=== PATIENT | female | born 1960 | race Caucasian/White ===

== ENCOUNTER 2018-07-20 00:22 | Outpatient (CLI) | payer BC, SELFPAY ==
--- NOTE | 2018-07-20 08:17 | DI.US_ITS ---
SYMPTOMS/DIAGNOSIS: LLQ/GROIN PAIN, POSSIBLE KIDNEY STONES, ? OVARIAN CYST, R10.32 RENAL AND PELVIC ULTRASOUND: The uterus measures 5.9 cm long x 3.3 cm AP x 4.2 cm transverse. The endometrial stripe is within normal limits at .2 cm. No myometrial mass is identified. The right ovary was not visualized transabdominally or transvaginally. The left measures 1.9 x 1.2 x 1.3 cm. There is normal blood flow. No evidence of an ovarian cystic or solid mass is seen. The right kidney measures 10.4 cm. The left kidney measures 10.8 cm. No renal mass, calculus or obstruction is seen. There is normal and symmetric blood flow to the kidneys. The prevoid urinary bladder volume was 28 cc's. The patient was inadequately prepped for bladder evaluation at this time. IMPRESSION: 1. Nonvisualization of the right ovary. 2. No evidence of a pelvic mass. 3. Unremarkable renal ultrasound.
== END 2018-07-20 00:42 ==
PROVIDERS: PCP Family Medicine; Visit Provider Family Medicine
DX: R10.32 Left lower quadrant pain (principal)
CPT/HCPCS: 76770; 76830; 76856

== ENCOUNTER 2018-08-24 01:03 | Outpatient (CLI) | payer BC, SELFPAY ==
--- NOTE | 2018-08-24 09:06 | DI.RAD_ITS ---
SYMPTOM/DIAGNOSIS: LT THIGH, HIP, GROIN PAIN, ON FROLIA, M79.652 LEFT FEMUR: Four views were obtained. There are minimal degenerative changes of the hip. No other bony abnormality is seen.
== END 2018-08-24 01:23 ==
PROVIDERS: PCP Family Medicine; Visit Provider Family Medicine
DX: M79.652 Pain in left thigh (principal); M25.552 Pain in left hip; M16.12 Unilateral primary osteoarthritis, left hip
CPT/HCPCS: 73552

== ENCOUNTER 2018-09-14 16:40 | Outpatient (CLI) | payer BC, SELFPAY ==
[2018-09-14 17:00] LABS: Abs Immature Grans 0.01 k/cumm (0.0-0.09); Absolute Basophil Count 0.02 k/cumm (0.0-0.2); Absolute Eosinophil Count 0.09 k/cumm (0.0-0.7); Absolute Lymphocyte Count 2.13 k/cumm (1.2-3.4); Absolute Monocyte Count 0.69 k/cumm (0.11-0.7); Absolute Neutrophil Count 4.33 k/cumm (1.2-6.7); Basophils % 0.3; Eosinophils % 1.2; HCT 42.3 % (36.0-46.0); HGB 13.5 g/dL (12.0-15.5); Immature Grans % 0.1; Lymphocytes % 29.3; Mean Corp. HGB Concentration 31.9 g/dL (32.0-36.0); Mean Corpuscular Hemoglobin 28.6 pg (27.0-33.0); Mean Corpuscular Volume 89.6 fL (80-95); Mean Platelet Volume 11.1 fL (8.0-11.0); Monocytes % 9.5; Neutrophils % 59.6; Platelet Count 205 x1000/uL (130-400); RBC 4.72 m/cumm (4.00-5.20); White Blood Cell Count 7.27 k/cumm (4.4-10.8)
[2018-09-14 18:35] LABS: ALT 32 U/L (12-78); AST 24 U/L (15-37); Alkaline Phosphatase 104 U/L (46-116); Anion Gap 7.4 mmol/L (3-11); BUN 15 mg/dL (7-18); Bilirubin, Total 0.4 mg/dL (0.2-1.0); CO2 30.6 mmol/L (21.0-32.0); CREATININE 0.89 mg/dL (0.55-1.02); Chloride 101 mmol/L (98-107); Glucose 99 mg/dL (70-100); Potassium 4.2 mmol/L (3.5-5.1); Sodium 139 mmol/L (136-145); Total Protein 7.4 g/dL (6.4-8.2)
== END 2018-09-14 17:00 ==
PROVIDERS: Internal Medicine Hematology; PCP Family Medicine; Visit Provider Internal Medicine Medical Oncology
DX: D05.12 Intraductal carcinoma in situ of left breast (principal); C50.912 Malignant neoplasm of unspecified site of left female breast; Z17.0 Estrogen receptor positive status [ER+]; M85.80 Other specified disorders of bone density and structure, unspecified site; Z79.811 Long term (current) use of aromatase inhibitors
CPT/HCPCS: 36415; 80053; 85025

== ENCOUNTER 2018-12-03 22:17 | Emergency (ER) | payer OTHER, SELFPAY ==
[2018-12-03 22:22] VITALS: BP 139/101; PULSE 116; RESP 18; TEMP 37.2; O2SAT 96
--- NOTE | 2018-12-03 22:43 | DI.RAD_ITS ---
SYMPTOM/DIAGNOSIS: PAIN, LATERAL LOWER RIBS PA AND LATERAL CHEST: Comparison is made with 07/14/16. The heart size is normal. There is an area of consolidation seen at the right lower lobe anteriorly consistent with pneumonia. The left lung appears clear. No effusion is seen. IMPRESSION: Right lower lobe pneumonia.
--- NOTE | 2018-12-03 22:45 | W.ED.GENAD ---
Discharge Plan Disposition Patient Disposition: HOME Condition: Improving Discharge Details Chief Complaint: GenMedical Clinical Impression: Pneumonia Primary Care Provider: Kelsie Neal ED Provider: Daniel Marr Home Meds and New Rx's Prescriptions: Continued famotidine 20 MG tablet 20 mg PO BID Qty: 180 RF: 4 Prolia 60 MG/1 ML syringe 60 mg SQ [id number] RF: 0 simvastatin 20 mg tablet 20 mg PO HS Qty: 90 RF: 4 letrozole [Femara] 2.5 MG tablet 2.5 mg PO DAILY RF: 0 No Action meloxicam 15 mg tablet 15 mg PO DAILY Qty: 30 RF: 1 Discharge Instructions Instructions: Pneumonia (ED) Additional Instructions: Home to rest. Small, frequent sips of fluids to maintain hydration as we discussed. I will ask our care management team to make you a follow-up appointment in clinic for recheck. Tylenol and/or ibuprofen as needed for aches, pains, fever. Return to the emergency department for any acute concern Discharge Data Discharge Date/Time-TO BE ENTERED AT DEPARTURE: 12/04/18 01:23 Medical Decision Making <Leonel Falk MD - Last Filed: 01/01/19 21:50> 22:50 -- 58-year-old female here for the past couple days and now with right lateral lower rib pain. Saturating well no respiratory distress. Clear breath sounds bilaterally. She is tachycardic which I suspect is secondary to pain. Suspect rib contusion versus fracture. Consider pneumothorax. Plan to treat pain with Tylenol and ibuprofen. I will obtain chest x-ray. 23:25 --chest x-ray interpreted by radiology: IMPRESSION: Focal consolidation right lower lobe lung consistent with acute lobar pneumonia. Mild hazy consolidation left lower lobe lung may represent atelectasis versus early pneumonia. Consider aspiration. Atypical presentation of pneumonia. Plan to obtain lactate, cbc, blood cultures. Will give IVF bolus. <Daniel Marr MD - Last Filed: 12/04/18 01:08> Received signout from Dr. Falk. Please see his note regarding details of patient's presentation, evaluation, plan of care. Patient received a gram of ceftriaxone & approximately 1200 cc of parenteral fluid, her pulse corrected, she defervesced, and felt improved. I will prescribe her a course of outpatient oral cephalosporin. She she will follow-up with Dr. Bella in clinic this week. Return precautions discussed at the bedside prior to discharge. Lab Data Lab results reviewed: Yes I reviewed the patient's lab results. Laboratory Results - last 24 hr 12/03/18 12/03/18 12/03/18 23:06 23:35 23:35 WBC 12.30 H RBC 4.35 Hgb 12.5 Hct 38.3 MCV 88.0 MCH 28.7 MCHC 32.6 RDW 13.7 Plt Count 177 MPV 11.1 H Immature Gran % 0.2 Neutrophils % 80.7 Lymphocytes % 9.2 Monocytes % 9.5 Eosinophils % 0.3 Basophils % 0.1 Absolute Neutrophils 9.93 H Absolute Lymphocytes 1.13 L Absolute Monocytes 1.17 H Absolute Eosinophils 0.04 Absolute Basophils 0.01 Sodium Cancelled Potassium Cancelled Chloride Cancelled Carbon Dioxide Cancelled Anion Gap Cancelled BUN Cancelled Creatinine Cancelled Estimated GFR/1.73 m2 Cancelled Glucose Cancelled Lactate Calcium Cancelled Total Bilirubin Cancelled AST Cancelled ALT Cancelled Alkaline Phosphatase Cancelled Total Protein Cancelled Albumin Cancelled Urine Color Dark yellow Urine Clarity Sl cloudy Urine pH 6.5 Ur Specific [place] 1.020 Urine Protein 30 H Urine Ketones 40 H Urine Blood Trace-lysed H Urine Nitrite Negative Urine Bilirubin Small H Urine Urobilinogen >=8.0 Ur Leukocyte Esterase Trace H Urine RBC 5-10 H Urine WBC 20-50 Ur Epithelial Cells Few Urine Crystals Negative Urine Bacteria Moderate Urine Casts Negative Urine Mucus Moderate Ur Culture Indicated? Yes Urine Glucose Negative 12/04/18 12/04/18 00:10 00:10 WBC RBC Hgb Hct MCV MCH MCHC RDW Plt Count MPV Immature Gran % Neutrophils % Lymphocytes % Monocytes % Eosinophils % Basophils % Absolute Neutrophils Absolute Lymphocytes Absolute Monocytes Absolute Eosinophils Absolute Basophils Sodium 138 Potassium 3.6 Chloride 101 Carbon Dioxide 26.0 Anion Gap 11.0 BUN 13 Creatinine 0.89 Estimated GFR/1.73 m2 >= 60.00 Glucose 118 H Lactate 0.6 Calcium 8.3 L Total Bilirubin 1.2 H AST 65 H ALT 52 Alkaline Phosphatase 178 H Total Protein 7.4 Albumin 3.2 L Urine Color Urine Clarity Urine pH Ur Specific [place] Urine Protein Urine Ketones Urine Blood Urine Nitrite Urine Bilirubin Urine Urobilinogen Ur Leukocyte Esterase Urine RBC Urine WBC Ur Epithelial Cells Urine Crystals Urine Bacteria Urine Casts Urine Mucus Ur Culture Indicated? Urine Glucose HPI <Leonel Falk MD - Last Filed: 01/01/19 21:50> General Mode of arrival: ambulatory. Date/Time Provider Initiated Documentation: 12/03/18 22:29. Limitations to Documentation: no limitations. Information obtained by: patient. HPI Narrative: 58-year-old female presents with chief complaint of chest pain. Patient notes that she has had a nonproductive cough for the past couple days. She fell asleep on her couch this evening and woke up around 930 with pain in her right lateral lower ribs. Pain is severe. Pain is worse when she takes a deep breath and on palpation of her ribs. She had associated shortness of breath. No history of blood clots. She has had no recent long distance travel, no recent surgery or immobility. Related Data Home Medications Medication Instructions Recorded Confirmed letrozole [Femara] 2.5 mg PO DAILY 07/14/16 12/31/18 famotidine 20 mg PO BID #180 tab-cap 01/26/18 12/31/18 Prolia 60 mg SQ [id number] 04/19/18 12/31/18 simvastatin 20 mg tablet 20 mg PO HS #90 tab-cap 09/28/18 12/31/18 meloxicam 15 mg tablet 15 mg PO DAILY #30 tab 12/31/18 12/31/18 Previous Rx's Medication Instructions Recorded famotidine 20 mg PO BID #180 tab-cap 01/26/18 simvastatin 20 mg tablet 20 mg PO HS #90 tab-cap 09/28/18 meloxicam 15 mg tablet 15 mg PO DAILY #30 tab 12/31/18 Allergies Allergy/AdvReac Type Severity Reaction Status Date / Time Sulfa (Sulfonamide Allergy Intermediate RASH Unverified 12/31/18 08:27 Antibiotics) General Stated Complaint: GenMedical LIAT: 3 Review of Systems <Leonel Falk MD - Last Filed: 01/01/19 21:50> Review of Systems All systems reviewed & are unremarkable except as noted in HPI and below Constitutional Denies fever(s) Cardiovascular Denies dyspnea Respiratory Reports as per HPI, Reports cough and Denies dyspnea PFSH <Leonel Falk MD - Last Filed: 01/01/19 21:50> Medical History Renal stones (Chronic) Surgical History Biopsy of breast Dilation and curettage Family History Mother Essential hypertension Depression Seizure Father Heart disease Hyperlipidemia Oral cancer Alcohol abuse Sister Diabetes Essential hypertension Breast cancer Brother Alcohol abuse Essential hypertension Maternal Grandfather Lung cancer Paternal Grandfather Stomach cancer Maternal Grandmother COPD (chronic obstructive pulmonary disease) Paternal Grandmother Diabetes Essential hypertension Uterine cancer Son Heart disease Supraventricular tachycardia Son Hyperlipidemia Maternal Cousin Breast cancer Maternal Cousin Breast cancer Maternal Aunt Breast cancer Maternal Aunt Breast cancer Social History household members: spouse highest education level completed: high school graduate current occupational status: employed current occupation: [employer] pets and animals: Yes pets and animals: cat(s) what type of physical activity do you participate in: none frequency: does not exercise Smoking and Tabacco status: Never alcohol intake: current alcohol intake frequency: a few times a month substance use type: does not use diana/uatsdin: Sikh special diana needs: No Seatbelt use: always Exam <Leonel Falk MD - Last Filed: 01/01/19 21:50> Const General: cooperative, uncomfortable and no acute distress Orientation: alert and awake HENMT Head: normocephalic and atraumatic Mouth: moist mucous membranes Eyes Sclera: normal sclerae Neck Neck: trachea midline Resp Auscultation: clear to auscultation bilaterally, no rales, no rhonchi and no wheezes Cardio Jugular venous pressure: no JVD Rate: tachycardic Rhythm: regular rhythm GI Palpation: soft, not firm, no guarding, no masses, not rigid and nontender Skin General skin exam: no rashes or lesions noted Neuro General: alert, awake, oriented x3 and tone normal Extrem General: no calf tenderness bilaterally and no edema Psych Mental Status: mental status grossly normal Course <Leonel Falk MD - Last Filed: 01/01/19 21:50> Vital Signs Temperature 37.2 C 12/03/18 22:22 Pulse 116 H 12/03/18 22:22 Respiratory Rate 18 12/03/18 22:22 Blood Pressure 139/101 H 12/03/18 22:22 Pulse Oximetry 96 02/04/19 22:22 Temperature 37.2 C 12/03/18 22:22 Temperature Source Temporal Artery Scan 12/03/18 22:22 Pulse 116 H 12/03/18 22:22 Respiratory Rate 18 12/03/18 22:22 Respiratory Effort 12/03/18 22:22 Blood Pressure 139/101 H 12/03/18 22:22 Pulse Oximetry 96 12/03/18 22:22 Oxygen Delivery Method Room Air 12/03/18 22:22 Oxygen Flow Rate 0 12/03/18 22:22 Sign Out <Leonel Falk MD - Last Filed: 01/01/19 21:50> Sign Out Data: Sign Out Comment: Care signed out to Dr. Marr. Antibiotic ordered. Plan to follow-up labs, reassess patient for disposition. Last updated by Leonel Falk MD at 12/03/18 23:58
--- NOTE | 2018-12-03 22:49 | ED.GENADUL_ITS ---
Discharge Plan Disposition Patient Disposition: HOME Condition: Improving Discharge Details Chief Complaint: GenMedical Clinical Impression: Pneumonia Primary Care Provider: Kelsie Neal ED Provider: Daniel Marr Home Meds and New Rx's Prescriptions: Continued famotidine 20 MG tablet 20 mg PO BID Qty: 180 RF: 4 Prolia 60 MG/1 ML syringe 60 mg SQ [id number] RF: 0 simvastatin 20 mg tablet 20 mg PO HS Qty: 90 RF: 4 letrozole [Femara] 2.5 MG tablet 2.5 mg PO DAILY RF: 0 No Action meloxicam 15 mg tablet 15 mg PO DAILY Qty: 30 RF: 1 Discharge Instructions Instructions: Pneumonia (ED) Additional Instructions: Home to rest. Small, frequent sips of fluids to maintain hydration as we discussed. I will ask our care management team to make you a follow-up appointment in clinic for recheck. Tylenol and/or ibuprofen as needed for aches, pains, fever. Return to the emergency department for any acute concern Discharge Data Discharge Date/Time-TO BE ENTERED AT DEPARTURE: 12/04/18 01:23 Medical Decision Making <Leonel Falk MD - Last Filed: 01/01/19 21:50> 22:50 -- 58-year-old female here for the past couple days and now with right lateral lower rib pain. Saturating well no respiratory distress. Clear breath sounds bilaterally. She is tachycardic which I suspect is secondary to pain. Suspect rib contusion versus fracture. Consider pneumothorax. Plan to treat pain with Tylenol and ibuprofen. I will obtain chest x-ray. 23:25 --chest x-ray interpreted by radiology: IMPRESSION: Focal consolidation right lower lobe lung consistent with acute lobar pneumonia. Mild hazy consolidation left lower lobe lung may represent atelectasis versus early pneumonia. Consider aspiration. Atypical presentation of pneumonia. Plan to obtain lactate, cbc, blood cultures. Will give IVF bolus. <Daniel Marr MD - Last Filed: 12/04/18 01:08> Received signout from Dr. Falk. Please see his note regarding details of patient's presentation, evaluation, plan of care. Patient received a gram of ceftriaxone & approximately 1200 cc of parenteral fluid, her pulse corrected, she defervesced, and felt improved. I will prescribe her a course of outpatient oral cephalosporin. She she will follow-up with Dr. Bella in clinic this week. Return precautions discussed at the bedside prior to discharge. Lab Data Lab results reviewed: Yes I reviewed the patient's lab results. Laboratory Results - last 24 hr 12/03/18 12/03/18 12/03/18 23:06 23:35 23:35 WBC 12.30 H RBC 4.35 Hgb 12.5 Hct 38.3 MCV 88.0 MCH 28.7 MCHC 32.6 RDW 13.7 Plt Count 177 MPV 11.1 H Immature Gran % 0.2 Neutrophils % 80.7 Lymphocytes % 9.2 Monocytes % 9.5 Eosinophils % 0.3 Basophils % 0.1 Absolute Neutrophils 9.93 H Absolute Lymphocytes 1.13 L Absolute Monocytes 1.17 H Absolute Eosinophils 0.04 Absolute Basophils 0.01 Sodium Cancelled Potassium Cancelled Chloride Cancelled Carbon Dioxide Cancelled Anion Gap Cancelled BUN Cancelled Creatinine Cancelled Estimated GFR/1.73 m2 Cancelled Glucose Cancelled Lactate Calcium Cancelled Total Bilirubin Cancelled AST Cancelled ALT Cancelled Alkaline Phosphatase Cancelled Total Protein Cancelled Albumin Cancelled Urine Color Dark yellow Urine Clarity Sl cloudy Urine pH 6.5 Ur Specific [place] 1.020 Urine Protein 30 H Urine Ketones 40 H Urine Blood Trace-lysed H Urine Nitrite Negative Urine Bilirubin Small H Urine Urobilinogen >=8.0 Ur Leukocyte Esterase Trace H Urine RBC 5-10 H Urine WBC 20-50 Ur Epithelial Cells Few Urine Crystals Negative Urine Bacteria Moderate Urine Casts Negative Urine Mucus Moderate Ur Culture Indicated? Yes Urine Glucose Negative 12/04/18 12/04/18 00:10 00:10 WBC RBC Hgb Hct MCV MCH MCHC RDW Plt Count MPV Immature Gran % Neutrophils % Lymphocytes % Monocytes % Eosinophils % Basophils % Absolute Neutrophils Absolute Lymphocytes Absolute Monocytes Absolute Eosinophils Absolute Basophils Sodium 138 Potassium 3.6 Chloride 101 Carbon Dioxide 26.0 Anion Gap 11.0 BUN 13 Creatinine 0.89 Estimated GFR/1.73 m2 >= 60.00 Glucose 118 H Lactate 0.6 Calcium 8.3 L Total Bilirubin 1.2 H AST 65 H ALT 52 Alkaline Phosphatase 178 H Total Protein 7.4 Albumin 3.2 L Urine Color Urine Clarity Urine pH Ur Specific [place] Urine Protein Urine Ketones Urine Blood Urine Nitrite Urine Bilirubin Urine Urobilinogen Ur Leukocyte Esterase Urine RBC Urine WBC Ur Epithelial Cells Urine Crystals Urine Bacteria Urine Casts Urine Mucus Ur Culture Indicated? Urine Glucose HPI <Leonel Falk MD - Last Filed: 01/01/19 21:50> General Mode of arrival: ambulatory . Date/Time Provider Initiated Documentation: 12/03/18 22:29 . Limitations to Documentation: no limitations . Information obtained by: patient . HPI Narrative: 58-year-old female presents with chief complaint of chest pain. Patient notes that she has had a nonproductive cough for the past couple days. She fell asleep on her couch this evening and woke up around 930 with pain in her right lateral lower ribs. Pain is severe. Pain is worse when she takes a deep breath and on palpation of her ribs. She had associated shortness of breath. No history of blood clots. She has had no recent long distance travel, no recen t surgery or immobility. Related Data Home Medications Medication Instructions Recorded Confirmed letrozole [Femara] 2.5 mg PO DAILY 07/14/16 12/31/18 famotidine 20 mg PO BID #180 tab-cap 01/26/18 12/31/18 Prolia 60 mg SQ [id number] 04/19/18 12/31/18 simvastatin 20 mg tablet 20 mg PO HS #90 tab-cap 09/28/18 12/31/18 meloxicam 15 mg tablet 15 mg PO DAILY #30 tab 12/31/18 12/31/18 Previous Rx's Medication Instructions Recorded famotidine 20 mg PO BID #180 tab-cap 01/26/18 simvastatin 20 mg tablet 20 mg PO HS #90 tab-cap 09/28/18 meloxicam 15 mg tablet 15 mg PO DAILY #30 tab 12/31/18 Allergies Allergy/AdvReac Type Severity Reaction Status Date / Time Sulfa (Sulfonamide Allergy Intermediate RASH Unverified 12/31/18 08:27 Antibiotics) General Stated Complaint: GenMedical LIAT: 3 Review of Systems <Leonel Falk MD - Last Filed: 01/01/19 21:50> Review of Systems All systems reviewed & are unremarkable except as noted in HPI and below Constitutional Denies fever(s) Cardiovascular Denies dyspnea Respiratory Reports as per HPI, Reports cough and Denies dyspnea PFSH <Leonel Falk MD - Last Filed: 01/01/19 21:50> Medical History Renal stones (Chronic) Surgical History Biopsy of breast Dilation and curettage Family History Mother Essential hypertension Depression Seizure Father Heart disease Hyperlipidemia Oral cancer Alcohol abuse Sister Diabetes Essential hypertension Breast cancer Brother Alcohol abuse Essential hypertension Maternal Grandfather Lung cancer Paternal Grandfather Stomach cancer Maternal Grandmother COPD (chronic obstructive pulmonary disease) Paternal Grandmother Diabetes Essential hypertension Uterine cancer Son Heart disease Supraventricular tachycardia Son Hyperlipidemia Maternal Cousin Breast cancer Maternal Cousin Breast cancer Maternal Aunt Breast cancer Maternal Aunt Breast cancer Social History household members: spouse highest education level completed: high school graduate current occupational status: employed current occupation: [employer] pets and animals: Yes pets and animals: cat(s) what type of physical activity do you participate in: none frequency: does not exercise Smoking and Tabacco status: Never alcohol intake: current alcohol intake frequency: a few times a month substance use type: does not use diana/confucianism: Confucianist special diana needs: No Seatbelt use: always Exam <Leonel Falk MD - Last Filed: 01/01/19 21:50> Const General: cooperative, uncomfortable and no acute distress Orientation: alert and awake HENMT Head: normocephalic and atraumatic Mouth: moist mucous membranes Eyes Sclera: normal sclerae Neck Neck: trachea midline Resp Auscultation: clear to auscultation bilaterally, no rales, no rhonchi and no wheezes Cardio Jugular venous pressure: no JVD Rate: tachycardic Rhythm: regular rhythm GI Palpation: soft, not firm, no guarding, no masses, not rigid and nontender Skin General skin exam: no rashes or lesions noted Neuro General: alert, awake, oriented x3 and tone normal Extrem General: no calf tenderness bilaterally and no edema Psych Mental Status: mental status grossly normal Course <Leonel Falk MD - Last Filed: 01/01/19 21:50> Vital Signs Temperature 37.2 C 12/03/18 22:22 Pulse 116 H 12/03/18 22:22 Respiratory Rate 18 12/03/18 22:22 Blood Pressure 139/101 H 12/03/18 22:22 Pulse Oximetry 96 12/03/18 22:22 Temperature 37.2 C 12/03/18 22:22 Temperature Source Temporal Artery Scan 12/03/18 22:22 Pulse 116 H 12/03/18 22:22 Respiratory Rate 18 12/03/18 22:22 Respiratory Effort 12/03/18 22:22 Blood Pressure 139/101 H 12/03/18 22:22 Pulse Oximetry 96 12/03/18 22:22 Oxygen Delivery Method Room Air 12/03/18 22:22 Oxygen Flow Rate 0 12/03/18 22:22 Sign Out <Leonel Falk MD - Last Filed: 01/01/19 21:50> Sign Out Data: Sign Out Comment: Care signed out to Dr. Marr. Antibiotic ordered. Plan to follow-up labs, reassess patient for disposition. Last updated by Leonel Falk MD at 12/03/18 23:58
[2018-12-03] MEDS: Ibuprofen 600 MG TAB PO (23:00)
[2018-12-03] MEDS: Acetaminophen 325 MG TAB 650 MG PO (23:00)
--- NOTE | 2018-12-03 23:20 | DI.VRAD_ITS ---
EXAM: XR Chest, 2 Views EXAM DATE/TIME: 12/03/2018 10:44 PM CLINICAL HISTORY: 58 years old, female; Pain; Chest wall pain; Patient HX: Pain, ttp lateral lower ribs TECHNIQUE: XR of the chest, 2 views. COMPARISON: CR CHEST 2 VIEWS PA,LAT 07/14/2016 9:26 PM FINDINGS: Lungs: Focal consolidation right lower lobe lung consistent with acute lobar pneumonia. Mild hazy consolidation left lower lobe lung may represent atelectasis versus early pneumonia. Consider aspiration. The pulmonary vasculature is normal. Pleural space: There is no evidence of pneumothorax. There are no pleural effusions present. Heart/Mediastinum: The cardiac silhouette is within normal limits. The mediastinum is normal. Bones/joints: The spine, sternum, ribs, and pectoral girdles show no evidence of acute abnormality Soft tissues: There are no soft tissue masses or calcifications. IMPRESSION: Focal consolidation right lower lobe lung consistent with acute lobar pneumonia. Mild hazy consolidation left lower lobe lung may represent atelectasis versus early pneumonia. Consider aspiration. Dictated and Authenticated by: Maximo Mccauley MD. Ordering:MADISON Castaneda MD
[2018-12-03 23:27] LABS: Bilirubin Small (Negative); Blood Trace-lysed (Negative); Clarity Sl Cloudy; Glucose Negative (Negative); Ketones 40 mg/dL (Negative); Leukocyte Esterase Trace (Negative); Nitrite Negative (Negative); Urobilinogen >=8.0 EU/dL (Up TO 0.2); pH 6.5 (5-8)
[2018-12-03] MEDS: Lactated Ringers 1,000 ML 1000 ML IV (23:35)
[2018-12-03 23:42] VITALS: PULSE 103; RESP 20; TEMP 37.9; O2SAT 93
[2018-12-03 23:54] LABS: Abs Immature Grans 0.02 k/cumm (0.0-0.09); Absolute Basophil Count 0.01 k/cumm (0.0-0.2); Absolute Eosinophil Count 0.04 k/cumm (0.0-0.7); Absolute Lymphocyte Count 1.13 k/cumm (1.2-3.4); Absolute Monocyte Count 1.17 k/cumm (0.11-0.7); Absolute Neutrophil Count 9.93 k/cumm (1.2-6.7); Basophils % 0.1; Eosinophils % 0.3; HCT 38.3 % (36.0-46.0); HGB 12.5 g/dL (12.0-15.5); Immature Grans % 0.2; Lymphocytes % 9.2; Mean Corp. HGB Concentration 32.6 g/dL (32.0-36.0); Mean Corpuscular Hemoglobin 28.7 pg (27.0-33.0); Mean Platelet Volume 11.1 fL (8.0-11.0); Monocytes % 9.5; Neutrophils % 80.7; Platelet Count 177 x1000/uL (130-400); RBC 4.35 m/cumm (4.00-5.20); RBC Distribution Width 13.7 % (11.7-14.6)
[2018-12-03 23:55] LABS: Bacteria Moderate HPF (Negative); Crystals Negative HPF (Negative); Epithelial Cells Few HPF (Negative); WBC 20-50 HPF (0-5)
[2018-12-03 23:56] LABS: C & S Indicated? Yes; Casts Negative LPF (Negative); Mucus Moderate (Negative)
[2018-12-04] MEDS: Normal Saline 1,000 ML 1000 ML IV (00:14)
[2018-12-04 00:16] LABS: Lactate-non-spesis 0.6 mmol/l (0.6-1.4)
[2018-12-04 00:34] LABS: ALT 52 U/L (12-78); AST 65 U/L (15-37); Albumin 3.2 g/dL (3.4-5.0); Alkaline Phosphatase 178 U/L (46-116); BUN 13 mg/dL (7-18); Bilirubin, Total 1.2 mg/dL (0.2-1.0); CREATININE 0.89 mg/dL (0.55-1.02); Calcium 8.3 mg/dL (8.5-10.1); Chloride 101 mmol/L (98-107); Glucose 118 mg/dL (70-100); Potassium 3.6 mmol/L (3.5-5.1); Sodium 138 mmol/L (136-145); Total Protein 7.4 g/dL (6.4-8.2)
[2018-12-04 01:22] VITALS: BP 105/53; PULSE 87; RESP 18; RESP 20; TEMP 36.7; O2SAT 95
--- NOTE | 2018-12-04 09:35 | CMPROGNOTE_ITS ---
Care Management Progress Note 12/04-Dr. Marr requested assistance with a PCP (Val) f/u at the end of the week for pneumonia. Referral faxed to [facility] this .
== END 2018-12-04 01:23 | disposition home or self-care (01) ==
PROVIDERS: Student in an Organized Health Care Education/Training Program; Emergency Provider Emergency Medicine; PCP Family Medicine
DX: J18.9 Pneumonia, unspecified organism (principal)
CPT/HCPCS: 36415; 80053; 87040; 96361; 96365; 99284; 71046; 81003; 81015; 83605; 85025; 87086; J0696

== ENCOUNTER 2019-02-24 14:45 | Emergency (ER) | payer OTHER, SELFPAY ==
[2019-02-24 14:49] VITALS: BP 135/94; PULSE 87; RESP 18; TEMP 36.2; O2SAT 99
--- NOTE | 2019-02-24 15:08 | DI.RAD_ITS ---
SYMPTOMS/DIAGNOSIS: DORSAL HAND PAIN, SWELLING, ERYTHEMA, POSSIBLE CELLULITIS LEFT HAND: Three views. No priors. No bone or joint abnormality is identified. The soft tissues are unremarkable. IMPRESSION: No acute abnormality.
--- NOTE | 2019-02-24 15:20 | W.ED.GENAD ---
Discharge Plan Disposition Patient Disposition: HOME Discharge Details Chief Complaint: GenMedical Clinical Impression: Cellulitis of hand, left Primary Care Provider: Kelsie Neal ED Provider: Santos Price Home Meds and New Rx's Prescriptions: New cephalexin 500 mg capsule 500 mg PO QID 10 Days Qty: 40 RF: 0 Continued Prolia 60 MG/1 ML syringe 60 mg SQ [id number] RF: 0 simvastatin 20 mg tablet 20 mg PO HS Qty: 90 RF: 4 letrozole [Femara] 2.5 MG tablet 2.5 mg PO DAILY RF: 0 meloxicam 15 mg tablet 15 mg PO PRN PRNRF: 0 famotidine 20 MG tablet 20 mg PO DAILY RF: 0 Discharge Instructions Instructions: Cellulitis (ED) Additional Instructions: You were seen and evaluated in the emergency department today for apparent left hand cellulitis. This is an infection involving the skin. You have been given an IV dose of antibiotics here and sent home with a prescription. Please return to the emergency department tomorrow for a cellulitis recheck . Call or return sooner should you develop fever, worsening pain, worsening swelling, or significant extension of the redness. Referrals: Kelsie Neal MD [Primary Care Provider] - 1 week Discharge Data Discharge Date/Time-TO BE ENTERED AT DEPARTURE: 02/24/19 17:25 Medical Decision Making This is a nontoxic-appearing 58-year-old female presenting with apparent cellulitis involving the left dorsal hand. Symptoms have worsened over the last 30 hours. Vitals stable and is without fever here. Exam limited to pain over the area. No evidence of tenosynovitis or septic arthritis. Plain films negative for lytic bone lesions or evidence of SC air. laboratory analysis reveals a slight elevation in CRP. Normal white count. Patient given a dose of Ancef 1 g here. Discussed admission with Dr. Campos who does not feel admission is necessary at this time. He recommends a trial of p.o. antibiotics with a ED return visit and recheck tomorrow. I discussed this with the patient and she is willing to return. Return precautions discussed in detail. Plan is to send home with Keflex 500 mg every 6 hours. Lab Data Laboratory Results - last 24 hr 02/24/19 02/24/19 15:25 15:25 WBC 8.70 RBC 4.87 Hgb 13.6 Hct 42.6 MCV 87.5 MCH 27.9 MCHC 31.9 L RDW 14.5 Plt Count 240 MPV 11.0 Immature Gran % 0.2 Neutrophils % 69.2 Lymphocytes % 21.1 Monocytes % 8.9 Eosinophils % 0.5 Basophils % 0.1 Absolute Neutrophils 6.02 Absolute Lymphocytes 1.84 Absolute Monocytes 0.77 H Absolute Eosinophils 0.04 Absolute Basophils 0.01 Sodium 139 Potassium 3.8 Chloride 101 Carbon Dioxide 29.8 Anion Gap 8.2 BUN 18 Creatinine 0.98 Estimated GFR/1.73 m2 57.89 Glucose 90 Calcium 9.4 Total Bilirubin 0.8 AST 25 ALT 29 Alkaline Phosphatase 111 C-Reactive Protein 1.01 H Total Protein 8.3 H Albumin 4.2 HPI General Date/Time Provider Initiated Documentation: 02/24/19 14:47. HPI Narrative: Mrs. Harrison is a 58-year-old female with a significant past medical history of breast cancer status post left mastectomy and radiation therapy 3 years ago. She presents today with 2 days of worsening dorsal left hand pain redness and swelling. No trauma reported. She denies any fevers chills or myalgias. Pain is exacerbated with movement of the wrist and hand Related Data Home Medications Medication Instructions Recorded Confirmed letrozole [Femara] 2.5 mg PO DAILY 07/14/16 02/24/19 Prolia 60 mg SQ [id number] 04/19/18 02/24/19 simvastatin 20 mg tablet 20 mg PO HS #90 tab-cap 09/28/18 02/24/19 cephalexin 500 mg PO QID 10 Days #40 cap 02/24/19 famotidine 20 mg PO DAILY 02/24/19 02/24/19 meloxicam 15 mg PO PRN PRN 02/24/19 02/24/19 Previous Rx's Medication Instructions Recorded simvastatin 20 mg tablet 20 mg PO HS #90 tab-cap 09/28/18 cephalexin 500 mg PO QID 10 Days #40 cap 02/24/19 Allergies Allergy/AdvReac Type Severity Reaction Status Date / Time Sulfa (Sulfonamide Allergy Intermediate RASH Unverified 02/24/19 14:52 Antibiotics) General Stated Complaint: GenMedical LIAT: 3 Review of Systems Constitutional Denies body ache(s), Denies fatigue, Denies fever(s), Denies lethargy, Denies malaise and Denies night sweats Eyes Reports as per HPI ENT Denies neck pain Cardiovascular Denies chest pain, Denies pedal edema and Denies dyspnea Respiratory Denies cough and Denies dyspnea Gastrointestinal Denies nausea and Denies vomiting Genitourinary Denies dysuria and Denies flank pain Musculoskeletal Denies back pain, Denies joint swelling, Denies muscle cramps, Denies muscle weakness, Denies neck pain, Denies numbness, Denies stiffness and Denies tingling Integumentary/Breasts Reports dry skin, Denies lesions, Reports skin pain, Denies skin ulcer, Denies sores and Denies wounds Neurologic Denies focal weakness, Denies numbness and Denies tingling Endocrine Denies fatigue Hematologic/Lymphatic Denies easy bleeding, Denies easy bruising and Denies lymphadenopathy PFS Medical History Renal stones (Chronic) Surgical History Biopsy of breast Dilation and curettage Family History Mother Essential hypertension Depression Seizure Father Heart disease Hyperlipidemia Oral cancer Alcohol abuse Sister Diabetes Essential hypertension Breast cancer Brother Alcohol abuse Essential hypertension Maternal Grandfather Lung cancer Paternal Grandfather Stomach cancer Maternal Grandmother COPD (chronic obstructive pulmonary disease) Paternal Grandmother Diabetes Essential hypertension Uterine cancer Son Heart disease Supraventricular tachycardia Son Hyperlipidemia Maternal Cousin Breast cancer Maternal Cousin Breast cancer Maternal Aunt Breast cancer Maternal Aunt Breast cancer Social History Smoking/Tobacco Use Status: Never Alcohol Intake: current Alcohol Intake frequency: a few times a month Drug use: Never Substance use type: does not use Household members: spouse 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 Pets and animals: Yes Pets and animals: cat(s) What type of physical activity do you participate in: none Frequency: does not exercise Susanne/Worship: Religion Special susanne needs: No Seatbelt use: always Do you feel safe at home: Yes Do you feel safe in your relationship?: Yes Exam Const General: cooperative, healthy appearing and comfortable Nutritional Appearance: average body habitus Orientation: alert and awake HENAR Head: normal to inspection Ears: hearing grossly normal bilaterally General nose exam: external nose normal Face and sinus: normal facial exam Mouth: oral mucosae normal Eyes General: appearance normal, both eyes and all related structures Neck Neck: normal visual inspection, full ROM, no lymphadenopathy and no meningeal signs Chest Chest: normal inspection of the chest Resp Effort & Inspection: normal respiratory effort and able to speak in complete sentences Auscultation: clear to auscultation bilaterally Cardio Jugular venous pressure: no JVD Rate: regular rate and bradycardic Rhythm: regular rhythm Heart Sounds: S1 normal and S2 normal GI Inspection: normal to inspection Palpation: soft and no hepatosplenomegaly Back/Spine/Pelvis Cervical Spine: normal cervical lordosis and cervical ROM normal Skin General skin exam: elasticity normal and turgor normal Lesions: no lesions Trauma: no lacerations or abrasions Wounds: no wounds Extrem Left upper extremity: hand (Well-demarcated erythema involving the medial dorsal aspect of left hand) Details: normal capillary refill, neuromotor exam normal, neurosensory exam normal, tendon exam normal, tenderness Location: of the dorsal hand, normal ROM of fingers, warmth and swelling; no lacerations, no ecchymosis and no crepitus Course Vital Signs Temperature 36.2 C L 02/24/19 14:49 Pulse 87 02/24/19 14:49 Respiratory Rate 18 02/24/19 14:49 Blood Pressure 135/94 H 02/24/19 14:49 Pulse Oximetry 99 02/24/19 14:49 Temperature 36.2 C L 02/24/19 14:49 Temperature Source Skin 02/24/19 14:49 Pulse 87 02/24/19 14:49 Respiratory Rate 18 02/24/19 14:49 Respiratory Effort Non-Labored 02/24/19 14:59 Blood Pressure 135/94 H 02/24/19 14:49 Blood Pressure Position Sitting 02/24/19 14:49 Pulse Oximetry 99 02/24/19 14:49 Oxygen Delivery Method Room Air 02/24/19 14:49 Oxygen Flow Rate 0 02/24/19 14:49 Pain Level 5 02/24/19 14:49
--- NOTE | 2019-02-24 15:26 | ED.GENADUL_ITS ---
Discharge Plan Disposition Patient Disposition: HOME Discharge Details Chief Complaint: GenMedical Clinical Impression: Cellulitis of hand, left Primary Care Provider: Kelsie Neal ED Provider: Santos Price Home Meds and New Rx's Prescriptions: New cephalexin 500 mg capsule 500 mg PO QID 10 Days Qty: 40 RF: 0 Continued Prolia 60 MG/1 ML syringe 60 mg SQ [id number] RF: 0 simvastatin 20 mg tablet 20 mg PO HS Qty: 90 RF: 4 letrozole [Femara] 2.5 MG tablet 2.5 mg PO DAILY RF: 0 meloxicam 15 mg tablet 15 mg PO PRN PRNRF: 0 famotidine 20 MG tablet 20 mg PO DAILY RF: 0 Discharge Instructions Instructions: Cellulitis (ED) Additional Instructions: You were seen and evaluated in the emergency department today for apparent left hand cellulitis. This is an infection involving the skin. You have been given an IV dose of antibiotics here and sent home with a prescription. Please return to the emergency department tomorrow for a cellulitis recheck . Call or return sooner should you develop fever, worsening pain, worsening swelling, or significant extension of the redness. Referrals: Kelsie Neal MD [Primary Care Provider] - 1 week Discharge Data Discharge Date/Time-TO BE ENTERED AT DEPARTURE: 02/24/19 17:25 Medical Decision Making This is a nontoxic-appearing 58-year-old female presenting with apparent cellulitis involving the left dorsal hand. Symptoms have worsened over the last 30 hours. Vitals stable and is without fever here. Exam limited to pain over the area. No evidence of tenosynovitis or septic arthritis. Plain films negative for lytic bone lesions or evidence of SC air. laboratory analysis reveals a slight elevation in CRP. Normal white count. Patient given a dose of Ancef 1 g here. Discussed admission with Dr. Campos who does not feel admission is necessary at this time. He recommends a trial of p.o. antibiotics with a ED return visit and recheck tomorrow. I discussed this with the patient and she is willing to return. Return precautions discussed in detail. Plan is to send home with Keflex 500 mg every 6 hours. Lab Data Laboratory Results - last 24 hr 02/24/19 02/24/19 15:25 15:25 WBC 8.70 RBC 4.87 Hgb 13.6 Hct 42.6 MCV 87.5 MCH 27.9 MCHC 31.9 L RDW 14.5 Plt Count 240 MPV 11.0 Immature Gran % 0.2 Neutrophils % 69.2 Lymphocytes % 21.1 Monocytes % 8.9 Eosinophils % 0.5 Basophils % 0.1 Absolute Neutrophils 6.02 Absolute Lymphocytes 1.84 Absolute Monocytes 0.77 H Absolute Eosinophils 0.04 Absolute Basophils 0.01 Sodium 139 Potassium 3.8 Chloride 101 Carbon Dioxide 29.8 Anion Gap 8.2 BUN 18 Creatinine 0.98 Estimated GFR/1.73 m2 57.89 Glucose 90 Calcium 9.4 Total Bilirubin 0.8 AST 25 ALT 29 Alkaline Phosphatase 111 C-Reactive Protein 1.01 H Total Protein 8.3 H Albumin 4.2 HPI General Date/Time Provider Initiated Documentation: 02/24/19 14:47 . HPI Narrative: Mrs. Harrison is a 58-year-old female with a significant past medical history of breast cancer status post left mastectomy and radiation therapy 3 years ago. She presents today with 2 days of worsening dorsal left hand pain redness and swelling. No trauma reported. She denies any fevers chills or myalgias. Pain is exacerbated with movement of the wrist and hand Related Data Home Medications Medication Instructions Recorded Confirmed letrozole [Femara] 2.5 mg PO DAILY 07/14/16 02/24/19 Prolia 60 mg SQ [id number] 04/19/18 02/24/19 simvastatin 20 mg tablet 20 mg PO HS #90 tab-cap 09/28/18 02/24/19 cephalexin 500 mg PO QID 10 Days #40 cap 02/24/19 famotidine 20 mg PO DAILY 02/24/19 02/24/19 meloxicam 15 mg PO PRN PRN 02/24/19 02/24/19 Previous Rx's Medication Instructions Recorded simvastatin 20 mg tablet 20 mg PO HS #90 tab-cap 09/28/18 cephalexin 500 mg PO QID 10 Days #40 cap 02/24/19 Allergies Allergy/AdvReac Type Severity Reaction Status Date / Time Sulfa (Sulfonamide Allergy Intermediate RASH Unverified 02/24/19 14:52 Antibiotics) General Stated Complaint: GenMedical LIAT: 3 Review of Systems Constitutional Denies body ache(s), Denies fatigue, Denies fever(s), Denies lethargy, Denies malaise and Denies night sweats Eyes Reports as per HPI ENT Denies neck pain Cardiovascular Denies chest pain, Denies pedal edema and Denies dyspnea Respiratory Denies cough and Denies dyspnea Gastrointestinal Denies nausea and Denies vomiting Genitourinary Denies dysuria and Denies flank pain Musculoskeletal Denies back pain, Denies joint swelling, Denies muscle cramps, Denies muscle weakness, Denies neck pain, Denies numbness, Denies stiffness and Denies tingling Integumentary/Breasts Reports dry skin, Denies lesions, Reports skin pain, Denies skin ulcer, Denies sores and Denies wounds Neurologic Denies focal weakness, Denies numbness and Denies tingling Endocrine Denies fatigue Hematologic/Lymphatic Denies easy bleeding, Denies easy bruising and Denies lymphadenopathy PFS Medical History Renal stones (Chronic) Surgical History Biopsy of breast Dilation and curettage Family History Mother Essential hypertension Depression Seizure Father Heart disease Hyperlipidemia Oral cancer Alcohol abuse Sister Diabetes Essential hypertension Breast cancer Brother Alcohol abuse Essential hypertension Maternal Grandfather Lung cancer Paternal Grandfather Stomach cancer Maternal Grandmother COPD (chronic obstructive pulmonary disease) Paternal Grandmother Diabetes Essential hypertension Uterine cancer Son Heart disease Supraventricular tachycardia Son Hyperlipidemia Maternal Cousin Breast cancer Maternal Cousin Breast cancer Maternal Aunt Breast cancer Maternal Aunt Breast cancer Social History Smoking/Tobacco Use Status: Never Alcohol Intake: current Alcohol Intake frequency: a few times a month Drug use: Never Substance use type: does not use Household members: spouse 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 Pets and animals: Yes Pets and animals: cat(s) What type of physical activity do you participate in: none Frequency: does not exercise Susanne/Baptist: Moravian Special susanne needs: No Seatbelt use: always Do you feel safe at home: Yes Do you feel safe in your relationship?: Yes Exam Const General: cooperative, healthy appearing and comfortable Nutritional Appearance: average body habitus Orientation: alert and awake HENGA Head: normal to inspection Ears: hearing grossly normal bilaterally General nose exam: external nose normal Face and sinus: normal facial exam Mouth: oral mucosae normal Eyes General: appearance normal, both eyes and all related structures Neck Neck: normal visual inspection, full ROM, no lymphadenopathy and no meningeal signs Chest Chest: normal inspection of the chest Resp Effort & Inspection: normal respiratory effort and able to speak in complete sentences Auscultation: clear to auscultation bilaterally Cardio Jugular venous pressure: no JVD Rate: regular rate and bradycardic Rhythm: regular rhythm Heart Sounds: S1 normal and S2 normal GI Inspection: normal to inspection Palpation: soft and no hepatosplenomegaly Back/Spine/Pelvis Cervical Spine: normal cervical lordosis and cervical ROM normal Skin General skin exam: elasticity normal and turgor normal Lesions: no lesions Trauma: no lacerations or abrasions Wounds: no wounds Extrem Left upper extremity: hand (Well-demarcated erythema involving the medial dorsal aspect of left hand) Details: normal capillary refill, neuromotor exam normal, neurosensory exam normal, tendon exam normal, tenderness Location: of the dorsal hand, normal ROM of fingers, warmth and swelling; no lacerations, no ecchymosis and no crepitus Course Vital Signs Temperature 36.2 C L 02/24/19 14:49 Pulse 87 02/24/19 14:49 Respiratory Rate 18 02/24/19 14:49 Blood Pressure 135/94 H 02/24/19 14:49 Pulse Oximetry 99 02/24/19 14:49 Temperature 36.2 C L 02/24/19 14:49 Temperature Source Skin 02/24/19 14:49 Pulse 87 02/24/19 14:49 Respiratory Rate 18 02/24/19 14:49 Respiratory Effort Non-Labored 02/24/19 14:59 Blood Pressure 135/94 H 02/24/19 14:49 Blood Pressure Position Sitting 02/24/19 14:49 Pulse Oximetry 99 02/24/19 14:49 Oxygen Delivery Method Room Air 02/24/19 14:49 Oxygen Flow Rate 0 02/24/19 14:49 Pain Level 5 02/24/19 14:49
[2019-02-24 15:39] LABS: Abs Immature Grans 0.02 k/cumm (0.0-0.09); Absolute Basophil Count 0.01 k/cumm (0.0-0.2); Absolute Eosinophil Count 0.04 k/cumm (0.0-0.7); Absolute Lymphocyte Count 1.84 k/cumm (1.2-3.4); Absolute Monocyte Count 0.77 k/cumm (0.11-0.7); Absolute Neutrophil Count 6.02 k/cumm (1.2-6.7); Basophils % 0.1; Eosinophils % 0.5; HCT 42.6 % (36.0-46.0); HGB 13.6 g/dL (12.0-15.5); Immature Grans % 0.2; Lymphocytes % 21.1; Mean Corp. HGB Concentration 31.9 g/dL (32.0-36.0); Mean Corpuscular Hemoglobin 27.9 pg (27.0-33.0); Mean Corpuscular Volume 87.5 fL (80-95); Monocytes % 8.9; Neutrophils % 69.2; Platelet Count 240 x1000/uL (130-400); RBC 4.87 m/cumm (4.00-5.20); RBC Distribution Width 14.5 % (11.7-14.6)
[2019-02-24 15:48] LABS: ALT 29 U/L (12-78); AST 25 U/L (15-37); Albumin 4.2 g/dL (3.4-5.0); Alkaline Phosphatase 111 U/L (46-116); Anion Gap 8.2 mmol/L (3-11); BUN 18 mg/dL (7-18); Bilirubin, Total 0.8 mg/dL (0.2-1.0); C-Reactive Protein 1.01 mg/dL (0.0-0.3); CO2 29.8 mmol/L (21.0-32.0); CREATININE 0.98 mg/dL (0.55-1.02); Calcium 9.4 mg/dL (8.5-10.1); Chloride 101 mmol/L (98-107); Estimated GFR 57.89 (mL/min/1.73m2); Glucose 90 mg/dL (70-100); Potassium 3.8 mmol/L (3.5-5.1); Sodium 139 mmol/L (136-145); Total Protein 8.3 g/dL (6.4-8.2)
--- NOTE | 2019-02-24 15:51 | DI.VRAD_ITS ---
EXAM: XR Left Hand Complete, 3 or more Views EXAM DATE/TIME: 02/24/2019 3:10 PM CLINICAL HISTORY: 58 years old, female; Hand; Left; Patient HX: Non trauma, increasing pain redness and swelling since Monday TECHNIQUE: Imaging protocol: XR Left hand. Views: 3 or more views COMPARISON: No relevant prior studies available. FINDINGS: The bony structures are in anatomic alignment. No fracture is present. No radiopaque foreign body is identified. The joint spaces are well maintained. IMPRESSION: Negative exam. Dictated and Authenticated by: Unruly Arnett MD. Ordering:ANABELLA Graham MD
[2019-02-24 17:02] VITALS: BP 129/74; PULSE 84; RESP 16; TEMP 37.2; O2SAT 97
[2019-02-24] MEDS: Cephalexin 500 MG CAP 1000 MG PO (17:14)
== END 2019-02-24 17:25 | disposition home or self-care (01) ==
PROVIDERS: Emergency Provider Physician Assistant; PCP Family Medicine
DX: L03.114 Cellulitis of left upper limb (principal)
CPT/HCPCS: 80053; 96365; 99284; 73130; 85025; 86140

== ENCOUNTER 2019-02-25 09:55 | Emergency (ER) | payer OTHER, SELFPAY ==
[2019-02-25 09:59] VITALS: BP 138/74; PULSE 66; RESP 16; TEMP 36.5; O2SAT 99
--- NOTE | 2019-02-25 11:24 | W.ED.GENAD ---
Discharge Plan Disposition Patient Disposition: HOME Condition: Improving Discharge Details Chief Complaint: Recheck Clinical Impression: Cellulitis Primary Care Provider: Kelsie Neal ED Provider: Fabiano Webber Home Meds and New Rx's Prescriptions: Continued Prolia 60 MG/1 ML syringe 60 mg SQ [id number] RF: 0 simvastatin 20 mg tablet 20 mg PO HS Qty: 90 RF: 4 letrozole [Femara] 2.5 MG tablet 2.5 mg PO DAILY RF: 0 meloxicam 15 mg tablet 15 mg PO PRN PRNRF: 0 famotidine 20 MG tablet 20 mg PO DAILY RF: 0 cephalexin 500 mg capsule 500 mg PO QID 10 Days Qty: 40 RF: 0 Discharge Instructions Instructions: Cellulitis (ED) Additional Instructions: Continue to take your antibiotic as prescribed and keep your follow-up appointments as previously scheduled for tomorrow and mention to them your hand infection so they can reevaluate. Feel free to return to the emergency department for any new or worsening symptoms or further concerns. Referrals: Kelsie Neal MD [Primary Care Provider] - (As needed for reassessment) Discharge Data Discharge Date/Time-TO BE ENTERED AT DEPARTURE: 02/25/19 11:36 Medical Decision Making Patient presenting the emergency department for recheck of cellulitis. Patient states that this occurred 3 days ago and every 24 hours seem to double in size. Patient had appropriate and thorough work-up yesterday evening. Patient was given Ancef and states that she took 2 doses of Keflex before coming to the emergency department. She does state that she has noted improvement of swelling and symptoms along with being able to close hand and noticing significant decrease in pain. Physical exam shows continued erythema to the dorsal aspect of left hand that remains within the marked borders of previous cellulitis. Given that it is been less than 24 hours on antibiotics I would not expect there to be drastic improvement but given that there is no worsening symptoms, patient denies fever chills, no streaking erythema, and patient stating improvement I do not feel that anything else needs to be done at this point but for patient to continue on Keflex. Patient does state that she has follow-up appointments for other medical complaints tomorrow which I informed her she should mention to them her cellulitis for recheck purposes only but that she would not need to return to the emergency department unless worsening symptoms occurred. Return precautions were discussed. After discussion of diagnosis and plan of care patient has no further needs, questions, or concerns and states clear understanding to return to the emergency department for any worsening symptoms. HPI General Mode of arrival: ambulatory. Date/Time Provider Initiated Documentation: 02/25/19 10:03. Limitations to Documentation: no limitations. Information obtained by: patient, RN notes reviewed and old records reviewed. History of Present Illness 58 year old F presents to the emergency department with the chief complaint of Cellulitis, Quality is described as other (Denies pain), and is localized to the left and upper extremity. Patient started experiencing this day(s) (3) and it has been constant. Patient did receive the following treatments prior to arrival, other (Keflex) Related Data Home Medications Medication Instructions Recorded Confirmed letrozole [Femara] 2.5 mg PO DAILY 07/14/16 02/25/19 Prolia 60 mg SQ [id number] 04/19/18 02/24/19 simvastatin 20 mg tablet 20 mg PO HS #90 tab-cap 09/28/18 02/25/19 cephalexin 500 mg PO QID 10 Days #40 cap 02/24/19 02/25/19 famotidine 20 mg PO DAILY 02/24/19 02/25/19 meloxicam 15 mg PO PRN PRN 02/24/19 02/25/19 Previous Rx's Medication Instructions Recorded simvastatin 20 mg tablet 20 mg PO HS #90 tab-cap 09/28/18 cephalexin 500 mg PO QID 10 Days #40 cap 02/24/19 Allergies Allergy/AdvReac Type Severity Reaction Status Date / Time Sulfa (Sulfonamide Allergy Intermediate RASH Unverified 02/25/19 10:01 Antibiotics) General Stated Complaint: Recheck LIAT: 5 Review of Systems Constitutional Denies chills and Denies fever(s) Integumentary/Breasts Reports as per HPI and Reports erythema PFSH Medical History Renal stones (Chronic) Surgical History Biopsy of breast Dilation and curettage Family History Mother Essential hypertension Depression Seizure Father Heart disease Hyperlipidemia Oral cancer Alcohol abuse Sister Diabetes Essential hypertension Breast cancer Brother Alcohol abuse Essential hypertension Maternal Grandfather Lung cancer Paternal Grandfather Stomach cancer Maternal Grandmother COPD (chronic obstructive pulmonary disease) Paternal Grandmother Diabetes Essential hypertension Uterine cancer Son Heart disease Supraventricular tachycardia Son Hyperlipidemia Maternal Cousin Breast cancer Maternal Cousin Breast cancer Maternal Aunt Breast cancer Maternal Aunt Breast cancer Social History Smoking/Tobacco Use Status: Never Alcohol Intake: current Alcohol Intake frequency: a few times a month Drug use: Never Substance use type: does not use Household members: spouse 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 Pets and animals: Yes Pets and animals: cat(s) What type of physical activity do you participate in: none Frequency: does not exercise Susanne/Mormon: Confucianism Special susanne needs: No Seatbelt use: always Do you feel safe at home: Yes Do you feel safe in your relationship?: Yes Exam Const General: cooperative, no acute distress and not ill appearing Orientation: alert, awake and oriented x3 Resp Effort & Inspection: normal respiratory effort, able to speak in complete sentences and no respiratory distress Skin General skin exam: erythema (On dorsal aspect of left hand) Neuro General: alert, awake and oriented x3 Course Vital Signs Temperature 36.5 C 02/25/19 09:59 Pulse 66 02/25/19 09:59 Respiratory Rate 16 02/25/19 09:59 Blood Pressure 138/74 02/25/19 09:59 Pulse Oximetry 99 02/25/19 09:59 Temperature 36.5 C 02/25/19 09:59 Temperature Source Skin 02/25/19 09:59 Pulse 66 02/25/19 09:59 Respiratory Rate 16 02/25/19 09:59 Respiratory Effort Non-Labored 02/25/19 09:59 Blood Pressure 138/74 02/25/19 09:59 Blood Pressure Position Sitting 02/25/19 09:59 Pulse Oximetry 99 02/25/19 09:59 Oxygen Delivery Method Room Air 02/25/19 09:59 Oxygen Flow Rate 0 02/25/19 09:59 Pain Level 0 02/25/19 09:59
== END 2019-02-25 11:36 | disposition home or self-care (01) ==
PROVIDERS: Emergency Provider Nurse Practitioner Family; PCP Family Medicine
DX: L03.114 Cellulitis of left upper limb (principal)
CPT/HCPCS: 99281

== ENCOUNTER 2019-07-22 10:09 | Outpatient (CLI) | payer OTHER, SELFPAY ==
[2019-07-22 13:36] LABS: Calculated LDL 141 mg/dL; Cholesterol 238 mg/dL (50-200); HDL Cholesterol 75 mg/dL (40-60); Triglyceride 113 mg/dL (30-150)
== END 2019-07-22 10:29 ==
PROVIDERS: PCP Family Medicine; Visit Provider Family Medicine
DX: E78.5 Hyperlipidemia, unspecified (principal)
CPT/HCPCS: 36415; 80061

== ENCOUNTER 2019-07-25 10:42 | Outpatient (REF) | payer OTHER, SELFPAY ==
--- NOTE | 2019-07-25 10:30 | PAPFT_PTH ---
PATIENT: Tanika Harrison LOC: [facility] U#:[id number] AGE/SX: 59/F ROOM: RE07/25/[address]: TOSHA Gibbons : 1960 BED: DIS: 07/25/2019 SPEC #: [id number] RECD: 07/25/19 18:16 STATUS: TAMEKA REQ #: [id number] JANINE: 07/25/19 10:[address]: Meagan Marley DEPT: [facility] Cytology RECD BY: Shruthi Keating ENTERED: 07/25/19 18:16 SP TYPE: PAPFT MALICK DR: Kelsie Neal MD Tissues: 1 - CX/ENDOCX FOR PAP SMEARS Procedures: PAP THIN PREP/U[facility] Screening HPV DNA PROBE Comments: [id number]
== END 2019-07-25 11:02 ==
LOC: LBN 10:42
PROVIDERS: PCP Family Medicine; Visit Provider Nurse Practitioner Family
DX: Z12.4 Encounter for screening for malignant neoplasm of cervix (principal); Z11.51 Encounter for screening for human papillomavirus (HPV)
CPT/HCPCS: 88142; 87624

== ENCOUNTER 2020-12-07 03:22 | Outpatient (CLI) | payer OTHER, SELFPAY ==
[2020-12-07 13:19] LABS: Hemoglobin A1C 5.6 % (<5.7)
[2020-12-07 13:46] LABS: Anion Gap 9.3 mmol/L (3-11); BUN 14 mg/dL (7-18); CO2 28.7 mmol/L (21.0-32.0); CREATININE 0.8 mg/dL (0.55-1.02); Calcium 9.4 mg/dL (8.5-10.1); Calculated LDL 130 mg/dL (<100); Chloride 105 mmol/L (98-107); Cholesterol 231 mg/dL (<200); Glucose 91 mg/dL (74-106); HDL Cholesterol 84 mg/dL (40-60); Potassium 4.3 mmol/L (3.5-5.1); Sodium 143 mmol/L (136-145); Triglyceride 85 mg/dL (<150)
== END 2020-12-07 03:23 | disposition home or self-care (01) ==
LOC: LBO 03:22
PROVIDERS: PCP Family Medicine; Visit Provider Nurse Practitioner Family
DX: E78.5 Hyperlipidemia, unspecified (principal)
CPT/HCPCS: 36415; 80048; 80061; 83036

== ENCOUNTER 2021-08-19 15:23 | Emergency (ER) | payer OTHER, SELFPAY ==
[2021-08-19] VITALS (14 sets, daily range): BP systolic 103–148; BP diastolic 70–95; PULSE 74–87; RESP 18–24; TEMP 36.8; O2SAT 97–100
--- NOTE | 2021-08-19 16:04 | ED.GENADUL_ITS ---
Discharge Plan Disposition Patient Disposition: HOME Condition: Stable Discharge Details Clinical Impression: Rectal bleeding Primary Care Provider: Ben Qureshi ED Provider: Miguel Avila Home Meds and New Rx's Prescriptions: Continued simvastatin 20 mg tablet 20 mg PO HS Qty: 90 RF: 4 famotidine 20 mg tablet 20 mg PO DAILY Qty: 90 RF: 4 Discharge Instructions Additional Instructions: your blood work and cat scan did not show any concerning findings at this time, you had a normal blood cell count you had no blood on exam here I have placed a referral to see general surgery, you should be contacted with an appointment if you feel more ill, have severe abdominal pain, difficulty breathing, general fatigue, or chest pain/pressure return to the emergency department Medical Decision Making 61 yo female with hx of gerd, hld, diverticulosis of colon who has had blood bowel movements since yesterday. She denies any symptoms to suggest anemia such as dyspnea, weakness, chest pain and denies having this issue in the past. On exam she is in no distress. She has no abdominal tenderness on exam and appears well systemically. She has normal external rectal exam with nusre professor of law present and no internal palpable abnormalities and when gloved finger removed no blood or feces seen. Given her symptoms will obtain cbc, coags and cta to evaluate for obvious radiographic source for her lower gi bleed pt's labs unremarkble and cta unremarkable, remains stable without bleeding here. Discussed with her and given her reassuring workup here with no blood on exam and reassuring cbc do not feel she requires inpatient workup for this. She is comfortable with outpatient workup and will refer to general surgery mauri for evaluation for possible colonoscopy. Discussed at length with patient return precautions Differential Diagnosis Differential Diagnosis: diverticulitis, avm, tumor Imaging Data Radiologic Study: Attestation: I personally reviewed and interpreted this imaging study as follows: Imaging: CT Scan Radiologist's impression: IMPRESSION: No evidence to suggest active hemorrhage. No definite acute abnormality seen. New lines there is diverticulosis without acute diverticulitis. Moderate fecal retention pattern. No abnormal bowel distention or wall thickening. Lab Data Lab results reviewed: Yes I reviewed the patient's lab results. HPI General Mode of arrival: ambulatory . Date/Time Provider Initiated Documentation: 08/19/21 15:42 . Limitations to Documentation: no limitations . Information obtained by: patient . History of Present Illness 61 year old F presents to the emergency department with the chief complaint of bright red blood per rectum, described as moderate, Patient reports no radiation. and it has been constant. No relieving factors improve symptom(s), No exacerbating factors reported . Patient notes no other symptoms.. Patient did receive the following treatments prior to arrival, none Related Data Home Medications Medication Instructions Recorded Confirmed famotidine 20 mg tablet 20 mg PO DAILY #90 tab 10/22/20 08/19/21 simvastatin 20 mg tablet 20 mg PO HS #90 tab-cap 12/03/20 08/19/21 Previous Rx's Medication Instructions Recorded famotidine 20 mg tablet 20 mg PO DAILY #90 tab 10/22/20 simvastatin 20 mg tablet 20 mg PO HS #90 tab-cap 12/03/20 Allergies Allergy/AdvReac Type Severity Reaction Status Date / Time Sulfa (Sulfonamide Allergy Intermediate RASH Verified 08/19/21 15:44 Antibiotics) General Stated Complaint: GI Bleed LIAT: 3 Review of Systems All systems reviewed & are unremarkable except as noted in HPI and below Constitutional Constitutional: Denies chills, Denies fever(s) and Denies weakness Cardiovascular Cardiovascular: Denies chest pain and Denies dyspnea Respiratory Respiratory: Denies cough and Denies dyspnea Gastrointestinal Gastrointestinal: Denies abdominal pain, Denies nausea and Denies vomiting Musculoskeletal Musculoskeletal: Denies joint swelling Neurologic Neurologic: Denies weakness Psychiatric Psychiatric: Denies depression [facility] Medical History (Updated 08/19/21 @ 17:54 by Miguel Avila MD) Chronic cough Respiratory workup benign, inhalers did not make a difference Diverticulosis of colon Generalized anxiety disorder GERD (gastroesophageal reflux disease) Hiatal hernia Malignant neoplasm of left female breast (2014) IDC diagnosed 08/2015 s/p lumpectomy, radiation. 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 Surgical History S/P dilation and curettage Status post left breast lumpectomy Family History Mother Essential hypertension Depression Seizure Father , At 51 from [place], oral cancer Heart disease Hyperlipidemia Oral cancer Alcohol abuse Hypertension Sister Diabetes Breast cancer Depression Hypertension Brother Alcohol abuse Hypertension Maternal Grandfather , AGE 66 Lung cancer Paternal Grandfather , AGE 72 Stomach cancer Maternal Grandmother , AGE 82 COPD (chronic obstructive pulmonary disease) Hypertension Paternal Grandmother , AGE 63 Diabetes Essential hypertension Uterine cancer Ovarian cancer Son Supraventricular tachycardia Hyperlipidemia Son No problems noted. 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 Pets and animals: Yes Pets and animals: cat(s) Sexually active: Yes Do you think of yourself as: straight/heterosexual Current gender identity: female What is your relationship status?: How often do you talk on the phone with friends or family?: three or more times per week How often do you get together with friends or relatives?: once per week How often do you attend rastafarian or alevism services?: decline to answer Do you belong to any clubs or organized social groups?: yes Panel score (0-1 are the most socially isolated patients): 3 What type of physical activity do you participate in: decline to answer Duration: decline to answer Frequency: decline to answer Susanne/Pentecostal: [employer] Special susanne needs: No Seatbelt use: always Helmet use: Yes Helmet use: always Drive intox or ride w/intox shuttle driver: No Do you feel safe at home: Yes Do you feel safe in your relationship?: Yes Female Reproductive History Menstrual Menopause type: natural History History 2 Para 2 Hx # Term Pregnancies Multiple births Hx # Pregnancies Ectopic pregnancies AB induced Hx Number of Living Children AB spontaneous Exam Const General: no acute distress Orientation: alert HENMT Head: normal to inspection Ears: external ears normal General nose exam: external nose normal Mouth: moist mucous membranes Eyes General: appearance normal, both eyes and all related structures Neck Neck: normal visual inspection Resp Effort & Inspection: normal respiratory effort and able to speak in complete sentences Cardio Rate: regular rate GI Palpation: soft and nontender Skin General skin exam: no rashes or lesions noted Neuro General: patient alert and patient oriented x3 Extrem General: normal to inspection Psych Mental Status: mental status grossly normal Course Vital Signs Vital signs: Vital Signs Temperature 36.8 C 08/19/21 15:33 Pulse 80 08/19/21 15:33 Respiratory Rate 18 08/19/21 15:33 Blood Pressure 148/95 H 08/19/21 15:33 Pulse Oximetry 98 08/19/21 15:33 Temperature 36.8 C 08/19/21 15:33 Temperature Source Temporal Artery Scan 08/19/21 15:33 Pulse 80 08/19/21 15:33 Respiratory Rate 18 08/19/21 15:33 Respiratory Effort Non-Labored 08/19/21 15:37 Blood Pressure 148/95 H 08/19/21 15:33 Blood Pressure Position Sitting 08/19/21 15:33 Pulse Oximetry 98 08/19/21 15:33 Oxygen Delivery Method Room Air 08/19/21 15:33 Oxygen Flow Rate 0 08/19/21 15:33 PAWSS Have you Been Recently Intoxicated or Drunk Within the Last 30 days?: No Have you Ever Experienced Previous Episodes of Alcohol Withdrawal?: No Have you ever Experienced Withdrawal Seizures?: No Have you ever Experienced Delirium Tremens(DT)s?: No Have you ever undergone Alcohol Rehabilitation Treatment (i.e, inpt ot outpatient treatment programs)?: No Have you ever Experienced Blackouts?: No Have you ever Combined Alcohol with other Downers within the last 90 days?: No Have you ever Combined Alcohol with any other Substance of Abuse during the last 90 days?: No Positive Blood Alcohol level on Presentation? [PCS.BAL]: No Evidence of Increased Autonomic Activity (i.e. HR>120, tremor, sweating, agitation, nausea)?: No Result: 0
[2021-08-19 16:15] LABS: Source Nasal/Nares
[2021-08-19 16:16] LABS: Abs Immature Grans 0.02 10^3/uL (0.0-0.06); Absolute Basophil Count 0.03 10^3/uL (0.0-0.2); Absolute Eosinophil Count 0.11 10^3/uL (0.0-0.7); Absolute Lymphocyte Count 1.79 10^3/uL (1.2-3.4); Absolute Monocyte Count 0.75 10^3/uL (0.1-0.8); Absolute Neutrophil Count 5.19 10^3/uL (1.2-6.7); Basophils % 0.4; Eosinophils % 1.4; HCT 44.2 % (36.0-46.0); HGB 13.9 g/dL (11.2-15.7); Immature Grans % 0.3; Lymphocytes % 22.7; MCH 27.6 pg (27.0-33.0); MCHC 31.4 % (32.0-36.0); MCV 87.7 fL (80-95); Monocytes % 9.5; Neutrophils % 65.7; Nucleated RBC 0 %; Platelet Count 234 10^3/uL (130-400); RBC 5.04 10^6/uL (3.93-5.22); RDW 13.6 % (11.7-14.6); RDW-SD 43.9 fL; WBC 7.89 10^3/uL (4.4-10.8)
[2021-08-19 16:31] LABS: PTT Activated 25.4 sec (21.0-27.5); Prothrombin Time 9.9 sec (9.3-11.0)
[2021-08-19 16:33] LABS: ALT 24 U/L (14-59); AST 21 U/L (15-37); Albumin 4.2 g/dL (3.4-5.0); Alkaline Phosphatase 170 U/L (46-116); Anion Gap 7.1 mmol/L (3-11); BUN 18 mg/dL (7-18); Bilirubin, Total 0.8 mg/dL (0.2-1.0); CO2 30.9 mmol/L (21.0-32.0); CREATININE 0.9 mg/dL (0.55-1.02); Calcium 9.1 mg/dL (8.5-10.1); Chloride 103 mmol/L (98-107); Glucose 89 mg/dL (74-106); Potassium 3.8 mmol/L (3.5-5.1); Sodium 141 mmol/L (136-145); Total Protein 8.3 g/dL (6.4-8.2)
[2021-08-19 17:12] LABS: COVID-19 PCR Negative (Negative)
--- NOTE | 2021-08-19 17:15 | DI.CT_ITS ---
Exam(s) CT ABDOMEN PELVIS CTA EXAM: CT ABDOMEN PELVIS CTA CLINICAL HISTORY: lower gi bleed. TECHNIQUE: Imaging Protocol: Axial CT angiography was performed with multi-slice acquisition and m ulti-planar and/or 3D reconstructions. CONTRAST MATERIAL: Intravenous: Omnipaque 350 Contrast volume:100 mL Oral: No COMPARISON: CT ABD/PELVIS WO W CONTRAST from 01/01/2018 FINDINGS: ABDOMEN AND PELVIS: Abdomen: Celiac axis/mesenteric arteries: No evidence of occlusion or significant stenosis. Renal Arteries: No evidence of occlusion or significant stenosis. There is a single renal artery perf using each kidney. Aorta: No evidence of occlusion or significant stenosis. No aneurysm or dissection. Atherosclerosis. Pelvis: Iliac Arteries: No evidence of occlusion or significant stenosis. Common Femoral Arteries: No evidence of occlusion or significant stenosis. ABDOMEN: Lung bases: There is a large hiatal hernia. There are stable pulmonary nodules in the lower lobes. The largest is incompletely imaged in the anterior aspect of the right lower lobe measures 0.8 cm. Liver: Normal density. No measurable mass. Portal, Superior Mesenteric, and Splenic Veins: Unremarkable. Gallbladder and Biliary Tract: No radiodense calculus or dilation. Pancreas: Normal density, no abnormal calcifications or inflammatory process. Spleen: Normal. Adrenals: No masses seen. Kidneys: Normal size, contour and axis. No radiodense stones or obstructive uropathy. No masses seen. Bowel: No obstruction or bowel wall thickening. Appendix is unremarkable. There is extensive divertic ulosis throughout the colon, but no evidence of acute diverticulitis. There is a moderate amount of stool throughout the colon. Peritoneal Cavity: No ascites, collection or mesenteric inflammatory response. No free air. Lymph Nodes: Within normal limits. Bones: Unremarkable. Soft Tissues: Unremarkable. PELVIS: Bladder: Symmetric distention, no gross wall thickening. Reproductive Organs: Unremarkable as visualized. Lymph Nodes: Within normal limits. Bones: Within normal limits. IMPRESSION: 1. No evidence of occlusion or significant arterial stenosis. 2. No evidence of active bleeding. 3. Stable pulmonary nodules. 4. Moderate amount of retained stool throughout the colon. RADIATION DOSE DELIVERED: 789.53mGy.cm Total DLP DATA REPOSITORY: All CT scans at this facility are submitted to the National Radiology Data Registry (NRDR) Dose Index Registry (DIR) with the [employer] (ACR). RADIATION OPTIMIZATION: All CT scans at this facility use at least one of these dose optimization te chniques: automated exposure control; mA and/or kV adjustment per patient size (includes targeted exa ms where dose is matched to clinical indication); or iterative reconstruction.
--- NOTE | 2021-08-19 17:17 | NUR.NOTE ---
Returns from DI. Warm blanket provided. Call light in reach.Nursing Note:
[2021-08-19] MEDS: Omnipaque 350 MG/ML 100 ML BTL IJ (17:18)
[2021-08-19] MEDS: Normal Saline - Diluent 50 ML VIAL IV (17:19)
--- NOTE | 2021-08-19 17:34 | DI.VRAD_ITS ---
PROCEDURE INFORMATION: Exam: CT Angiography Abdomen and Pelvis With Contrast, GI Bleeding Exam date and time: 08/19/2021 4:14 PM Age: 61 years old Clinical indication: Patient HX: Lower gi bleed. Rectal bleeding TECHNIQUE: Imaging protocol: Computed tomographic angiography of the abdomen and pelvis with contrast. 3D rendering (Not supervised by radiologist): MIP and/or 3D reconstructed images were created by the technologist. Radiation optimization: All CT scans at this facility use at least one of these dose optimization techniques: automated exposure control; mA and/or kV adjustment per patient size (includes targeted exams where dose is matched to clinical indication); or iterative reconstruction. Contrast material: OMNI-PAQUE 350; Contrast volume: 100 ml; Contrast route: IV; COMPARISON: CT ABD/PELVIS WO W CONTRAST 01/01/2018 2:06 PM FINDINGS: Lungs: Previously seen bilateral lower lobe nodules, incompletely imaged on the right, not significantly changed allowing for slight technical differences. Mediastinal space: Moderate-sized hiatal hernia is unchanged. Aorta: No aortic aneurysm. No aortic dissection. Celiac trunk and mesenteric arteries: No occlusion or significant stenosis. Renal arteries: No occlusion or significant stenosis. Right iliac arteries: No occlusion or significant stenosis. Left iliac arteries: No occlusion or significant stenosis. Liver: No mass. Gallbladder and bile ducts: Unremarkable. No calcified stones. No ductal dilation. Pancreas: Unremarkable. No mass. No ductal dilation. Spleen: Heterogeneous splenic enhancement consistent with dynamic bolus. Adrenal glands: Normal. No mass. Kidneys and ureters: Unremarkable. No solid mass. No hydronephrosis. Stomach and bowel: Unremarkable. No active gastrointestinal bleeding. No obstruction. No mucosal thickening. Appendix: No evidence of appendicitis. Intraperitoneal space: Unremarkable. No free air. No significant fluid collection. Lymph nodes: Unremarkable. No enlarged lymph nodes. Urinary bladder: The bladder is not well distended. Reproductive: Unremarkable as visualized. Bones/joints: No acute fracture. No dislocation. Soft tissues: Unremarkable. IMPRESSION: No evidence to suggest active hemorrhage. No definite acute abnormality seen. New lines there is diverticulosis without acute diverticulitis. Moderate fecal retention pattern. No abnormal bowel distention or wall thickening. Dictated and Authenticated by: Irina Clemons MD. Ordering:JAE Rivera MD
--- NOTE | 2021-08-19 17:55 | NUR.NOTE ---
Nursing Note: [facility] lower [facility] bleed, EDILBERTO Fox
== END 2021-08-19 18:13 | disposition home or self-care (01) ==
PROVIDERS: Emergency Provider Emergency Medicine; PCP Family Medicine
DX: K62.5 Hemorrhage of anus and rectum (principal)
CPT/HCPCS: 36415; 80053; 86850; 86900; 86901; 87635; 99285; 74174; 85025; 85610; 85730; 99284; J3490

== ENCOUNTER 2021-09-29 02:17 | Outpatient (CLI) | payer OTHER, SELFPAY ==
[2021-09-29 12:19] LABS: Source Nasal/Nares
[2021-09-29 21:48] LABS: COVID-19 PCR Negative (Negative)
== END 2021-09-29 02:18 | disposition home or self-care (01) ==
LOC: LBO 02:17
PROVIDERS: PCP Family Medicine; Visit Provider Surgery
DX: Z20.822 Contact with and (suspected) exposure to COVID-19 (principal)
CPT/HCPCS: 87635

== ENCOUNTER 2021-10-01 10:08 | Day surgery (SDC) | payer OTHER, SELFPAY ==
--- NOTE | 2021-09-30 17:23 | DSE_ITS ---
Date of service: 10/01/21 DS: Diagnosis Discharge Diagnosis (1) Rectal bleeding: Status: Deleted (2) History of left breast cancer: Status: Inactive (3) GERD (gastroesophageal reflux disease): Status: Chronic (4) Hyperlipidemia: Status: Acute (5) Hiatal hernia: Status: Chronic (6) Diverticulosis of colon: Status: Chronic (7) Acute anal fissure: Status: Acute Discharge Plan Disposition Patient Disposition: HOME Condition: Good Discharge Details Reason For Visit: colon scope Attending Provider: Nahomy Morrissey Primary Care Provider: Ben Qureshi Home Meds and New Rx's Prescriptions: Continued simvastatin 20 mg tablet 20 mg PO HS Qty: 90 RF: 4 famotidine 20 mg tablet 20 mg PO DAILY Qty: 90 RF: 4 Discontinued polyethylene glycol 3350 17 gram/dose powder 238 g PO ONCE Qty: 238 RF: 0 bisacodyl [Dulcolax (bisacodyl)] 5 mg tablet,delayed release (DR/EC) 5 mg PO ONCE Qty: 4 RF: 0 Discharge Instructions Additional Instructions: DSU Colonoscopy Post- Op Instructions Instructions for Everyone who is given Anesthesia: For your safety, please do the following for the next twenty-four (24) hours: *Do Not operate a motor vehicle (car, truck, motorcycle, etc.) *Do Not drink alcoholic beverages or use any recreational drugs for the first 24 hours or while taking pain medications. The medications in your body may have a reaction that can be dangerous. *Do Not make any important decisions or sign any important papers. Findings:severe diverticular disease throughout the entire colon no polyps anal fissure Fiber daily. Make sure you are not constipated or straining to move your bowels. Follow up: repeat scope in 10 yrs time 1. No lifting over 20 pounds or strenuous activity for the first 24 hours after your procedure. After 24 hours there are no restrictions on your activity but you may feel fatigued for a few days. 2. After you arrive home you may have a light meal and return to your normal diet as you can tolerate it without feeling sick to your stomach. 3. You may have a bloated, gaseous feeling in your belly (abdomen) after a colonoscopy. Passing gas and belching will help. Walking or lying down on your left side with your knees flexed may relieve the discomfort. Call the office at [phone] (Office) or [phone] (Hospital) right away if you notice any of the following: a.Vomiting of blood or ?coffee ground stools?. b.Rectal bleeding 1Tbsp, blood clots or continuous bleeding. c.Severe belly (abdominal) pain. d.A hard distended belly (abdomen) and an inability to pass gas. 4. Please don?t expect to have a normal BM (bowel movement) for 2-3 days after your procedure. 5. If there are questions regarding the findings of your procedure, please contact your doctor 6. If you are unable to contact your doctor with a problem, contact the hospital at [phone]. 7. Continue all your regular medications unless directed otherwise. I understand the above instructions and have no questions. Signature of Patient or Adult Escort Name of Responsible Adult Escort Signature of Nurse Date/Time Activity:: see above Diet:: see above Discharge Orders Discharge Orders: Discharge Order (Routine); Ordered 09/30/21 Ordered By: Nahomy Morrissey DS: Data Vitals/I&O Vitals and I&O: Intake & Output 09/29/21 09/30/2121 23:59 11:59 23:59 Weight 83.121 kg PENDING SALE TO [facility] Active Problem List (Updated 10/01/21 @ 11:16 by Nahomy Morrissey DO) Acute anal fissure (Acute) GERD (gastroesophageal reflux disease) (Chronic) Hyperlipidemia (Acute) Generalized anxiety disorder (Acute) Hiatal hernia (Chronic) Osteopenia (Chronic) Chronic cough (Chronic) Diverticulosis of colon (Chronic) Atypical chest pain (Acute) Medical History (Updated 10/01/21 @ 11:16 by Nahomy Morrissey DO) Malignant neoplasm of left female breast (2014) IDC diagnosed 08/2015 s/p lumpectomy, radiation. [place] Femara through [facility] [place] Oncology Renal calculi Squamous cell carcinoma of skin of left upper arm Surgical History S/P dilation and curettage Status post left breast lumpectomy Family History Mother Essential hypertension Depression Seizure Father , At 51 from [place], oral cancer Heart disease Hyperlipidemia Oral cancer Alcohol abuse Hypertension Sister Diabetes Breast cancer Depression Hypertension Brother Alcohol abuse Hypertension Maternal Grandfather , AGE 66 Lung cancer Paternal Grandfather , AGE 72 Stomach cancer Maternal Grandmother , AGE 82 COPD (chronic obstructive pulmonary disease) Hypertension Paternal Grandmother , AGE 63 Diabetes Essential hypertension Uterine cancer Ovarian cancer Son Supraventricular tachycardia Hyperlipidemia Son No problems noted. 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 Pets and animals: Yes Pets and animals: cat(s) Sexually active: Yes Do you think of yourself as: straight/heterosexual Current gender identity: female What is your relationship status?: How often do you talk on the phone with friends or family?: three or more times per week How often do you get together with friends or relatives?: once per week How often do you attend religious or mormonism services?: decline to answer Do you belong to any clubs or organized social groups?: yes Panel score (0-1 are the most socially isolated patients): 3 What type of physical activity do you participate in: decline to answer Duration: decline to answer Frequency: decline to answer Susanne/Pentecostalism: Lutheran Special susanne needs: No Seatbelt use: always Helmet use: Yes Helmet use: always Drive intox or ride w/intox 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
--- NOTE | 2021-09-30 17:25 | COLE_ITS ---
Colonoscopy Report Date of procedure: 10/01/21 Pre-op diagnosis general: rectal bleeding/hx of divertic Post-op diagnosis procedure note: other (anal fissure) Surgeon: Nahomy Morrissey Anesthesia Type: General:No Airway Estimated blood loss (mL): 0 Pathology: none sent Complications: None Disposition: same day Prep: Miralax/Dulcolax Retraction Time: 8 Procedure Description: After informed consent was obtained the patient was taken to the procedure room and placed in a left decubitous position. Monitors were applied and a time out was done. The patients name, date of , procedure, allergies to medications and metal in their body was reviewed. The patient was then sedated. Once sedated and comfortable a rectal exam was done. External exam revealed a anal fissure at the 12 o'clock position. It is approximately 80% healed at this point. Internal exam revealed a normal sphincter tone and no palpable masses. The scope was then introduced and retrofelexed. grade Ix1 internal hemorrhoids were identified. The scope could not be advanced into the cecum, after multiple maneuvers and attempts. I could see into the cecum. There is no fluid in the cecum. There is no masses visualized. Given the severity of the diverticula that did extend all the way over to the right colon I did not think it was routed to try. The procedure was ended the ileocecal valve. The TI and appendiceal orifice were identified. The prep was good. The scope was then slowly retracted over 8 minutes back into the rectum. She does have severe diverticular disease that extends all the way to the ileocecal valve. There is no signs of bleeding or infection. No Polyps were identified today. The scope was removed and the patient was woken up and taken back to Same day surgery in stable condition. The patient tolerated the procedure well and there were no immediate com plications. Follow up: The patient should follow up in 10 years unless they develop changes in bowel habits or other new gastrointestinal complaints.
--- NOTE | 2021-09-30 17:26 | W.PM.HP.N ---
Date of service: 10/01/21 Assessment and Plan Assessment and plan (1) Rectal bleeding: Status: Acute (2) History of left breast cancer: Status: Inactive (3) GERD (gastroesophageal reflux disease): Status: Chronic (4) Hyperlipidemia: Status: Acute (5) Hiatal hernia: Status: Chronic (6) Osteopenia: Status: Chronic (7) Diverticulosis of colon: Status: Chronic History of Present Illness Consults Consult date: 10/01/21 Narrative: Pat is here today for her colonoscopy. She has had no further bleeding episodes since I saw her in the office or during her bowel prep. She completed the prep. The output is currently a clear yellowish color. She is currently not having any abdominal pain or nausea. She has no chest pain or shortness of breath. She has no productive cough. She has no fevers or chills. Since I saw her in the office she has had no changes in her medications or her health status. All questions are answered to her satisfaction today and she is stable for the proposed procedure Informed consent is obtained for the procedural (explained in simple layman's terms that the pt and/or family could understand) explaining risks vs benefits and alternatives to the procedure and consequences if we do not do the procedure and need/rational for the procedure. Risks include but are not limited to: bleeding, infection, perforation of esophagus, stomach, colon, small intestines, bronchus or trachea, or PTX. This would necessitate emergency surgery to repair the damage w/ possible ostomy; and other associated complications w/ the required surgery. Also complications of anesthesia including aspiration, ID/CVA/. Patient is also consented to doing a internal hemorrhoid banding if any are present on exam today. And the associated risks of this procedure. Clinic Visit 08/25: Pt had a I want to talkn episode 08/19 where she got up off the couch, coughed then went to the bathroom where she had blood all over my underwear and fresh blood coming from rectum. Pt denies pain at that time, then next morning she had blood clots mixed in with stool. Then she went to PCP who then sent her to ER then ER sent her to us. Pt denies any other episodes since that one time. Pt denies change in bowel habits or stool, or family history of colon cancer. pt didn't have any pain while this was going on. She occ had some irregularity. She does have a hx of diverticula. She denies straining or any unusual activity/trauma. She is not on blood thinners/or take asa daily. She does not take a lg amount of NSAID's. The bleeding lasted for 24hr. Was painless. It stopped spontaneously. It was bright red. She only had the one episode of bleeding. She has had no wt loss. No abdominal pain. There is no family hx of CRC. Last CE was in 2013 and did show diverticula. Review of Systems All systems reviewed & are unremarkable except as noted in HPI and below [facility] Active Problem List Rectal bleeding (Acute) GERD (gastroesophageal reflux disease) (Chronic) Hyperlipidemia (Acute) Generalized anxiety disorder (Acute) Hiatal hernia (Chronic) Osteopenia (Chronic) Chronic cough (Chronic) Diverticulosis of colon (Chronic) Atypical chest pain (Acute) Medical History Malignant neoplasm of left female breast (2014) IDC diagnosed 08/2015 s/p lumpectomy, radiation. 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 Surgical History S/P dilation and curettage Status post left breast lumpectomy Family History Mother Essential hypertension Depression Seizure Father , At 51 from ID, oral cancer Heart disease Hyperlipidemia Oral cancer Alcohol abuse Hypertension Sister Diabetes Breast cancer Depression Hypertension Brother Alcohol abuse Hypertension Maternal Grandfather , AGE 66 Lung cancer Paternal Grandfather , AGE 72 Stomach cancer Maternal Grandmother , AGE 82 COPD (chronic obstructive pulmonary disease) Hypertension Paternal Grandmother , AGE 63 Diabetes Essential hypertension Uterine cancer Ovarian cancer Son Supraventricular tachycardia Hyperlipidemia Son No problems noted. Maternal Cousin Breast cancer Maternal Cousin Breast cancer Maternal Aunt Breast cancer Maternal Aunt Breast cancer Social History Smoking/Tobacco Use Status: Never Second Hand Exposure: Yes Smoking risk assessment performed?: Yes Alcohol Intake: current Alcohol Intake frequency: a few times a week Alcohol type: wine Substance use type: does not use Caregiver/Support person: No Household members: spouse Housing: house Communication Needs: None Do you need help understanding health information?: Never current occupation: [employer] EX[employer] Pets and animals: Yes Pets and animals: cat(s) Sexually active: Yes Do you think of yourself as: straight/heterosexual Current gender identity: female What is your relationship status?: How often do you talk on the phone with friends or family?: three or more times per week How often do you get together with friends or relatives?: once per week How often do you attend alevism or mormon services?: decline to answer Do you belong to any clubs or organized social groups?: yes Panel score (0-1 are the most socially isolated patients): 3 What type of physical activity do you participate in: decline to answer Duration: decline to answer Frequency: decline to answer Susanne/Taoism: Mormon Special susanne needs: No Seatbelt use: always Helmet use: Yes Helmet use: always Drive intox or ride w/intox recycling collections driver: No Do you feel safe at home: Yes Do you feel safe in your relationship?: Yes Female Reproductive History Menstrual Menopause type: natural History History 2 Para 2 Hx # Term Pregnancies Multiple births Hx # Pregnancies Ectopic pregnancies AB induced Hx Number of Living Children AB spontaneous Meds Allergies and Home Medications Allergies Allergy/AdvReac Type Severity Reaction Status Date / Time Sulfa (Sulfonamide Allergy Intermediate RASH Verified 09/30/21 11:18 Antibiotics) Home Medications Medication Instructions Recorded Confirmed Type famotidine 20 mg tablet 20 mg PO DAILY #90 tab 10/22/20 09/30/21 Rx simvastatin 20 mg tablet 20 mg PO HS #90 tab-cap 12/03/20 09/30/21 Rx Exam Const General: cooperative, healthy appearing, comfortable, no acute distress, well developed and well groomed Nutritional Appearance: average body habitus and well nourished Orientation: alert, awake and oriented x3 HENMT Head: normal to inspection, normocephalic and atraumatic Ears: hearing grossly normal bilaterally and external ears normal General nose exam: external nose normal Face and sinus: normal facial exam and sinuses nontender Mouth: oral mucosae normal, lip normal, tongue normal and moist mucous membranes Teeth and gingiva: dentition normal Eyes General: appearance normal, both eyes and all related structures Conjunctivae: conjunctivae normal Sclera: sclerae normal Pupils: PERRL Neck Neck: normal visual inspection and full ROM Chest Chest: normal inspection of the chest Resp Effort & Inspection: normal respiratory effort, able to speak in complete sentences, no cough, no nasal flaring, not tachypneic and no use of accessory muscles Auscultation: clear to auscultation bilaterally, no rales, no rhonchi and no wheezes Cardio Jugular venous pressure: no JVD Rate: regular rate Rhythm: regular rhythm GI Inspection: normal to inspection, no edema and non-distended Palpation: soft, no masses, nontender and No ascites Auscultation: normal bowel sounds Skin General skin exam: no rashes or lesions noted Trauma: no lacerations or abrasions Neuro General: patient alert, patient oriented x3, oriented, gait normal, moves all extremities, no focal motor deficits and CN's II-XI intact bilaterally Cognition: normal cognition Speech: speech normal Gait: normal gait Motor: muscle tone normal throughout Extrem General: normal to inspection, full ROM and no clubbing, cyanosis or edema Psych Appearance: grossly normal and well kempt Mental Status: mental status grossly normal Speech and Movement: speech and movement normal Affect: normal affect
[2021-10-01 10:22] VITALS: BP 138/88; PULSE 88; RESP 16; TEMP 37; O2SAT 97
[2021-10-01 10:36] VITALS: BMI 31.8
--- NOTE | 2021-10-01 10:36 | ANES.PREOP_ITS ---
General Info Date of Service Date Performed: 10/01/21 Height: 5 ft 3 in Weight: 81.4 kg Body Mass Index (BMI): 31.8 Surgical Procedure: Operation Date: 10/01/21 10:35 Proposed Procedures Side Surgeon p Colonoscopy possible hemorrhoid banding Nahomy Morrissey, DO Meds Allergies and Home Medications Allergies Allergy/AdvReac Type Severity Reaction Status Date / Time Sulfa (Sulfonamide Allergy Intermediate RASH Verified 10/01/21 10:32 Antibiotics) Home Medication Medication Instructions Recorded famotidine 20 mg tablet 20 mg PO DAILY #90 tab 10/22/20 simvastatin 20 mg tablet 20 mg PO HS #90 tab-cap 12/03/20 Current Visit Medications: Current Medications Generic Name Dose Route Start Last Admin Trade Name Freq PRN Reason Stop Dose Admin Hyoscyamine Sulfate 0.125 mg 09/30/21 17:23 Hyoscyamine 0.125 Mg Sl/Oral/Chew SL DIRECTED PRN Ringer's Solution 1,000 mls @ 80 mls/hr 10/01/21 06:00 IV 10/30/21 23:59 [facility] IV Miscellaneous Supplies 1 each 10/01/21 06:00 Iv Access IV 10/30/21 23:59 DIRECTED JO Ondansetron HCl 4 mg 09/30/21 17:23 Ondansetron 4 Mg/2 Ml Vial IVP Q4H PRN PRN Nausea / Vomiting Sodium Chloride 0 ml 10/01/21 06:00 Normal Saline Flush 10 Ml Syr IV 10/30/21 23:59 PRN PRN Sodium Chloride 0 ml 10/01/21 06:00 Normal Saline 10 Ml Vial IJ 10/30/21 23:59 DIRECTED PRN Sterile Water 0 ml 10/01/21 06:00 Water,Injection,Sterile 10 Ml Vial IJ 10/30/21 23:59 DIRECTED PRN PFSH Active Problems Active Problems: Problem Status Onset Code Rectal bleeding K62.5 GERD (gastroesophageal reflux disease) K21.9 Hyperlipidemia E78.5 Generalized anxiety disorder F41.1 Hiatal hernia K44.9 Osteopenia M85.80 Chronic cough R05 Diverticulosis of colon K57.30 Atypical chest pain R07.89 Medical History Active Problem List Rectal bleeding (Acute) GERD (gastroesophageal reflux disease) (Chronic) Hyperlipidemia (Acute) Generalized anxiety disorder (Acute) Hiatal hernia (Chronic) Osteopenia (Chronic) Chronic cough (Chronic) Diverticulosis of colon (Chronic) Atypical chest pain (Acute) Medical History Malignant neoplasm of left female breast (2014) IDC diagnosed 08/2015 s/p lumpectomy, radiation. On Femara through [facility] [place] Oncology Renal calculi Squamous cell carcinoma of skin of left upper arm Medical History Comments:: Pt. states her mother has had delayed emergence under anesthesia Surgical History Surgical History S/P dilation and curettage Status post left breast lumpectomy Tobacco Smoking/Tobacco Use Status: Never Passive smoking exposure: Yes Second hand exposure: Yes Alcohol Alcohol Intake: current Alcohol intake frequency: a few times a week Alcohol type: wine Substance Use Substance use type: does not use Prental History History 2 Para 2 Hx # Term Pregnancies Multiple births Hx # Pregnancies Ectopic pregnancies AB induced Hx Number of Living Children AB spontaneous Vital Signs and Lab Results Vital Signs Most Recent Vital Signs in EMR: Most Recent Vital Signs Temp Pulse Resp BP Pulse Ox 37.0 C 88 16 138/88 97 10/01/21 10:22 10/01/21 10:22 10/01/21 10:22 10/01/21 10:22 10/01/21 10:22 Lab Results Blood Type / Crossmatch: No Data to Display Complete Blood Count: No Data to Display Complete Metabolic Panel: No Data to Display Liver Function Panel: No Data to Display Coagulation Panel: No Data to Display Cardiac Panel: No Data to Display Arterial Blood Gas: No Data to Display Venous Blood Gas: No Data to Display Pancreas Panel: No Data to Display Thyroid Panel: No Data to Display Infectious Disease: Coronavirus (COVID-19)(PCR) Negative (Negative) 09/29/21 08:45 09/29/21 Coronavirus 2019 Source Nasal/Nares 09/29/21 08:45 09/29/21 Blood Cultures: No Data to Display Toxicology Panel: 2 No Data to Display Anesthesia Assessment and Plan Anesthesia History Personal History: No History of Anesthesia Complications Family History: Other Exercise Tolerance Exercise Tolerance: Metabolic Equivalents>4 Pertinent Negatives Pertinent Negatives: No Major Cardiovascular Symptoms or Complaints, No Major Pulmonary Symptoms or Complaints, No History of CVA/TIA and Other Cardiac & Pulmonary Exam Cardiac Exam: Normal S1/S2 Heart Sounds Pulmonary Exam: Clear Bilateral Breath Sounds Implantable Cardiac Device Does patient have a Pacemaker or an ICD?: No Airway Exam Known Difficult Airway: No Mallampati Class: 2 Mouth Opening: Normal (> 3cm) Thyromental Distance: Greater than 3 cm Neck Range of Motion: Full ROM Neck Circumference: Normal Teeth Condition: Normal Dentition ASA Classification ASA Score: ASA 2 Emergency Case?: No NPO Status NPO Status: NPO Clears >2 hours, Solids >8 hours Anesthesia Plan Resuscitation Status: Full Code Anesthesia Technique: General Anesthesia Airway Planned: Natural Airway Monitors Used: Standard Monitors
[2021-10-01] MEDS: Lactated Ringers 1,000 ML 80 ML IV (10:42)
[2021-10-01 11:17] VITALS: BP 109/69; PULSE 77; RESP 16; TEMP 36.6; O2SAT 98
--- NOTE | 2021-10-01 11:19 | PDOC.DSDIS_ITS ---
Discharge Plan Disposition Patient Disposition: HOME Condition: Good Discharge Details Reason For Visit: colon scope Attending Provider: Nahomy Morrissey Primary Care Provider: Ben Qureshi Home Meds and New Rx's Prescriptions: Continued simvastatin 20 mg tablet 20 mg PO HS Qty: 90 RF: 4 famotidine 20 mg tablet 20 mg PO DAILY Qty: 90 RF: 4 Discontinued polyethylene glycol 3350 17 gram/dose powder 238 g PO ONCE Qty: 238 RF: 0 bisacodyl [Dulcolax (bisacodyl)] 5 mg tablet,delayed release (DR/EC) 5 mg PO ONCE Qty: 4 RF: 0 Discharge Instructions Additional Instructions: DSU Colonoscopy Post- Op Instructions Instructions for Everyone who is given Anesthesia: For your safety, please do the following for the next twenty-four (24) hours: *Do Not operate a motor vehicle (car, truck, motorcycle, etc.) *Do Not drink alcoholic beverages or use any recreational drugs for the first 24 hours or while taking pain medications. The medications in your body may have a reaction that can be dangerous. *Do Not make any important decisions or sign any important papers. Findings:severe diverticular disease throughout the entire colon no polyps anal fissure Fiber daily. Make sure you are not constipated or straining to move your bowels. Follow up: repeat scope in 10 yrs time 1. No lifting over 20 pounds or strenuous activity for the first 24 hours after your procedure. After 24 hours there are no restrictions on your activity but you may feel fatigued for a few days. 2. After you arrive home you may have a light meal and return to your normal diet as you can tolerate it without feeling sick to your stomach. 3. You may have a bloated, gaseous feeling in your belly (abdomen) after a colonoscopy. Passing gas and belching will help. Walking or lying down on your left side with your knees flexed may relieve the discomfort. Call the office at [phone] (Office) or [phone] (Hospital) right away if you notice any of the following: a.Vomiting of blood or ?coffee ground stools?. b.Rectal bleeding 1Tbsp, blood clots or continuous bleeding. c.Severe belly (abdominal) pain. d.A hard distended belly (abdomen) and an inability to pass gas. 4. Please don?t expect to have a normal BM (bowel movement) for 2-3 days after your procedure. 5. If there are questions regarding the findings of your procedure, please contact your doctor 6. If you are unable to contact your doctor with a problem, contact the hospital at [phone]. 7. Continue all your regular medications unless directed otherwise. I understand the above instructions and have no questions. Signature of Patient or Adult Escort Name of Responsible Adult Escort Signature of Nurse Date/Time Activity:: see above Diet:: see above Discharge Orders Discharge Orders: Discharge Order (Routine); Ordered 09/30/21 Ordered By: Nahomy Morrissey DS: Diagnosis Discharge Diagnosis (1) Rectal bleeding: Status: Deleted (2) History of left breast cancer: Status: Inactive (3) GERD (gastroesophageal reflux disease): Status: Chronic (4) Hyperlipidemia: Status: Acute (5) Hiatal hernia: Status: Chronic (6) Diverticulosis of colon: Status: Chronic (7) Acute anal fissure: Status: Acute
--- NOTE | 2021-10-01 11:35 | W.ANESPOSTOP ---
Postoperative Evaluation Date, Time and Location Date Performed: 10/01/21 Time Performed: 11:18 Patient Location: Day Surgery Unit Vital Signs Most Recent Imported Vital Signs: Most Recent Vital Signs Temp Pulse Resp BP Pulse Ox 36.6 C 77 16 109/69 98 10/01/21 11:17 10/01/21 11:17 10/01/21 11:17 10/01/21 11:17 10/01/21 11:17 Pain Score Most Recent Pain Score: Most Recent Pain Score Pain Level 0 10/01/21 11:17 Assessment Mental Status: Awake (Alert & Oriented to Patient Baseline) Airway and Respiratory Function: Patent airway with normal (patient baseline) respiratory exam Cardiovascular Function: Hemodynamically Stable Hydration Status: Adequately Hydrated Nausea & Vomiting: No Nausea or Vomiting Pain: Pt. Denies Any Pain Peripheral Nerve Block: Patient did not receive a nerve block
[2021-10-01 11:46] VITALS: BP 107/72; PULSE 76; RESP 14; TEMP 36.7; O2SAT 99
== END 2021-10-01 12:14 | disposition home or self-care (01) ==
LOC: SUR 10:09
PROVIDERS: PCP Family Medicine; Visit Provider Surgery
PROC: 0DJD8ZZ Inspection of Lower Intestinal Tract, Via Natural or Artificial Opening Endoscopic (ICD-10-PCS; CPT 45378; principal; 2021-10-01 10:30)
DX: K62.5 Hemorrhage of anus and rectum (principal); K60.2 Anal fissure, unspecified; K64.0 First degree hemorrhoids; K57.30 Diverticulosis of large intestine without perforation or abscess without bleeding
CPT/HCPCS: 45378; J2001

== ENCOUNTER 2021-12-13 00:25 | Outpatient (CLI) | payer BC, SELFPAY ==
--- NOTE | 2021-12-13 08:19 | DI.RAD_ITS ---
Exam(s) XR CHEST 2V PA LATERAL EXAM: XR CHEST 2V PA LATERAL CLINICAL HISTORY: recurrent left side chest pain, normal exam,r07.89. TECHNIQUE: 2D digital imaging was performed. COMPARISON: CR XR CHEST 2V PA LATERAL from 12/03/2018 FINDINGS: Heart size is normal. The mediastinum is not widened. Lungs are clear. No infiltrates nor pleural effusions. Previously present infiltrate in the right lung base seen on x-ray November 2018 has resolved. IMPRESSION: No acute pulmonary findings.The previously present infiltrate in the right lung base seen on x-ray 2018 has resolved. DATA REPOSITORY: RADIATION DOSE DELIVERED:
== END 2021-12-13 00:45 ==
LOC: DI 00:25
PROVIDERS: PCP Family Medicine; Visit Provider Family Medicine
DX: R07.89 Other chest pain (principal)
CPT/HCPCS: 71046

== ENCOUNTER 2021-12-13 01:36 | Outpatient (CLI) | payer BC, SELFPAY ==
[2021-12-13 10:47] LABS: ALT 29 U/L (14-59); Anion Gap 9.1 mmol/L (3-11); BUN 17 mg/dL (7-18); CO2 27.9 mmol/L (21.0-32.0); CREATININE 0.9 mg/dL (0.55-1.02); Calcium 8.8 mg/dL (8.5-10.1); Calculated LDL 156 mg/dL (<100); Chloride 105 mmol/L (98-107); Cholesterol 261 mg/dL (<200); Glucose 83 mg/dL (74-106); HDL Cholesterol 86 mg/dL (40-60); Potassium 4.2 mmol/L (3.5-5.1); Sodium 142 mmol/L (136-145); Triglyceride 95 mg/dL (<150)
[2021-12-14 10:58] LABS: HIV-1/2 Ag & Ab Screen Negative (Negative)
[2021-12-14 11:02] LABS: Hepatitis C Ab w Rflx HCV PCR Negative (Negative)
== END 2021-12-13 01:37 | disposition home or self-care (01) ==
LOC: LBO 01:36
PROVIDERS: PCP Family Medicine; Visit Provider Family Medicine
DX: E78.5 Hyperlipidemia, unspecified (principal); Z11.59 Encounter for screening for other viral diseases; Z11.4 Encounter for screening for human immunodeficiency virus [HIV]
CPT/HCPCS: 36415; 80048; 80061; 86803; 87389; 84460

== ENCOUNTER 2022-09-30 02:06 | Outpatient (CLI) | payer BC, SELFPAY ==
--- OUTSIDE RECORDS SUMMARY | 2022-09-30 02:07 | XMS_ITS | Clinical Summary ---
:1960 Author Organization [facility] [place] [address] Care Team Providers Name Role Phone None Primary Care Provider Unavailable Allergies Active Allergy Reactions Severity Noted Date Comments Sulfa (Sulfonamide Antibiotics) Hives Medications Medication Sig Dispensed Refills Start Date End Date Status famotidine (PEPCID) 20 Take 20 mg by 0 Active mg Tablet mouth 2 times daily. acetaminophen (TYLENOL) Take 1,000 mg by 0 Active 500 mg Tablet mouth every 6 hours as needed for Pain. Reported on 10/10/2016 calcium-vitamin D3 600 Take by mouth. 0 Active mg(1,500mg) -200 unit Tablet atorvastatin (Lipitor) Take 20 mg by 0 Active 20 mg Tablet mouth daily. Active Problems Problem Noted Date Family history of breast cancer 07/15/2021 Overview: Sister MA [facility] PGA P 2nd C alf current use of aromatase inhibitor 6 Chest pain 07/15/2016 Osteopenia 07/06/2016 Malignant neoplasm of upper-outer quadrant of left jamie ast in female, 12/02/2015 estrogen receptor positive Cancer Staging: Clinical: Unsigned Overview: Tanika had a screening mammogram on which showed a cluster of calcifications that was about 1.6 cm in diameter located at 3:00, 4 cm from her left nipple. She also had a second area of calc ifications at 12:00, 4 cm from her nippl e. Core biopsy of the lesion at 3:00, lesion one, showed high-grade DCIS, estrogen receptor negative. Core biopsy of lesion two at 12:00 showed just some benign a denosis. Subsequent MRI showed that lesi on one looked to be about 3 cm in length. It also showed that there was an 8 mm mass that was located 7 mm posterior and medial from lesion number one that was hi ghly suspicious on MRI. There were no ot her lesions seen as suspicious in the left breast on MRI. Her left axillary nodes were negative. Her right mammogram and right MRI were both negative. She underwent wide local excision, this demonstrating invasive ductal carcinoma, interestingly with associated DCIS, intermediate grade, and additional features as noted below, approximately 9 mm in siz e. She subsequently underwent lymph node dissection with 0/5 nodes being involved. She completed XRT on 02/02/2016. OncotypeD x score was 11 and started letrozole in January 2016. Solar aging of skin 07/25/2013 Encounters Date Type Specialty Care Team Description 09/13/2022 Office Visit General Surgery Priti, Encounter for follow-up surveillance of breast cancer; Lila Kan APRN Malignant neop lasm of upper-outer quadrant of left breast in female, estrogen receptor positive; Family history of breast cancer; Breast cancer s creening by mammogram 09/13/2022 Office Visit Hematology and Pamela Ariza Malignant ne oplasm of Oncology MD Delmy nipple of right breast in femal e, unspecified est rogen receptor status 09/13/2022 Hospital Encounter Radiology Priti, Maligna nt neoplasm of upper-outer quadrant of left breast in female, estrogen receptor positive; Lila Kan APRN Breast cancer screening by mammogram; Family history of breast cancer 09/13/2022 Travel 09/07/2022 Travel from Last 3 Months Immunizations Name Administration Dates Next Due Influenza PF, Split 11/03/2015 Td, adult 03/04/2004 Family History Medical History Relation Comments Breast Cancer Maternal Aunt Breast Cancer Maternal Cousin In her 40's Breast Cancer Paternal Aunt paternal great aunt (father's paternal aunt) Breast Cancer Paternal Cousin father's paternal 1s t cousin Stomach Cancer Paternal Grandfather Cancer Paternal Grandmother ? ovarian or uterin e Breast Cancer Sister Relation Status Comments Maternal Aunt Maternal Cousin Paternal Aunt Paternal Cousin Paternal Grandfather Paternal Grandmother Sister Social History Tobacco Use Types Packs/Day Years Used Date Smoking Tobacco: Never Smokeless Tobacco: Never Alcohol Use Standard Drinks/Week Comments Yes 5 (1 standard drink = 0.6 oz pure alcoho l) Sex Assigned at Date Recorded Not on file Last Filed Vital Signs Vital Sign Reading Time Taken Comments Blood Pressure 148/84 09/13/2022 9:42 AM EST Pulse 88 09/13/2022 9:42 AM EST Temperature 36.5 ??C (97.7 ??F) 09/13/2022 9:42 AM EST Respiratory Rate 20 09/13/2022 9:42 AM EST Oxygen Saturation 96% 09/13/2022 9:42 AM EST Inhaled Oxygen Concentration - - Weight 83.9 kg (184 lb 15.5 oz) 09/13/2022 9:42 AM EST Height 160.3 cm (5' 3.11) 09/13/2022 9:42 AM EST Body Mass Index 32.65 09/13/2022 9:42 AM EST Plan of Treatment Health Maintenance Due Date Last Done Comments Covid-19 Vaccine (#1) 1960 HIV screen 1976 Hepatitis C Screening 1976 Tdap adult 1977 HPV test 1988 PAP Smear 1988 Breast Cancer Share Decision 1998 Needed Colonoscopy 2003 Zoster vaccine (1 of 2) 2008 Advance Directive 2013 Tetanus vaccine 03/04/2014 03/04/2004 Diabetes Screening (HgbA1C or 03/19/2021 03/19/2018, 2016, Glucose) 03/22/2017, Additional history exists Influenza (Flu) vaccine (1 of 1 - 06/30/2022 11/03/2015 Influenza standard series) Breast Cancer screening 09/13/2024 09/13/2022, 07/15/2021, 05/27/2020, Additional history exists Procedures Procedure Name Priority Date/Time Associated Diagnosis Comme nts MAMMO SCREENING CAD Routine 09/13/2022 9:31 AM Malignant neopl asm Results for this AND ANNI BILATERAL EST of upper-outer procedu re are in quadrant of left the results breast in female, section. estrogen receptor positive Breast cancer screening by mammogram Family history of breast cancer from Last 3 Months Results Mammo Screening Cad and Anni Bilateral (09/13/2022 9:31 AM EST) Anatomical Region Laterality Modality Breast Bilateral Mammography Specimen (Source) Anatomical Location Collection Method / Collectio n Time Received Time / Laterality Volume Narrative 09/13/2022 9:41 AM EST REASON FOR EXAM: Screening. History of breast cancer. TECHNIQUE: CC and MLO views were obtaine d of the bilateral breast(s). Computer aided detection was used. 3D to mosynthesis images were obtained in addition to 2D images. Comparison:Compared with prior images. FINDINGS: Breast density:There are scattered areas of fibroglandular density There are no suspicious microcalcificati ons, masses, or areas of distortion. There are post surgical garza ges in the left breast. CONCLUSION: No mammographic evidence of malignancy. RECOMMENDATION:Routine screening. A result letter has been sent to this janel donato by [facility]. BIRADS CATEGORY 2: BENIGN FINDINGS The [place] [employer] and Th e Society of Breast Imaging recommend annual screening beginning at age 40 for the general female population. Screening should continue as long as a w madeline is in good health and is expected to live 10 more years or longer . All women should be familiar with the kn own benefits, limitations, and potential harms linked to breast cancer screening. They also should know how their breasts normally look and feel and report any breast changes to a health care provider right away. Some women, because of their family hist ory, a genetic tendency, or certain other factors, should be screene d with MRIs along with mammograms. (The number of women who fall into this category is very small.) The patient and health care provider should discuss the patient history and decide if earlier screening and breast M RI are appropriate. Lila Marcos APRN IMG MAMMO ORDERABLES from Last 3 Months Insurance Payer Benefit Plan / Subscriber ID Effective Dates Phone Addre ss Type Group [employer] [id number] 2021-Present [address] [place] [address] Advance Directives Latest Code Status on File Code Status Date Activated Date Inactivated Comments Full Code 07/15/2016 1:41 AM 07/15/2016 6:52 PM Question Answer Comments Does patient have capacity to make decision: Yes Code Status History Code Status Date Activated Date Inactivated Comments Full Code 11/03/2015 8:22 AM 11/03/2015 9:24 PM Question Answer Comments Does patient have capacity to make decision: Yes Care Teams Target Trimmer Relationship Specialty Start Date End Date None PCP - General 09/13/22 None
--- OUTSIDE RECORDS SUMMARY | 2022-09-30 02:07 | XMS_ITS | Encounter Summary ---
:1960 Author Organization [facility] Address [address] [place] [address] Care Team Providers Name Role Phone None Primary Care Provider Unavailable Encounter Details Date Type Department Care Team Description 09/13/2022 Office Visit General Surgery at [facility] for follow- up surveillance of breast cancer; [facility] Lila Kan APRN Malignant neoplasm of upper-outer quadra nt of left breast in female, estrogen receptor positive; [facility] history of breast cancer; Marsha REY Breast cancer screening by mammogram [place], [place] [facility] [address] [place] [address] [phone] Social History Tobacco Use Types Packs/Day Years Used Date Smoking Tobacco: Never Smokeless Tobacco: Never Alcohol Use Standard Drinks/Week Comments Yes 5 (1 standard drink = 0.6 oz pure alcoho l) Sex Assigned at Date Recorded Not on file documented as of this encounter Progress Notes Lila Marcos APRN - 09/13/2022 11:20 AM EST Patient ID: Taniak Harrison is a 62 y.o. female HPI: Dorene is a patient of Dr. 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 She is status post left partial mastectomy on November 03, 2015 and sentinel node excision on November 16, 2015. At today's visit, Dorene has occasional pains in the left lateral breast, but denies any new lumps or bumps in her breasts or axilla. She does not perform occasional self-breast exams. No nipple dischargeor pain in either breast. She denies any headaches or significant weight changes. No new chest pain or difficulty breathing. No new bony pain or tenderness. She denies other significant changes to her health since her last visit. Breast cancer history: Tanika had a screening mammogram on 09/16/2015 which showed a cluster of calcifications that was about 1.6 cm in diameter located at 3:00, 4 cm from her left nipple. She also had a second area of calcifications at 12:00, 4 cm from her nipple. Core biopsy of the lesion at 3:00, lesion one, showed high-grade DCIS, estrogen receptor negative. Core biopsy of lesion two at 12:00 showed just some benign adenosis. Subsequent MRI showed that lesion one looked to be about 3 cm in length. It also showed that there was an 8 mm mass that was located 7 mm posterior and medial from lesion number one that was highly suspicious on MRI. There were no other lesions seen as suspicious in the left breast on MRI. Her left axillary nodes were negative. Her right mammogram and right MRI were both negative. She underwent wide local excision, this demonstrating invasive ductal carcinoma, interestingly with associated DCIS, intermediate grade, and additional features as noted below, approximately 9 mm in size. She subsequently underwent lymph node dissection with 0/5 nodes being involved. She completed XRT on 02/02/2016. OncotypeDx score was 11 and started letrozole in January 2016 and completed 5 years. She met with Dr. Bennett in Medical Oncology earlier today. BREAST CANCER NOTES Method of Cancer Detection Screening mammogram 09/16/2015 Menopausal Status at Diagnosis Postmenopausal Date of Diagnostic Biopsy 09/28/2015 Local Surgery Left partial mastectomy Axillary Management SNE (0 [address] involved) Date of Last Surgical Procedure 11/16/2015 Histology IDC with DCIS Location Left lateral breast Size of Primary Malignancy 9 mm Grade Intermediate Margins Negative ER Positive NM Positive HER-2 Negative OncotypeDx Recurrence Score 11 Chemotherapy N/A Radiation Therapy XRT completed 02/12/2016 Adjuvant Endocrine Therapy Letrozole x 5 yrs Genetic Testing Not tested Surveillance Annual mammogram and [facility] Comprehensive Breast Program Surgery Follow Up: Range of motion of surgical arm complete Lymphedema present No Cosmesis-surgeon reported Cosmesis-patient reported Good Good Local or regional recurrence No Contralateral cancer present No Distant recurrence present No Date of last follow up 07/15/2021 Breast Cancer Risk Factors: History Age at delivery of first child 21 yo Breast fed Yes Oral contraceptive use Yes Menarche age 12 yo LMP 48 yo Hormone replacement therapy No Family history of breast cancer Multiple (see FHx below) Family history of ovarian cancer PGM (possible) Ashkenazi Amish heritage No Known genetic mutation Met w/ [facility] on 09/11/19, but testing was not done. Family History Problem (# of Occurrences) Relation (Name,Age of Onset) Cancer (1) Paternal Grandmother (63): ? ovarian or uterine Breast Cancer (5) Sister (52), Maternal Aunt (60), Maternal Cousin (48): In her 40's, Paternal Aunt(pat grt aunt, 45): paternal great aunt (father's paternal aunt), Paternal Cousin (2nd cousin, 35): father's paternal 1st cousin Stomach Cancer (1) Paternal Grandfather Social Hx: Dorene works in [employer]. She also cares for her elderly mother and her mother's 2 elderly sisters, as well as her [id number] and other family members. She has never smoked; ETOH - occasional glass of wine. Physical Exam: General appearance: Alert, well-developed, well-nourished; in no acute distress. Skin: Warm and dry. Head: Normocephalic, atraumatic. Neck: Soft and supple without masses or cervical adenopathy. Cardiovascular: Normal rate, regular rhythm and normal heart sounds. No murmur heard. Pulmonary: Effort normal and breath sounds normal. No respiratory distress, cough, or wheezing. Breasts: Exam performed in the upright and supine positions. The left breast has a well-healed axillary incision. The periareolar incision has some puckering and scar contracture The scars are soft andnontender, without mass. No venous prominence or skin thickening. The right breast has normal appearance and contour. No suspicious masses, tenderness, dimpling, erythema, or other skin changes in either breast. No nipple discharge or other nipple changes. The nipples are everted. No palpable axillarylymph nodes bilaterally. I feel no obvious discrete or dominant masses in either breast. Musculoskeletal: Arms with full ROM without any evidence of lymphedema. Fully weight-bearing. Neurological: Alert and oriented x 4. Mood is euthymic and appropriate to the situation. Results: Imaging performed (bilateral mammogram) at [facility] today shows no evidence of malignancy, BI-RADS Category 2 with scattered areas of fibroglandular breast tissue. Post treatment changes noted on the left. The results were reviewed with her at today's appointment. Assessment: Clinical breast exam without notable masses, skin changes, dimpling, or nipple discharge. Doing well without evidence of local recurrence. Stable exam. Plan: 1. Encounter for follow-up surveillance of breast cancer 2. Malignant neoplasm of upper-outer quadrant of left breast in female, estrogen receptor positive 3. Family history of breast cancer 4. Breast cancer screening by mammogram - Mammo Screening Cad and Garcia Bilateral; August 2023 I have discussed my assessment and recommendations with Pat to include occasional self-breast exams and annual mammographic screening with clinical breast exams. Based on her risk status, her next bilateral screening mammogram is due in one year, or sooner if indicated. I will plan to see her for a cli nical breast exam at that time. She will also contact me if she develops any new breast changes or concerns prior to that appointment. She agrees to this plan. Survivorship recommendations: ?? Continue annual bilateral screening mammograms until life expectancy is <10 years and you remain in good health, or as long as you would consider treatment for a breast cancer if found. ?? Continue clinical breast exams at least once yearly. ?? Continue self breast awareness. ?? For any new or worsening symptoms for which cause remains undetermined, consider breast cancer recurrence. Specifically - new or worsening skeletal pain, headache, diplopia, neurologic deficits, elevated LFTs, abdominal pain/swelling, cough, or SOB. ?? Get at least 150 minutes of cardiovascular exercise and 2 days of resistance/strength training per week. Ways to include exercise at home include yoga and bone building exercise videos online. ?? Eat a mainly plant-based Mediterranean style diet. Minimize processed foods, simple carbohydrates, sugars, and artificial sweeteners. ?? Do not smoke. ?? If consuming alcohol, limit to 1 drink or less per day. ?? Maintain or achieve a healthy weight. Normal BMI < 25 for individuals under 65 years old; 22-30 for > 65 years old. ?? Manage stress levels. ?? Be cautious about exposure risk, both what you put in and on your body (ie: artificial fragrances, artificial dyes, as well as certain ingredients in makeup, hair and body care, antiperspirant, sunscreen, insect repellant, laundry detergent, fabric softener, dryer sheets, etc.). Resources to help you make informed choices for personal care products are available at EWG (Environmental Working Group) at https://www.ewg.org and free apps for your cell phone from [employer] ([employer]) and kompany ([employer]). All questions were answered to the patient's satisfaction and they state understanding and agreementwith today's treatment plan. They are encouraged to follow up sooner if they develop any new or concerning symptoms. Lila Marcos APRN Surgical Oncology P [phone] F [phone] [facility] documented in this encounter Plan of Treatment Scheduled Orders Name Type Priority Associated Diagnoses Order S chedule Mammo Screening Cad and Imaging Routine Malignant neoplas m of Expected: 09/13/2023, Garcia Bilateral upper-outer quadrant of Ex matt: 03/13/2024 left breast in female, estrogen receptor positive Family history of breast cancer Breast cancer screening by mammogram documented as of this encounter Visit Diagnoses Diagnosis Encounter for follow-up surveillance of breast cancer Unspecified follow-up examination Malignant neoplasm of upper-outer quadra nt of left breast in female, estrogen receptor positive Family history of breast cancer Family history of malignant neoplasm of breast Breast cancer screening by mammogram documented in this encounter Care Teams Spa Receptionist Relationship Specialty Start Date End Date None PCP - General 09/13/22 None documented as of this encounter
--- OUTSIDE RECORDS SUMMARY | 2022-09-30 02:07 | XMS_ITS | Encounter Summary ---
:1960 Author Organization [place] [address] Care Team Providers Name Role Phone None Primary Care Provider Unavailable Encounter Details Date Type Department Care Team Description 09/13/2022 Hospital Encounter Mammography/DXA at [facility] alignant neoplasm of upper-outer quadrant of left breast in female, estrogen receptor positive; [facility] Lila Kan APRN Breast cancer screening by mammogram; [facility] breast cancer [facility] [address], [facility] [address] [place], [place] [phone] [facility] Social History Tobacco Use Types Packs/Day Years Used Date Smoking Tobacco: Never Smokeless Tobacco: Never Alcohol Use Standard Drinks/Week Comments Yes 5 (1 standard drink = 0.6 oz pure alcoho l) Sex Assigned at Date Recorded Not on file documented as of this encounter Medications at Time of Discharge Medication Sig Dispensed Refills Start Date End Date atorvastatin (Lipitor) 20 Take 20 mg by mouth 0 mg Tablet daily. calcium-vitamin D3 600 Take by mouth. 0 mg(1,500mg) -200 unit Tablet acetaminophen (TYLENOL) Take 1,000 mg by 0 500 mg Tablet mouth every 6 hours as needed for Pain. Reported on 10/10/2016 famotidine (PEPCID) 20 mg Take 20 mg by mouth 2 0 Tablet times daily. documented as of this encounter Plan of Treatment Not on filedocumented as of this encounter Procedures Procedure Name Priority Date/Time Associated Diagnosis Comme nts MAMMO SCREENING CAD Routine 09/13/2022 9:31 AM Malignant neopl asm Results for this AND ANNI BILATERAL EST of upper-outer procedu re are in quadrant of left the results breast in female, section. estrogen receptor positive Breast cancer screening by mammogram Family history of breast cancer documented in this encounter Results Mammo Screening Cad and Anni Bilateral [...] result letter has been sent to this pa tierosie by [facility]. BIRADS CATEGORY 2: BENIGN FINDINGS The [place] [employer] and Th e Society of Breast Imaging recommend annual screening beginning at age 40 for the general female population. Screening should continue as long as a craig correa is in good health and is expected [...] appropriate. Lila Marcos APRN IMG MAMMO ORDERABLES documented in this encounter Visit Diagnoses Diagnosis Malignant neoplasm of upper-outer quadra nt of left breast in female, estrogen receptor positive Breast cancer screening by mammogram Family history of breast cancer Family history of malignant neoplasm of breast documented in this encounter Care Teams Hand Cell Tuber Relationship Specialty Start Date End Date None PCP - General 09/13/22 None documented as of this encounter
--- OUTSIDE RECORDS SUMMARY | 2022-09-30 02:07 | XMS_ITS ---
:1960 Author Organization [facility] [place] [address] Care Team Providers Name Role Phone None Primary Care Provider Unavailable Active Problems Problem Noted Date Family history of breast cancer 07/15/2021 Overview: Sister [facility] senior living current use of aromatase inhibitor 6 Chest [...] January 2016. Solar aging of skin 07/25/2013 Current Oncology Plans No current plan information found. Other Current Plans [facility] DENOSUMAB (PROLIA) INJECTIONPlan Start Date:09/17/2018 Plan Provider:Johnnie Santos MD Linked Problems Osteopenia, unspecified location Treatment Medications No medications scheduled. Past Plans No past plan information found. Radiation Treatments No radiation treatments are documented for this patient in [facility]. Treatments may have been administered in another system. Treatment Summaries Malignant neoplasm of upper-outer quadrant of left breast in female, estrogen receptor positive Images from the original note were not included. Cancer Treatment Summary Provided by Wendi Vargas on 04/13/17 General Information Patient name Tanika Harrison (home) [phone] (work) Date of 1960 Support contact Jeremy Hunter--spouse Care Team Medical Oncologist Dr Brooks Ricardo Surgeon Dr Daniel El Radiation Oncologist Dr Mable Jacome Primary Care Physician [facility] Treatment Summary Chemotherapy and Supportive Care Treatment History Breast Cancer Notes BREAST CANCER NOTES 04/13/2017 Method of Cancer Detection abnormal mammogram of the left breast Menopausal Status at Diagnosis post-menopausal Date of Diagnostic Biopsy 09/28/2015 Local Surgery Lumpectomy done by Dr El at [facility] [place] on 11/03/2015 Axillary Management [place] nodes alone Total Number of Nodes Removed 5 Total Nodes Positive 0 Date of Last Surgical Procedure 11/16/2015 for sentinel node excision Histology 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 Tumor Staging from Staging System [id number] T1= tumor that is less than 2 cm in size N0= no involved lymph nodes M0= no distant spread Stage 1--good prognosis Size of Primary Malignancy 0.89 cm Grade Intermediate grade Margin negative ER--estrogen receptor Positive >90% RI--progesterone receptor Positive > 90% HER-2/FISH negative Oncotype Recurrence Score 11 which equals an 8% risk of distant recurrence with five years of tamoxifen alone Radiation therapy dates Treatment given from 01/05/2016 through 02/02/2016 Radiation [place] [place] Protocol Radiation Boost yes Total Dosage of Radiation 52.56 Hormone therapy Letrozole started 01/2016 DEXA 01/25/2016--FINDINGS: Lowest T-score at a diagnostic region of interest: ?? T-score: -2.2, MINDI: Femoral neck, WHO diagnosis: low bone mass or osteopenia. ??Patient has been started on Prolia for the osteoporosis Surveillance --02/03/2016- bone scan--negative for metastasis --07/06/2016- left breast mammogram--negative for malignancy --01/04/2017--bilateral mammogram--negative for malignancy Follow-up and Survivorship Care Monitor for ongoing toxicities: Surveillance: Primary Care Provider: Follow-up at least yearly for health maintenance Medical Oncology: Follow up every six months Surgeon: follow up yearly Radiation Oncology: follow- every six months year one then yearly Mammogram: yearly Breast self exam: monthly Genetic testing: family history-- sister with breast cancer at age 52, one paternal great aunt and one maternal aunt with breast cancer Possible late and shelter effects of treatment: Side effect of aromatase inhibitor drugs (AI) : You are taking letrozole which is an AI associated with hot flashes, night sweats, mood swings, vaginal dryness, arthralgias (joint pain) nausea, and loss of bone density. Bone density with Dexa scans needs to be done every two years. If your density falls below - 2.0 you were started on Prolia to manage this. AI drugs may also increase your cholesterol level by about 10% and it may increase your blood pressure. The vaginal dryness can be managed with topical nonhormonal lubricants such as Replens, Astroglide, or Hydeal-D, and the joint pain with fish oil, glucosamine, or a two week drug holiday. Skin changes at the site of radiation. Late effects include change in pigmentation, skin thickening,retraction and fibrosis (scar tissue) and formation of telangiectasias (small red lines on skin--this can occur several years after completion of treatment and is cosmetic only) Lymphedema of the breast and arm are caused by lymph node dissection and fibrosis (scars) from radiation therapy and surgery. Report any swelling to your cancer team. You may require physical therapy for manual lymphatic drainage and/or compression sleeve. It is recommended that you wear a compressionsleeve when flying long distances. Steps you can take to avoid your risk of developing lymphedema: ??? Do not apply heat to the affected area. ??? Keep your skin and nails clean to avoid infection. ??? Avoid overexertion of the affected area during the healing process; keep it rested and elevated. ??? Protect yourself from injury, especially to the limb(s) most likely to be affected. ??? Do not wear tight clothing. ??? Avoid positions, movements, or activities that may constrict your circulation (carrying heavy bags, tight jewelry). Bone Health: You are post menopausal and taking letrozole that can cause bone mass loss. It is recommended that you have a bone density exam every two years. Take calcium 1200mg a day and vitamin D3 1000 to 2,000 IU a day. Weight bearing exercise can also reduce bone mass loss. Alteration in sexual function: Cancer diagnosis and treatment can cause changes in sexual function. You are encouraged to discuss this with your cancer care team. There are no restrictions in being sexually active. Water, oil or silicone-based lubricants or vaginal moisturizers can help with vaginal dryness. Different sexual positions may be more comfortable. Topical lidocaine can be useful in the event of pain with intercourse Pain: Discuss any problems with persistent pain with your cancer team. Fatigue: Cancer related fatigue is a distressing persistent, subjective sense of physical, emotional, and/or cognitive tiredness or exhaustion related to cancer or cancer treatment that is not proportional to recent activity and interferes with usual functioning. This is a common issue for individualsundergoing cancer treatment and for cancer survivors sometimes for months and years following diagnosis and treatment. The time course of fatigue is unique to each person. In most cases mild to moderate fatigue will resolve within a year. If it persists longer than this time or if fatigue worsens discuss this issue with your cancer team for further evaluation. Anxiety depression: Survivors of cancer treatment are at high risk for anxiety and depression due tomultiple stressors, feeling vulnerable and the many challenges that you have faced and continue to face. Fear of recurrence is normal. Let your providers know if you have any of these symptoms--frequent feelings of being nervous, restless or worried or fearful, trouble sleeping, difficulty concentrating, less interest or enjoyment of usual activities, feeling sad or depressed, difficulty performing your usual activities. Cardiac Toxicities: As part of your cancer treatments you received radiation therapy to the chest you should be screened for heart disease and have an ECHO five to ten years after completion of treatment PCP follow up: Yearly exams for health maintenance and preventative care. Yearly gynecologic exams for women's health care with either radiation technician or primary care provider. LIFE STYLE: Exercise: Many studies now show that women who exercise and who do not gain weight reduce their riskof breast cancer recurrence. Engage in at least 20-30 minutes of moderate intensity activity on mostdays of the week. Include strength training exercises at least two days a week. Alcohol: Minimize alcohol intake to no more than one drink a day. Nutrition: Follow the [place] [employer] Guidelines that include the following: limit consumption of processed meat and red meat; eat at least 2.5 cups of vegetables and fruits daily; choose wholegrains instead of refined grain products. High fiber and low fat diet is advised. Smoking: smoking increases the risk of breast cancer and other cancers Sunscreen should be used prolonged sun exposure, ie longer than 15 minutes. Screening: Colonoscopy at age 50, pelvic exams, bone density when menopausal, fasting lipid profile as indicated and at the discretion of you primary care provider and all other age appropriate screenings that need to be done yearly Vaccinations: Immunization of inactivated vaccines is recommended for cancer survivors. This includes flu vaccines yearly. Pneumonia vaccine is recommended per CDC guidelines for pneumonia vaccine--primary care provider would administer this. Potential signs of recurrence: Any symptom lasting more than 2 weeks and not improving--persistent pain, cough, shortness of breath, headache. Any change in skin at treatment site from post treatment baseline or new lump or nipple discharge. Resources: Helpful websites www. cancer.gov -- National Cancer [place] www. nccn.org -- National Comprehensive Cancer Network www. canceradvocacy. org --National Coalition for Cancer Survivorship www. livestrong. org -- [employer] Survivor Care www. acscsn.org -- Cancer Survivors Network Survivorship care provider contacts MAGNETIC RESONANCE IMAGING COORDINATOR: Wendi Vargas
--- OUTSIDE RECORDS SUMMARY | 2022-09-30 02:07 | XMS_ITS | Encounter Summary ---
:1960 Author Organization [facility] [place] [address] Care Team Providers Name Role Phone Kelsie Neal MD Primary Care Provider Encounter Details Date Type Department Care Team Description 09/07/2022 Travel Social History Tobacco Use Types Packs/Day Years Used Date Smoking Tobacco: Never Smokeless Tobacco: Never Alcohol Use Standard Drinks/Week Comments Yes 5 (1 standard drink = 0.6 oz pure alcoho l) Sex Assigned at Date Recorded Not on file documented as of this encounter Plan of Treatment Not on filedocumented as of this encounter Visit Diagnoses Not on filedocumented in this encounter Care Teams Sample Grader Relationship Specialty Start Date End Date Kelsie Neal MD PCP - General Family Medicine 02/03/16 09/12/[address] [place], [place] [id number] documented as of this encounter
--- OUTSIDE RECORDS SUMMARY | 2022-09-30 02:07 | XMS_ITS | Encounter Summary ---
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 [place]AT[place] [address] Referral ID Status Reason Start Date Expiration Visits Visits Date Requested Authorized [id number] Authorized Consult, 09/13/2022 09/13/2023 1 1 Test & Treat Encounter Details Date Type Department Care Team Description 09/13/2022 Office Visit Hematology and Pamela Ariza, Malignant neoplasm of Oncology at [facility] [place] nipple of right breast [facility] in female, unspecified Drive DRIVE estrogen receptor [place], [place] HEMATOLOGY & status [id number] ONCOLOGY [phone] [place], [place] [address] Social History Tobacco Use Types Packs/Day Years Used Date Smoking Tobacco: Never Smokeless Tobacco: Never Alcohol Use Standard Drinks/Week Comments Yes 5 (1 standard drink = 0.6 oz pure alcoho l) Sex Assigned at Date Recorded Not on file documented as of this encounter Last Filed Vital Signs Vital Sign Reading [...] Mass Index 32.65 09/13/2022 9:42 AM EST documented in this encounter Progress Notes Pamela Ariza MD - 09/13/2022 10:00 AM EST Tanika Harrison is a 62 y.o. female With a stage 1 luminal breast cancer on left who is not on any further therapy after completing 5 yrs of letrozole in 202009/13/2022 This is a transfer of care. Prior records were reviewed before this appointment. Not on any therapy. Overall doing well. Some occasional twinges in left LE site. Had numbness originally and still has alittle numbness. Some neck stiffness for a while, can't fully turn head to the left. No exercise: not sure she would like to take the time. Breast Cancer History: -Diagnosed in September 2015 with left breast infiltrating ductal carcinoma. -Tumor was 9-mm cancer, intermediate grade, SBR = 6.?? Extensive associated DCIS present.?? LVI negative, 0/5 sentinel nodes, -HER2 -, FISH ratio = 1.1.?? ER/TN+++ (greater than 90%, strong). -Oncotype Dx Recurrence Score = 11. -She is S/P WLE and XRT, completed 02/12. -January 2016 Started adjuvant letrozole. -January 2021 stopped letrozole after completing 5 yr course. Health Maintenance: Breast imagin09/13/2022 Bone density: 04/2020 T-score: -2.1 Colonoscopy: 2020 Skin check: 2020 Credit Or Loans Officer: 2020. appt pending Genetics- talked About but ambivalent about it. Past Medical History: Diagnosis Date ??? Breast cancer 10/2015 ??? Hiatal hernia ??? Hypercholesteremia Patient Active Problem List Diagnosis Code ??? Solar aging of skin L57.8 ??? Malignant neoplasm of upper-outer quadrant of left breast in female, estrogen receptor positive C50.412, Z17.0 ??? Osteopenia M85.80 ??? Chest pain R07.9 ??? medical transcriber current use of aromatase inhibitor Z79.811 ??? Family history of breast cancer Z80.3 Fam Hx: No change in Fam Hx: her only sister had breast cancer as well, dx at age 53. Also one of two maternal aunts had breast ca (?age) and a paternal Great Aunt (on PGF side) with h/o breast ca. No family h/o ovarian ca.Drinks EtOH 1-2 times per week. No dedicated exercise. Gets [phone] steps per day. Family History Problem Relation Age of Onset ??? Breast Cancer Sister 52 ??? Breast Cancer Maternal Aunt 60 ??? Breast Cancer Maternal Cousin 48 In her 40's ??? Cancer Paternal Grandmother 63 ? ovarian or uterine ??? Stomach Cancer Paternal Grandfather ??? Breast Cancer Paternal Aunt 45 paternal great aunt (father's paternal aunt) ??? Breast Cancer Paternal Cousin 35 father's paternal 1st cousin She had genetic consultation with [employer] last August and never followed thru (was going to talk with relatives). Review of Systems: Constitutional: Negative. Negative for chills, fatigue and fever. HENT: Negative. Eyes: Negative. Respiratory: Negative. Negative for cough, dizziness on exertion and shortness of breath. Cardiovascular: Negative. Negative for chest pain and leg swelling. Gastrointestinal: Negative. Endocrine: Negative. Genitourinary: Negative. Musculoskeletal: Negative. Skin: Negative. Neurological: Negative. Hematological: Negative. Psychiatric/Behavioral: Negative. All other systems reviewed and are negative. Physical Exam: Patient Vitals for the past 24 hrs: Temp Pulse Resp BP SpO2 09/13/22 0942 36.5 ??C (97.7 ??F) 88 20 148/84 96 % Physical Exam: Patient Vitals for the past 24 hrs: Temp Pulse Resp BP SpO2 09/13/22 0942 36.5 ??C (97.7 ??F) 88 20 148/84 96 % Wt Readings from Last 3 Encounters: 09/13/22 83.9 kg (184 lb 15.5 oz) 07/15/21 81.2 kg (179 lb) 12/04/20 80.7 kg (178 lb) Vitals reviewed. General: A&Ox3. Well-developed and well-nourished. No acute distress. Head: Normocephalic, atraumatic. Eyes: PERRLA. EOMs intact. Conjunctiva pink. No scleral icterus. Mouth/Throat: Oropharynx is clear and moist. No ulcers or exudates. No tonsillar enlargement. Neck: Supple, nontender. No cervical or supraclavicular lymphadenopathy. No thyromegaly. Cardiovascular: Normal rate, regular rhythm. No murmurs appreciated. No peripheral edema. Pulmonary: Breathing comfortably on room air. Lungs clear to auscultation bilaterally without wheezes, rhonchi, or crackles. Breasts: s/p LLE and SLNB No masses or nipple discharge in right or left breast Abdomen: Soft, nontender, nondistended. No masses, rebound, or guarding. Musculoskeletal: No spinal or pelvic tenderness upon palpation. Neurological: Gait normal. No focal deficits noted. Skin: Warm and dry. No rash noted. Psychiatric: Mood is euthymic. Affect is normal, mood-congruent. Insight is good. Thought-content isfuture-oriented. Assessment and Plan 62 y.o. diagnosed in Sep 2015 with an invasive left breast cancer (initially bx was DCIS). Tumorwas 9mm, intermediate grade, node-negative. ER and TN were positive in the invasive component; HER2 neg. OncotypeDx assay w/ RS=11. She is s/p partial mastectomy and XRT. She took 5 years of adjuvant letrozole from January 2016 through January 2021. #History of breast cancer - Completed 5 years of letrozole therapy. - Mammo today benign, due in 1 yr- order entered - Further f/u per PCP however needs a new one. Needs exercise Metabolic bone group Not interested in genetic testing at this time. RTC 1 year. Prefers same day as surg and mammo. Will have PCP do CBE between appts. Future Appointments Date Time Provider Department Center 09/13/2022 11:20 AM Lila Marcos APRN [facility] documented in this encounter Plan of Treatment Scheduled Referrals Name Type Priority Associated Order Schedule Diagnoses Referral to Outpatient Referral Routine Malignant neoplasm Or dered: Endocrinology of nipple of right 09/13/20 22 breast in female, unspecified estrogen receptor status documented as of this encounter Visit Diagnoses Diagnosis Malignant neoplasm of nipple of right br east in female, unspecified estrogen receptor status documented in this encounter Care Teams Business Office Coordinator Relationship Specialty Start Date End Date None PCP - General 09/13/22 None documented as of this encounter
--- OUTSIDE RECORDS SUMMARY | 2022-09-30 02:08 | XMS_ITS | Encounter Summary ---
:1960 Author Organization [facility] [place] [address] Care Team Providers Name Role Phone Kelsie Neal MD Primary Care Provider Reason for Visit Reason Comments Radiation Follow-up breast cancer Encounter Details Date Type Department Care Team Description 04/13/2017 Office Visit Radiation Oncology at [place], [place] ignant neoplasm of [facility] FUNERAL PRE ARRANGEMENT SPECIALIST left female breast, [address] unspecified site of [place], [place] RADIATION ONCOL OGY breast [id number] [place], [place] [phone] (Wo rk) Social History Tobacco Use Types Packs/Day Years Used Date Smoking Tobacco: Never Alcohol Use Standard Drinks/Week Comments Yes 5 (1 standard drink = 0.6 oz pure alcoho l) Sex Assigned at Date Recorded Not on file documented as of this encounter Last Filed Vital Signs Vital Sign Reading Time Taken Comments Blood Pressure 119/62 04/13/2017 3:24 PM EDT Pulse 80 04/13/2017 3:24 PM EDT Temperature 37.1 ??C (98.8 ??F) 04/13/2017 3:24 PM EDT Respiratory Rate 18 04/13/2017 3:24 PM EDT Oxygen Saturation 99% 04/13/2017 3:24 PM EDT Inhaled Oxygen Concentration - - Weight 82.1 kg (181 lb) 04/13/2017 3:24 PM EDT Height - - Body Mass Index 31.09 03/22/2017 11:11 AM EDT documented in this encounter Progress Notes Wendi Vargas, FUNERAL PRE ARRANGEMENT SPECIALIST - 04/13/2017 3:15 PM EDT Images from the original note were not included. Patient ID: Tanika Harrison is a 57 y.o. female with breast ca, L, IDC, intermed gr, ER+OH+, [id number]-, s/p lumpectomy followed by SNB, pT1 pN0, stage I. She was treated with adjuvant radiation therapy for a total dose of 52.56 Gy which was completed on 02/02/2016. She was started on Letrozole following radiation and continues with this medication. She is in clinic for scheduled followup and to review her survivor care plan. ?? HPI 55 y/o f who presented w/L breast abnlty on screening mmgs. ?? 09/16/15 screening B mmgs: Calcs in medial central L breast & asymmetric density in superior L breast. R breast neg. ?? 09/18/15 dx'ic L mmg: Lesion #1 L breast calcs @ 3:00. Lesion #2 L breast calcs @ 12:00. ?? 09/28/15 stereotactic guided needle bxs L breast lesion #1 @ 3:00 & lesion #2 @ 12:00. ?? Path: A - L breast lesion #1: DCIS B - L breast lesion #2: Benign ?? 10/07/15 MRI B breasts: L breast lesion #1: KNOWN MALIGNANCY, 2 cm mass @ 3:00. L breast lesion #2: Bx cavity @ 12:00, represents benign adenosis. L breast lesion #3: 0.8 cm irregular mass in central breast, 0.7 cm posterior & medial to lesion #1. R breast neg. ?? 10/14/[address] El, w/exam showing no palpable breast mass/adenopathy. ?? 11/03/15 L breast lumpectomy incorporating extension that went down close to chest wall on slightly inferior medial side of center of tumor, w/removal of pec major fascia. Specimen mmg showed calcs correlating w/lesion #1. ?? Path: IDC; intermed gr; 0.89 cm; +DCIS (extensive); no ALI; RM neg; ER+OH+, [id number]-. ? 11/16/15 L axillary SNB. ?? Path: 5 lymph nodes, neg for malig. Onco Dx = 11. Radiation therapy detail ?? Her completed xrt is summarized as follows: 01/05/16 through 02/02/16, 42.56 Gy/16 fxs L breast with 6 MV Xray external beam, followed by volume reduction & 10 Gy/4 fxs to lumpectomy bed with 6 & 10 MV Xray external beam, boosting lumpectomy bed to 52.56 Gy/20 fxs. All treatment given with deep inspiration breath hold (DIBH) using 3D xrt. Breast Cancer Notes : Survivor care plan reviewed with patient 04/13/2017 and copy given to patient and sent to her PCP BREAST CANCER NOTES 04/13/2017 Method of Cancer Detection abnormal mammogram of the left breast Menopausal Status at Diagnosis post-menopausal Date of Diagnostic Biopsy 09/28/2015 Local Surgery Lumpectomy done by Dr El at [facility] on 11/03/2015 Axillary Management Lynn nodes alone Total Number of Nodes Removed [...] grade Margin negative ER--estrogen receptor Positive >90% OH--progesterone receptor Positive > 90% HER-2/FISH negative Oncotype Recurrence Score 11 which equals an 8% risk of distant recurrence with five years of tamoxifen alone Radiation therapy dates Treatment given from 01/05/2016 through 02/02/2016 Radiation [facility] [employer] Protocol Radiation Boost yes Total Dosage of Radiation 52.56 Hormone therapy Letrozole started 01/2016 DEXA 01/25/2016--FINDINGS: Lowest T-score at a diagnostic region of interest: ?? T-score: -2.2, MINDI: Femoral neck, WHO diagnosis: low bone mass or osteopenia. ??Patient has been started on Prolia for the osteoporosis Surveillance --02/03/2016- bone scan--negative for metastasis --07/06/2016- left breast mammogram--negative for malignancy --01/04/2017--bilateral mammogram--negative for malignancy Patient Active Problem List Diagnosis Code ??? Solar aging of skin L57.8 ??? Ductal carcinoma in situ (DCIS) of left breast D05.12 ??? Malignant neoplasm of left female breast C50.912 ??? Osteopenia M85.80 ??? Chest pain R07.9 ??? 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 BREAST BIOPSY Right 08/11 ??? BREAST BIOPSY Left 09/28/2015 x2 ??? BREAST LUMPECTOMY Left 11/03/2015 ??? PRO BX/REMV, LYMPH NODE, DEEP AXILL Left 11/16/2015 BIOPSY OR EXCISION OF LYMPH NODE(S), OPEN, DEEP AXILLARY NODE(S) performed by Daniel El MD at [facility] MA[facility] OR ??? PRO MASTECTOMY, PARTIAL Right 11/03/2015 MASTECTOMY PARTIAL performed by Daniel El MD at [facility] MAIN OR Allergies Allergen Reactions ??? Sulfa (Sulfonamide Antibiotics) Hives Medications 04/13/17 1545 Medication Sig Taking? letrozole (FEMARA) 2.5 mg Tablet Take 2.5 mg by mouth daily. Yes denosumab (PROLIA) 60 mg/mL Syringe Inject 60 mg subcutaneously Q6 Months. Yes multivitamin (THERAGRAN) Tablet Take 1 tablet by mouth daily. Yes calcium-vitamin D3 600 mg(1,500mg) -200 unit Tablet Take by mouth. Yes acetaminophen (TYLENOL) 500 mg Tablet Take 1,000 mg by mouth every 6 hours as needed for Pain. Reported on 10/10/2016 Yes famotidine (PEPCID) 20 mg Tablet Take 20 mg by mouth 2 times daily. Yes simvastatin (ZOCOR) 20 mg Tablet Take 20 mg by mouth nightly. Yes Review and update social history: Social Supports: Pt has been to her Jeremy of 38 years. They have 2 sons who live local. She has grandchildren. Pt reports she has a good support system of family, friends and coworkers. ?? Living Situation/Daily Activities/Transportation: Pt manages her daily chores and activities. No issues with transportation. ?? 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 Her place of employment is being flexible re her work schedule. 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 She did not indicate any concerns re her insurance or finances. ?? Advance Directives: Pt has not completed her advance directives. ?? Adjustment to Illness/Mental Health Issues: Pt indicated she is coping the best she can and feels well supported by her family and friends. ?? Interim History: ?? Time from completion of treatment 14 months Problems at primary site (breast) Mild left breast tenderness and mild chest wall tightness Metastatic symptoms: none Pain Hand stiffness and intermittent leg pain Breast tenderness mild Skin changes breast none Lymphedema none Persistent cough Patient reports her baseline cough which has been present for years and fully evaluated by pulmonology Persistent headaches none ROM restriction none Functional status Very active--no formal exercise but does outdoor work and maintains household Independent with all ADL and IADL Smoking none Hormone therapy side effects Tolerable hot flash, hand stiffness and joint pain, vaginal dryness Misc Review of Systems Constitutional: Negative for activity change, chills, fatigue and fever. Very hectic days. Does a lot of outdoor work after her day job Moderate hot flashes HENT: Negative. Respiratory: Positive for cough. Negative for chest tightness and shortness of breath. Had been seeing keno attendant in [place] --now discharged + dry cough x years Cardiovascular: Negative. Negative for chest pain and leg swelling. Gastrointestinal: Negative. Negative for abdominal distention and abdominal pain. Genitourinary: Negative for difficulty urinating. Post menopausal + vaginal dryness Musculoskeletal: Positive for arthralgias. Negative for joint swelling. Stiffness hands and occ leg pain Skin: Negative. Neurological: Negative. Negative for dizziness, weakness and headaches. Hematological: Negative. Psychiatric/Behavioral: Negative. Vitals Office Visit from 04/13/2017 in [facility] Radiation Oncology Weight - Scale 82.1 kg (181 lb) Temp 37.1 ??C (98.8 ??F) Temp Source Oral Heart Rate 80 Heart Rate Source NIBP Resp 18 BP 119/62 Patient Position Sitting SpO2 99 % KPS: 100 Objective: Physical Exam Constitutional: She is oriented to person, place, and time. She appears well- developed and well-nourished. No distress. HENT: Head: Normocephalic and atraumatic. Eyes: Conjunctivae and EOM are normal. Right eye exhibits no discharge. Left eye exhibits no discharge. No scleral icterus. Neck: Neck supple. Cardiovascular: Normal rate, regular rhythm and normal heart sounds. Exam reveals no gallop and no friction rub. No murmur heard. Pulmonary/Chest: Effort normal and breath sounds normal. No respiratory distress. She has no wheezes. She has no rales. She exhibits no tenderness. Abdominal: Soft. Bowel sounds are normal. She exhibits no distension. There is no tenderness. Musculoskeletal: Normal range of motion. She exhibits no edema, tenderness or deformity. Lymphadenopathy: Head (right side): No submental, no submandibular, no tonsillar, no preauricular, no posterior auricular and no occipital adenopathy present. Head (left side): No submental, no submandibular, no tonsillar, no preauricular, no posterior auricular and no occipital adenopathy present. She has no cervical adenopathy. She has no axillary adenopathy. Right: No supraclavicular adenopathy present. Left: No supraclavicular adenopathy present. Neurological: She is alert and oriented to person, place, and time. She exhibits normal muscle tone.Coordination normal. Skin: Skin is warm and dry. No rash noted. She is not diaphoretic. No erythema. No pallor. Psychiatric: She has a normal mood and affect. Her behavior is normal. Judgment and thought content normal. Vitals reviewed. Breast___X_ no nipple discharge, no dryness, slight erythema inferior aspect of left breast with mild chest wall tightness, sl left breast tenderness, no lymphedema of arm Treated site: ____Right or __X__Left, ___X_Breast or Chest wall Telangectasias: __X__None, ____Few; Moderate; Many and confluent Hypopigmentation: __X__None; ____Slight or localized; ____Marked or generalized Hyperpigmentation: _X___None; ____Slight or localized; ____Marked or generalized Fibrosis: __X___None; Increased density; ____Marked increased density + retraction; ____ Very marked Dry skin: _X___None; ____Asymptomatic; symptomatic; Interferes with ADL Cosmetic Result:___X___ Excellent; Good;____ Fair; ____Poor Assessment and Plan: Tanika Harrison is a 57 y.o. female with breast ca, L, IDC, intermed gr, ER+OH+, [id number]-, s/p lumpectomy followed by SNB, pT1 pN0, stage I. She was treated with adjuvant radiation therapy for a total dose of 52.56 Gy which was completed on 02/02/2016. She was started on Letrozole following radiationand continues with this medication. She is in clinic for scheduled followup and to review her survivor care plan. 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 We discussed the survivor benefitsof regular exercise and weight control. She is followed at [facility] by medical oncology and surgery and would prefer to limit appointments . We will not plan additional followup in radiation oncology. She is to call if she has any questions or concerns in the interim. Her last mammogram 01/04/2017 was negative and will be repeated in one year. Follow-up for a total of 35 minutes, with 30 minutes of that time spent discussing her current clinical condition, reviewing her Breast Cancer Survivor Care Plan which includes review of her breast cancer history, treatment history, health behaviors to promote wellness, ongoing surveillance, late effects of treatments and symptoms to report as well as planning further management. documented in this encounter Plan of Treatment Not on filedocumented as of this encounter Visit Diagnoses Diagnosis Malignant neoplasm of left female breast , unspecified site of breast documented in this encounter Care Teams Care Transport Nurse Relationship Specialty Start Date End Date Kelsie Neal MD PCP - General Family Medicine 02/03/16 09/12/[address] [place] [address] documented as of this encounter
--- OUTSIDE RECORDS SUMMARY | 2022-09-30 02:08 | XMS_ITS | Encounter Summary ---
:1960 Author Organization [facility] [place] [address] Care Team Providers Name Role Phone Kelsie Neal MD Primary Care Provider Reason for Visit [employer] Medication (Urgent) - Closed Specialty Diagnoses / Procedures Referred By Contact Refer red To Contact Hematology and Diagnoses Malignant neoplasm of unspecified site of left female breast Other specified disorders of bone density and structure, unspecified site Intraductal carcinoma in situ of left breast Brooks Ricardo MD [facility] 3k Oncology Procedures TC DENOSUMAB, 1MG, INJECTION [facility] [address] Larson HEMATOLOGY/ONCOLOGY [place], [place] DEPT. [id number] [place] [address] Referral ID Status Reason Start Date Expiration Date Visits V isits Requested Authorized [id number] Closed Evaluate and 09/26/2016 08/28/2021 6 6 Treat Encounter Details Date Type Department Care Team Description 03/22/2017 Hospital Encounter Hematology and Osteope braden, unspecified Oncology at [facility] [place] [address] Social History Tobacco Use Types Packs/Day Years Used Date Smoking Tobacco: Never Alcohol Use Standard Drinks/Week Comments Yes 5 (1 standard drink = 0.6 oz pure alcoho l) Sex Assigned at Date Recorded Not on file documented as of this encounter Medications at Time of Discharge Medication Sig Dispensed Refills Start Date End Date calcium-vitamin D3 600 Take by mouth. 0 mg(1,500mg) -200 unit Tablet acetaminophen (TYLENOL) Take 1,000 mg by 0 500 mg Tablet mouth every 6 hours as needed for Pain. Reported on 10/10/2016 famotidine (PEPCID) 20 mg Take 20 mg by mouth 0 Tablet 2 times daily. multivitamin (THERAGRAN) Take 1 tablet by 0 09/13/2022 Tablet mouth daily. EMOLLIENT BASE (CREAM Apply topically. 0 04/13/2017 BASE TOP) Reported on 10/10/2016 simvastatin (ZOCOR) 20 mg Take 20 mg by mouth 0 09/13/2022 Tablet nightly. documented as of this encounter Progress Notes Lila Thomas RN - 03/22/2017 12:02 PM EDT Patient Name: Tanika Harrison Patient Age: 56 y.o. Birthdate: 1960 Admit date: 03/22/2017 Attending Physician: Minal att. providers found Access visit. See MAR and/or flowsheet. documented in this encounter Plan of Treatment Not on filedocumented as of this encounter Visit Diagnoses Diagnosis Osteopenia, unspecified location documented in this encounter Administered Medications Inactive Administered Medications - up to 3 most recent administrations Medication Order MAR Action Action Date Dose Rate Site denosumab (PROLIA) 60 mg/mL Given 03/22/2017 11:58 AM EDT 60 mg Right Arm subcutaneous injection 60 mg 60 mg, Subcutaneous, ONCE, 1 dose, On Mon03/22/17 at 1215, Bring to room temperature 15-30 mins before administration. , Restricted to outpatient use. Requires P&T approval for inpatient use. Approval obtained: No documented in this encounter Care Teams Shrimp Cleaner Relationship Specialty Start Date End Date Kelsie Neal MD PCP - General Family Medicine 02/03/16 09/12/[address] [place] [address] documented as of this encounter
--- OUTSIDE RECORDS SUMMARY | 2022-09-30 02:08 | XMS_ITS | Encounter Summary ---
:1960 Author Organization [facility] [place] [address] Care Team Providers Name Role Phone Kelsie Neal MD Primary Care Provider Encounter Details Date Type Department Care Team Description 09/06/2019 Notes Only Hematology and Oncology at Johnnie Osborn MD [facility] Elizabeth marie HEMATOLOGY/[place] [address] [place] [address] [phone] (Wo rk) Social History Tobacco Use Types Packs/Day Years Used Date Smoking Tobacco: Never Smokeless Tobacco: Never Alcohol Use Standard Drinks/Week Comments Yes 5 (1 standard drink = 0.6 oz pure alcoho l) Sex Assigned at Date Recorded Not on file documented as of this encounter Progress Notes Johnnie Santos MD - 09/06/2019 7:37 AM EST I have reviewed the patient's record and given personal and/or family history of cancer she should be seen by genetic counselor. This is scheduled for next week. documented in this encounter Plan of Treatment Not on filedocumented as of this encounter Visit Diagnoses Not on filedocumented in this encounter Care Teams Production Posting Clerk Relationship Specialty Start Date End Date Kelsie Neal MD PCP - General Family Medicine 02/03/16 09/12/[address] [place] [address] documented as of this encounter
--- OUTSIDE RECORDS SUMMARY | 2022-09-30 02:08 | XMS_ITS | Encounter Summary ---
:1960 Author Organization [facility] [place] [address] Care Team Providers Name Role Phone Kelsie [...] situ of left breast Brooks Ricardo MD [facility] 3k Oncology Procedures TC DENOSUMAB, 1MG, INJECTION [facility] DR Larson HEMATOLOGY/ONCOLOGY [place], [place] DEPT. [id number] [place] [address] Referral ID Status Reason Start Date Expiration Date Visits V isits Requested Authorized [id number] Closed Evaluate and 09/26/2016 08/28/2021 6 6 Treat Encounter Details Date Type Department Care Team Description 09/18/2017 Hospital Encounter Hematology and Osteope braden, unspecified Oncology at [facility] [place] [address] Social History Tobacco Use Types Packs/Day [...] by mouth 0 Tablet 2 times daily. letrozole (FEMARA) 2.5 mg Take 1 tablet by 90 tablet 3 06/201707/09/2018 Tablet mouth daily. multivitamin (THERAGRAN) Take 1 tablet by 0 09/13/2022 Tablet mouth daily. simvastatin (ZOCOR) 20 mg Take 20 mg by mouth 0 09/13/2022 Tablet nightly. documented as of this encounter Progress Notes Yeimy Marie RN - 09/18/2017 9:43 AM EST Patient Name: Tanika Harrison Patient Age: 57 y.o. Birthdate: 1960 Admit date: 09/18/2017 Attending Physician: Minal att. providers found Access visit. See MAR and/or flowsheet. documented in this encounter Plan of Treatment Not on filedocumented as of this encounter Visit Diagnoses Diagnosis Osteopenia, unspecified location documented in this encounter Administered Medications Inactive Administered Medications - up to 3 most recent administrations Medication Order MAR Action Action Date Dose Rate Site denosumab (PROLIA) 60 mg/mL Given 09/18/2017 9:40 AM EST 60 mg subcutaneous injection 60 mg 60 mg, Subcutaneous, ONCE, 1 dose, On 09/18/17 at 0930, Bring to room temperature 15-30 mins before administration. , Restricted to outpatient use. Requires P&T approval for inpatient use. Approval obtained: No documented in this encounter Care Teams Bike Assembler Relationship Specialty Start Date End Date Kelsie Neal MD PCP - General Family Medicine 02/03/16 09/12/[address] [place] [address] documented as of this encounter
--- OUTSIDE RECORDS SUMMARY | 2022-09-30 02:08 | XMS_ITS | Encounter Summary ---
:1960 Author Organization [facility] [place] [address] Care Team Providers Name Role Phone Kelsie Neal MD Primary Care Provider Reason for Visit Reason Comments Follow-up Encounter Details Date Type Department Care Team Description 12/04/2020 Office Visit Hematology and Johnnie Santos, Maligna nt neoplasm of left breast in female, estrogen receptor positive, unspecified site of breast; [place] [facility] Family history of breast cancer; [facility] merly history of ovarian cancer [address] [place]ATOLOGY/[place]COLOG [id number] Y [phone] [place], [place] [address] Social History Tobacco Use Types Packs/Day Years Used Date Smoking Tobacco: Never Smokeless Tobacco: Never Alcohol Use Standard Drinks/Week Comments Yes 5 (1 standard drink = 0.6 oz pure alcoho l) Sex Assigned at Date Recorded Not on file documented as of this encounter Last Filed Vital Signs Vital Sign Reading Time Taken Comments Blood Pressure 139/85 12/04/2020 9:26 AM EST Pulse 75 12/04/2020 9:26 AM EST Temperature 36 ??C (96.8 ??F) 12/04/2020 9:26 AM EST Respiratory Rate 17 12/04/2020 9:26 AM EST Oxygen Saturation 99% 12/04/2020 9:26 AM EST Inhaled Oxygen Concentration - - Weight 80.7 kg (178 lb) 12/04/2020 9:26 AM EST Height 160.5 cm (5' 3.19) 12/04/2020 9:26 AM EST Body Mass Index 31.34 12/04/2020 9:26 AM EST documented in this encounter Progress Notes Gita Hodgson MD - 12/04/2020 9:30 AM EST Breast cancer follow-up HPI: -Diagnosed in September 2015 with left breast infiltrating ductal carcinoma, left breast. -Tumor was 9-mm cancer, intermediate grade, SBR = 6.?? Extensive associated DCIS present.?? LVI negative, 0/5 sentinel nodes, -HER2 -, FISH ratio = 1.1.?? ER/IA+++ (greater than 90%, strong). -Oncotype Dx Recurrence Score = 11. -She is S/P WLE and XRT, completed 02/12. -January 2016 Started adjuvant letrozole. Past Medical History: Diagnosis Date ??? Breast cancer 10/2015 ??? Hiatal hernia ??? Hypercholesteremia Patient Active Problem List Diagnosis Code ??? Solar aging of skin L57.8 ??? Ductal carcinoma in situ (DCIS) of left breast D05.12 ??? Malignant neoplasm of left female breast C50.912 ??? Osteopenia M85.80 ??? Chest pain R07.9 ??? 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 Also one of two maternal aunts had breast ca (?age) and a paternal Great Aunt (on PGF side) with h/o breast ca. No family h/o ovarian ca. Family History Problem Relation Age of Onset ??? Breast Cancer Sister 52 ??? Breast Cancer Maternal Aunt 60 ??? Breast Cancer Maternal Cousin 48 In her 40's ??? Ovarian Cancer Paternal Grandmother 63 ??? Stomach Cancer Paternal Grandfather ??? Breast Cancer Other 45 paternal great aunt (father's paternal aunt) ??? Uterine Cancer Other ??? Breast Cancer Other 35 father's paternal 1st cousin She had genetic consultation with [facility] last August and never followed thru (was going to talk with relatives). Interval Hx/ROS: Doing well overall. She continues to take letrozole without significant side effects. She was havingarthralgias (chronic bilateral knee and left hip pain) and took a 6 week letrozole holiday in Mayafter her last visit, without improvement in her symptoms. Resumed AI in June and has been tolerating well. Developed new onset lower back pain radiating down her right leg yesterday - electric like shooting pain, likely related to kneeling on a chair doing some work a few days ago. Evaluated by PCP who prescribed a muscle relaxant which she hasn't taken yet. Otherwise no new persistent pains. Thought she had a UTI or kidney stones due to upper back pain and urinary symptoms a few weeks ago but resolved with cranberry juice/hydration. Has some mild intermittent headaches, usually improved with tylenol. No other new/concerning symptoms. S/p surgical removal of left shoulder SCC. 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 No change in chronic cough. Denies any fevers, chills, sweats, weight loss, adenopathy, chest pain, cough, SOB, abd pain, N/V, diarrhea, constipation, hematochezia, melena, urinary changes, or any headaches, change in vision, tingling, numbness, or weakness. ROS otherwise neg. PMH/medications/family/social history reviewed without changes. Physical Exam: Patient Vitals for the past 24 hrs: Temp Pulse Resp BP SpO2 12/04/20 0926 36 ??C (96.8 ??F) 75 17 139/85 99 % Gen: WD/WN F, A&C in NAD Skin: warm and dry, no rashes HEENT: Conjunctiva clear, sclera anicteric Neck: Supple Lymph: no palpable cervical, supraclavicular, or axillary adenopathy Chest: CTA Bilat, no wheezes, rales Cardiac: RRR, nl s1 s2, no appreciable M/R/G Breast: Bilateral breast exam without palpable nodules or skin changes. No axillary adenopathy bilaterally. Abdomen: Soft, ND/NT,no appreciable HSM Extremities: WWP w/out edema Neuro: No gross deficits No new imaging or labs today. Assessment and Plan 60 y.o. diagnosed in Sep 2015 with an invasive left breast cancer (initially bx was DCIS). Tumorwas 9mm, intermediate grade, node-negative. ER and IA were positive in the invasive component; HER2 neg. OncotypeDx assay w/ RS=11. She is s/p partial mastectomy and XRT. On adjuvant letrozole since January 2016 and tolerating well. Chronic Knee/L. Hip pain likely d/t OA as did not improve with AI holiday. Reviewed recommendation to complete 5-yr course of letrozole in January 2021 and reassured her about surveillance plan thereafter. Will plain to see her back in 6mo w/ mammogram to coincide with surgical visit. Lastly, we again revisited recommendation to consider genetic testing given strong family history. Previously met with Lur[facility] Staples and she just hasn't had time. She will call [facility] when she has talked to her family and if/when she'd like to pursue testing. RTC 6 mo, mammogram ordered by Surgical team. This patient was evaluated with Dr. Santos who agrees with the plan as above. Gita Hodgson MD Hematology/Oncology Fellow Pager #[phone] 12/04/20 Attending Attestation I saw and examined the patient in clinic. My exam and review of the data are in agreement with that above by Dr. Hodgson. Concur with plan, as outlined above. 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
--- OUTSIDE RECORDS SUMMARY | 2022-09-30 02:08 | XMS_ITS | Encounter Summary ---
:1960 Author Organization [facility] Address [facility] [place] [address] Care Team Providers Name Role Phone Kelsie Neal MD Primary Care Provider Encounter Details Date Type Department Care Team Description 03/22/2017 Office Visit Hematology and Brooks Ricardo, Jeovany t neoplasm of left female breast, unspecified site of breast; [place] [facility], unspecified location; [facility] Jayden maylin carcinoma in situ (DCIS) of left breast; Drive skilled nursing current use of aromatase inhib itor [place], [place] HEMATOLOGY/ONCOLOG [address] Y DEPT. [phone] [place], [place] [address] Social History Tobacco Use Types Packs/Day Years Used Date Smoking Tobacco: Never Alcohol Use Standard Drinks/Week Comments Yes 5 (1 standard drink = 0.6 oz pure alcoho l) Sex Assigned at Date Recorded Not on file documented as of this encounter Last Filed Vital Signs Vital Sign Reading Time Taken Comments Blood Pressure 143/81 03/22/2017 11:11 AM EDT Pulse 87 03/22/2017 11:11 AM EDT Temperature 37.5 ??C (99.5 ??F) 03/22/2017 11:11 AM EDT Respiratory Rate 18 03/22/2017 11:11 AM EDT Oxygen Saturation 96% 03/22/2017 11:11 AM EDT Inhaled Oxygen Concentration - - Weight 83.1 kg (183 lb 3.2 oz) 03/22/2017 11:11 AM EDT Height 162.5 cm (5' 3.98) 03/22/2017 11:11 AM EDT Body Mass Index 31.47 03/22/2017 11:11 AM EDT documented in this encounter Progress Notes Brooks Ricardo MD - 03/22/2017 11:00 AM EDT Subjective: Patient ID: Tanika Harrison is a 56 y.o. female, who returns in followup for treatment and management of her breast cancer, and other medical problems. Her past medical history, social history, and family history are unchanged from that noted in my prior notes. Problem List: 1.?? Infiltrating ductal carcinoma, left breast, 10/13. a.?? 9-mm cancer, intermediate grade, SBR = 6.?? Extensive associated DCIS present.?? LVI negative, 0/5 sentinel nodes, HER2 -, FISH ratio = 1.1.?? ER/[place]+++ (greater than 90%, strong). B. Onco Dx = 11. C. S/P WLE/XRT, 02/12. D. Adjuvant letrozole, 02/12. ?? 2.?? History of hyperlipidemia. ?? 3.?? History of occasional palpitations. 4. Osteopenia/borderline osteoporosis. A. Prolia, 03/14. [place] Sag[place] returns in followup, continuing on adjuvant Femara. She is overall feeling reasonably well. She continues to have some minor discomfort in the ipsilaterally treated breast but this is fairly modest and stable. It is notable that she does have some moderate postradiation changes that are unchanged. She has had no signs or symptoms suggestive of recurrent disease. Interestingly, she has noted a pattern, she thinks perhaps over the last year or so, where in the last couple of weeks to perhaps the last month prior to her receiving her 6 month Prolia that she has some minor but noticeable musculoskeletal symptoms. It is difficult for her to describe what they are. She does not think they are so much arthralgias or joint symptoms but more just a moderate stiffness and discomfort in her legs, although it is fairly generalized. Symptoms tend to occur more towards the end of the day. She will once in a while take a Motrin or Tylenol which helps. She was wondering if the Prolia was basically helping this and she was feeling this for the last couple of weeks to a month prior to receiving her planned treatment. She has otherwise been feeling well. Review of Systems Except as noted above, Tanika Mukherjee full remaining review of systems, including constitutional, cardiac, pulmonary, GI, , neurologic, musculskeletal, and all remaining, is otherwise fully unremarkable. Current Outpatient Prescriptions on File Prior to Visit Medication Sig Dispense Refill ??? multivitamin (THERAGRAN) Tablet Take 1 tablet by mouth daily. ??? calcium-vitamin D3 600 mg(1,500mg) -200 unit Tablet Take by mouth. ??? EMOLLIENT BASE (CREAM BASE TOP) Apply topically. Reported on 10/10/2016 ??? acetaminophen (TYLENOL) 500 mg Tablet Take 1,000 mg by mouth every 6 hours as needed for Pain. Reported on 10/10/2016 ??? famotidine (PEPCID) 20 mg Tablet Take 20 mg by mouth 2 times daily. ??? simvastatin (ZOCOR) 20 mg Tablet Take 20 mg by mouth nightly. No current facility-administered medications on file prior to visit. Objective: Physical Exam Vitals [facility] Weight - Scale 81 kg (178 lb 9.2 oz) Height 162.4 cm (5' 3.94) BSA (Calculated - sq m) 1.91 sq meters BMI (Calculated) 30.8 Temp 36.5 ??C (97.7 ??F) Temp Source Oral Heart Rate 70 Heart Rate Source NIBP Resp 18 BP 134/80 mmHg BP Location Right arm Patient Position Sitting SpO2 98 % Karnofsky Score 90 Objective: Tanika Harrison is well appearing and in no acute distress. HEENT: Unremarkable. Musculoskeletal Exam: Within normal limits. Back without CVA or spinal tenderness to percussion or palpation. Chest: Clear. Nodes: No peripheral adenopathy is present. Cor: RRR, S1, S2. No murmur, rub, or [id number]. Breast Exam: Moderate post XRT changes, left breast, consistent with prior WLE/XRT. Abdomen: Bowel sounds unremarkable, soft, nontender with no palpable HSM or other abnormalities. Extremitieswithout significant cyanosis, clubbing, or edema. Neurologic Exam: Grossly nonfocal, cranial nerve'sIII - XII unremarkable, DTR's symmetric throughout. Recent Results (from the past 24 hour(s)) Comprehensive metabolic panel (non-fasting) Result Value Ref Range Glucose Lvl 91 65 - 199 mg/dL BUN 15 8 - 18 mg/dL Creatinine 0.77 0.70 - 1.20 mg/dL Sodium 142 135 - 145 mmol/L Potassium 4.2 3.5 - 5.0 mmol/L Chloride 102 98 - 107 mmol/L CO2 27 22 - 31 mmol/L Anion Gap 13 5 - 15 mmol/L Calcium 9.1 8.5 - 10.5 mg/dL Total Protein 7.6 6.1 - 8.0 gm/dL Albumin 4.5 3.2 - 5.2 gm/dL AST 18 0 - 30 unit/L ALT 17 0 - 30 unit/L Alk Phos 80 40 - 104 unit/L Total Bilirubin 0.6 0.2 - 1.3 mg/dL Bili, Direct 0.1 0.0 - 0.3 mg/dL Estimated GFR >60 >=60 Hemogram Result Value Ref Range WBC 5.9 4.0 - 9.5 x10(3)/mcL RBC 4.92 4.00 - 5.21 x10(6)/mcL Hemoglobin 14.2 11.7 - 15.5 gm/dL Hematocrit 43.5 35.7 - 45.8 % MCV 88.4 82.6 - 94.4 fL MCH 28.9 27.1 - 32.0 pg MCHC 32.6 31.7 - 35.0 gm/dL Platelets 199 145 - 357 x10(3)/mcL RDWSD 43.4 37.0 - 46.0 fL RDWCV 13.3 11.5 - 14.1 % MPV 11.1 7.6 - 12.9 fL nRBC % Auto 0.0 % nRBC Abs Auto 0.000 0.000 - 0.000 x10(3)/mcL Differential, Automated Result Value Ref Range Neutrophils % 60.0 % Neutr Abs (ANC) 3.53 1.70 - 6.10 x10(3)/mcL Lymphocytes % 29.4 % Lymphocytes Abs 1.7 0.9 - 3.2 x10(3)/mcL Monocytes % 9.4 % Monocyte Abs 0.6 0.3 - 0.9 x10(3)/mcL Eosinophils % 0.7 % Eosinophils Abs 0.0 0.0 - 0.4 x10(3)/mcL Basophils % 0.3 % Basophils Abs 0.0 0.0 - 0.1 x10(3)/mcL Immature Gran % 0.20 % Isa Gran Abs 0.01 0.00 - 0.04 x10(3)/mcL Recent Labs 03/22/17 1022 07/15/16 0216 WBC 5.9 10.7* NEUTROABS 3.53 7.45* HGB 14.2 13.6 HCT 43.5 43.1 PLATELET 199 198 Recent Labs 03/22/17 1022 09/26/16 1345 07/15/16 0216 07/06/16 1022 AST 18 19 20 19 ALT 17 10 15 14 ALKPHOS 80 89 94 80 BILITOT 0.6 0.5 0.6 0.4 Assessment and Plan: Tanika returns in followup. Recent diagnosis screening mammography was unremarkable. Her labs today are as above and unremarkable. Her liver function tests are within normal limits. She is overall doing fine with her adjuvant Femara and will proceed with ongoing treatment with Prolia as well for treatment of her osteopenia. As I noted above, interestingly, she has had a sense that she just feels better subsequent to receiving her Prolia, mostly in regard to a mild sense of generalized aches and pains typically towards the end of the day. This pattern, she notes, is that this has actually gotten much better after she receives her Prolia and remains better until about the last month prior to when she is due for next treatment. She knows she can continue with Tylenol or nonsteroidals p.r.n. as well. documented in this encounter Plan of Treatment Not on filedocumented as of this encounter Results Comprehensive metabolic panel (non-fasting) (09/18/2017 8:10 AM EST) P athologist Signature Glucose Lvl 99 65 - 199 [facility] mg/dL [facility] Comment: Diabetes: >=200 mg/dL plus symp toms BUN 14 8 - 18 mg/dL [facility] Creatinine 0.89 0.70 - 1.20 mg/dL [facility] Sodium 141 135 - 145 mmol/L [facility] Potassium 4.5 3.5 - 5.0 mmol/L [facility] Comment: Please note: ??Patients with WBC >100,00 0 may have falsely elevated Potassium levels. ??For accurate Potassium quantif ication in these patients send serum separator tube (gold top) for subsequent determinations. ??Contact the Clinical Chemistry Laboratory if there are any qu estions. Chloride 102 98 - 107 mmol/L [facility] CO2 28 22 - 31 mmol/L [facility] Anion Gap 11 5 - 15 mmol/L [facility] Calcium 9.7 8.5 - 10.5 mg/dL [facility] Total Protein 7.4 6.1 - 8.0 gm/dL [facility] Albumin 4.3 3.2 - 5.2 gm/dL [facility] AST 22 0 - 30 unit/L [facility] ALT 15 0 - 30 unit/L [facility] Alk Phos 97 40 - 104 unit/L [facility] Total Bilirubin 0.8 0.2 - 1.3 mg/dL [facility] Estimated GFR >60 >=60 [facility] Comment: The reported eGFR should be multiplied b y 1.2 for patients. The MDRD is not an appropriate measure o f renal function for patients with body mass extremes or in patients with acute kidney failure. http://[employer]/DHnkdep http://[employer]/DHMCnkf Specimen Anatomical Collection Method Collection Time Receive d Time (Source) Location / / Volume Laterality Blood specimen 09/18/2017 8:10 AM 017 8:27 (specimen) EST AM EST Resulting Agency Comment Spec In Lab Brooks Ricardo MD CHEMISTRY ORDERABLES Performing Organization Address City/State/ZIP [place] [address] documented in this encounter Visit Diagnoses Diagnosis Malignant neoplasm of left female breast , unspecified site of breast Osteopenia, unspecified location Ductal carcinoma in situ (DCIS) of left breast 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
--- OUTSIDE RECORDS SUMMARY | 2022-09-30 02:08 | XMS_ITS | Encounter Summary ---
:1960 Author Organization [facility] [place] [address] Care Team Providers Name Role Phone Kelsie Neal MD Primary Care Provider Reason for Visit Reason Comments Skin Lesion Consultation (Routine) - Specialty Diagnoses / Procedures Referred By Contact Refer red To Contact Dermatology Diagnoses Skin lesion Kelsie Neal MD [facility] Dermatology [address] [place], [place] [address] [address] [place] [address] Fax: Referral ID Status Reason Start Date Expiration Date Visits V isits Requested Authorized [id number] Consult, Test 07/09/2020 07/08/2021 6 6 & Treat PCP Updated and/or Approved Encounter Details Date Type Department Care Team Description 07/09/2020 [facility] Larisa Brock MD behavior [address] [place] [address]-[place], [place] [address] Social History Tobacco Use Types Packs/Day Years Used Date Smoking Tobacco: Never Smokeless Tobacco: Never Alcohol Use Standard Drinks/Week Comments Yes 5 (1 standard drink = 0.6 oz pure alcoho l) Sex Assigned at Date Recorded Not on file documented as of this encounter Patient Instructions Patient InstructionsAdinaLexi Lai - 07/09/2020 1:30 PM EDT ABOUT YOUR TREATMENTS Your Treatment today: skin shave biopsy You had a biopsy of your skin (removal of a small piece of tissue for examination under microscope).You had a shave biopsy and do not have sutures. Location of your biopsy: left upper arm Keep in mind the location of your biopsy site in case further treatment is necessary. Wound care Instructions: 1. Keep wound dry and covered for 24 hours then clean area with soap and water. 2. Pat dry completely 3. Cover with Vaseline and a new bandage daily, do this everyday until the wound is healed Please call [phone] if you have questions or concerns. * Please allow one or two weeks for the biopsy results to return. *Based on your biopsy results we will either call you or send you a letter with the results. *If in two weeks, you have not heard from us, please feel free to call and request your biopsy results. documented in this encounter Progress Notes Nohemi Merida MD - 07/09/2020 1:30 PM EDT Images from the original note were not included. DERMATOLOGY CONSULT PATIENT CLINIC NOTE Date of Service: 07/09/2020 Tanika Harrison : 1960 Provider: Nohemi Merida MD Chief Complaint Patient presents with ??? Skin Lesion SKIN HX Personal History Y/N Date, location, treatment Melanoma no DN no SCC no BCC no AK or field cancerization therapy no 5FU/Carac: PDT: nicotinamide: [] Yes [] No Immunosuppression or malignancy no Blistering sunburns or tanning bed use yes Decades ago Other (i.e., eczema, psoriasis) no Relevant social history , 2 kids Family History Y/N Parents, siblings, children Melanoma no NMSC no Other no Patient Preferences Preferred name Tanika Preferred contact method [x] Home [x] Cell [] myD-H [] Other: Permission to leave detailed message including results [x] Yes [] No Permission to discuss care with Preferred pharmacy lydia [facility] Procedure Screening Questions Y/N Allergies to lidocaine or epinephrine no Blood thinners no Pacemaker or defibrillator no HPI Tanika Loreta Harrison is a 60 y.o. female, new patient to me and to dermatology, seen at the request ofKelsie Neal MD, who instructed the patient to be seen for evaluation of a lesion. Here today with the following concerns: - spot on left upper arm, present for 3 weeks, growing, painful, itchy. Urgent care gave her mupirocin ointment 1-2 times daily for one week, no improvement. MEDS Current Outpatient Medications Medication Sig Dispense Refill ??? letrozole (Femara) 2.5 mg Tablet Take 1 tablet by mouth daily. 90 tablet 2 ??? meloxicam (MOBIC) 15 mg Tablet take 1 tablet by mouth once daily 0 ??? multivitamin (THERAGRAN) Tablet Take 1 tablet by mouth daily. ??? calcium-vitamin D3 600 mg(1,500mg) -200 unit Tablet Take by mouth. ??? acetaminophen (TYLENOL) 500 mg Tablet Take 1,000 mg by mouth every 6 hours as needed for Pain. Reported on 10/10/2016 ??? famotidine (PEPCID) 20 mg Tablet Take 20 mg by mouth 2 times daily. ??? simvastatin (ZOCOR) 20 mg Tablet Take 20 mg by mouth nightly. No current facility-administered medications for this visit. ADR Allergies Allergen Reactions ??? Sulfa (Sulfonamide Antibiotics) Hives [facility] Patient Active Problem List Diagnosis Code ??? Solar aging of skin L57.8 ??? Ductal carcinoma in situ (DCIS) of left breast D05.12 ??? Malignant neoplasm of left female breast C50.912 ??? Osteopenia M85.80 ??? Chest pain R07.9 ??? 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 Left arm: 1cm hyperkeratotic papule [Specimen A, Figure 1] Figure 1. A Left upper arm Photo(s) taken and charted with patient's verbal consent. ASSESSMENT/PLAN A. SCC - Recommended a skin biopsy to confirm/clarify the nature of the skin lesion. After discussion of potential risks (scarring, bleeding, infection) and recurrence, patient agreed to proceed. - Patient denies allergy to lidocaine or epinephrine. - Patient denies pacemaker Procedure: Skin biopsy by shave technique Location: left upper arm Time:1:45PM Discussed indications for procedure and expectations including risks and benefits. Verbal consent obtained. Skin prep with alcohol. Local anesthesia with 1% xylocaine, 1/100,000 epinephrine. A sample of the lesion was removed by shave technique to the level of the dermis and submitted to Pathology. Hemostasis obtained (AlCl and/or electrocautery). There were no complications; the pt. tolerated the procedure well. The wound was dressed. Post-procedure expectations, wound care and activity restrictions were reviewed. Follow-up based on pathology results. Follow Up: Based on biopsy results; otherwise RTC at convenience for full skin examination. Coordinate FSE with treatment if biopsy proven SCC. Note initiated by: MEGHANA Hernandez I am documenting this encounter acting as the scribe for and in the presence of Dr. Merida: Lexi Holden I performed the above scribed service and agree with the accuracy of the documentation in this encounter. Nohemi Merida MD [facility] Department of Dermatology [facility] cc: MD Kelsie Rae Nohemi Merida MD - 07/09/2020 1:30 PM EDT CD, Biopsy shows SCC. Recommend excision. Please notify pt and schedule OSP. Thank you, DTB documented in this encounter Plan of Treatment Not on filedocumented as of this encounter Procedures Procedure Name Priority Date/Time Associated Diagnosis Comme nts SPECIMEN TO Routine 07/09/2020 2:16 PM Neoplasm of Results f or this PATHOLOGY EDT uncertain behavior procedure are in the results section. SURGICAL PATHOLOGY Routine 07/09/2020 1:45 PM Res ults for this REPORT EDT procedure are i n the results section. documented in this encounter Results Specimen to Pathology (07/09/2020 2:16 PM EDT) Specimen Anatomical Collection Method Collection Time Receive d Time (Source) Location / / Volume Laterality AP Specimen 07/09/2020 2:16 PM 0 3:48 EDT PM EDT Narrative [facility] - 07/09/2020 3:49 PM EDT Specimen requisition ordered. ??Separate Pathology report to follow Resulting Agency Comment Spec In Lab Nohemi Merida MD PATHOLOGY/CYTOLOGY ORDERABLE S Performing Organization Address City/State/[place] [address] Surgical Pathology Report (07/09/2020 1:45 PM EDT) Component Value Ref Test Analysis Performed At [facility] gist Range Method Time Signature Surgical [id number] ? Location: [facility] Report The signing pathologist has (i) examined the relevant preparation(s) for the [facility] specimen(s) and (ii) rendered or confirmed the diagnosis(es) . HOSPITAL LABORATORY . 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, [place], [place] SPECIMEN(S) SUBMITTED A - left upper arm, skin shave biopsy (1) CLINICAL INFORMATION 1 cm hyperkeratotic papule SCC vs. KA SPECIMEN PROCESSING A - Labeled/Fixative: Patient demographics, formalin. Quantity/Size: ??Single, 1.1 x 1.1 x 0.4 cm. Tissue Description: Granular, crusted, ndiaye-pink papule Sections/Processing: Inked and entirely submitted in 2 cassettes as follows: ?A1: ??tips ?A2: ??body ??PPS Specimen (Source) Anatomical Collection Method Collection Time Re ceived Time Location / / Volume Laterality 07/09/2020 1:45 PM EDT Nohemi Merida MD PATHOLOGY/CYTOLOGY ORDERABLE S Performing Organization Address City/State/[place] [address] documented in this encounter Visit Diagnoses Diagnosis Neoplasm of uncertain behavior Neoplasm of uncertain behavior, site uns pecified documented in this encounter Care Teams Natural Resources Specialist Relationship Specialty Start Date End Date Kelsie Neal MD PCP - General Family Medicine 02/03/16 09/12/[address] [place] [address] documented as of this encounter
--- OUTSIDE RECORDS SUMMARY | 2022-09-30 02:08 | XMS_ITS | Encounter Summary ---
:1960 Author Organization [facility] [place] [address] Care Team Providers Name Role Phone Kelsie Neal MD Primary Care Provider Encounter Details Date Type Department Care Team Description 02/26/2019 Hospital Encounter Mammography/DXA at Daniel El neoplasm [facility] [place] Yuri of left breast in [facility] DR receptor positive, [place], [place] [address] [place], [place] breast [phone] [facility] Social History Tobacco Use Types Packs/Day [...] by mouth 0 Tablet 2 times daily. meloxicam (MOBIC) 15 mg take 1 tablet by 0 201809/13/2022 Tablet mouth once daily letrozole (FEMARA) 2.5 mg Take 1 tablet by 90 tablet 3 01/3007/25/2019 TabletIndications: mouth daily. Malignant neoplasm of left breast in female, estrogen receptor positive, unspecified site of breast multivitamin (THERAGRAN) Take 1 tablet by 0 09/13/2022 Tablet mouth daily. simvastatin (ZOCOR) 20 mg Take 20 mg by mouth 0 09/13/2022 Tablet nightly. documented as of this encounter Plan of Treatment Not on filedocumented as of this encounter Procedures Procedure Name Priority Date/Time Associated Diagnosis Comme nts MAMMO SCREENING CAD Routine 02/26/2019 9:37 AM Malignant neopl asm Results for this AND ANNI BILATERAL EDT of left breast in [place] are in female, estrogen the results receptor positive, section. unspecified site of breast documented in this encounter Results Mammo Screening Cad and Anni Bilateral (02/26/2019 9:37 AM EDT) Anatomical Region Laterality Modality Breast Bilateral Mammography Specimen (Source) Anatomical Location Collection Method / Collectio n Time Received Time / Laterality Volume Narrative 02/26/2019 9:44 AM EDT Bilateral mammography Reason for exam: s/p left lump for ca Technique: CC and MLO views were obtaine d of each breast using standard 2-D mammography as well as 3-D tomosynthesis . Computer aided detection was used. Comparison: This is compared with prior images. Findings: The breasts are heterogeneousl y dense, which may obscure small masses. There are no suspicious microcalcificati ons, masses, or areas of distortion. The pattern is stable. Stable postsurgical c hange. Conclusion: No mammographic evidence of malignancy. Recommendation: Routine screening. BI-RADS Category 2: Benign findings. * ??The [employer] [place] [employer] an d The Society of Breast Imaging recommend annual screening beginning at age 40 for the general female population. * ??Screening should continue as long as a woman is in good health and is expected to live 10 more years or longer . * ??All women should be familiar with th e known benefits, limitations, and potential harms linked to breast cancer screening. They also should know how their breasts normally look and feel and report any breast changes to a health care provider right away. * ??Some women, because of their family history, a genetic tendency, or certain other factors, should be screened with M RIs along with mammograms. (The number of women who fall into this category is very small.) The patient and health care provider should discuss the patient hist ory and decide if earlier screening and breast MRI are appropriate. Thank you for letting us participate in the care of this patient. For questions regarding this report, please contact [facility] number below. ? Daniel El MD IMG MAMMO ORDERABLES documented in this encounter Visit Diagnoses Diagnosis Malignant neoplasm of left breast in fem susu, estrogen receptor positive, unspecified site of breast documented in this encounter Care Teams Corporate Coordinator Relationship Specialty Start Date End Date Kelsie Neal MD PCP - General Family Medicine 02/03/16 09/12/22 [facility] [address] [place] [address] documented as of this encounter
--- OUTSIDE RECORDS SUMMARY | 2022-09-30 02:08 | XMS_ITS | Encounter Summary ---
:1960 Author Organization [facility] [place] [address] Care Team Providers Name Role Phone Kelsie Neal MD Primary Care Provider Reason for Visit Reason Onset Date Comments Medication Refill 07/07/2020 Encounter Details Date Type Department Care Team Description 07/07/2020 Refill Hematology and Oncology Rafael Pendleton MD Malignant neoplasm of [place] [facility] left breast in female, [facility] estrogen receptor Marsha HEMATOLOGY/ONCOLOGY positive, [place] [address] DEPT. site of breast [phone] [place], [place] [address] (Wo rk) Social History Tobacco Use Types Packs/Day Years Used Date Smoking Tobacco: Never Smokeless Tobacco: Never Alcohol Use Standard Drinks/Week Comments Yes 5 (1 standard drink = 0.6 oz pure alcoho l) Sex Assigned at Date Recorded Not on file documented as of this encounter Miscellaneous Notes Telephone Encounter - Esther Torres RN - 07/08/2020 8:40 AM EDT Received request via [employer] for refill of letrozole. Per review of medical record- started 02/12, plan to complete 5 yr course January 2021 Script prepared and sent to provider for review, signature and escribe. documented in this encounter Plan of Treatment Not on filedocumented as of this encounter Visit Diagnoses Diagnosis Malignant neoplasm of left breast in fem susu, estrogen receptor positive, unspecified site of breast documented in this encounter Care Teams Last Chalker Relationship Specialty Start Date End Date Kelsie Neal MD PCP - General Family Medicine 02/03/16 09/12/22 [facility] [address] [place] [address] documented as of this encounter
--- OUTSIDE RECORDS SUMMARY | 2022-09-30 02:08 | XMS_ITS | Encounter Summary ---
:1960 Author Organization [facility] [place] [address] Care Team Providers Name Role Phone Kelsie Neal MD Primary Care Provider Reason for Referral Consultation (Routine) - Closed Specialty Diagnoses / Procedures Referred By Contact Refer red To Contact Hematology and Diagnoses Malignant neoplasm of left breast in female, estrogen receptor positive, unspecified site of breast Family history of malignant neoplasm of female breast Johnnie Santos, [facility] Hem Onc 3k Oncology [facility], [facility] [address] [place] HEMATOLOGY/ONCOLOGY [address] [place] [address] Referral ID Status Reason Start Date Expiration Date Visits V isits Requested Authorized [id number] Closed Consult, 02/26/2019 02/26/2020 1 1 Test & Treat Reason for Visit Reason Comments Follow-up Encounter Details Date Type Department Care Team Description 02/26/2019 Office Visit Hematology and Johnnie Santos Maligna nt neoplasm of left breast in female, estrogen receptor positive, unspecified site of breast; [place] [facility] Family history of malignant neoplasm of female breast [address] [facility] [address] [place] HEMATOLOGY/ONCOLOG [address] Y [phone] [place] [address] Social History Tobacco Use Types Packs/Day Years Used Date Smoking Tobacco: Never Smokeless Tobacco: Never Alcohol Use Standard Drinks/Week Comments Yes 5 (1 standard drink = 0.6 oz pure alcoho l) Sex Assigned at Date Recorded Not on file documented as of this encounter Last Filed Vital Signs Vital Sign Reading Time Taken Comments Blood Pressure 137/72 02/26/2019 8:08 AM EDT Pulse 77 02/26/2019 8:08 AM EDT Temperature 36.5 ??C (97.7 ??F) 02/26/2019 8:08 AM EDT Respiratory Rate 18 02/26/2019 8:08 AM EDT Oxygen Saturation 100% 02/26/2019 8:08 AM EDT Inhaled Oxygen Concentration - - Weight 80.7 kg (178 lb) 02/26/2019 8:08 AM EDT Height 164.8 cm (5' 4.88) 02/26/2019 8:08 AM EDT Body Mass Index 29.73 02/26/2019 8:08 AM EDT documented in this encounter Progress Notes Johnnie Santos MD - 02/26/2019 8:15 AM EDT Breast cancer follow-up HPI: Diagnosed in September 2015 with left breast infiltrating ductal carcinoma, left breast. Tumor was 9-mm cancer, intermediate grade, SBR = 6.?? Extensive associated DCIS present.?? LVI negative, 0/5 sentinel nodes, HER2 -, FISH ratio = 1.1.?? ER/NC+++ (greater than 90%, strong). Oncotuype Dx Recurrence Score = 11. She is S/P WLE and XRT, completed 02/12. January 2016 Started adjuvant letrozole. Past Medical History: Diagnosis Date ??? Breast cancer 10/2015 ??? Hiatal hernia ??? Hypercholesteremia Patient Active Problem List Diagnosis Code ??? Solar aging of skin L57.8 ??? Ductal carcinoma in situ (DCIS) of left breast D05.12 ??? Malignant neoplasm of left female breast C50.912 ??? Osteopenia M85.80 ??? Chest pain R07.9 ??? 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 Also one of two maternal aunts had breast ca (?age) and a paternal Great Aunt (on PGF side) with h/o breast ca. No family h/o ovarian ca. Interval Hx/ROS: Doing well overall. However, she developed left axillary discomfort and left hand erythema, swelling(couldn't close) on the weekend and went to local ER. Received diagnosis and received iv antibiotic and then oral, which she is still taking. Erythema and hand swelling has decreased, and she has not had fever. Minimal side effects from letrazole. She reports that generalized aches and pains have routinely not been a problem. Same today. Hot flashes are stable at 3-5/d, not interfering with sleep. Nonew problems with LAUREANO, diplopia, cough, SOB, fever, bleeding, nausea, change in bowel or bladder function. ROS otherwise neg. Exam: Most Recent Vitals: 02/26/19 0808 BP: 137/72 Pulse: 77 Resp: 18 Temp: 36.5 ??C (97.7 ??F) SpO2: 100% PERRL, EOMi, sclera nonicteric Oropharynx benign No JOSE and no abnormality in area of left axilla tenderness No spine tenderness Breast exam deferred [seeing surgery folk today] Chest clear to A and P CV RRR, no m/ Abd: no HSM, NT, +BS Ext no c/c/e Neuro grossly nonfocal. I reviewed images from today's bilateral mammogram, which was benign. Assessment and Plan: 58 yo diagnosed in Sep 2015 with an invasive left breast cancer (initially bx was DCIS). Tumor was 9mm, intermediate grade, node-negative. ER and NC were positive in the invasive component; HER2 neg. OncotypeDx assay w/ RS=11. She is s/p partial mastectomy and XRT. On adjuvant letrazole since January 2016 and tolerating well. She had been receiving q6mo Prolia February 2016 - Aug 2018. Taking a break from the Prolia now. Will be rechecking DEXA in February 2020. RTC in 6 mo I again discussed with her the family history and recommended she consider genetic testing. Described further what this entails and potential benefits to her and family. She had an appointment which she did not keep as it was described as a computer-based interaction (didn't understand telehealth). Fur ther, she has no internet access. I gave her the forms to complete, along with a self-addressed envelope to send back to us. She would like to try again. Knows it will be with genetic counselor perhapsover a video conference link. She is ok with that. I'll refer. 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 female, estrogen receptor positive, unspecified site of breast Family history of malignant neoplasm of female breast documented as of this encounter Visit Diagnoses Diagnosis Malignant neoplasm of left breast in fem susu, estrogen receptor positive, unspecified site of breast Family history of malignant neoplasm of female breast Family history of malignant neoplasm of breast documented in this encounter Care Teams Residential Supervisor Relationship Specialty Start Date End Date Kelsie Neal MD PCP - General Family Medicine 02/03/16 09/12/[address] [place] [address] documented as of this encounter
--- OUTSIDE RECORDS SUMMARY | 2022-09-30 02:08 | XMS_ITS | Encounter Summary ---
:1960 Author Organization [facility] [address] Care Team Providers Name Role Phone Kelsie [...] situ of left breast Brooks Ricardo MD [facility] Hem Onc 3k Oncology Procedures TC DENOSUMAB, 1MG, INJECTION [facility] DR Larson HEMATOLOGY/ONCOLOGY [place], [place] DEPT. [address] [place] [address] Referral ID Status Reason Start Date Expiration Date Visits V isits Requested Authorized [id number] Closed Evaluate and 09/26/2016 08/28/2021 6 6 Treat Encounter Details Date Type Department Care Team Description 09/26/2016 Hospital Encounter Hematology and Maligna [place] of [place] [facility] [place], [facility] [place] [phone] Social History Tobacco Use Types Packs/Day [...] tablet by 0 09/13/2022 Tablet mouth daily. letrozole (FEMARA) 2.5 mg Take 1 tablet by 90 tablet 4 01/2902/23/2017 TabletIndications: mouth daily. Malignant neoplasm of left female breast, unspecified site of breast EMOLLIENT BASE (CREAM Apply topically. 0 04/13/2017 BASE TOP) Reported on 10/10/2016 simvastatin (ZOCOR) 20 mg Take 20 mg by mouth 0 09/13/2022 Tablet nightly. documented as of this encounter Progress Notes Salvador Perez RN - 09/26/2016 4:03 PM EST Patient Name: Tanika Harrison Patient Age: 56 y.o. Birthdate: 1960 Admit date: 09/26/2016 Attending Physician: No att. providers found Access visit. See MAR and/or flowsheet. documented in this encounter Plan of Treatment Not on filedocumented as of this encounter Visit Diagnoses Diagnosis Malignant neoplasm of left female breast , unspecified site of breast documented in this encounter Administered Medications Inactive Administered Medications - up to 3 most recent administrations Medication Order MAR Action Action Date Dose Rate Site denosumab (PROLIA) 60 mg/mL Given 09/26/2016 4:01 PM EST 60 mg Right Arm subcutaneous injection 60 mg 60 mg, Subcutaneous, ONCE, 1 dose, On Mon09/26/16 at 1600, Bring to room temperature 15-30 mins before administration. documented in this encounter Care Teams Hand Folder Relationship Specialty Start Date End Date Kelsie Neal MD PCP - General Family Medicine 02/03/16 09/12/[address] [place] [address] documented as of this encounter
--- OUTSIDE RECORDS SUMMARY | 2022-09-30 02:08 | XMS_ITS | Encounter Summary ---
:1960 Author Organization [facility] [place] [address] Care Team Providers Name Role Phone Kelsie Neal MD Primary Care Provider Encounter Details Date Type Department Care Team Description 05/27/2020 Office Visit General Surgery at [facility] for follow- up surveillance of breast cancer; [facility] Lila Kan APRN Malignant neoplasm of left breast in fem susu, estrogen receptor positive, unspecified site of breast; [facility] ast cancer screening by mammogram Drive DR Amador [place] [facility] [facility] [address] [place] [address] [phone] Social History Tobacco Use Types Packs/Day Years Used Date Smoking Tobacco: Never Smokeless Tobacco: Never Alcohol Use Standard Drinks/Week Comments Yes 5 (1 standard drink = 0.6 oz pure alcoho l) Sex Assigned at Date Recorded Not on file documented as of this encounter Progress Notes Lila Marcos APRN - 05/27/2020 1:40 PM EDT Images from the original note were not included. Patient ID: Tanika Harrison is a 60 y.o. female HPI: Dorene is a patient of Dr. 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 She is status post partial mastectomy on November 03, 2015 and sentinel node excision on November 16, 2015. At today's visit, Dorene denies any new lumps or bumps in her breasts or axilla. She does not perform self-breast exams. No nipple discharge. She has an occasional dull ache in the lower left breast, and sometimes her left arm feels like it is weight. This is especially noticeable after she drives the tractor. She denies any headaches or significant weight changes. No new chest pain or difficulty breathing. No new bony pain or tenderness. She denies significant changes to her health since her last visit. Breast cancer history: Tanika had a screening mammogram on 09/16/2015 which showed a cluster of calcifications that was about 1.6 cm in diameter located at 3 o'clock 4 cm from her left nipple. She also had a second area ofcalcifications at 12 o'clock 4 cm from her nipple. Core biopsy of the lesion at 3 o'clock, lesion one, showed high-grade DCIS, estrogen receptor negative. Core biopsy of lesion two at 12 o'clock showedjust some benign adenosis. Subsequent MRI showed that lesion one looked to be about 3 cm in length. It also showed that there was an 8 mm mass that was located 7 mm posterior and medial from lesion number one that was highly suspicious on MRI. There were no other lesions seen as suspicious in the leftbreast on MRI. Her left axillary nodes were [...] 11 and started letrozole in January 2016. She met with Dr. Santos earlier today. She is experiencing generalized achiness. He suggested she try a 3-4week drug holiday to see if her symptoms improved. ?? Surgical Pathology: Left IDC, intermediate grade, ER/FL positive, Her2 negative; s/p lumpectomy followed by SNB, pT1 pN0, stage I. ?? Comprehensive Breast Program Surgery Follow Up: Range of motion of surgical arm complete Lymphedema present No Cosmesis-surgeon reported Cosmesis-patient reported Good Good Local or regional recurrence No Contralateral cancer present No Distant recurrence present No Date of last follow up 05/27/2020 Breast Cancer Risk Factors: History Age at delivery of first child 21 yo Breast fed Yes Oral contraceptive use Yes Menarche age 12 yo LMP 48 yo Hormone replacement therapy No Family history of breast cancer Multiple (see FHx below) Family history of ovarian cancer PGM Known genetic mutation Met w/ [facility] on 09/11/19, but testing was not done. 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 She also cares for her elderly mother and her mother's 2 elderly sisters. She does not smoke; ETOH - occasional glass of wine. Physical Exam: General appearance: Alert, well-developed, well-nourished female in no acute distress. Skin: Warm and dry. Head: Normocephalic, atraumatic. Neck: Soft and supple without adenopathy. Cardiovascular: Normal rate, regular rhythm and normal heart sounds. No murmur heard. Pulmonary: Effort normal and breath sounds normal. No respiratory distress, cough, or wheezing. Breasts: Right breast appears normal. Left breast with periareolar incision with puckering and scar contracture and well-healed axillary incision. No suspicious masses, tenderness, dimpling, erythema, or other skin changes in either breast. No nipple discharge or other nipple changes. No palpable axillary lymph nodes bilaterally. The patient's breasts are asymmetric. The nipples are everted. Musculoskeletal: Arms with full ROM without any evidence of lymphedema. Fully weight-bearing. Neurological: Alert and oriented x 4. Mood is euthymic and appropriate to the situation. Results: Imaging performed (bilateral mammogram) at [facility] today shows no evidence of malignancy, BIRADS Category 2 with scattered areas of fibroglandular density. The results were reviewed with her at today's appointment. Assessment: Clinical breast exam without notable masses, skin changes, dimpling, or nipple discharge. Stable exam. Plan: 1. Encounter for follow-up surveillance of breast cancer 2. Malignant neoplasm of left breast in female, estrogen receptor positive, unspecified site of breast 3. Breast cancer screening by mammogram - Mammo Screening Cad and Garcia Bilateral; April-May 2021 I will see her back in a year with a mammogram and a clinical breast exam. She will also contact me if she develops any new breast changes or concerns prior to that time. She agrees to this plan. Routine recommendations discussed with the patient including importance of regular moderate intensity exercise, nutrition, decreasing cardiovascular risk, and optimizing weight. All questions were answered to the patient's satisfaction and they state understanding and agreementwith today's treatment plan. They are encouraged to follow up sooner if they develop any new or concerning symptoms. Lila Marcos APRN Surgical Oncology P [phone] F [phone] [facility] documented in this encounter Plan of Treatment Not on filedocumented as of this encounter Results Mammo Screening Cad and Garcia Bilateral (07/15/2021 9:58 AM EDT) Anatomical Region Laterality Modality Breast Bilateral Mammography Specimen (Source) Anatomical Location Collection Method / Collectio n Time Received Time / Laterality Volume Narrative 07/15/2021 11:03 AM EDT REASON FOR EXAM: Screening. History of breast cancer. TECHNIQUE: CC and MLO views were obtaine d of the bilateral breast(s). Computer aided detection was used. 3D to mosynthesis images were obtained in addition to 2D images. Comparison:Compared with prior images. FINDINGS: Breast density:The breasts are heterogen eously dense which may obscure small masses There are no suspicious microcalcificati ons, masses, or areas of distortion. There are post surgical garza ges in the left breast. CONCLUSION: No mammographic evidence of malignancy. RECOMMENDATION:Routine screening. A result letter has been sent to this pa kinga by the [facility]. BIRADS CATEGORY 2: BENIGN FINDINGS The [employer] and Th e Society [...] documented in this encounter Visit Diagnoses Diagnosis Encounter for follow-up surveillance of breast cancer Unspecified follow-up examination Malignant neoplasm of left breast in fem susu, estrogen receptor positive, unspecified site of breast Breast cancer screening by mammogram Malignant neoplasm of left breast in fem susu, estrogen receptor positive, unspecified site of breast Breast cancer screening by mammogram documented in this encounter Care Teams Photographic Printer Relationship Specialty Start Date End Date Kelsie Neal MD PCP - General Family Medicine 02/03/16 09/12/[address] [place] [address] documented as of this encounter
--- OUTSIDE RECORDS SUMMARY | 2022-09-30 02:08 | XMS_ITS | Encounter Summary ---
:1960 Author Organization [facility] Address [facility] [place] [address] Care Team Providers Name Role Phone Kelsie Neal MD Primary Care Provider Reason for Visit Reason Comments Follow-up Encounter Details Date Type Department Care Team Description 01/04/2017 Office Visit General Surgery at [facility], Judy Baker neoplasm of [facility] [place] female breast, [facility] uns pecified site of Drive DR [place] [address] [place] [id number] [phone] Social History Tobacco Use Types Packs/Day Years Used Date Smoking Tobacco: Never Alcohol Use Standard Drinks/Week Comments Yes 5 (1 standard drink = 0.6 oz pure alcoho l) Sex Assigned at Date Recorded Not on file documented as of this encounter Last Filed Vital Signs Vital Sign Reading Time Taken Comments Blood Pressure - - Pulse - - Temperature - - Respiratory Rate - - Oxygen Saturation - - Inhaled Oxygen Concentration - - Weight 83 kg (183 lb) 01/04/2017 3:35 PM EST Height - - Body Mass Index 30.86 09/26/2016 3:05 PM EST documented in this encounter Progress Notes Batsheva López MD - 01/04/2017 3:45 PM EST Tanika Harrison is a 56-year-old woman who returns after left breast partial mastectomy and left axillary sentinel node excision. On November 03, 2015, I did a left breast partial mastectomy on the supine MRI arm of our D0928 study. She had a 0.89-cm infiltrating ductal carcinoma, intermediate grade that was ER positive, HER-2 negative, excised with negative margins. She also had some high-grade DCIS mixed in with that that was also excised with negative margins; the nearest margin was 0.8 cm away. Her core biopsy had only shown DCIS so I had to bring her back and do a left axillary sentinel node excision on November 16, 2015, and she had five negative sentinel nodes. She received adjuvant XRT and is now on Femara. She now returns for a check. On physical exam, there are no left breast masses. Her fabiana-areolar incision is nicely healed. No axillary adenopathy either side. Bilateral mammogram from today looks benign to my eye. Impression: No evidence of recurrent breast cancer. Plan: I will plan to see her back in 1 year with a bilateral mammogram. Comprehensive Breast Program Surgery Follow Up Note Range of motion of surgical arm complete Lymphedema present No Cosmesis-surgeon reported Cosmesis-patient reported Excellent Excellent Local or regional recurrence No Contralateral cancer present No Distant recurrence present No Date of last follow up 01/04/17 BATSHEVA LÓPEZ MD 01/04/2017 documented in this encounter Plan of Treatment Not on filedocumented as of this encounter Results Mammo Screen CAD and Garcia Bilat (Generic) (02/08/2018 8:54 AM EDT) Anatomical Region Laterality Modality Breast Bilateral Mammography Specimen (Source) Anatomical Location Collection Method / Collectio n Time Received Time / Laterality Volume Narrative 02/08/2018 9:30 AM EDT REASON FOR EXAM: Screening. History [...] letter has been sent to this pa tient by the [facility]. BIRADS CATEGORY 2: BENIGN FINDINGS The [employer] and Th e Society [...] screening and breast M RI are appropriate. Batsheva López MD IMG MAMMO ORDERABLES documented in this encounter Visit Diagnoses Diagnosis Malignant neoplasm of left female breast , unspecified site of breast Malignant neoplasm of left female breast Malignant neoplasm of breast (female), u nspecified site documented in this encounter Care Teams Installation Coordinator Relationship Specialty Start Date End Date Kelsie Neal MD PCP - General Family Medicine 02/03/16 09/12/22 [facility] [address] [place] [address] documented as of this encounter
--- OUTSIDE RECORDS SUMMARY | 2022-09-30 02:08 | XMS_ITS | Encounter Summary ---
:1960 Author Organization [facility] [place] [address] Care Team Providers Name Role Phone Kelsie Neal MD Primary Care Provider Encounter Details Date Type Department Care Team Description 08/17/2020 Telephone Dermatology at [facility] Nohemi Fontanez MD [address] [facility] [place] [address] [address] [facility] [address] [phone] [place], [place] [address] (Wo rk) Social History Tobacco Use Types Packs/Day Years Used Date Smoking Tobacco: Never Smokeless Tobacco: Never Alcohol Use Standard Drinks/Week Comments Yes 5 (1 standard drink = 0.6 oz pure alcoho l) Sex Assigned at Date Recorded Not on file documented as of this encounter Miscellaneous Notes Telephone Encounter - Vickie Epps LPN - 08/17/2020 2:52 PM EDT Called patient and discussed benign biopsy results indicating no residual SCC s/p excision. Patient verbalized understanding and will call with questions or concerns. She states wound is healing well documented in this encounter Plan of Treatment Not on filedocumented as of this encounter Visit Diagnoses Not on filedocumented in this encounter Care Teams Hardboard Press Operator Relationship Specialty Start Date End Date Kelsie Neal MD PCP - General Family Medicine 02/03/16 09/12/[address] [place] [address] [address] [place] [address] documented as of this encounter
--- OUTSIDE RECORDS SUMMARY | 2022-09-30 02:08 | XMS_ITS | Encounter Summary ---
:1960 Author Organization [facility] [place] [address] Care Team Providers Name Role Phone Kelsie Neal MD Primary Care Provider Reason for Referral Consultation (Routine) - Canceled Specialty Diagnoses / Procedures Referred By Contact Refer red To Contact Hematology and Diagnoses Malignant neoplasm of left breast in female, estrogen receptor positive, unspecified site of breast Family history of breast cancer Johnnie Santos, [facility] Hem Onc 3k Oncology [facility] [address] García [place] H[place]ATOLOGY/ONCOLOGY [address] [place] [address] Referral ID Status Reason Start Date Expiration Date Visits V isits Requested Authorized [id number] Canceled Consult, 09/17/2018 09/17/2019 1 1 Test & Treat Encounter Details Date Type Department Care Team Description 09/17/2018 Office Visit Hematology and Arrick, Johnnie A, Osteope braden, unspecified location; Oncology at [facility] retirement current use of aromatase inhib itor; [facility] Mal ignant neoplasm of left breast in female, estrogen receptor positive, unspecified site of breast; Drive Family history of breast cancer [place]AT[place] [address] Y [phone] [address] Social History Tobacco Use Types Packs/Day Years Used Date Smoking Tobacco: Never Smokeless Tobacco: Never Alcohol Use Standard Drinks/Week Comments Yes 5 (1 standard drink = 0.6 oz pure alcoho l) Sex Assigned at Date Recorded Not on file documented as of this encounter Last Filed Vital Signs Vital Sign Reading Time Taken Comments Blood Pressure 135/74 09/17/2018 9:13 AM EST Pulse 75 09/17/2018 9:10 AM EST Temperature 36.5 ??C (97.7 ??F) 09/17/2018 9:10 AM EST Respiratory Rate 18 09/17/2018 9:10 AM EST Oxygen Saturation 100% 09/17/2018 9:10 AM EST Inhaled Oxygen Concentration - - Weight 81.1 kg (178 lb 14.4 oz) 09/17/2018 9:10 AM EST Height 163.5 cm (5' 4.37) 09/17/2018 9:10 AM EST Body Mass Index 30.36 09/17/2018 9:10 AM EST documented in this encounter Progress Notes Johnnie Santos MD - 09/17/2018 9:15 AM EST Breast cancer follow-up HPI: Diagnosed in September 2015 with left breast infiltrating ductal carcinoma, left breast. Tumor was 9-mm cancer, intermediate grade, SBR = 6.?? Extensive associated DCIS present.?? LVI negative, 0/5 sentinel nodes, HER2 -, FISH ratio = 1.1.?? ER/WI+++ (greater than 90%, strong). Oncotuype Dx Recurrence Score = 11. She is S/P WLE and XRT, completed 02/12. January 2016 Started adjuvant letrozole Past Medical History: Diagnosis Date ??? Breast cancer 10/2015 ??? Hiatal hernia ??? Hypercholesteremia Patient Active Problem List Diagnosis Code ??? Solar aging of skin L57.8 ??? Ductal carcinoma in situ (DCIS) of left breast D05.12 ??? Malignant neoplasm of left female breast C50.912 ??? Osteopenia M85.80 ??? Chest pain R07.9 ??? terminologist current use of aromatase inhibitor Z79.811 Fam Hx: She reports that her only sister had breast cancer as well, dx at age 53. Also one of two maternal aunts had breast ca (?age) and a paternal Great Aunt (on PGF side) with h/o breast ca. No family h/o ovarian ca. Interval Hx/ROS: Doing well overall. Minimal side effects from letrazole. She reports that generalized aches and pains have routinely not been a problem, but that she notes they are noticed about 2 wk before her Proliainjection, then go away for the next 5 months or so. Same today. Hot flashes are stable at 3-5/d, not interfering with sleep. No new problems with LAUREANO, diplopia, cough, SOB, fever, bleeding, nausea, change in bowel or bladder function. Does think a bit decrease in balance. ROS otherwise neg. Exam: Oncology Vitals 09/17/2018 Weight (kg) 81.149 kg Weight (lb) 178 lb 14.4 oz Height 163.5 cm BSA (Calculated - sq m) 1.92 BMI (Calculated) 30.35 Temp 97.7 Temp src 101 Pulse 75 Heart Rate Source Right Resp 18 BP 135/74 BP Location Left arm Patient Position Sitting SpO2 100 Pain Level 0 Karnofsky Score PERRL, EOMi, sclera nonicteric Oropharynx benign No JOSE No spine tenderness Breasts without mass or change Chest clear to A and P CV RRR, no m/ Abd: no HSM, NT, +BS Ext no c/c/e Neuro grossly nonfocal. Neg Romberg. Labs from [facility] on 09/14/18: Ca=9.0; Cr=0.99; normal LFTs WBC=7.27; Hgb=13.5; Fbo=119 Assessment and Plan: 58 yo diagnosed in Sep 2015 with an invasive left breast cancer (initially bx was DCIS). Tumor was 9mm, intermediate grade, node-negative. ER and WI were positive in the invasive component; HER2 neg. OncotypeDx assay w/ RS=11. She is s/p partial mastectomy and XRT. On adjuvant letrazole since January 2016 and tolerating well. She has been receiving q6mo Prolia since February of 2016. Today's injection will be 3 yrs of this. Last DEXA scan showed significant improvement, to now mild osteopenia. We discussed taking a break from the Prolia now, after today's injection. Will be rechecking DEXA inMay 2019. RTC in mid January, coordinated with her screening mammo. I also discussed with her the family history and recommended she consider genetic testing. Describeda bit what this entails and potential benefits to her and family. She would like to proceed. Referral placed. documented in this encounter Plan of Treatment Scheduled Referrals Name Type Priority Associated Diagnoses Order S chedule Referral to Outpatient Referral Routine Malignant neoplasm of Ordered: Familial Cancer left breast in 09/17/2018 female, estrogen receptor positive, unspecified site of breast Family history of breast cancer documented as of this encounter Visit Diagnoses Diagnosis Osteopenia, unspecified location retirement current use of aromatase inhib itor Use of aromatase inhibitors Malignant neoplasm of left breast in fem susu, estrogen receptor positive, unspecified site of breast Family history of breast cancer Family history of malignant neoplasm of breast documented in this encounter Care Teams Knife Glazer Relationship Specialty Start Date End Date Kelsie Neal MD PCP - General Family Medicine 02/03/16 09/12/[address] [place] [address] documented as of this encounter
--- OUTSIDE RECORDS SUMMARY | 2022-09-30 02:08 | XMS_ITS | Encounter Summary ---
:1960 Author Organization [facility] [place] [address] Care Team Providers Name Role Phone Kelsie Neal MD Primary Care Provider Reason for Visit Reason Onset Date Comments Medication Refill 07/25/2019 Encounter Details Date Type Department Care Team Description 07/25/2019 Refill Hematology and Oncology Johnnie Santos , Malignant neoplasm of at [facility] left breast in female, Count includes the [facility] est [facility] [address], [place] [address] HEMATOLOGY/ONCOLOGY site of breast [phone] [place], [place] [address] (Wo rk) Social History Tobacco Use Types Packs/Day Years Used Date Smoking Tobacco: Never Smokeless Tobacco: Never Alcohol Use Standard Drinks/Week Comments Yes 5 (1 standard drink = 0.6 oz pure alcoho l) Sex Assigned at Date Recorded Not on file documented as of this encounter Miscellaneous Notes Telephone Encounter - Caroline Grover RN - 07/25/2019 2:35 PM EDT Letrozole Prescription pended and sent to Dr Pendleton for signature/escribe if in agreement. documented in this encounter Plan of Treatment Not on filedocumented as of this encounter Visit Diagnoses Diagnosis Malignant neoplasm of left breast in fem susu, estrogen receptor positive, unspecified site of breast documented in this encounter Care Teams Network Operations Manager Relationship Specialty Start Date End Date Kelsie Neal MD PCP - General Family Medicine 02/03/16 09/12/[address] [place] [address] documented as of this encounter
--- OUTSIDE RECORDS SUMMARY | 2022-09-30 02:08 | XMS_ITS | Encounter Summary ---
:1960 Author Organization [facility] [place] [address] Care Team Providers Name Role Phone Kelsie [...] situ of left breast Brooks Ricardo MD [facility] Hem Onc 3k Oncology Procedures TC DENOSUMAB, 1MG, INJECTION [facility] [address] Larson HEMATOLOGY/ONCOLOGY [place], [place] DEPT. [phone] [place] [address] Referral ID Status Reason Start Date Expiration Date Visits V isits Requested Authorized [id number] Closed Evaluate and 09/26/2016 08/28/2021 6 6 Treat Encounter Details Date Type Department Care Team Description 03/19/2018 Hospital Encounter Hematology and Maligna nt neoplasm of Oncology at [facility] left breast in female, [facility] [address] positive, [place] [address] site of breast (Primary [phone] Dx) Social History Tobacco Use Types Packs/Day Years [...] Take 1 tablet by 90 tablet 3 0806/201707/09/2018 Tablet mouth daily. multivitamin (THERAGRAN) Take 1 tablet by 0 09/13/2022 Tablet mouth daily. simvastatin (ZOCOR) 20 mg Take 20 mg by mouth 0 09/13/2022 Tablet nightly. documented as of this encounter Progress Notes Cami Kirkpatrick RN - 03/19/2018 11:33 AM EDT Patient Name: Tanika Harrison Patient Age: 57 y.o. Birthdate: 1960 Admit date: 03/19/2018 Attending Physician: No att. providers found Access visit. See MAR and/or flowsheet. Prolia 60mg given in (R) UE sq without issue. Pt tolerated well. documented in this encounter Plan of Treatment Not on filedocumented as of this encounter Visit Diagnoses Diagnosis Malignant neoplasm of left breast in fem susu, estrogen receptor positive, unspecified site of breast - Primary documented in this encounter Administered Medications Inactive Administered Medications - up to 3 most recent administrations Medication Order MAR Action Action Date Dose Rate Site denosumab (PROLIA) 60 mg/mL Given 03/19/2018 11:32 AM EDT 60 mg Right Arm subcutaneous injection 60 mg 60 mg, Subcutaneous, ONCE, 1 dose, On 03/19/18 at 1145, Bring to room temperature 15-30 mins before administration. , Restricted to outpatient use. Requires P&T approval for inpatient use. Approval obtained: No documented in this encounter Care Teams Patient Financial Rep Relationship Specialty Start Date End Date Kelsie Neal MD PCP - General Family Medicine 02/03/16 09/12/22 [facility] [address] [place] [address] documented as of this encounter
--- OUTSIDE RECORDS SUMMARY | 2022-09-30 02:08 | XMS_ITS | Encounter Summary ---
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 multivitamin (THERAGRAN) Take 1 tablet by 0 09/13/2022 Tablet mouth daily. simvastatin (ZOCOR) 20 mg Take 20 mg by mouth 0 09/13/2022 Tablet nightly. documented as of this encounter Plan of Treatment Not on filedocumented as of this encounter Procedures Procedure Name Priority Date/Time Associated Comments Diagnosis HEMOGRAM STAT 09/18/2017 8:10 AM Malignant neoplasm Res ults for this EST of left female procedure are in breast the results Osteopenia, section. unspecified location Ductal carcinoma in situ (DCIS) of left breast moth exterminator current use of aromatase inhibitor DIFFERENTIAL, STAT 09/18/2017 8:10 AM Malignant neoplasm Re sults for this AUTOMATED EST of left female procedure are in breast the results Osteopenia, section. unspecified location Ductal carcinoma in situ (DCIS) of left breast moth exterminator current use of aromatase inhibitor CBC (WITH DIFF) STAT 09/18/2017 8:10 AM Malignant neoplasm EST of left female breast Osteopenia, unspecified location Ductal carcinoma in situ (DCIS) of left breast custodial current use of aromatase inhibitor COMPREHENSIVE STAT 09/18/2017 8:10 AM Malignant neoplasm Re sults for this METABOLIC PANEL EST of left female procedure are in (NON-FASTING) breast the results Osteopenia, section. unspecified location Ductal carcinoma in situ (DCIS) of left breast moth exterminator current use of aromatase inhibitor documented in this encounter Results Differential, Automated (09/18/2017 8:10 AM EST) P athologist Signature Neutrophils % 65.4 % [facility] Neutr Abs (ANC) 4.64 1.70 - [facility] 6.10 [facility] x10(3)/[facility]ORATORY Lymphocytes % 22.8 % [facility] Lymphocytes Abs 1.6 0.9 - 3.2 [facility] x10(3)/[facility] LABORATORY Monocytes % 10.3 % [facility] Monocyte Abs 0.7 0.3 - 0.9 [facility] x10(3)/[facility] LABORATORY Eosinophils % 0.8 % [facility] Eosinophils Abs 0.1 0.0 - 0.4 [facility] x10(3)/[facility] LABORATORY Basophils % 0.3 % [facility] Basophils Abs 0.0 0.0 - 0.1 [facility] x10(3)/[facility] LABORATORY Immature Gran % 0.40 % [facility] Comment: Immature granulocytes(IG's)percentage an d absolute count will include metamyelocytes, myelocytes, and promyelo cytes. Blood smears from CBCs yielding IG's will be scanned manually for concor dance. If this scan disagrees with the automated IG or if promyelocytes are not ed, a manual differential will be performed. Isa Gran Abs 0.03 0.00 - 0.04 x10(3)/[facility] Specimen Anatomical Collection Method Collection Time Receive d Time (Source) Location / / Volume Laterality Blood specimen 09/18/2017 8:10 AM 017 8:27 (specimen) EST AM EST Resulting Agency Comment Spec In Lab Brooks Ricardo MD HEMATOLOGY ORDERABLES Performing Organization Address City/State/[place] [address] Hemogram (09/18/2017 8:10 AM EST) P athologist Signature WBC 7.1 4.0 - 9.5 [facility] x10(3)/[facility] LABORATORY RBC 4.64 4.00 - [facility] 5.21 [facility] x10(6)/[facility]ORATORY Hemoglobin 13.[address] 11[address] [facility] gm/dL [facility] Hematocrit 40.9 35.[address] [facility] 45.8 % [facility] MCV 88.1 82.6 - [facility] 94.4 fL [facility] MCH 28.9 27.1 - [facility] 32.0 pg [facility] MCHC 32.8 31.[address] - [facility] 35.0 gm/dL [facility] Platelets 193 145 - 357 [facility] x10(3)/[facility] LABORATORY RDWSD 44.1 37.0 - [facility] 46.0 [facility] LABORATORY RDWCV 13.7 11.5 - [facility] 14.1 % [facility] MPV 11.4 7.6 - 12.9 [facility] LABORATORY nRBC % Auto 0.0 % [facility] nRBC Abs Auto 0.000 0.000 - [facility] 0.000 [facility] x10(3)/[facility] LABORATORY Specimen Anatomical Collection Method Collection Time Receive d Time (Source) Location / / Volume Laterality Blood specimen 09/18/2017 8:10 AM 017 8:27 (specimen) EST AM EST Resulting Agency Comment Spec In Lab Brooks Ricardo MD HEMATOLOGY ORDERABLES Performing Organization Address City/State/[place] [address] Comprehensive metabolic panel (non-fasting) (09/18/2017 8:10 AM EST) athologist Signature Glucose Lvl 99 65 - 199 [facility] mg/dL [facility] Comment: Diabetes: >=200 mg/dL plus symp toms BUN 14 8 - 18 mg/dL [facility] Creatinine 0.89 0.70 - 1.20 mg/dL [facility] Sodium 141 135 - 145 mmol/L [facility] Potassium 4.5 3.5 - 5.0 mmol/L [facility] Comment: Please note: ??Patients with WBC >100,00 0 may have falsely elevated Potassium levels. ??For accurate Potassium quantif ication in these patients send serum separator tube (gold top) for subsequent determinations. ??Contact the Clinical Chemistry Laboratory if there are any qu estions. Chloride 102 98 - 107 mmol/L [facility] CO2 28 22 - 31 mmol/L [facility] Anion Gap 11 5 - 15 mmol/L [facility] Calcium 9.7 8.5 - 10.5 mg/dL [facility] Total Protein 7.4 6.1 - 8.0 gm/dL [facility] Albumin 4.3 3.2 - 5.2 gm/dL [facility] AST 22 0 - 30 unit/L [facility] ALT 15 0 - 30 unit/L [facility] Alk Phos 97 40 - 104 unit/L [facility] Total Bilirubin 0.8 0.2 - 1.3 mg/dL [facility] Estimated GFR >60 >=60 [facility] Comment: The reported eGFR should be multiplied b y 1.2 for patients. The MDRD is not an appropriate measure o f renal function for patients with body mass extremes or in patients with acute kidney failure. http://Schedulize/DHnkdep http://Schedulize/DHMCnkf Specimen Anatomical Collection Method Collection Time Receive d Time (Source) Location / / Volume Laterality Blood specimen 09/18/2017 8:10 AM 017 8:27 (specimen) EST AM EST Resulting Agency Comment Spec In Lab Brooks Ricardo MD CHEMISTRY ORDERABLES Performing Organization Address City/State/[place] [address] documented in this encounter Visit Diagnoses Diagnosis Malignant neoplasm of left female breast Malignant neoplasm of breast (female), u nspecified site Osteopenia, unspecified location Ductal carcinoma in situ (DCIS) of left breast moth exterminator current use of aromatase inhib itor Use of aromatase inhibitors documented in this encounter Care Teams Volunteer Recruiter Relationship Specialty Start Date End Date Kelsie Neal MD PCP - General Family Medicine 02/03/16 09/12/[address] [place] [address] documented as of this encounter
--- OUTSIDE RECORDS SUMMARY | 2022-09-30 02:08 | XMS_ITS | Encounter Summary ---
:1960 Author Organization [facility] [place] [address] Care Team Providers Name Role Phone Kelsie Neal MD Primary Care Provider Encounter Details Date Type Department Care Team Description 05/27/2020 Hospital Encounter Mammography/DXA at Johnnie Santos Malignant neoplasm [facility] MD Lore[place] of left breast in [address] [facility] [address] janice positive, [place], [place]ATOLOGY/[place] [address] OGY breast [phone] [place] [address] Social History Tobacco Use Types Packs/Day Years [...] Take 1 tablet by 90 tablet 3 07/0107/07/2020 TabletIndications: mouth daily. Malignant neoplasm of left breast in female, estrogen receptor positive, unspecified site of breast meloxicam (MOBIC) 15 mg take 1 tablet by 0 201809/13/2022 Tablet mouth once daily multivitamin (THERAGRAN) Take 1 tablet by 0 09/13/2022 Tablet mouth daily. simvastatin (ZOCOR) 20 mg Take 20 mg by mouth 0 09/13/2022 Tablet nightly. documented as of this encounter Plan of Treatment Not on filedocumented as of this encounter Procedures Procedure Name Priority Date/Time Associated Diagnosis Comme nts MAMMO SCREENING CAD Routine 05/27/2020 11:43 AM Malignant neop lasm Results for this AND ANNI BILATERAL EDT of left breast in [place] are in female, estrogen the results receptor positive, section. unspecified site of breast documented in this encounter Results Mammo Screening Cad and Anni Bilateral (05/27/2020 11:43 AM EDT) Anatomical Region Laterality Modality Breast Bilateral Mammography Specimen (Source) Anatomical Location Collection Method / Collectio n Time Received Time / Laterality Volume Narrative 05/27/2020 12:00 PM EDT EXAMINATION: MAMMO SCREENING CAD AND ANNI BILATERAL REASON FOR EXAM: Screening. History of l eft breast cancer. TECHNIQUE: CC and MLO views were obtaine d of both breasts. Computer aided detection was used. 3D tomosynthesis ward ges were obtained in addition to 2D images. COMPARISON: The study is compared with p [place] images. FINDINGS: Breast density: There are scattered area s of fibroglandular density There are no suspicious microcalcificati ons, masses, or areas of distortion. There are post treatment changes in the left breast. CONCLUSION: No mammographic evidence of malignancy. RECOMMENDATION: Routine annual screening . BIRADS CATEGORY 2: BENIGN FINDINGS * ??Regular screening mammograms startin g between age 40 and 50 reduces the risk of from breast cancer. * ??All screening tests have both risks and benefits. These risks and benefits should be assessed for each [facility] discussion with their provider to determine their preferred east cancer screening schedule. * ??Women should report any breast shabazz es to a health care provider right away. * ??Some women, because of their family history, a genetic tendency, or other factors, should be screened with annual breast MRI as well as with mammograms. (The number of women who fall into this category is very small). Patients and health care providers should discuss eac h patients history to decide if earlier screening and/or breast MRI are appropri ate. * ??Screening should continue as long as a woman is in good health and is expected to live 10 years or longer. * ??Screening mammography may not detect 10-15% of breast cancers. Thank you for letting us participate in the care of this patient. For questions regarding this report, please contact [facility] number below. ? Johnnie Santos MD IMG MAMMO ORDERABLES documented in this encounter Visit Diagnoses Diagnosis Malignant neoplasm of left breast in fem susu, estrogen receptor positive, unspecified site of breast documented in this encounter Care Teams Quality Control Auditor Relationship Specialty Start Date End Date Kelsie Neal MD PCP - General Family Medicine 02/03/16 09/12/[address] [place] [address] documented as of this encounter
--- OUTSIDE RECORDS SUMMARY | 2022-09-30 02:08 | XMS_ITS | Encounter Summary ---
:1960 Author Organization [facility] Address [address] [place] [address] Care Team Providers Name Role Phone Kelsie Neal MD Primary Care Provider Encounter Details Date Type Department Care Team Description 03/22/2017 Hospital Encounter Hematology and Ductal carcinoma in situ (DCIS) of left breast; Oncology at 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 of left female breast, unspecified site of breast Osteopenia terminal clerk current use of aromatase inhibitor DIFFERENTIAL, STAT 03/22/2017 10:22 Ductal carcinoma in Res ults for this AUTOMATED AM EDT situ (DCIS) of left procedur e are in breast the results Malignant neoplasm section. of left female breast, unspecified site of breast Osteopenia terminal clerk current use of aromatase inhibitor CBC (WITH DIFF) STAT 03/22/2017 10:22 Ductal carcinoma in AM EDT situ (DCIS) of left breast Malignant neoplasm of left female breast, unspecified site of breast Osteopenia terminal clerk current use of aromatase inhibitor COMPREHENSIVE STAT 03/22/2017 10:22 Ductal carcinoma in Res ults for this METABOLIC PANEL AM EDT situ (DCIS) of left proce dure are in (NON-FASTING) breast the results Malignant neoplasm section. of left female breast, unspecified site of breast Osteopenia prison current use of aromatase inhibitor documented in this encounter Results Differential, Automated (03/22/2017 10:22 AM EDT) P athologist Signature Neutrophils % 60.0 % [facility] Neutr Abs (ANC) 3.53 1.70 - [facility] 6.10 [facility] x10(3)/[facility] LABORATORY Lymphocytes % 29.4 % [facility] Lymphocytes Abs 1.7 0.9 - 3.2 [facility] x10(3)/[facility] LABORATORY Monocytes % 9.4 % [facility] Monocyte Abs 0.6 0.3 - 0.9 [facility] x10(3)/[facility] LABORATORY Eosinophils % 0.7 % [facility] Eosinophils Abs 0.0 0.0 - 0.4 [facility] x10(3)/[facility] LABORATORY Basophils % 0.3 % [facility] Basophils Abs 0.0 0.0 - 0.1 [facility] x10(3)/[facility] LABORATORY Immature Gran % 0.20 % [facility] Comment: Immature granulocytes(IG's)percentage an d absolute count will include metamyelocytes, myelocytes, and promyelo cytes. Blood smears from CBCs yielding IG's will be scanned manually for concor dance. If this scan disagrees with the automated IG or if promyelocytes are not ed, a manual differential will be performed. Isa Gran Abs 0.01 0.00 - 0.04 x10(3)/[facility] Specimen Anatomical Collection Method Collection Time Receive d Time (Source) Location / / Volume Laterality Blood specimen 03/22/2017 10:22 7 (specimen) AM EDT 10:37 AM EDT Resulting Agency Comment Spec In Lab Brooks Ricardo MD HEMATOLOGY ORDERABLES Performing Organization Address City/State/[place] [address] Hemogram (03/22/2017 10:22 AM EDT) P athologist Signature WBC 5.9 4.0 - 9.5 [facility] x10(3)/[facility] LABORATORY RBC 4.92 4.00 - [facility] x10(6)/[facility]ORATORY Hemoglobin 14.2 11.7 - [facility] 15.[facility] gm/dL [facility] Hematocrit 43.5 35.7 - [facility] 45.8 % [facility] MCV 88.4 82.6 - [facility] 94.4 fL [facility] MCH 28.9 27.1 - [facility] 32.0 pg [facility] MCHC 32.6 31.7 - [facility] 35.0 gm/dL [facility] Platelets 199 145 - 357 [facility] x10(3)/[facility] RDWSD 43.4 37.0 - [facility] JAZMIN 46.0 [facility] LABORATORY RDWCV 13.3 11.5 - [facility] 14.1 % [facility] MPV 11.1 7.6 - 12.9 [facility] LABORATORY nRBC % Auto 0.0 % [facility] nRBC Abs Auto 0.000 0.000 - [facility] 0.000 [facility] x10(3)/[facility] LABORATORY Specimen Anatomical Collection Method Collection Time Receive d Time (Source) Location / / Volume Laterality Blood specimen 03/22/2017 10:22 7 (specimen) AM EDT 10:37 AM EDT Resulting Agency Comment Spec In Lab Brooks Ricardo MD HEMATOLOGY ORDERABLES Performing Organization Address City/State/[place] [address] Comprehensive metabolic panel (non-fasting) (03/22/2017 10:22 AM EDT) athologist Signature Glucose Lvl 91 65 - 199 [facility] mg/dL [facility] Comment: Diabetes: >=200 mg/dL plus symp toms BUN 15 8 - 18 mg/dL [facility] Creatinine 0.77 0.70 - 1.20 mg/dL [facility] Comment: Please note that the pediatric reference intervals supplied above were not validated at [facility]. Results from pediatri c patients should be interpreted in conjunction to the patient's age, height and muscle mass. Sodium 142 135 - 145 mmol/L [facility] Potassium 4.2 3.5 - 5.0 mmol/L [facility] Comment: Please note: ??Patients with WBC >100,00 0 may have falsely elevated Potassium levels. ??For accurate Potassium quantif ication in these patients send serum separator tube (gold top) for subsequent determinations. ??Contact the Clinical Chemistry Laboratory if there are any qu estions. Chloride 102 98 - 107 mmol/L [facility] CO2 27 22 - 31 mmol/L [facility] Anion Gap 13 5 - 15 mmol/L [facility] Calcium 9.1 8.5 - 10.5 mg/dL [facility] Total Protein 7.6 6.1 - 8.0 gm/dL [facility] Albumin 4.5 3.2 - 5.2 gm/dL [facility] AST 18 0 - 30 unit/L [facility] ALT 17 0 - 30 unit/L [facility] Alk Phos 80 40 - 104 unit/L [facility] Total Bilirubin 0.6 0.2 - 1.3 mg/dL [facility] Bili, Direct 0.1 0.0 - 0.3 mg/dL [facility] Estimated GFR >60 >=60 [facility] Comment: This estimated GFR (eGFR) value was calc ulated using the MDRD equation which has been validated on patients between t he ages of 18 and 70. The MDRD should not be used to assess kidney function in patients < 18 years of age or in patients with extremes of body mass, or in patients with acute kidney failure. This value should be multiplied by 1.2 f or patients. For further information please copy and past e the following links into your internet browser. [email or web address]://[email or web address]/[email or web address] [email or web address] Specimen Anatomical Collection Method Collection Time Receive d Time (Source) Location / / Volume Laterality Blood specimen 03/22/2017 10:22 7 (specimen) AM EDT 10:37 AM EDT Resulting Agency Comment Spec In Lab Brooks Ricardo MD CHEMISTRY ORDERABLES Performing Organization Address City/State/[place] [address] documented in this encounter Visit Diagnoses Diagnosis Ductal carcinoma in situ (DCIS) of left breast Malignant neoplasm of left female breast , unspecified site of breast Osteopenia Disorder of bone and cartilage, unspecif ied terminal clerk current use of aromatase inhib itor Use of aromatase inhibitors documented in this encounter Care Teams Social And Political Studies Professor Relationship Specialty Start Date End Date Kelsie Neal MD PCP - General Family Medicine 02/03/16 09/12/[address] [place] [address] documented as of this encounter
--- OUTSIDE RECORDS SUMMARY | 2022-09-30 02:08 | XMS_ITS | Encounter Summary ---
:1960 Author Organization [facility] [place] [address] Care Team Providers Name Role Phone Kelsie Neal MD Primary Care Provider Reason for Visit Reason Comments Pre-op Exam Encounter Details Date Type Department Care Team Description 08/11/2020 [facility] exam Road [address] [facility] [place] [address] [address] [facility] [phone] [place], [place] [address] (Wo rk) Social History Tobacco Use Types Packs/Day Years Used Date Smoking Tobacco: Never Smokeless Tobacco: Never Alcohol Use Standard Drinks/Week Comments Yes 5 (1 standard drink = 0.6 oz pure alcoho l) Sex Assigned at Date Recorded Not on file documented as of this encounter Last Filed Vital Signs Vital Sign Reading Time Taken Comments Blood Pressure 134/81 08/11/2020 2:24 PM EDT Pulse 78 08/11/2020 2:22 PM EDT Temperature - - Respiratory Rate - - Oxygen Saturation - - Inhaled Oxygen Concentration - - Weight - - Height - - Body Mass Index - - documented in this encounter Progress Notes Nani Gonsalez CCMA - 08/11/2020 1:30 PM EDT DERMATOLOGY NURSE/MA VISIT NOTE Date of service: 08/11/2020 Tanika Harrison : 1960 Provider: ZACHARY CARLOS MD CC Pre-procedure nurse intake HPI Tanika Harrison is a 60 y.o. female, who presents to the clinic today for a procedure visit. EXAM Pre-surgery vital signs: Patient Vitals for the past 24 hrs: Pulse BP 08/11/20 1422 78 (!) 130/95 08/11/20 1424 -- 134/81 Allergies: Sulfa (sulfonamide antibiotics) Meds: Current Outpatient Medications Medication Sig Dispense Refill [...] No current facility-administered medications for this visit. Reviewed surgery expectations and post-operative wound care instructions. Patient verbalized understanding. Answered all questions. Confirmed surgical site with patient. Prepared patient for surgery. MEGHANA Jacob Department of Dermatology [facility] documented in this encounter Plan of Treatment Not on filedocumented as of this encounter Visit Diagnoses Diagnosis Pre-op exam Preoperative examination, unspecified documented in this encounter Care Teams Records Coordinator Relationship Specialty Start Date End Date Kelsie Neal MD PCP - General Family Medicine 02/03/16 09/12/[address] [place] [address] documented as of this encounter
--- OUTSIDE RECORDS SUMMARY | 2022-09-30 02:08 | XMS_ITS | Encounter Summary ---
:1960 Author Organization [facility] Address [facility] [place] [address] Care Team Providers Name Role Phone Kelsie [...] situ of left breast Brooks Ricardo MD [facility] Hem Onc 3k Oncology Procedures TC DENOSUMAB, 1MG, INJECTION [facility] [address] HEMATOLOGY/ONCOLOGY [place], [place] DEPT. [address] [place] [address] Referral ID Status Reason Start Date Expiration Date Visits V isits Requested Authorized [id number] Closed Evaluate and 09/26/2016 08/28/2021 6 6 Treat Encounter Details Date Type Department Care Team Description 09/17/2018 Hospital Encounter Hematology and Osteope braden, unspecified Oncology at [facility] location (Primary Dx) [place] [address] Social History Tobacco Use Types Packs/Day [...] Take 1 tablet by 90 tablet 3 06/3002/26/2019 Tablet mouth daily. multivitamin (THERAGRAN) Take 1 tablet by 0 09/13/2022 Tablet mouth daily. simvastatin (ZOCOR) 20 mg Take 20 mg by mouth 0 09/13/2022 Tablet nightly. documented as of this encounter Progress Notes Lila Thomas RN - 09/17/2018 10:15 AM EST Patient Name: Tanika Harrison Patient Age: 58 y.o. Birthdate: 1960 Admit date: 09/17/2018 Attending Physician: No att. providers found Access visit. See MAR and/or flowsheet.tums and x geva given documented in this encounter Plan of Treatment Not on filedocumented as of this encounter Visit Diagnoses Diagnosis Osteopenia, unspecified location - Prima ry documented in this encounter Administered Medications Inactive Administered Medications - up to 3 most recent administrations Medication Order MAR Action Action Date Dose Rate Site calcium carbonate (TUMS) chewable Given 09/17/2018 10:15 AM EST 500 mg tablet 500 mg 500 mg, Oral, ONCE, 1 dose, On 09/17/18 at 1015, Routine denosumab (PROLIA) 60 mg/mL Given 09/17/2018 10:13 AM EST 60 mg Right Arm subcutaneous injection 60 mg 60 mg, Subcutaneous, ONCE, 1 dose, On 09/17/18 at 1015, Bring to room temperature 15-30 mins before administration. Monitor patients with severe impairment (CRCL less than 30 mL/minute or on dialysis) due to increased risk of hypocalcemia., Restricted to outpatient use. Requires P&T approval for inpatient use. Use in outpatient setting documented in this encounter Care Teams Sieve Repairer Relationship Specialty Start Date End Date Kelsie Neal MD PCP - General Family Medicine 02/03/16 09/12/[address] [place] [address] [address] [place] [address] documented as of this encounter
--- OUTSIDE RECORDS SUMMARY | 2022-09-30 02:08 | XMS_ITS | Encounter Summary ---
:1960 Author Organization [facility] [place] [address] Care Team Providers Name Role Phone Kelsie Neal MD Primary Care Provider Reason for Visit Reason Onset Date Comments Medication Refill 06/06/2017 Encounter Details Date Type Department Care Team Description 06/06/2017 Refill Hematology and Oncol ogy at [facility] [place] [address] Social History Tobacco Use Types Packs/Day Years Used Date Smoking Tobacco: Never Alcohol Use Standard Drinks/Week Comments Yes 5 (1 standard drink = 0.6 oz pure alcoho l) Sex Assigned at Date Recorded Not on file documented as of this encounter Miscellaneous Notes Telephone Encounter - Yasmine Yepez RN - 06/06/2017 1:44 PM EDT Refill request for Letrozole. Medication pended to provider. Pharmacy of choice: [facility] in [place], [place] documented in this encounter Plan of Treatment Not on filedocumented as of this encounter Visit Diagnoses Not on filedocumented in this encounter Care Teams Appliance Assembler Relationship Specialty Start Date End Date Kelsie Neal MD PCP - General Family Medicine 02/03/16 09/12/22 [address] [place] [address] documented as of this encounter
--- OUTSIDE RECORDS SUMMARY | 2022-09-30 02:08 | XMS_ITS | Encounter Summary ---
:1960 Author Organization [facility] [place] [address] Care Team Providers Name Role Phone Kelsie Neal MD Primary Care Provider Encounter Details Date Type Department Care Team Description 07/13/2020 Telephone Dermatology at [facility] Nohemi Fontanez MD [address] [facility] [place] [address] [facility] [address] [phone] [place], [place] [address] (Wo rk) Social History Tobacco Use Types Packs/Day Years Used Date Smoking Tobacco: Never Smokeless Tobacco: Never Alcohol Use Standard Drinks/Week Comments Yes 5 (1 standard drink = 0.6 oz pure alcoho l) Sex Assigned at Date Recorded Not on file documented as of this encounter Miscellaneous Notes Telephone Encounter - Vickie Epps LPN - 07/17/2020 1:25 PM EDT Spoke with patient and discussed 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 Reviewed recommendation from Dr. Merida for excision. Patient verbalized understanding. Will have sanitation lead call and schedule for excision with Dr. Merida Telephone Encounter - Vickie Epps LPN - 07/16/2020 3:26 PM EDT Call placed to patient to discuss biopsy results. No answer at this time, message left to call clinic. Telephone Encounter - Merry Hagan - 07/13/2020 4:15 PM EDT Tanika Harrison returned your call. She would like to hold off on scheduling until she get her pathology results. FYI Telephone Encounter - Alexandria Ruiz - 07/13/2020 2:25 PM EDT I left a voicemail for Tanika Harrison requesting a call back to schedule a 2 week follow up withDr. Merida. Telephone Encounter - Alexandria Ruiz - 07/13/2020 2:25 PM EDT ----- Message from Nohemi Merida MD sent at 07/09/2020 3:49 PM EDT ----- FSE in 2 weeks or whenever convenient. documented in this encounter Plan of Treatment Not on filedocumented as of this encounter Visit Diagnoses Not on filedocumented in this encounter Care Teams Manager Med Surg Relationship Specialty Start Date End Date Kelsie Neal MD PCP - General Family Medicine 02/03/16 09/12/[address] [place] [address] documented as of this encounter
--- OUTSIDE RECORDS SUMMARY | 2022-09-30 02:08 | XMS_ITS | Encounter Summary ---
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 [address] Referral ID Status Reason Start Date Expiration Date Visits V isits Requested Authorized [id number] Closed Specialty 09/18/2017 09/18/2018 1 1 Service Requested Encounter Details Date Type Department Care Team Description 09/18/2017 Office Visit Hematology and Brooks Ricardo Malignan t neoplasm of left breast in female, estrogen receptor positive, unspecified site of breast; Oncology at [facility] termite renewal inspector current use of aromatase inhib itor; [facility] Ost eopenia, unspecified location Drive [address] García, [place] HEMATOLOGY/ONCOLOG [address] [place] DEPT. [phone] [place] [address] Social History Tobacco Use Types Packs/Day Years Used Date Smoking Tobacco: Never Alcohol Use Standard Drinks/Week Comments Yes 5 (1 standard drink = 0.6 oz pure alcoho l) Sex Assigned at Date Recorded Not on file documented as of this encounter Last Filed Vital Signs Vital Sign Reading Time Taken Comments Blood Pressure 127/84 09/18/2017 8:26 AM EST Pulse 78 09/18/2017 8:26 AM EST Temperature 37.1 ??C (98.8 ??F) 09/18/2017 8:26 AM EST Respiratory Rate 18 09/18/2017 8:26 AM EST Oxygen Saturation 97% 09/18/2017 8:26 AM EST Inhaled Oxygen Concentration - - Weight 81.8 kg (180 lb 6.4 oz) 09/18/2017 8:26 AM EST Height 161.5 cm (5' 3.58) 09/18/2017 8:26 AM EST Body Mass Index 31.37 09/18/2017 8:26 AM EST documented in this encounter Progress Notes Brooks Ricardo MD - 09/18/2017 8:30 AM EST Subjective: Patient ID: Tanika Harrison is a 57 y.o. female, who returns in followup for [...] nodes, HER2 -, FISH ratio = 1.1.?? ER/UT+++ (greater than 90%, strong). B. Onco Dx = 11. C. S/P WLE/XRT, 02/12. D. Adjuvant letrozole, 02/12. ?? 2.?? History of hyperlipidemia. ?? 3.?? History of occasional palpitations. 4. Osteopenia/borderline osteoporosis. A. Prolia, 03/14. [place] returns in followup, continuing on adjuvant Femara. She continues to be doing about the same clinically. She is continuing to have hot flashes, but these are stable. She does not think these are awakening her at night. She also continues to have some intermittent tenderness involving the lateral left breast and chest wall area which has been present for over a year or so and is generally mild, but occasionally somewhat bothersome. This also is unchanged. She has had no signs or symptoms suggestive of recurrent disease. She has had no significant interval illnesses. Review of Systems Except as noted above, Tanika Mukherjee full remaining review of systems, including constitutional, cardiac, pulmonary, GI, , neurologic, musculskeletal, and all remaining, is otherwise fully unremarkable. Current Outpatient Prescriptions on File Prior to Visit Medication Sig Dispense Refill ??? letrozole (FEMARA) 2.5 mg Tablet Take 1 tablet by mouth daily. 90 tablet 3 ??? denosumab (PROLIA) 60 mg/mL Syringe Inject 60 mg subcutaneously Q6 Months. ??? multivitamin (THERAGRAN) Tablet Take 1 tablet [...] Exam Vitals Office Visit from 01/25/2016 in [facility] Onc Weight - Scale 81 kg (178 [...] RRR, S1, S2. No murmur, rub, or [id number]. Breast Exam: Moderate post XRT changes, left breast, consistent with prior WLE/XRT. Abdomen: Bowel sounds unremarkable, soft, nontender with no palpable HSM or other abnormalities. Extremitieswithout significant cyanosis, clubbing, or edema. Neurologic Exam: Grossly nonfocal, cranial nerve'sIII - XII unremarkable, DTR's symmetric throughout. Recent Results (from the past 24 hour(s)) Hemogram Result Value Ref Range WBC 7.1 4.0 - 9.5 x10(3)/mcL RBC 4.64 4.00 - 5.21 x10(6)/mcL Hemoglobin 13.4 11.7 - 15.5 gm/dL Hematocrit 40.9 35.7 - 45.8 % MCV 88.1 82.6 - 94.4 fL MCH 28.9 27.1 - 32.0 pg MCHC 32.8 31.7 - 35.0 gm/dL Platelets 193 145 - 357 x10(3)/mcL RDWSD 44.1 37.0 - 46.0 fL RDWCV 13.7 11.5 - 14.1 % MPV 11.4 7.6 - 12.9 fL nRBC % Auto 0.0 % nRBC Abs Auto 0.000 0.000 - 0.000 x10(3)/mcL Differential, Automated Result Value Ref Range Neutrophils % 65.4 % Neutr Abs (ANC) 4.64 1.70 - 6.10 x10(3)/mcL Lymphocytes % 22.8 % Lymphocytes Abs 1.6 0.9 - 3.2 x10(3)/mcL Monocytes % 10.3 % Monocyte Abs 0.7 0.3 - 0.9 x10(3)/mcL Eosinophils % 0.8 % Eosinophils Abs 0.1 0.0 - 0.4 x10(3)/mcL Basophils % 0.3 % Basophils Abs 0.0 0.0 - 0.1 x10(3)/mcL Immature Gran % 0.40 % Isa Gran Abs 0.03 0.00 - 0.04 x10(3)/mcL Recent Labs 09/18/17 0810 03/22/17 1022 WBC 7.1 5.9 NEUTROABS 4.64 3.53 HGB 13.4 14.2 HCT 40.9 43.5 PLATELET 193 199 Recent Labs 03/22/17 1022 AST 18 ALT 17 ALKPHOS 80 BILITOT 0.6 Assessment and Plan: Tanika returns in followup. Labs are as above and as per her flow sheet and overall stable. Her liver function tests remain within normal limits. She is doing reasonably well on her adjuvant Femara. She has continuing vasomotor symptoms, as noted above. She continues to have some intermittent discomfort in the breast and chest wall region, consistent with her prior radiation and surgery. This is overall stable. She has had no signs or symptoms suggestive of recurrent or metastatic disease. Will proceed with treatment today as well with Prolia for treatment of her osteopenia. documented in this encounter Plan of Treatment Not on filedocumented as of this encounter Results Comprehensive metabolic panel (non-fasting) (03/19/2018 9:14 AM EDT) P athologist Signature Glucose Lvl 79 65 - 199 [facility] mg/dL [facility] Comment: Diabetes: >=200 mg/dL plus symp toms BUN 17 8 - 18 mg/dL [facility] Creatinine 0.87 0.70 - 1.20 mg/dL [facility] Sodium 142 135 - 145 mmol/L [facility] Potassium 4.0 3.5 - 5.0 mmol/L [facility] Comment: Please note: ??Patients with WBC >100,00 0 may have falsely elevated Potassium levels. ??For accurate Potassium quantif ication in these patients send serum separator tube (gold top) for subsequent determinations. ??Contact the Clinical Chemistry Laboratory if there are any qu estions. Chloride 102 98 - 107 mmol/L [facility] CO2 27 22 - 31 mmol/L [facility] Anion Gap 13 5 - 15 mmol/L [facility] Calcium 9.6 8.5 - 10.5 mg/dL [facility] Total Protein 7.4 6.1 - 8.0 gm/dL [facility] Albumin 4.4 3.2 - 5.2 gm/dL [facility] AST 22 0 - 30 unit/L [facility] ALT 17 0 - 30 unit/L [facility] Alk Phos 101 40 - 104 unit/L [facility] Total Bilirubin 0.6 0.2 - 1.3 mg/dL [facility] Estimated GFR >60 >=60 [facility] Comment: The reported eGFR should be multiplied b y 1.2 for patients. The MDRD is not an appropriate measure o f renal function for patients with body mass extremes or in patients with acute kidney failure. http://Waynaut/DHnkdep http://Waynaut/DHMCnkf Specimen Anatomical Collection Method Collection Time Receive d Time (Source) Location / / Volume Laterality Blood specimen 03/19/2018 9:14 AM 018 9:33 (specimen) EDT AM EDT Resulting Agency Comment Spec In Lab Brooks Ricardo MD CHEMISTRY ORDERABLES Performing Organization Address City/State/[facility] [place] [address] DXA Central-Spine, Hip, And/Or Whole Body (Generic) (03/19/2018 8:56 AM EDT) Anatomical Region Laterality Modality C-spine, Hip N/A Other Specimen (Source) Anatomical Location Collection Method / Collectio n Time Received Time / Laterality Volume Impressions 03/19/2018 3:30 PM EDT Measurements meet WHO criteria for osteopenia. Bone mineral density measurements are in creased compared to previous studies. Estimating Fracture Risk: The relationship between bone mineral de nsity (BMD) and risk of fracture is well established. As BMD decreases, risk incr eases. Quantifying risk is difficult and is usually limited to estimation of the relative risk - a term which may have limited value when trying to discuss an individual's risk. Estimating the absolute risk for a patient requires an understanding of the incidence rate in a given population and consideration of mu ltiple, partially independent, risk factors in addition to BMD. The World Health Organization (WHO) has developed a fracture risk prediction tool that calculates a ten-year risk of major osteoporotic fracture based on femoral neck bone density measurements a nd nine clinical risk factors for individuals who have not been treated fo r osteoporosis. This is available through an interactive web-based evlya ce (http://www.shef.ac.uk/FRAX/) and can be used to estimate a given patient's ab solute risk of major osteoporotic fracture or hip fracture over the next 1 0 years. These estimates may prove useful when discussing risk with a patie nt. It is important, however, to understand the tool's limitations and ho w a given individual's risk might differ from the tool's estimate. The tool does not take into account the dose-response associated with most risk factors. For e xample, the significant increase in risk associated with multiple prior fractures compared to a single prior fracture is not taken into account. Similarly, the l ocation of a previous fracture, the amount of glucocorticoids and number of cigarettes smoked are not considered. These limitations are discussed in a Fr equently Asked Questions section of the FRAX website which you are encouraged to review. DEXA data sheets with BMD measurements a nd plots are available in [employer] under the imaging tab. Paper copies will be sent to providers without E-DH access. If you have received this report without th e data sheet and do not have access to E-ChemiSense, please contact Radiology Transcrip tion at [phone] Monday thru Monday 8am-4pm. Narrative 03/19/2018 3:30 PM EDT EXAMINATION: DXA CENTRAL-SPINE, HIP, AND/OR WHOLE BODY (GENERIC) CLINICAL HISTORY: ??Past calcium supplem ent use. Current use of Prolia. ?? h/o breast cancer, ? osteoporosis, ? change from prior TECHNIQUE: Scans were acquired at the bettie mbar spine and left hip. FINDINGS: Femoral neck BMD: 0.609 ? g/cm2 Lowest T-score at the diagnostic region of interest: T-score: -2.2, MINDI: Left femoral neck, W HO diagnosis: osteopenia. ......... Comparison......... Previous scan: 01/25/2016 Baseline scan: 01/25/2016 Total spine: Compared to the previous, 7.5 % increase . Total hip: Compared to the previous, 1 % increase. This change is so small that it is unlikely to represent a statistically si gnificant change. Procedure Note Jessica Michelle MD - 03/19/2018Formattin g of this note might be different from the original. EXAMINATION: DXA CENTRAL-SPINE, HIP, AND /OR WHOLE BODY (GENERIC) CLINICAL HISTORY: Past calcium supplemen t use. Current use of Prolia. h/o breast cancer, ? osteoporosis, ? change from prior TECHNIQUE: Scans were acquired at the bettie mbar spine and left hip. FINDINGS: Femoral neck BMD: 0.609 g/cm2 Lowest T-score at the diagnostic region of interest: T-score: -2.2, MINDI: Left femoral neck, W HO diagnosis: osteopenia. ......... Comparison......... Previous scan: 01/25/2016 Baseline scan: 01/25/2016 Total spine: Compared to the previous, 7.5 % increase . Total hip: Compared to the previous, 1 % increase. This change is so small that it is unlikely to represent a statistically si gnificant change. IMPRESSION Measurements meet WHO criteria for osteo penia. Bone mineral density measurements are in creased compared to previous studies. Estimating Fracture Risk: The relationship between bone mineral de nsity (BMD) and risk of fracture is well established. As BMD decreases, risk incr eases. Quantifying risk is difficult and is usually limited to estimation of the relative risk - a term which may have limited value when trying to discuss an individual's risk. Estimating the absolute risk for a patient requires an understanding of the incidence rate in a given population and consideration of mu ltiple, partially independent, risk factors in addition to BMD. The World Health Organization (WHO) has developed a fracture risk prediction tool that calculates a ten-year risk of major osteoporotic fracture based on femoral neck bone density measurements a nd nine clinical risk factors for individuals who have not been treated fo r osteoporosis. This is available through an interactive web-based interfa ce (http://www.shef.ac.uk/FRAX/) and can be used to estimate a given patient's ab solute risk of major osteoporotic fracture or hip fracture over the next 1 0 years. These estimates may prove useful when discussing risk with a patie nt. It is important, however, to understand the tool's limitations and ho w a given individual's risk might differ from the tool's estimate. The tool does not take into account the dose-response associated with most risk factors. For e xample, the significant increase in risk associated with multiple prior fractures compared to a single prior fracture is not taken into account. Similarly, the l ocation of a previous fracture, the amount of glucocorticoids and number of cigarettes smoked are not considered. These limitations are discussed in a Fr equently Asked Questions section of the FRAX website which you are encouraged to review. DEXA data sheets with BMD measurements a nd plots are available in [employer] under the imaging tab. Paper copies will be sent to providers without E-[employer] access. If you have received this report without th e data sheet and do not have access to E-ChemiSense, please contact Radiology Transcrip tion at [phone] Monday thru Monday 8am-4pm. 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
--- OUTSIDE RECORDS SUMMARY | 2022-09-30 02:08 | XMS_ITS | Encounter Summary ---
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 She received adjuvant XRT and is now on Femara. She now returns for a check. She is being treated for left hand cellulitis which developed acutely the other day. Much better, noprovoking event except she did overuse her arm and hand a few days before. On physical exam, there are no left breast masses. Her fabiana-areolar incision is nicely healed. No axillary adenopathy either side.Right breast without masses. Good ROM.No edema Bilateral mammogram from today is cat 2 Impression: No evidence of recurrent breast cancer. Plan:RTC in 1 year with a bilateral mammogram.I informed Tanika that I would be retiring in August and that her next follow up will be with a new provider. She agrees to call if her cellulitis does not resolve. Comprehensive Breast Program Surgery Follow Up Note Range of motion of surgical arm complete Lymphedema present No Cosmesis-surgeon reported Cosmesis-patient reported Excellent Excellent Local or regional recurrence No Contralateral cancer present No Distant recurrence present No Date of last follow up 02/26/19 documented in this encounter Plan of Treatment Not on filedocumented as of this encounter Visit Diagnoses Diagnosis History of breast cancer Personal history of malignant neoplasm o f breast documented in this encounter Care Teams Black Jack Dealer Relationship Specialty Start Date End Date Kelsie Neal MD PCP - General Family Medicine 02/03/16 09/12/[address] [place] [address] documented as of this encounter
--- OUTSIDE RECORDS SUMMARY | 2022-09-30 02:08 | XMS_ITS | Encounter Summary ---
:1960 Author Organization [facility] [place] [address] Care Team Providers Name Role Phone Kelsie Neal MD Primary Care Provider Encounter Details Date Type Department Care Team Description 07/15/2021 Hospital Encounter Mammography/DXA at Lia Marcos alignant neoplasm of left breast in female, estrogen receptor positive, unspecified site of breast; [facility] Lila Kan APRN Breast cancer screening by mammogram [facility] [place] [facility]ERY [address] [place], [place] [phone] [facility] Social History Tobacco Use Types Packs/Day [...] Diagnosis Comme nts MAMMO SCREENING CAD Routine 07/15/2021 9:58 AM Malignant neopl asm Results for this AND GARCIA BILATERAL EDT of left breast in proc daniele are in female, estrogen the results receptor positive, section. unspecified site of breast Breast cancer screening by mammogram documented in this encounter Results Mammo Screening [...] Center. BIRADS CATEGORY 2: BENIGN FINDINGS [employer] and Th e Society [...] breast M RI are appropriate. Lila Marcos LINSEED OIL BOILER IMG MAMMO ORDERABLES documented in this encounter Visit Diagnoses Diagnosis Malignant neoplasm of left breast in fem susu, estrogen receptor positive, unspecified site of breast Breast cancer screening by mammogram documented in this encounter Care Teams Car Groomer Relationship Specialty Start Date End Date Kelsie Neal MD PCP - General Family Medicine 02/03/16 09/12/[address] [place] [address] [address] [place] [address] documented as of this encounter
--- OUTSIDE RECORDS SUMMARY | 2022-09-30 02:08 | XMS_ITS | Encounter Summary ---
:1960 Author Organization [facility] [place] [address] Care Team Providers Name Role Phone Kelsie Neal MD Primary Care Provider Reason for Referral Diagnostic Test (Routine) - Closed Specialty Diagnoses / Procedures Referred By Contact Refer red To Contact Radiology Diagnoses Malignant neoplasm of left breast in female, estrogen receptor positive, unspecified site of breast Johnnie Santos MD [facility] Rad Xray Procedures DXA Central Spine, Hip, and/or Whole Body (Generic) [facility] [address] HEMATOLOGY/[place] [address] [place] [address] Referral ID Status Reason Start Date Expiration Date Visits V isits Requested Authorized [id number] Closed Specialty 08/29/2019 08/28/2020 1 1 Service Requested Reason for Visit Diagnostic Test (Routine) - Closed Specialty Diagnoses / Procedures Referred By Contact Refer red To Contact Radiology Diagnoses Malignant neoplasm of left breast in female, estrogen receptor positive, unspecified site of breast Johnnie Santos MD [facility] Rad Xray Procedures DXA Central Spine, Hip, and/or Whole Body (Generic) [facility] [address] HEMATOLOGY/[place] [address] [place] [address] Referral ID Status Reason Start Date Expiration Date Visits V isits Requested Authorized [id number] Closed Specialty 08/29/2019 08/28/2020 1 1 Service Requested Encounter Details Date Type Department Care Team Description 05/27/2020 Hospital Encounter XRay at [facility] [place] Johnnie Santos Malignant neoplasm [address] [facility] [address] Loreta MD of left breast in [place], [place] [facility] [place] [id number] CENTER receptor positive, HEMATOLOGY/ONCOL unspecified [place] [address] Social History Tobacco Use Types Packs/Day Years [...] Name Priority Date/Time Associated Diagnosis Comme nts DXA CENTRAL SPINE, Routine 05/27/2020 11:27 AM Malignant neopl asm Results for this HIP, AND/OR WHOLE EDT of left breast in [place] pham are in BODY (GENERIC) female, estrogen the resul ts receptor positive, section. unspecified site of breast documented in this encounter Results DXA Central Spine, Hip, and/or Whole Body (Generic) (05/27/2020 11:27 AM EDT) Anatomical Region Laterality Modality C-spine, Hip N/A Other Specimen (Source) Anatomical Location Collection Method / Collectio n Time Received Time / Laterality Volume Impressions 05/27/2020 4:30 PM EDT Measurements meet WHO criteria for osteopenia. Bone mineral density measurements are de creased by 6% over 2 years. Estimating Fracture Risk: The relationship between bone [...] measurements a nd plots are available in [employer] under the imaging tab. Paper copies will be sent to providers without [employer] access. If you have received this report without [facility] data sheet and do not have access to [facility], please contact Radiology [facility] at [phone] Monday thru Monday 8am-4pm. Thank you for letting us participate in the care of this patient. For questions regarding this report, please contact e number below. ? Narrative 05/27/2020 4:30 PM EDT EXAMINATION: DXA CENTRAL SPINE, HIP, AND/OR WHOLE BODY (GENERIC) CLINICAL HISTORY: ??60 years Female On Aromatase inhibitor ?? (as entered by ordering provider) TECHNIQUE: Scans were acquired at the bettie mbar spine, and left hip. FINDINGS: Femoral neck BMD: .613 ? g/cm2 Lowest T-score at the diagnostic region of interest: T-score: -2.1, MINDI: Left femoral neck, W HO diagnosis: osteopenia. ......... Comparison......... Previous scan:03/19/2018 Baseline scan:01/25/2016 Total spine: Compared to the previous, 0.053 ??g/cm2 (5.8 %) decrease. Compared to the baseline, 0.011 g/cm2 (1 .3 %) increase. This change is so small that it is unlikely to represent a stati stically significant change. At [facility], least si gnificant change for bone mineral density measurements at the spine region of interest: 0.031 g/cm2 Total hip: Compared to the previous, 0.028 ??g/cm2 (3.2 %) decrease. Compared to the baseline, 0.019 g/cm2 (2 .2 %) decrease. This change is so small that it is unlikely to represent a stati stically significant change. At [facility], least si gnificant change for bone mineral density measurements at the left total h ip region of interest: 0.025 g/cm2 Procedure Note Jessica Michelle MD - 05/27/2020Formattin g of this note might be different from the original. EXAMINATION: DXA CENTRAL SPINE, HIP, AND /OR WHOLE BODY (GENERIC) CLINICAL HISTORY: 60 years Female On Ar omatase inhibitor (as entered by ordering provider) TECHNIQUE: Scans were acquired at the bettie mbar spine, and left hip. FINDINGS: Femoral neck BMD: .613 g/cm2 Lowest T-score at the diagnostic region of interest: T-score: -2.1, MINDI: Left femoral neck, W HO diagnosis: osteopenia. ......... Comparison......... Previous scan:03/19/2018 Baseline scan:01/25/2016 Total spine: Compared to the previous, 0.053 g/cm2 (5 .8 %) decrease. Compared to the baseline, 0.011 g/cm2 (1 .3 %) increase. This change is so small that it is unlikely to represent a stati stically significant change. At [facility], least si gnificant change for bone mineral density measurements at the spine region of interest: 0.031 g/cm2 Total hip: Compared to the previous, 0.028 g/cm2 (3 .2 %) decrease. Compared to the baseline, 0.019 g/cm2 (2 .2 %) decrease. This change is so small that it is unlikely to represent a stati stically significant change. At [facility], least si gnificant change for bone mineral density measurements at the left total h ip region of interest: 0.025 g/cm2 IMPRESSION Measurements meet WHO criteria for osteo penia. Bone mineral density measurements are de creased by 6% over 2 years. Estimating Fracture Risk: The relationship between bone [...] associated with most risk factors. For e mikemple, the significant increase in risk associated with [...] measurements a nd plots are available in E- under the imaging tab. Paper copies will be sent to providers without [employer] access. If you have received this report without e data sheet and do not have access to [employer], please contact Radiology [facility] at [phone] Monday thru Monday 8am-4pm. Thank you for letting us participate in the care of this patient. For questions regarding this report, please contact e number below. Electronically signed by: Elizabeth Cameron [facility] ([phone]), at 05/27/2020 4:30 PM Johnnie Santos MD IMG DEXA ORDERABLES documented in this encounter Visit Diagnoses Diagnosis Malignant neoplasm of left breast in fem susu, estrogen receptor positive, unspecified site of breast documented in this encounter Care Teams Corrections Lieutenant Relationship Specialty Start Date End Date Kelsie Neal MD PCP - General Family Medicine 02/03/16 09/12/[address] [place] [address] documented as of this encounter
--- OUTSIDE RECORDS SUMMARY | 2022-09-30 02:08 | XMS_ITS | Encounter Summary ---
:1960 Author Organization [facility] [place] [address] Care Team Providers Name Role Phone Kelsie Neal MD Primary Care Provider Encounter Details Date Type Department Care Team Description 01/04/2017 Hospital Encounter [place] [facility] [place] El Malignant neoplasm [facility] MD Yuri of left female Drive [facility] breast, unspecified [place], [place] [address] site of breast [id number] GENERAL SURGERY [phone] [place] [address] Social History Tobacco Use Types Packs/Day Years [...] Diagnosis Comme nts MAMMO SCREENING CAD Routine 01/04/2017 3:12 PM Malignant neopl asm Results for this AND ANNI BILATERAL EST of left female procedu re are in breast, unspecified the resu lts site of breast section. documented in this encounter Results Mammo Screen CAD and Anni Bilat (Generic) (01/04/2017 3:12 PM EST) Anatomical Region Laterality Modality Breast Bilateral Mammography Specimen (Source) Anatomical Location Collection Method / Collectio n Time Received Time / Laterality Volume Narrative 01/05/2017 10:37 AM EST EXAMINATION: MAMMO DIGITAL BILATERAL SCREENING WITH CAD AND TOMOSYNTHESIS CLINICAL HISTORY: s/p left lump for ca TECHNIQUE: CC and MLO views were obtaine d of the bilateral breast(s). Computer aided detection was used. 3D tomosynthes is images were obtained in addition to 2D images. Comparison: Compared with prior images. FINDINGS: Breast density: Heterogenously dense whi ch may limit mammographic sensitivity for the detection of malignancy. There are no suspicious microcalcificati ons, masses, or areas of distortion. There are postsurgical changes in the Le ft breast. CONCLUSION: No mammographic evidence of malignancy. RECOMMENDATION: Routine screening. A result letter has been sent to this janel donato by [facility]. BIRADS CATEGORY 2: BENIGN FINDINGS * ??The [employer] an d The Society [...] earlier screening and breast MRI are appropriate. Daniel El MD IMG MAMMO ORDERABLES documented in this encounter Visit Diagnoses Diagnosis Malignant neoplasm of left female breast , unspecified site of breast documented in this encounter Care Teams Gutter Mouth Cutter Relationship Specialty Start Date End Date Kelsie Neal MD PCP - General Family Medicine 02/03/16 09/12/[address] [place] [address] documented as of this encounter
--- OUTSIDE RECORDS SUMMARY | 2022-09-30 02:08 | XMS_ITS | Encounter Summary ---
:1960 Author Organization [facility] [place] [address] Care Team Providers Name Role Phone Kelsie Neal MD Primary Care Provider Reason for Referral Diagnostic Test (Routine) - Closed Specialty Diagnoses / Procedures Referred By Contact Refer red To Contact Radiology Diagnoses Malignant neoplasm of left breast in female, estrogen receptor positive, unspecified site of breast halfway current use of aromatase inhibitor Osteopenia, unspecified location Brooks Ricardo MD [facility] Rad Xray Procedures DXA Central-Spine, Hip, And/Or Whole Body (Generic) [facility] 1 [facility] HEMATOLOGY/[place] [address] [place] [address] Referral ID Status Reason Start Date Expiration Date Visits V isits Requested Authorized [id number] Closed Specialty 09/18/2017 09/18/2018 1 1 Service Requested Reason for Visit Diagnostic Test (Routine) - Closed Specialty Diagnoses / Procedures Referred By Contact Refer red To Contact Radiology Diagnoses Malignant neoplasm of left breast in female, estrogen receptor positive, unspecified site of breast supervisor intermediates current use of aromatase inhibitor Osteopenia, unspecified location Brooks Ricardo MD [facility] Rad Xray Procedures DXA Central-Spine, Hip, And/Or Whole Body (Generic) [facility] [address] HEMATOLOGY/[place] [address] [place] [address] Referral ID Status Reason Start Date Expiration Date Visits V isits Requested Authorized [id number] Closed Specialty 09/18/2017 09/18/2018 1 1 Service Requested Encounter Details Date Type Department Care Team Description 03/19/2018 Hospital Encounter XRay at [facility] [place] [place] Brooks Ricardo Malignant neoplasm of left b reast in female, estrogen receptor positive, unspecified site of breast; [address] [place] [address] Dr Loreta MD halfway current use of aromatase inhib itor; [facility] Osteopenia, uns pecified location [address] [facility] [phone] HEMATOLOGY/[place] [address] Social History Tobacco Use Types [...] Take 1 tablet by 90 tablet 3 08/06/201707/09/2018 Tablet mouth daily. multivitamin (THERAGRAN) Take 1 tablet by 0 09/13/2022 Tablet mouth daily. simvastatin (ZOCOR) 20 mg Take 20 mg by mouth 0 09/13/2022 Tablet nightly. documented as of this encounter Plan of Treatment Not on filedocumented as of this encounter Procedures Procedure Name Priority Date/Time Associated Diagnosis Comme nts DXA CENTRAL SPINE, Routine 03/19/2018 8:56 AM Malignant neopla sm Results for this HIP, AND/OR WHOLE EDT of left breast in [place] pham are in BODY (GENERIC) female, estrogen the resul ts receptor positive, section. unspecified site of breast supervisor intermediates current use of aromatase inhibitor Osteopenia, unspecified location documented in this encounter Results DXA Central-Spine, Hip, And/Or Whole Body (Generic) [...] measurements a nd plots are available in E-[employer]ALL under the imaging tab. Paper copies will be sent to providers without E-DH access. If you have received this report without th e data sheet and do not have access to [employer], please contact Radiology Transc[facility] tion at [phone] Monday thru Monday 8am-4pm. Narrative 03/19/2018 3:30 [...] measurements a nd plots are available in [email or web address] under the imaging tab. Paper copies will be sent to providers without E-DH access. If you have received this report without th e data sheet and do not have access to [employer], please contact Radiology Transcrip tion at [phone] Monday thru Monday 8am-4pm. Brooks Ricardo MD IMG DEXA ORDERABLES documented in this encounter Visit Diagnoses Diagnosis Malignant neoplasm of left breast in fem susu, estrogen receptor positive, unspecified site of breast halfway current use of aromatase inhib itor Use of aromatase inhibitors Osteopenia, unspecified location documented in this encounter Care Teams Miner Placer Relationship Specialty Start Date End Date Kelsie Neal MD PCP - General Family Medicine 02/03/16 09/12/[address] [place] [address] documented as of this encounter
--- OUTSIDE RECORDS SUMMARY | 2022-09-30 02:08 | XMS_ITS | Encounter Summary ---
:1960 Author Organization [facility] Address [facility] [address] [place] [address] Care Team Providers Name Role Phone Kelsie Neal MD Primary Care Provider Reason for Visit Reason Comments Follow-up Encounter Details Date Type Department Care Team Description 05/27/2020 Office Visit Hematology and Johnnie Santos, Maligna nt neoplasm of Oncology at [facility] [place] left breast in female, [facility] est [facility] [address] DR positive, unspecified [place], [place] HEMATOLOGY/ONCOLOG site of b reast [address] Y [phone] [place], [place] [address] Social History Tobacco Use Types Packs/Day Years Used Date Smoking Tobacco: Never Smokeless Tobacco: Never Alcohol Use Standard Drinks/Week Comments Yes 5 (1 standard drink = 0.6 oz pure alcoho l) Sex Assigned at Date Recorded Not on file documented as of this encounter Last Filed Vital Signs Vital Sign Reading Time Taken Comments Blood Pressure 123/70 05/27/2020 12:55 PM EDT Pulse 79 05/27/2020 12:55 PM EDT Temperature 37.1 ??C (98.8 ??F) 05/27/2020 12:55 PM EDT Respiratory Rate 18 05/27/2020 12:55 PM EDT Oxygen Saturation 98% 05/27/2020 12:55 PM EDT Inhaled Oxygen Concentration - - Weight 77.6 kg (171 lb) 05/27/2020 12:55 PM EDT Height 161.3 cm (5' 3.5) 05/27/2020 12:55 PM EDT Body Mass Index 29.81 05/27/2020 12:55 PM EDT documented in this encounter Progress Notes Johnnie Santos MD - 05/27/2020 1:00 PM EDT Breast cancer follow-up HPI: -Diagnosed in September 2015 with left breast infiltrating ductal carcinoma, left breast. -Tumor was 9-mm cancer, intermediate grade, SBR = 6.?? Extensive associated DCIS present.?? LVI negative, 0/5 sentinel nodes, -HER2 -, FISH ratio = 1.1.?? ER/MO+++ (greater than 90%, strong). -Oncotype Dx Recurrence [...] Osteopenia M85.80 ??? Chest pain R07.9 ??? FDC current use of aromatase inhibitor Z79.811 Fam [...] with relatives). Interval Hx/ROS: Doing well overall. Tolerating letrozole though notes she's had aches in back legs and L hip for long time, not sure if related to this. No change in chronic cough. No new problems/concerns with frequent HAs, diplopia, SOB, new pain, fever, bleeding, nausea, balance problem. No hot flashes. ROS otherwise neg. Physical Exam: Most Recent Vitals: 05/27/20 1255 BP: 123/70 Pulse: 79 Resp: 18 Temp: 37.1 ??C (98.8 ??F) SpO2: 98% PERRL, EOMi, sclera nonicteric No spine tenderness No JOSE Breast exam deferred [seeing Cody Marcos today] Chest clear to A and P CV: RRR, S1 S2, no murmurs Abd: Soft and non-tender. No HSM, +BS Neuro grossly nonfocal. I reviewed images from today's bilateral mammogram, which was benign. I also reviewed images from today's DEXA scan, which shows stable osteopenia. Assessment and Plan 60 yo diagnosed in Sep 2015 with an invasive left breast cancer (initially bx was DCIS). Tumor was 9mm, intermediate grade, node-negative. ER and MO were positive in the invasive component; HER2 neg. OncotypeDx assay w/ RS=11. She is s/p partial mastectomy and XRT. On adjuvant letrozole since January 2016 and tolerating well. Anticipate completing 5-yr course in January 2021. She had been receiving q6mo Prolia February 2016 - Aug 2018. Taking a break from the Prolia now. Today's DEXA shows stable osteopenia. I reviewed with her the family history and potential benefits of genetic testing. Gave her contact info for FCP and she'll call. RTC 6 mo. documented in this encounter Plan of Treatment Not on filedocumented as of this encounter Visit Diagnoses Diagnosis Malignant neoplasm of left breast in fem susu, estrogen receptor positive, unspecified site of breast documented in this encounter Care Teams Spiritual Counselor Relationship Specialty Start Date End Date Kelsie Neal MD PCP - General Family Medicine 02/03/16 09/12/22 [address] [place] [address] documented as of this encounter
--- OUTSIDE RECORDS SUMMARY | 2022-09-30 02:08 | XMS_ITS | Encounter Summary ---
:1960 Author Organization [facility] [place] [address] Care Team Providers Name Role Phone Kelsie Neal MD Primary Care Provider Reason for Visit Reason Onset Date Comments Medication Refill 07/09/2018 Encounter Details Date Type Department Care Team Description 07/09/2018 Refill Hematology and [place] [facility] [place] [address] Social History Tobacco Use Types Packs/Day Years Used Date Smoking Tobacco: Never Smokeless Tobacco: Never Alcohol Use Standard Drinks/Week Comments Yes 5 (1 standard drink = 0.6 oz pure alcoho l) Sex Assigned at Date Recorded Not on file documented as of this encounter Miscellaneous Notes Telephone Encounter - Chandrika Hemphill RN - 07/09/2018 1:31 PM EDT From: Tanika Loreta Hunter To: Bossman Garg MD Sent: 07/09/2018 1:08 PM EDT Subject: Medication Renewal Request Original authorizing provider: MD Tanika SRINIVASAN would like a refill of the following medications: letrozole (FEMARA) 2.5 mg Tablet [BOSSMAN GARG MD] Preferred pharmacy: [facility] Comment: Please renew this prescription thanks in advance. [facility] ([facility]) Pharmacy [place], [place] [phone] documented in this encounter Plan of Treatment Not on filedocumented as of this encounter Visit Diagnoses Not on filedocumented in this encounter Care Teams Supervisor Beam Department Relationship Specialty Start Date End Date Kelsie Neal MD PCP - General Family Medicine 02/03/16 09/12/[address] [place] [address] documented as of this encounter
--- OUTSIDE RECORDS SUMMARY | 2022-09-30 02:08 | XMS_ITS | Encounter Summary ---
:1960 Author Organization [facility] [place] [address] Care Team Providers Name Role Phone Kelsie Neal MD Primary Care Provider Reason for Visit Reason Comments Procedure Excision Encounter Details Date Type Department Care Team Description 08/11/2020 Procedure visit Dermatology at [facility] [address] cell [address] TMD carcinoma of arm, [address] ONE [facility] [id number] [facility] [phone] [address] [place] [id number] Social History Tobacco Use Types Packs/Day Years Used Date Smoking Tobacco: Never Smokeless Tobacco: Never Alcohol Use Standard Drinks/Week Comments Yes 5 (1 standard drink = 0.6 oz pure alcoho l) Sex Assigned at Date Recorded Not on file documented as of this encounter Patient Instructions Patient InstructionsNani Gonsalez CCMA - 08/11/2020 2:00 PM EDT Post-Operative Instructions Wound care: The dressing applied today should remain dry and intact for 48 hours. When it is time to remove the dressing, wash your hands, wet the area, and gently remove the dressing. Afterward perform the following daily wound care: 1. Clean the wound with mild soap and warm water, and gently pat dry. 2. Apply Vaseline, Aquaphor or another brand of plain petroleum jelly. Do NOT use peroxide or antibiotic ointment/cream (Neosporin or Bacitracin) on the wound. 3. Cover the wound with a new bandage, such as non-stick Telfa pad and paper tape, or a Band-Aid. 4. Repeat this regimen every day until your sutures are removed. A small amount of yellow drainage is part of the normal healing process. The wound is not consideredhealed until the drainage stops. It may take up to 3-4 weeks depending on the surgical site. Signs of infection include: increasing redness, drainage, swelling, tenderness or pain. If you notice any ofthose symptoms, please contact the clinic. For bleeding or discomfort: If bleeding should occur, hold firm, constant pressure against the wound for 15- 20 minutes (with no peeking). If bleeding continues, repeat for another 15-20 minutes. If that does not stop the bleeding, call the clinic or go to your local emergency department. For discomfort, you may take acetaminophen (Tylenol), according to package directions. For the first48 hours, avoid aspirin and ibuprofen (Advil, Motrin), as they increase the risk of bleeding. After 48 hours, it is okay to switch to aspirin or ibuprofen as needed. Activity restrictions: It is important that you avoid strenuous and/or vigorous activities, heavy lifting (more than 5-10 pounds, the equivalent of 1 gallon of milk) and bending for a period of 3 weeks. Suture removal: The sutures should be removed in 12-14 days. Contact information: On weekdays (8am to 5pm), please call the clinic at [phone]. After 5pm, and on weekends and holidays, please call the hospital at [phone] and ask for the Deputy Editor In Chief Torch Brazer. Provider: Nohemi Merida MD [employer] Workers: MEGHANA Gordon documented in this encounter Progress Notes Nohemi Merida MD - 08/11/2020 2:00 PM EDT DERMATOLOGY SURGICAL PROCEDURE NOTE Date of Service: 08/11/2020 Tanika Harrison : 1960 Provider/surgeon: Nohemi Merida MD [employer] Workers: MEGHANA Gordon Patient Preferences Preferred name Tanika Preferred contact method [x] Home [x] Cell [x] myD-H [] Other: Permission to leave detailed message including results [x] Yes [] No Permission to discuss care with (Jeremy) Procedure Screening Questions Y/N Allergies to lidocaine or epinephrine No Blood thinners No Pacemaker or defibrillator No Artificial heart valves No Artificial joints No Prophylactic antibiotics No Allergies to adhesives or chlorhexidine No Vitals: See nurse note. Relevant Pathology: Requisition: [id number] Date of collection: 07/09/20 Left upper arm, skin shave biopsy: Invasive squamous cell carcinoma, well differentiated with features of keratoacanthoma, present at the peripheral and deep specimen edges. I explained the diagnosis to the patient, reviewed all treatment options, and recommended an excision of the lesion for diagnosis and/or treatment. I explained the risks of the procedure. (Potential complications include but are not limited to: scarring, bleeding, infection, incomplete removal, nerve damage, and dehiscence.) I obtained written and verbal consent. ? Procedure: The patient was brought into an exam room. A time out was performed. The patient was prepared and draped sterilely in the usual manner. Anesthesia was administered by local infiltration. A fusiform shape was drawn around the lesion, and margins were incised to the level of the subcutaneous fat with a n umber 10 blade. The tissue was removed with sharp and blunt dissection. The lateral margins of the resulting defect were undermined with sharp and blunt dissection. Hemostasis was achieved with electrocautery. The deeper layers of the defect, including subcutaneous fat, were approximated to reduce tension on the suture line. Layered wound closure was performed. The wound was cleaned, dried off, Vaseline applied, and covered with a pressure dressing. The patient was given detailed verbal and written instructions on post-operative care. In the event of a suspected infection (e.g., pus formation, fever, redness), the patient knows to contact the clinic or the on-call program checker. Procedure Excision with intermediate layered closure Location Left upper arm Diagnosis SCC Size (maximal) 1.1 x 0.9 cm pink scar Margins 0.5 cm Size + Margins 2.1 cm 1% lidocaine with epinephrine 9 cc Suture (adipose/dermis) 4-0 P2 Monocryl Suture (epidermis) 4-0 P2 Prolene Specimen tag Superior tip Final wound length 5.0 cm Suture removal 12-14 days ??? Follow Up: RTC in 12-14 days for: [x] Suture removal [] FSE [] Follow up [x] Note routed to stitcher set up operator automatic to schedule [] Appointment scheduled before exiting Note initiated by: MEGHANA Gordon I am documenting this encounter acting as the scribe for and in the presence of Dr. Merida: MEGHANA Grimm I performed the above scribed service and agree with the accuracy of the documentation in this encounter. Nohemi Merida MD Foreclosure Paralegal of Dermatology Department of Dermatology [facility] cc: Kelsie Neal MD Nohemi Merida MD - 08/11/2020 2:00 PM EDT CD, Excision shows scar, no residual SCC. Please notify patient and check on wound healing. Thank you. DTB documented in this encounter Plan of Treatment Not on filedocumented as of this encounter Procedures Procedure Name Priority Date/Time Associated Diagnosis Comme nts SURGICAL PATHOLOGY Routine 08/11/2020 3:31 PM Res ults for this REPORT EDT procedure are i n the results section. SPECIMEN TO Routine 08/11/2020 3:31 PM Squamous cell Results for this PATHOLOGY EDT carcinoma of arm, procedure are in left the results section. documented in this encounter Results Surgical Pathology Report (08/11/2020 3:31 PM EDT) Component Value Ref Test Analysis Performed At [facility] Method Time Signature Surgical [id number] ? Location: [facility] Pathology [place] Report The signing pathologist has (i) examined the relevant preparation(s) for the [facility]ORIAL specimen(s) and (ii) rendered or confirmed the diagnosis(es) . HOSPITAL LABORATORY . ?Surgic al Pathology DIAGNOSIS Left upper arm, scar, skin excision: - ??No residual of the previously diagnosed ?? squamous cell carcinoma - ??Reparative changes consistent with previous operative si te Electronically signed by: ??Eduardo CABRAL, Roe Johnson Verified: ??08/17/2020 ?Dermatopathologist, Bone & Soft Tissue Pathologist Performed at: ??-[facility] Dept. of Pathology, [place], [place] SPECIMEN(S) SUBMITTED A - Left upper arm: 1.1 x 0.9 cm pink scar, skin excision (1 ) CLINICAL INFORMATION SCC (see previous path [id number]) SPECIMEN PROCESSING A - Labeled/Fixative: Patient demographics, formalin. Quantity/Size: ??Single, 2.8 x 1.4 x 0.6 cm. Tissue Description: Wrinkled , ndiaye elliptical skin excision with a central 0.5 x 0.3 cm red scar with a 0.2 x 0. 1 cm red-brown crusted center. The specimen is suture oriented at one end, design ated specimen tagged at the superior tip; subsequently prosector redesignated as 12 o'clock. Inkin-3-6 o'clock is marked black. ??6-9-12 o'clock is marked blue. Sections/Processing: Inked, serially sectioned and entirely submitted in 7 raul ettes as follows: ?A1: ??12 o'clock tip ?A2-A6: ??Body, 12-6 o'clock (central scar in A3, A4). ?A7: ??6 o'clock tip ??shb Specimen (Source) Anatomical Collection Method Collection Time Re ceived Time Location / / Volume Laterality 08/11/2020 3:31 PM EDT Nohemi Merida MD PATHOLOGY/CYTOLOGY ORDERABLE S Performing Organization Address City/[facility]/[place] [address] Specimen to Pathology (08/11/2020 3:31 PM EDT) Specimen Anatomical Collection Method Collection Time Receive d Time (Source) Location / / Volume Laterality AP Specimen 08/11/2020 3:31 PM 0 6:54 EDT PM EDT N[address] [facility] - 08/11/2020 6:54 PM EDT Specimen requisition ordered. ??Separate Pathology report to follow Resulting Agency Comment Spec In Lab Nohemi Merida MD PATHOLOGY/CYTOLOGY ORDERABLE S Performing Organization Address City/[facility]/[place] [address] documented in this encounter Visit Diagnoses Diagnosis Squamous cell carcinoma of arm, left documented in this encounter Care Teams Can Intake Worker Relationship Specialty Start Date End Date Kelsie Neal MD PCP - General Family Medicine 02/03/16 09/12/[address] [place] [address] documented as of this encounter
--- OUTSIDE RECORDS SUMMARY | 2022-09-30 02:08 | XMS_ITS | Encounter Summary ---
:1960 Author Organization [facility] [place] [address] Care Team Providers Name Role Phone Kelsie Neal MD Primary Care Provider Encounter Details Date Type Department Care Team Description 03/19/2018 Hospital Encounter Hematology and Maligna nt neoplasm of left breast in female, estrogen receptor positive, unspecified site of breast; Oncology at [facility] long term care phlebotomist current use of sergio matase inhibitor; [facility] Osteopeni a, [place] [address] Social History Tobacco Use Types Packs/Day [...] Priority Date/Time Associated Comments Diagnosis HEMOGRAM STAT 03/19/2018 9:14 AM Malignant neoplasm Res ults for this EDT of left breast in procedure are in female, estrogen the results receptor positive, section. unspecified site of breast long term care phlebotomist current use of aromatase inhibitor Osteopenia, unspecified location DIFFERENTIAL, STAT 03/19/2018 9:14 AM Malignant neoplasm Re sults for this AUTOMATED EDT of left breast in procedure are in female, estrogen the results receptor positive, section. unspecified site of breast long term care phlebotomist current use of aromatase inhibitor Osteopenia, unspecified location CBC (WITH DIFF) STAT 03/19/2018 9:14 AM Malignant neoplasm EDT of left breast in female, estrogen receptor positive, unspecified site of breast long-term current use of aromatase inhibitor Osteopenia, unspecified location COMPREHENSIVE STAT 03/19/2018 9:14 AM Malignant neoplasm Re sults for this METABOLIC PANEL EDT of left breast in procedu re are in (NON-FASTING) female, estrogen the result s receptor positive, section. unspecified site of breast long term care phlebotomist current use of aromatase inhibitor Osteopenia, unspecified location documented in this encounter Results Differential, Automated (03/19/2018 9:14 AM EDT) P athologist Signature Neutrophils % 60.2 % [facility] Neutr Abs (ANC) 4.17 1.70 - [facility] 6.10 [facility] x10(3)/[facility] LABORATORY Lymphocytes % 29.0 % [facility] Lymphocytes Abs 2.0 0.9 - 3.[address] [facility] x10(3)/[facility] LABORATORY Monocytes % 9.5 % [facility] Monocyte Abs 0.7 0.3 - 0.[address] [facility] x10(3)/[facility] LABORATORY Eosinophils % 0.9 % [facility] Eosinophils Abs 0.1 0.0 - 0.[address] [facility] x10(3)/[facility] LABORATORY Basophils % 0.3 % [facility] Basophils Abs 0.0 0.0 - 0.[address] [facility] x10(3)/[facility] LABORATORY Immature Gran % 0.10 % [facility] Comment: Immature granulocytes(IG's)percentage an d absolute count will include metamyelocytes, myelocytes, and promyelo cytes. Blood smears from CBCs yielding IG's will be scanned manually for concor dance. If this scan disagrees with the automated IG or if promyelocytes are not ed, a manual differential will be performed. Isa Gran Abs 0.01 0.00 - 0.04 x10(3)/[facility] LABORATORY Specimen Anatomical Collection Method Collection Time Receive d Time (Source) Location / / Volume Laterality Blood specimen 03/19/2018 9:14 AM 018 9:33 (specimen) EDT AM EDT Resulting Agency Comment Spec In Lab Brooks Ricardo MD HEMATOLOGY ORDERABLES Performing Organization Address City/State/ZIP Code Phon e Number [place] [phone] (ABNORMAL) Hemogram (03/19/2018 9:14 AM EDT) Analysis Performed At Patho logist Time Signature WBC 6.9 4.0 - 9.[address] [facility] x10(3)/[facility] LABORATORY RBC 5.00 4.[address] - [facility] 5.21 [facility] x10(6)/[facility] LABORATORY Hemoglobin 14.1 11.7 - [facility] 15.[facility] gm/dL [facility] Hematocrit 44.6 35.7 - [facility] 45.8 % [facility] MCV 89.2 82.6 - [facility] 94.4 fL [facility] MCH 28.2 27.1 - [facility] 32.0 pg [facility] MCHC 31.6 (L) 31.7 - [facility] 35.0 gm/dL [facility] Platelets 199 145 - [address] [facility] x10(3)/[facility] LABORATORY RDWSD 44.0 37.[address] - [facility] 46.0 [facility] LABORATORY RDWCV 13.3 11.[address] - [facility] 14.1 % [facility] MPV 11.3 7.6 - 12.9 [facility] LABORATORY nRBC % Auto 0.0 % [facility] nRBC Abs Auto 0.000 0.000 - [facility] 0.000 [facility] x10(3)/[facility] LABORATORY Specimen Anatomical Collection Method Collection Time Receive d Time (Source) Location / / Volume Laterality Blood specimen 03/19/2018 9:14 AM 018 9:33 (specimen) EDT AM EDT Resulting Agency Comment Spec In Lab Brooks Ricardo MD HEMATOLOGY ORDERABLES Performing Organization Address City/State/[place] [address] Comprehensive metabolic panel (non-fasting) (03/19/2018 9:14 AM EDT) P athologist Signature Glucose Lvl 79 65 - [address] [facility] mg/dL [facility] Comment: Diabetes: >=200 mg/dL plus symp toms BUN 17 8 - 18 mg/dL [facility] Creatinine 0.87 0.70 - 1.20 mg/dL [facility] Sodium 142 135 - 145 mmol/L [facility] Potassium 4.0 3.5 - 5.0 mmol/L [facility] Comment: Please note: ??Patients with WBC >100,00 0 may have falsely elevated Potassium levels. ??For accurate Potassium quantif ication in these patients send serum separator tube (gold top) for subsequent determinations. ??Contact the Clinical Chemistry Laboratory if there are any qu estions. Chloride 102 98 - 107 mmol/L [facility] CO2 27 22 - 31 mmol/L [facility] Anion Gap 13 5 - 15 mmol/L [facility] Calcium 9.6 8.5 - 10.5 mg/dL [facility] Total Protein 7.4 6.1 - 8.0 gm/dL [facility] Albumin 4.4 3.2 - 5.2 gm/dL [facility] AST 22 0 - 30 unit/L [facility] ALT 17 0 - 30 unit/L [facility] Alk Phos 101 40 - 104 unit/L [facility] Total Bilirubin 0.6 0.2 - 1.3 mg/dL [facility] Estimated GFR >60 >=60 [facility] Comment: The reported eGFR should be multiplied b y 1.2 for patients. The MDRD is not an appropriate measure o f renal function for patients with body mass extremes or in patients with acute kidney failure. http://Faveeo/DHnkdep http://Faveeo/DHMCnkf Specimen Anatomical Collection Method Collection Time Receive d Time (Source) Location / / Volume Laterality Blood specimen 03/19/2018 9:14 AM 018 9:33 (specimen) EDT AM EDT Resulting Agency Comment Spec In Lab Brooks Ricardo MD CHEMISTRY ORDERABLES Performing Organization Address City/State/ZIP Code Phon e Number [place] [phone] documented in this encounter Visit Diagnoses Diagnosis Malignant neoplasm of left breast in fem susu, estrogen receptor positive, unspecified site of breast long-term current use of aromatase inhib itor Use of aromatase inhibitors Osteopenia, unspecified location documented in this encounter Care Teams Mobile Security Architect Relationship Specialty Start Date End Date Kelsie Neal MD PCP - General Family Medicine 02/03/16 09/12/[address] [place] [address] documented as of this encounter
--- OUTSIDE RECORDS SUMMARY | 2022-09-30 02:08 | XMS_ITS | Encounter Summary ---
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 Malignant neoplasm of left breast in fem susu, estrogen receptor positive, unspecified site of breast; [facility] Ost eopenia, unspecified location; Drive long-term current use of aromatase inhib itor [place], [place] HEMATOLOGY/ONCOLOG [address] Y DEPT. [phone] [place], [place] [address] Social History Tobacco Use Types Packs/Day Years Used Date Smoking Tobacco: Never Smokeless Tobacco: Never Alcohol Use Standard Drinks/Week Comments Yes 5 (1 standard drink = 0.6 oz pure alcoho l) Sex Assigned at Date Recorded Not on file documented as of this encounter Last Filed Vital Signs Vital Sign Reading Time Taken Comments Blood Pressure 129/73 03/19/2018 10:15 AM EDT Pulse 74 03/19/2018 10:15 AM EDT Temperature 36.1 ??C (97 ??F) 03/19/2018 10:15 AM EDT Respiratory Rate 18 03/19/2018 10:15 AM EDT Oxygen Saturation 98% 03/19/2018 10:15 AM EDT Inhaled Oxygen Concentration - - Weight 81.6 kg (179 lb 12.8 oz) 03/19/2018 10:15 AM EDT Height 164.5 cm (5' 4.76) 03/19/2018 10:15 AM EDT Body Mass Index 30.14 03/19/2018 10:15 AM EDT documented in this encounter Progress Notes Brooks Ricardo MD - 03/19/2018 10:30 AM EDT Subjective: Patient ID: Tanika Harrison [...] nodes, HER2 -, FISH ratio = 1.1.?? ER/FL+++ (greater than 90%, strong). B. Onco Dx = 11. C. S/P WLE/XRT, 02/12. D. Adjuvant letrozole, 02/12. ?? 2.?? History of hyperlipidemia. ?? 3.?? History of occasional palpitations. 4. Osteopenia/borderline osteoporosis. A. Prolia, 03/14. [place] Sagastume returns in follow-up, continuing on adjuvant Femara. She overall has been doing well since I last saw her except for having fractured a bone in her left foot, I do not have the records but it sounds like it is probably her first metatarsal. She relates that in August not long after had lastseen her she presented with what was thought to be an acute cellulitis of her foot initially. She did receive a course of antibiotics and ultimately had an x-ray that demonstrated this fracture. She has been doing fine since then she has no residual pain or discomfort. She continues to note some intermittent tenderness in the left axilla and upper outer quadrant of the breast which is quite mild overall and unchanged since her lumpectomy and radiation therapy. She has had no signs or symptoms suggestive of recurrent disease. She continues to tolerate her Femara fine with no difficulties. Review of Systems Except as noted above, Tanika Harrisons full remaining review of systems, including constitutional, cardiac, pulmonary, GI, , neurologic, musculskeletal, and all remaining, is otherwise fully unremarkable. Current Outpatient Prescriptions on File Prior to Visit Medication Sig Dispense Refill ??? letrozole (FEMARA) 2.5 mg Tablet Take 1 tablet by mouth daily. 90 tablet 3 ??? multivitamin (THERAGRAN) Tablet Take 1 tablet by mouth daily. ??? calcium-vitamin D3 600 mg(1,500mg) -200 unit Tablet Take by mouth. ??? famotidine (PEPCID) 20 mg Tablet Take 20 mg by mouth 2 times daily. ??? simvastatin (ZOCOR) 20 mg Tablet Take 20 mg by mouth nightly. ??? denosumab (PROLIA) 60 mg/mL Syringe Inject 60 mg subcutaneously Q6 Months. ??? acetaminophen (TYLENOL) 500 mg Tablet Take 1,000 mg by mouth every 6 hours as needed for Pain. Reported on 10/10/2016 No current facility-administered medications on file prior to visit. Objective: Physical Exam Vitals Office Visit from 01/25/2016 in [facility] Onc Weight - Scale 81 kg (178 [...] RRR, S1, S2. No murmur, rub, or [id number]. Breast Exam: Moderate post XRT changes, left breast, consistent with prior WLE/XRT. Abdomen: Bowel sounds unremarkable, soft, nontender with no palpable HSM or other abnormalities. Extremitieswithout significant cyanosis, clubbing, or edema. Neurologic Exam: Grossly nonfocal, cranial nerve'sIII - XII unremarkable, DTR's symmetric throughout. Recent Results (from the past 24 hour(s)) Comprehensive metabolic panel (non-fasting) Result Value Ref Range Glucose Lvl 79 65 - 199 mg/dL BUN 17 8 - 18 mg/dL Creatinine 0.87 0.70 - 1.20 mg/dL Sodium 142 135 - 145 mmol/L Potassium 4.0 3.5 - 5.0 mmol/L Chloride 102 98 - 107 mmol/L CO2 27 22 - 31 mmol/L Anion Gap 13 5 - 15 mmol/L Calcium 9.6 8.5 - 10.5 mg/dL Total Protein 7.4 6.1 - 8.0 gm/dL Albumin 4.4 3.2 - 5.2 gm/dL AST 22 0 - 30 unit/L ALT 17 0 - 30 unit/L Alk Phos 101 40 - 104 unit/L Total Bilirubin 0.6 0.2 - 1.3 mg/dL Estimated GFR >60 >=60 Hemogram Result Value Ref Range WBC 6.9 4.0 - 9.5 x10(3)/mcL RBC 5.00 4.00 - 5.21 x10(6)/mcL Hemoglobin 14.1 11.7 - 15.5 gm/dL Hematocrit 44.6 35.7 - 45.8 % MCV 89.2 82.6 - 94.4 fL MCH 28.2 27.1 - 32.0 pg MCHC 31.6 (L) 31.7 - 35.0 gm/dL Platelets 199 145 - 357 x10(3)/mcL RDWSD 44.0 37.0 - 46.0 fL RDWCV 13.3 11.5 - 14.1 % MPV 11.3 7.6 - 12.9 fL nRBC % Auto 0.0 % nRBC Abs Auto 0.000 0.000 - 0.000 x10(3)/mcL Differential, Automated Result Value Ref Range Neutrophils % 60.2 % Neutr Abs (ANC) 4.17 1.70 - 6.10 x10(3)/mcL Lymphocytes % 29.0 % Lymphocytes Abs 2.0 0.9 - 3.2 x10(3)/mcL Monocytes % 9.5 % Monocyte Abs 0.7 0.3 - 0.9 x10(3)/mcL Eosinophils % 0.9 % Eosinophils Abs 0.1 0.0 - 0.4 x10(3)/mcL Basophils % 0.3 % Basophils Abs 0.0 0.0 - 0.1 x10(3)/mcL Immature Gran % 0.10 % Isa Gran Abs 0.01 0.00 - 0.04 x10(3)/mcL Recent Labs 03/19/18 0914 09/18/17 0810 WBC 6.9 7.1 NEUTROABS 4.17 4.64 HGB 14.1 13.4 HCT 44.6 40.9 PLATELET 199 193 Recent Labs 03/19/18 0914 09/18/17 0810 AST 22 22 ALT 17 15 ALKPHOS 101 97 BILITOT 0.6 0.8 Assessment and Plan: DEXA scan, I have preliminarily reviewed films in clinic T-scores in her hip and femoral neck are about the same. T-scores in her LS spine are moderately significantly better. A/P: Tanika returns in follow-up, DEXA scan is as above. As I noted above she did suffer a fracture of a bone in her left foot. Interestingly she does not recollect any trauma or injury that may haveled to this. She has had no discomfort since the acute event and is overall doing well at present. She is feeling well otherwise continue on adjuvant Femara. She has had no signs or symptoms suggestiveof recurrent disease. Follow-up DEXA is as above. We will proceed with ongoing treatment at present with Richie for treatment of her model is significant osteopenia. 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
--- OUTSIDE RECORDS SUMMARY | 2022-09-30 02:08 | XMS_ITS | Encounter Summary ---
:1960 Author Organization [facility] [place] [address] Care Team Providers Name Role Phone Kelsie Neal MD Primary Care Provider Encounter Details Date Type Department Care Team Description 01/16/2019 Telephone Hematology and Oncol ogy at [facility] [place] [address] Social History Tobacco Use Types Packs/Day Years Used Date Smoking Tobacco: Never Smokeless Tobacco: Never Alcohol Use Standard Drinks/Week Comments Yes 5 (1 standard drink = 0.6 oz pure alcoho l) Sex Assigned at Date Recorded Not on file documented as of this encounter Miscellaneous Notes Telephone Encounter - Olivia Corbett RN - 01/16/2019 11:51 AM EDT Message received: Need PA for letrozole Pt called. Needed prior auth for medication refill. Has not yet received refill. Only 3-days supply left. [facility] in [place], [place] [phone] (fax). [phone] (phone). Pt's callback: [phone] No Insurance on file in [facility] EMR Called Ambikapolo Tavarez in [facility] Insurance is [employer] ID# [id number] Insurance Helpline # [phone] PA initiated thru [employer], requested Urgent Review, will take up to 72 hours. Patient aware that [facility] needs insurance information and PA could be up to 72 hours Addendum: Called Alonso Tavarez to run script tomorrow and Monday in hopes for a PA approval, PA completedtoday, med ready to be picked up. Patient made aware. documented in this encounter Plan of Treatment Not on filedocumented as of this encounter Visit Diagnoses Not on filedocumented in this encounter Care Teams Chain Offbearer Relationship Specialty Start Date End Date Kelsie Neal MD PCP - General Family Medicine 02/03/16 09/12/[address] [place] [address] [address] [place] [address] documented as of this encounter
--- OUTSIDE RECORDS SUMMARY | 2022-09-30 02:08 | XMS_ITS | Encounter Summary ---
:1960 Author Organization [facility] Address [place] [id number] Care Team Providers Name Role Phone Kelsie Neal MD Primary Care Provider Reason for Referral Diagnostic Test (Routine) - Closed Specialty Diagnoses / Procedures Referred By Contact Refer red To Contact Radiology Diagnoses Malignant neoplasm of left breast in female, estrogen receptor positive, unspecified site of breast Anthony Santos MD [facility] Rad Xray Procedures DXA Central Spine, Hip, and/or Whole Body (Generic) [facility] [address] [place] [address] Dr HEMATOLOGY/[place] [address] [place] [address] Referral ID Status Reason Start Date Expiration Date Visits V isits Requested Authorized [id number] Closed Specialty 08/29/2019 08/28/2020 1 1 Service Requested Reason for Visit Reason Comments Breast Cancer Encounter Details Date Type Department Care Team Description 08/28/2019 Office Visit Hematology and Anthony Santos MD [facility] DR HEMATOLOGY/[place] [address] Malignant neoplasm of Oncology at [facility] Gala Mireles MD [facility] DR HEMATOLOGY/[place] [address] left breast in female, [facility] estrogen receptor Drive positive, unspecified [place], [place] site of breast [address] Social History Tobacco Use Types Packs/Day Years Used Date Smoking Tobacco: Never Smokeless Tobacco: Never Alcohol Use Standard Drinks/Week Comments Yes 5 (1 standard drink = 0.6 oz pure alcoho l) Sex Assigned at Date Recorded Not on file documented as of this encounter Last Filed Vital Signs Vital Sign Reading Time Taken Comments Blood Pressure 138/87 08/28/2019 9:37 AM EDT Pulse 78 08/28/2019 9:37 AM EDT Temperature 36.7 ??C (98.1 ??F) 08/28/2019 9:37 AM EDT Respiratory Rate 18 08/28/2019 9:37 AM EDT Oxygen Saturation 100% 08/28/2019 9:37 AM EDT Inhaled Oxygen Concentration - - Weight 81.9 kg (180 lb 9.6 oz) 08/28/2019 9:37 AM EDT Height 161.9 cm (5' 3.74) 08/28/2019 9:37 AM EDT Body Mass Index 31.25 08/28/2019 9:37 AM EDT documented in this encounter Progress Notes Gala Mireles MD - 08/28/2019 9:30 AM EDT Breast cancer follow-up HPI: Ms. Harrison is a 59 year old female with left breast cancer who presents for follow-up. Oncology course as follows: -Diagnosed in September 2015 with left breast infiltrating ductal carcinoma, left breast. -Tumor was 9-mm cancer, intermediate grade, SBR = 6.?? Extensive associated DCIS present.?? LVI negative, 0/5 sentinel nodes, -HER2 -, FISH ratio = 1.1.?? ER/MI+++ (greater than 90%, strong). -Oncotype Dx Recurrence Score = 11. -She is S/P WLE and XRT, completed 02/12. -January 2016 Started adjuvant letrozole. Interval Hx/ROS: Doing well overall. Tolerating letrozole, denied significant hot flushes, arthralgia, mood or sleep disturbance or vaginal dryness. She denied GODFREY, fever, SHIPLEY, cough/sputum production, abdominal pain, nausea, vomiting, headache or weakness. At the last visit, genetic testing was discussed [facility] Medical History: Diagnosis Date ??? Breast cancer 10/2015 ??? Hiatal hernia ??? Hypercholesteremia Patient Active Problem List Diagnosis Code ??? Solar aging of skin L57.8 ??? Ductal carcinoma in situ (DCIS) of left breast D05.12 ??? Malignant neoplasm of left female breast C50.912 ??? Osteopenia M85.80 ??? Chest pain R07.9 ??? MCC current use of aromatase inhibitor Z79.811 Fam Hx: No change in Fam Hx: her only sister had breast cancer as well, dx at age 53. Also one of two maternal aunts had breast ca (?age) and a paternal Great Aunt (on PGF side) with h/o breast ca. No family h/o ovarian ca. Physical Exam: Most Recent Vitals: 08/28/19 0937 BP: 138/87 Pulse: 78 Resp: 18 Temp: 36.7 ??C (98.1 ??F) SpO2: 100% General: Well-appearing pt seen in no distress. Sclera nonicteric Oropharynx benign No JOSE No spine tenderness Breast exam- No skin changes, no masses, nipples everted. No discharge Chest clear to A and P CV: RRR, S1 S2 no murmurs Abd: Soft and non-tender. No HSM, +BS Neuro grossly nonfocal. Results No new results Assessment and Plan 59 yo diagnosed in Sep 2015 with an invasive left breast cancer (initially bx was DCIS). Tumor was 9mm, intermediate grade, node-negative. ER and MI were positive in the invasive component; HER2 neg. OncotypeDx assay w/ RS=11. She is s/p partial mastectomy and XRT. On adjuvant letrozole since January 2016 and tolerating well. Next mammogram 01/2020 She had been receiving q6mo Prolia February 2016 - Aug 2018. Taking a break from the Prolia now. Will be rechecking DEXA in February 2020. Gala Mireles Hematology/Oncology Fellow Pager [phone] Attending Attestation I saw and examined the patient on rounds. My exam and review of the data are in agreement with that above by Dr. Mireles. Concur with recommendations, as outlined above. Tyrell Santos MD Oncology documented in this encounter Miscellaneous Notes Addendum Note - Anthony Santos MD - 08/28/2019 9:30 AM EDT Addended by: ANTHONY SANTOS on: 08/29/2019 08:09 AM Modules accepted: Orders documented in this encounter Plan of Treatment Not on filedocumented as of this encounter Results Mammo Screening Cad and Garcia Bilateral (05/27/2020 11:43 AM EDT) Anatomical Region Laterality Modality Breast Bilateral Mammography Specimen (Source) Anatomical Location Collection Method / Collectio n Time Received Time / Laterality Volume Narrative 05/27/2020 12:00 PM EDT EXAMINATION: MAMMO SCREENING CAD AND GARCIA BILATERAL REASON FOR EXAM: Screening. History of l eft breast cancer. TECHNIQUE: CC and MLO views were obtaine d of both breasts. Computer aided detection was used. 3D tomosynthesis ward ges were obtained in addition to 2D images. COMPARISON: The study is compared with p philadelphiar images. FINDINGS: Breast density: There are scattered [...] should be assessed for each individual p atient through discussion with their provider to determine their preferred br east cancer screening schedule. * ??Women should [...] report, please contact e number below. ? Anthony Santos MD IMG MAMMO ORDERABLES DXA Central Spine, Hip, and/or Whole Body [...] This is available through an interactive web-based [employer] (http://www.shef.ac.uk/FRAX/) and can be used to [...] measurements a nd plots are available in [employer] under the imaging tab. Paper copies will be sent to providers without E-DH access. If you have received this report without e data sheet and do not have access to [facility], please contact Radiology Transcrip tion at [phone] Monday thru Monday 8am-4pm. Thank you for [...] represent a stati stically significant change. At [facility], least si gnificant change for bone mineral density measurements at the spine region of interest: 0.031 g/cm2 Total hip: Compared to the previous, 0.028 ??g/cm2 (3.2 %) decrease. Compared to the baseline, 0.019 g/cm2 (2 .2 %) decrease. This change is so small that it is unlikely to represent a stati stically significant change. At [facility], least si gnificant change for bone mineral [...] represent a stati stically significant change. At [facility], least si gnificant change for bone mineral density measurements at the spine region of interest: 0.031 g/cm2 Total hip: Compared to the previous, 0.028 g/cm2 (3 .2 %) decrease. Compared to the baseline, 0.019 g/cm2 (2 .2 %) decrease. This change is so small that it is unlikely to represent a stati stically significant change. At [facility], least si gnificant change for bone mineral [...] This is available through an interactive web-based [employer] (http://www.shef.ac.uk/FRAX/) and can be used to [...] measurements a nd plots are available in [employer] under the imaging tab. Paper copies will be sent to providers without E- access. If you have received this report without e data sheet and do not have access to [employer], please contact Radiology [facility] at [phone] Monday thru Monday 8am-4pm. Thank you for letting us participate in the care of this patient. For questions regarding this report, please contact e number below. Anthony Santos MD [employer] DEXA ORDERABLES documented in this encounter Visit Diagnoses Diagnosis Malignant neoplasm of left breast in fem susu, estrogen receptor positive, unspecified site of breast Malignant neoplasm of left breast in fem susu, estrogen receptor positive, unspecified site of breast Malignant neoplasm of left breast in fem susu, estrogen receptor positive, unspecified site of breast documented in this encounter Care Teams Restorer [employer] Prints Relationship Specialty Start Date End Date Kelsie Neal MD PCP - General Family Medicine 02/03/16 09/12/[address] [place] [address] documented as of this encounter
--- OUTSIDE RECORDS SUMMARY | 2022-09-30 02:08 | XMS_ITS | Encounter Summary ---
:1960 Author Organization [facility] Address [facility] [address] [place] [address] Care Team Providers Name Role Phone Kelsie Neal MD Primary Care Provider Reason for Visit Reason Comments Follow-up Encounter Details Date Type Department Care Team Description 02/08/2018 Office Visit General Surgery at [place], Judy Baker neoplasm of [facility] left breast in female, [facility] est [facility] receptor [address] positive, unspecified [place], [place] GENERAL SURGERY site of breast [address] [place] [address] [phone] Social History Tobacco Use Types Packs/Day Years Used Date Smoking Tobacco: Never Alcohol Use Standard Drinks/Week Comments Yes 5 (1 standard drink = 0.6 oz pure alcoho l) Sex Assigned at Date Recorded Not on file documented as of this encounter Last Filed Vital Signs Vital Sign Reading Time Taken Comments Blood Pressure 130/80 02/08/2018 9:38 AM EDT Pulse 91 02/08/2018 9:38 AM EDT Temperature 37 ??C (98.6 ??F) 02/08/2018 9:38 AM EDT Respiratory Rate 12 02/08/2018 9:38 AM EDT Oxygen Saturation 97% 02/08/2018 9:38 AM EDT Inhaled Oxygen Concentration - - Weight 82.9 kg (182 lb 12.8 oz) 02/08/2018 9:38 AM EDT Height - - Body Mass Index 31.79 09/18/2017 8:26 AM EST documented in this encounter Progress Notes Batsheva López MD - 02/08/2018 9:45 AM EDT Tanika Harrison is a 57-year-old woman who returns after left breast partial [...] adenopathy either side. Bilateral mammogram from today has been read as benign. Impression: No evidence of recurrent breast cancer. Plan: I will schedule her to see our breast BLUEPRINTER in 1 year with a bilateral mammogram. Comprehensive Breast Program Surgery Follow Up Note Range of motion of surgical arm complete Lymphedema present No Cosmesis-surgeon reported Cosmesis-patient reported Excellent Excellent Local or regional recurrence No Contralateral cancer present No Distant recurrence present No Date of last follow up 02/08/18 BATSHVEA LÓPEZ MD 02/08/2018 documented in this encounter Plan of Treatment Not on filedocumented as of this encounter Results Mammo Screening Cad and Garcia Bilateral (02/26/2019 9:37 AM EDT) Anatomical Region [...] BI-RADS Category 2: Benign findings. * ??The [employer] an d The Society of Breast Imaging recommend annual screening beginning at age 40 for the general female population. * ??Screening should continue as long as a woman is in good health and is expected to live 10 more years or longer . * ??All women should be familiar with [facility] known benefits, limitations, and potential harms linked [...] For questions regarding this report, please contact [facility] number below. ? Electronically signed by: Alec Zhou [facility] ([phone]), at 02/26/2019 9:44 AM Batsheva López MD IMG MAMMO ORDERABLES documented in this encounter Visit Diagnoses Diagnosis Malignant neoplasm of left breast in fem susu, estrogen receptor positive, unspecified site of breast Malignant neoplasm of left breast in fem susu, estrogen receptor positive, unspecified site of breast documented in this encounter Care Teams Chin Strap Sewer Relationship Specialty Start Date End Date Kelsie Neal MD PCP - General Family Medicine 02/03/16 09/12/22 [address] [place] [address] documented as of this encounter
--- OUTSIDE RECORDS SUMMARY | 2022-09-30 02:08 | XMS_ITS | Encounter Summary ---
:1960 Author Organization [place] [address] Care Team Providers Name Role Phone Kelsie Neal MD Primary Care Provider Reason for Visit Reason Comments Skin Cancer Examination Encounter Details Date Type Department Care Team Description 08/11/2020 Office Visit Dermatology at [facility] uamous cell carcinoma of arm, left; Larisa Brock MD Dermal nevus; [address] [facility] Caf?? au lait spot; [place] [address]; [phone] [facility] Nevus of cheek [address] [place], [place] [address] Social History Tobacco Use Types Packs/Day Years Used Date Smoking Tobacco: Never Smokeless Tobacco: Never Alcohol Use Standard Drinks/Week Comments Yes 5 (1 standard drink = 0.6 oz pure alcoho l) Sex Assigned at Date Recorded Not on file documented as of this encounter Progress Notes Nohemi Merida MD - 08/11/2020 2:40 PM EDT DERMATOLOGY ESTABLISHED PATIENT CLINIC NOTE Date of Service: 08/11/2020 Tanika Harrison : 1960 Provider: Nohemi Merida MD Chief Complaint Patient presents with ??? Skin Cancer Examination SKIN HX Personal History Y/N Date, location, treatment Melanoma No DN No SCC Yes 07/09/20: Left upper arm, well-differentiated SCC (excision today) BCC No AK or field cancerization therapy No Immunosuppression or malignancy No Blistering sunburns or tanning bed use Yes Other (i.e., eczema, psoriasis) No Relevant social history with 2 children Family History Y/N Parents, siblings, children Melanoma No NMSC No Other No Patient Preferences Preferred name Tanika Preferred contact method [x] Home [x] Cell [] myD-H [] Other: Permission to leave detailed message including results [x] Yes [] No Permission to discuss care with (Jeremy) Preferred pharmacy [facility] in [place], [place] Procedure Screening Questions Y/N Allergies to lidocaine or epinephrine No Blood thinners No Pacemaker or defibrillator No HPI Tanika Harrison is a 60 y.o. female, established patient last seen by me on 08/11/2020 for a focused exam Here today for a baseline full skin exam and skin cancer screening (as well as excision of biopsy-proven SCC on the left upper arm - see separate procedure note) with the following concerns: - Patient denies any specific skin concerns today; no lesions that are new, changing or symptomatic. Last FSE: None MEDS Current Outpatient Medications Medication Sig Dispense [...] Allergen Reactions ??? Sulfa (Sulfonamide Antibiotics) Hives ROS General: Feeling well Skin: Denies other skin complaints EXAM General: NAD, pleasant, cooperative Skin: Patient was asked to undress to the level of her comfort. Verbalized that the provider's preference is for the patient to remove all clothing and that the provider will not examine areas patient elects to keep covered. Patient's decision was to remove bra and underwear for a total body skin exam. This includes examination of the scalp, hair, face, ears, neck, chest, breasts, abdomen, back, axillae, upper and lower extremities, hands, and feet. Buttocks and genitalia were examined with patient's consent. Areas of face under mask examined (COVID-19): [] Yes [x] No Significant Skin Findings: A. Left upper arm: 1.1 x 0.9 cm pink scar. B. Back and left flank: [place], fleshy papules. C. Left anterior thigh near knee: [place], well-demarcated, uniform patch. D. Eyelids and cheek: 0.1 cm firm, round, white subcutaneous papules. E. Left cheek: Brown, evenly pigmented macule with regular pigment pattern on dermoscopy. No features suspicious for melanoma. ASSESSMENT/PLAN A. Biopsy-Proven SCC - Excised today (see procedure note). B. Dermal Nevi - Discussed benign nature of lesion and provided reassurance. No treatment necessary at this time. C. [id number] - Discussed benign nature of lesion and provided reassurance. No treatment necessary at this time. D. Milia - Discussed benign nature of lesions and provided reassurance. No treatment necessary. E. Nevus - Discussed benign nature of lesion and provided reassurance. Follow Up: RTC in 1 year for: [x] FSE [] Follow up [x] Reminder placed in system [] Appointment scheduled before exiting Note initiated by: MEGHANA Gordon I am documenting this encounter acting as the scribe for and in the presence of Dr. Merida: MEGHANA Grimm I performed the above scribed service and agree with the accuracy of the documentation in this encounter. Nohemi Merida MD [employer] Farmworker of Dermatology Department of Dermatology [facility] cc: Kelsie Neal MD documented in this encounter Plan of Treatment Not on filedocumented as of this encounter Visit Diagnoses Diagnosis Squamous cell carcinoma of arm, left Dermal nevus Benign neoplasm of skin, site unspecifie d Caf?? au lait spot Other dyschromia Milia Sebaceous cyst Nevus of cheek Benign neoplasm of skin of other and uns pecified parts of face documented in this encounter Care Teams Motion Picture Cameraman Relationship Specialty Start Date End Date Kelsie Neal MD PCP - General Family Medicine 02/03/16 09/12/[address] [place] [address] [address] [place] [address] documented as of this encounter
--- OUTSIDE RECORDS SUMMARY | 2022-09-30 02:08 | XMS_ITS | Encounter Summary ---
:1960 Author Organization [place] [address] Care Team Providers Name Role Phone Kelsie Neal MD Primary Care Provider Reason for Visit Reason Comments Follow-up Encounter Details Date Type Department Care Team Description 07/15/2021 Office Visit Hematology and Marysol Alvarenga PA History of breast cancer; Oncology at [facility] Neck pain; [facility] [address] HEMATOLOGY/[place] [address] [place] [address] [phone] Social History Tobacco Use Types Packs/Day Years Used Date Smoking Tobacco: Never Smokeless Tobacco: Never Alcohol Use Standard Drinks/Week Comments Yes 5 (1 standard drink = 0.6 oz pure alcoho l) Sex Assigned at Date Recorded Not on file documented as of this encounter Last Filed Vital Signs Vital Sign Reading Time Taken Comments Blood Pressure 132/88 07/15/2021 10:15 AM EDT Pulse 81 07/15/2021 10:15 AM EDT Temperature 37.4 ??C (99.3 ??F) 07/15/2021 10:15 AM EDT Respiratory Rate 16 07/15/2021 10:15 AM EDT Oxygen Saturation 96% 07/15/2021 10:15 AM EDT Inhaled Oxygen Concentration - - Weight 81.2 kg (179 lb) 07/15/2021 10:15 AM EDT Height 160.5 cm (5' 3.19) 07/15/2021 10:15 AM EDT Body Mass Index 31.52 07/15/2021 10:15 AM EDT documented in this encounter Progress Notes Marysol Alvarenga PA - 07/15/2021 10:30 AM EDT Breast cancer follow-up visit HPI: -Diagnosed in September 2015 with left breast infiltrating ductal carcinoma. -Tumor was 9-mm cancer, intermediate grade, SBR = 6.?? Extensive associated DCIS present.?? LVI negative, 0/5 sentinel nodes, -HER2 -, FISH ratio = 1.1.?? ER/NE+++ (greater than 90%, strong). -Oncotype Dx Recurrence Score = 11. -She is S/P WLE and XRT, completed 02/12. -January 2016 Started adjuvant letrozole. -January 2021 stopped letrozole after completing 5 yr course. Past Medical History: Diagnosis Date ??? Breast cancer 10/2015 ??? Hiatal hernia ??? Hypercholesteremia Patient Active Problem List Diagnosis Code ??? Solar aging of skin L57.8 ??? Malignant neoplasm of upper-outer quadrant of left breast in female, estrogen receptor positive C50.412, Z17.0 ??? Osteopenia M85.80 ??? Chest pain R07.9 ??? 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 Interval Hx/ROS: Tanika is here for 6mo f/u. Mammo done this morning. No concerns to address. Stopped letrozole after 5 years in January. She continues to have chronic knee and left hip pains. PCP previously diagnosed with bursitis and prescribed meloxicam. Tanika has been hesitant to take it given driving warning. Left arm has felt tight since surgery. Left neck stiff x 6mo. Hot flashes daily, ticked up after stopping AI. Has occ periods of kidney pain, no urinary changes. Only drinks 2c coffee and a sebastien susu each day. Drinks EtOH 1-2 times per week. No dedicated exercise. Gets [phone] steps per day. No change in chronic cough. Denies any fevers, chills, sweats, weight loss, adenopathy, chest pain, SOB, abd pain, N/V, diarrhea, constipation, hematochezia, melena, urinary changes, or any headaches, change in vision, tingling, numbness, or weakness. ROS otherwise neg. Physical Exam: Patient Vitals for the past 24 hrs: Temp Pulse Resp BP SpO2 07/15/21 1015 37.4 ??C (99.3 ??F) 81 16 132/88 96 % Physical Exam: Patient Vitals for the past 24 hrs: Temp Pulse Resp BP SpO2 07/15/21 1015 37.4 ??C (99.3 ??F) 81 16 132/88 96 % Wt Readings from Last 3 Encounters: 07/15/21 81.2 kg (179 lb) 12/04/20 80.7 kg (178 lb) 05/27/20 77.6 kg (171 lb) Vitals reviewed. General: A&Ox3. Well-developed and [...] bilaterally without wheezes, rhonchi, or crackles. 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 No masses, rebound, or guarding. Musculoskeletal: No spinal or pelvic tenderness upon palpation. Neurological: Gait normal. No focal deficits noted. Skin: Warm and dry. No rash noted. Psychiatric: Mood is euthymic. Affect is normal, mood-congruent. Insight is good. Thought-content isfuture-oriented. Results: Mammogram 07/15/2021: benign DEXA 05/27/2020: osteopenia, T -2.1 No results found for: 25OHVITD Assessment and Plan 61 y.o. diagnosed in Sep 2015 with an invasive left breast cancer (initially bx was DCIS). Tumorwas 9mm, intermediate grade, node-negative. ER and NE were positive in the invasive component; HER2 neg. OncotypeDx assay w/ RS=11. She is s/p partial mastectomy and XRT. She took 5 years of adjuvant letrozole from January 2016 through January 2021. #History of breast cancer - Completed therapy - Mammo today benign, due in 1 yr #Bone health - Osteopenia on DEXA April 2020 - Further f/u per PCP #Left neck stiffness - Referred to chair massage #Impaire hydration - Recommended 8c non-caffeinated fluids per day and suggested ways to achieve this. I believe this would help reduce the kidney pain flares she gets (had kidney infx years ago). RTC 1 year. Prefers same day as surg and mammo. Will have PCP do CBE between appts. Marysol Alvarenga PA-C Medical Oncology - Breast & GI Cancers [facility] Pager - [phone] documented in this encounter Plan of Treatment Not on filedocumented as of this encounter Visit Diagnoses Diagnosis History of breast cancer Personal history of malignant neoplasm o f breast Neck pain Cervicalgia Impaired hydration documented in this encounter Care Teams Analog Ic Design Architect Relationship Specialty Start Date End Date Kelsie Neal MD PCP - General Family Medicine 02/03/16 09/12/22 [address] [place] [address] documented as of this encounter
--- OUTSIDE RECORDS SUMMARY | 2022-09-30 02:08 | XMS_ITS | Encounter Summary ---
:1960 Author Organization [facility] [place] [address] Care Team Providers Name Role Phone Kelsie Neal MD Primary Care Provider Encounter Details Date Type Department Care Team Description 07/15/2021 Office Visit General Surgery at [facility] for follow- up surveillance of breast cancer; [facility] Lila Kan APRN Malignant neoplasm of upper-outer quadra nt of left breast in female, estrogen receptor positive; [facility] Van moreland history of breast cancer; Marsha REY Breast cancer screening by mammogram [place], [place] [facility] [address] [place] [address] [phone] Social History Tobacco Use Types Packs/Day Years Used Date Smoking Tobacco: Never Smokeless Tobacco: Never Alcohol Use Standard Drinks/Week Comments Yes 5 (1 standard drink = 0.6 oz pure alcoho l) Sex Assigned at Date Recorded Not on file documented as of this encounter Patient Instructions Patient InstructionsLila Marcos APRN - 07/15/2021 11:30 AM EDT Nonpharmacologic measures to help decrease your risk of developing breast cancer include the following: ?? Get at least 30 minutes of moderate intensity physical activity above normal activity on most days of the week to reduce the risk of chronic disease in adulthood. Walking is a good choice. You also may want to do other activities, such as running, swimming, cycling, playing tennis, or other team sports. ?? Do strength training exercises at least twice a week to maintain muscle and bone health. ?? Drink alcohol in moderation, if at all. That means no more than 1 drink a day for women or 2 per day for men. ?? Make healthy eating choices: fruits and vegetables, lean protein, and healthy fats. Minimize processed foods, simple carbohydrates, sugars, and artificial sweeteners. ?? Maintain or achieve a healthy weight. [...] laundry detergent, fabric softener, dryer sheets, etc.). [place] bans or restricts over 1,400 ingredients from personal care products. Currently, the [place] bans or restricts only 30 products. Resources to help you make informed choices for personal care products are available at EWG (Environmental Working Group) at https://www.ewg.org and free apps for your cell phone from EWG (Healthy Living) and [employer]Tot[employer] (DiObex). documented in this encounter Progress Notes Lila Marcos APRN - 07/15/2021 11:30 AM EDT Images from the original note were not included. Patient ID: Tanika Harrison is a 61 y.o. female HPI: Dorene is a patient of Dr. 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 She is status post left partial mastectomy on November 03, 2015 and sentinel node excision on November 16, 2015. At today's visit, Dorene has no breast concerns and denies any new lumps or bumps in her breasts or axilla. She does not perform occasional self-breast exams. No nipple discharge or pain in either breast.She denies any headaches or significant weight changes. No new chest pain or difficulty breathing. No new bony pain or tenderness. She had a kidney infection about a month ago, but denies other significant changes to her health [...] letrozole in January 2016 and completed 5 years earlier this year. She met with Marysol Alvarenga PA-C in Medical Oncology earlier today. BREAST CANCER NOTES 07/15/2021 Method of Cancer Detection Screening mammogram 09/16/2015 Menopausal Status at Diagnosis Postmenopausal Date of Diagnostic Biopsy 09/28/2015 Local Surgery Left partial mastectomy Axillary Management SNE (0 of [address] involved) Date of Last Surgical Procedure 11/16/2015 Histology IDC with DCIS Location Left lateral breast Size of Primary Malignancy 9 mm Grade Intermediate Margins Negative ER Positive ND Positive HER-2 Negative OncotypeDx Recurrence Score 11 [...] cancer PGM Known genetic mutation Met w/ [facility] on 09/11/19, but testing was not done. Family History Problem (# of Occurrences) Relation (Name,Age of Onset) Breast Cancer (5) Sister (52), Maternal Aunt (60), Maternal Cousin (48): In her 40's, Paternal Aunt(pat grt aunt, 45): paternal great aunt (father's paternal aunt), Paternal Cousin (2nd cousin, 35): father's paternal 1st cousin Cancer (1) Paternal Grandmother (63): ? 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 She also cares for her elderly mother and her mother's 2 elderly sisters, as well as her [id number] and other family members. She has never [...] No respiratory distress, cough, or wheezing. Breasts: Left breast with periareolar incision with puckering and scar contracture and well-healed axillary incision. Right breast appears normal. No suspicious masses, tenderness, dimpling, erythema, or [...] situation. Results: Imaging performed (bilateral mammogram) at [facility] today shows no evidence of malignancy, BIRADS Category 2 with heterogeneously dense breast tissue. Post treatment changes noted on the left. Theresults were reviewed with her at today's appointment. [...] - Mammo Screening Cad and Garcia Bilateral; June 2022 I have discussed my assessment and recommendations [...] that appointment. She agrees to this plan. Routine recommendations discussed with the patient including importance of regular moderate intensity exercise, nutrition, decreasing cardiovascular risk, and optimizing weight. Nonpharmacologic measures to help decrease your risk of developing breast cancer include the following: ?? Get at least 30 minutes of moderate intensity physical activity above normal activity on most days of the week to reduce the risk of chronic disease in adulthood. Walking is a good choice. You also may want to do other activities, such as running, swimming, cycling, playing tennis, or other team sports. ?? Do strength training exercises at least twice a week to maintain muscle and bone health. ?? Drink alcohol in moderation, if at all. That means no more than 1 drink a day for women or 2 per day for men. ?? Make healthy eating choices: fruits and vegetables, lean protein, and healthy fats. Minimize processed foods, simple carbohydrates, sugars, and artificial sweeteners. ?? Maintain or achieve a healthy weight. [...] laundry detergent, fabric softener, dryer sheets, etc.). [place] bans or restricts over 1,400 ingredients from personal care products. Currently, the [place] bans or restricts only 30 products. Resources to help you make informed choices for personal care products are available at EWG (Environmental Working Group) at https://www.ewg.org and free apps for your cell phone from [employer] (Attention Point Living) and [employer]Tot[employer] (DiObex). All questions were answered to the patient's satisfaction and they state understanding and agreementwith today's treatment plan. They are encouraged to follow up sooner if they develop any new or concerning symptoms. Lila Marcos APRN Surgical Oncology P [phone] F [phone] [facility] documented in this encounter Plan of Treatment Not on filedocumented as of this encounter Results Mammo Screening Cad and Garcia Bilateral (09/13/2022 9:31 AM EST) Anatomical Region [...] Center. BIRADS CATEGORY 2: BENIGN FINDINGS [employer] and Th e Society [...] cancer screening by mammogram Malignant neoplasm of upper-outer quadra nt of left breast in female, estrogen receptor positive Breast cancer screening by mammogram Family history of breast cancer Family history of malignant neoplasm of breast documented in this encounter Care Teams Paperhanger Relationship Specialty Start Date End Date Kelsie Neal MD PCP - General Family Medicine 02/03/16 09/12/[address] [place] [address] documented as of this encounter
--- OUTSIDE RECORDS SUMMARY | 2022-09-30 02:09 | XMS_ITS | Encounter Summary ---
:1960 Author Organization [facility] [place] [address] Care Team Providers Name Role Phone Hoa Perez MD Primary Care Provider Encounter Details Date Type Department Care Team Description 12/02/2015 Office Visit Hematology and Bossman Garg MD [facility] DR HEMATOLOGY/[place] [address] Ductal carcinoma in situ (DCIS) of left breast; Oncology at [facility] Gunjan Sun, RN Malignant neoplasm of overlapping sites [place] [address] Social History Tobacco Use Types Packs/Day Years Used Date Smoking Tobacco: Never Alcohol Use Standard Drinks/Week Comments Yes 5 (1 standard drink = 0.6 oz pure alcoho l) Sex Assigned at Date Recorded Not on file documented as of this encounter Last Filed Vital Signs Vital Sign Reading Time Taken Comments Blood Pressure 126/76 12/02/2015 2:37 PM EST Pulse 82 12/02/2015 2:37 PM EST Temperature 37.4 ??C (99.3 ??F) 12/02/2015 2:37 PM EST Respiratory Rate 18 12/02/2015 2:37 PM EST Oxygen Saturation 98% 12/02/2015 2:37 PM EST Inhaled Oxygen Concentration - - Weight 79 kg (174 lb 3.2 oz) 12/02/2015 2:37 PM EST Height 164.2 cm (5' 4.65) 12/02/2015 2:37 PM EST Body Mass Index 29.31 12/02/2015 2:37 PM EST documented in this encounter Progress Notes Bossman Garg MD - 12/05/2015 7:32 PM EST Oncology - Consultation Note History of Present Illness: HPI Mrs. Harrison is a 55-year-old woman with a recent diagnosis of breast cancer, referred by Dr. Hoa Perez for consultation and treatment recommendations. She presented for secondary screening mammography. This demonstrated a cluster of calcification extending about 1.6 cm, left breast. Core needle biopsy demonstrated high-grade DCIS that was ER negative. Callbacks of the left breast showed a second cluster of micro calcifications. Biopsy of the second area was benign. Breast MRI, 10/07/2015, demonstrated findings in both the left and right breasts. She subsequently saw Dr. El in Surgery and it was subsequently felt that the abnormality in the right breast was a benign cyst. She underwent wide local excision, this demonstrating invasive ductal carcinoma, interestingly with associated DCIS, intermediate grade, and additional features as noted below, approximately 9 mm in size. She subsequently underwent lymph node dissection with 0/5 nodes being involved. She has seen Dr. Jacome and is scheduled to proceed with radiation therapy. Past Medical History: 1. History of palpitations. 2. History of hyperlipidemia. 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 She went through menopause at about the age of 48. She has no history of hormone replacement therapy or other hormone medication use. Social History: She is . She drinks three or fewer of ETOH per week. She has no history of cigarette or tobacco use. 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 Family History: Sister was diagnosed with breast cancer at about the age of 52. A maternal aunt and a paternal aunt were both diagnosed with breast cancer in their early 40s. Her paternal grandmother, she thinks, had ovarian cancer. A paternal cousin was diagnosed with breast cancer in her mid 30s. Review of Systems: Review of Systems Except as noted above, Tanika Mukherjee full remaining review of systems, including constitutional, cardiac, pulmonary, GI, , neurologic, musculskeletal, and all remaining, is otherwise fully unremarkable. Past Medical and Surgical History: Past Medical History Diagnosis Date ??? Hiatal hernia ??? Hypercholesteremia Past Surgical History Procedure Laterality Date ??? Breast biopsy Right 08/11 ??? Pro mastectomy, partial Right 11/03/2015 MASTECTOMY PARTIAL performed by Daniel El MD at [facility] MA[facility] OR ??? Pro bx/remv, lymph node, deep axill Left 11/16/2015 BIOPSY OR EXCISION OF LYMPH NODE(S), OPEN, DEEP AXILLARY NODE(S) performed by Daniel El MD at [facility] MA[facility] OR ??? Left 11/16/2015 MODIFIER SENTINEL NODE EXCISION performed by Daniel El MD at [facility] MA[facility] OR Medications: Current outpatient prescriptions: ??? famotidine (PEPCID) 20 mg Tablet, Take 20 mg by mouth 2 times daily., Disp: , Rfl: ??? simvastatin (ZOCOR) 20 mg Tablet, Take 20 mg by mouth nightly., Disp: , Rfl: ??? acetaminophen (TYLENOL) 500 mg Tablet, Take 1,000 mg by mouth every 6 hours as needed for Pain.,Disp: , Rfl: Prior To Admission Medications: (Not in a hospital admission) Allergies: Allergies Allergen Reactions ??? Sulfa (Sulfonamide Antibiotics) Family History: Family History Problem Relation Age of Onset ??? Breast Cancer Sister 52 ??? Breast Cancer Maternal Aunt 60 ??? Breast Cancer Paternal Aunt In her 40's Social History and Habits: History Social History ??? Marital Status: Spouse Name: N/A Number of Children: N/A ??? Years of Education: N/A Occupational History ??? Not on file. Social History Main Topics ??? Smoking status: Never Smoker ??? Smokeless tobacco: Not on file ??? Alcohol Use: 3.0 oz/week 5 Glasses of wine per week ??? Drug Use: No ??? Sexual Activity: Partners: Male Other Topics Concern ??? Not on file Social History Narrative Physical Exam: Last Set of Vitals and Range over past 24 hours: Last value Range last 24 hrs Temperature Temp: 37.4 ??C (99.3 ??F) Heart Rate Heart Rate: 82 Heart Rate: -- Blood Pressure BP: 126/76 mmHg BP: -- Respiratory Rate Resp: 18 Resp: -- SpO2 SpO2: 98 % SpO2: -- Weight - Scale: 79.017 kg (174 lb 3.2 oz) Physical Exam Laboratory (Last 24 Hours): No results found for this or any previous visit (from the past 24 hour(s)). Assessment: Problem List: 1. Infiltrating ductal carcinoma, left breast, 09/2015. a. A 9-mm cancer, intermediate grade, SBR equals 6. Extensive associated DCIS is present. LVI negative, 0/5 sentinel nodes, HER2 negative, FISH ratio equals 1.1. ER/NJ+++ (greater than 90%, strong). 2. History of hyperlipidemia. 3. History of occasional palpitations. A/P: Mrs. Harrison is, in summary, a woman presenting with moderately extensive DCIS with an associated 9-mm, intermediate grade invasive ductal carcinoma of the left breast with additional pathologic features, as described above. I reviewed with her and her both local/regional treatment as well as adjuvant therapy, about which they each had a number of questions. She has not had chemistries performed, so I have sent off a chemistry panel and LFTs with results pending at time of dictation. I would recommend proceeding with Oncotype DX testing in this case and reviewed the rationale of this in some detail. We will obtain a baseline DEXA scan, and I additionally recommended proceeding with a consultation in the Familial Cancer Program for further evaluation. She and her had several good questions, which we reviewed in some detail today. I would recommend proceeding with her radiation first, and I will alert Dr. Jacome of this, while we await the above workup. BOSSMAN GARG MD 12/05/2015 documented in this encounter Plan of Treatment Not on filedocumented as of this encounter Procedures Procedure Name Priority Date/Time Associated Comments Diagnosis COMPREHENSIVE STAT 12/02/2015 3:49 PM Ductal carcinoma in R esults for this METABOLIC PANEL EST situ (DCIS) of left proce dure are in (NON-FASTING) breast the results section. documented in this encounter Results (ABNORMAL) Comprehensive metabolic panel (non-fasting) (12/02/2015 3:49 PM EST) P athologist Signature Glucose Lvl 87 65 - 199 CERNER mg/dL MILLENNIUM Comment: Diabetes: >=200 mg/dL plus symp toms BUN 17 8 - 18 mg/dL CERNER MILLENNIUM Creatinine 0.87 0.70 - 1.20 mg/dL CERNER MILL ENNIUM Comment: Please note that the pediatric reference intervals supplied above were not validated at [facility]. Results from pediatri c patients should be interpreted in conjunction to the patient's age, height and muscle mass. Sodium 140 135 - 145 mmol/L CERNER CHARLY NIUM Potassium 4.1 3.5 - 5.0 mmol/L [facility]ERN[facility] CHARLY NIUM Comment: Please note: ??Patients with WBC >100,00 0 may have falsely elevated Potassium levels. ??For accurate Potassium quantif ication in these patients send serum separator tube (gold top) for subsequent determinations. ??Contact the Clinical Chemistry Laboratory if there are any qu estions. Chloride 100 98 - 107 mmol/L CERNER MILLENN IUM CO2 28 22 - 31 mmol/L CERNER MILLENNI UM Anion Gap 12 5 - 15 mmol/L CERNER MILLENNIU M Calcium 9.2 8.5 - 10.5 mg/dL CERNER CHARLY NIUM Total Protein 7.5 6.1 - 8.0 gm/dL CERNER MIL LENNIUM Albumin 4.5 3.2 - 5.2 gm/dL CERNER MILLENN IUM AST 26 0 - 30 unit/L CERNER MILLENNIU M ALT 28 0 - 30 unit/L CERNER MILLENNIU M Alk Phos 155 (H) 40 - 104 unit/L CERNER MILLENN IUM Total Bilirubin 0.4 0.2 - 1.3 mg/dL CERNER M ILLENNIUM Bili, Direct 0.1 0.0 - 0.3 mg/dL CERNER MILL ENNIUM Estimated GFR >60 >=60 CERNER MILLENNIU M Comment: This estimated GFR (eGFR) value was [...] the following links into your internet browser. http://[employer]/DHnkdep http://Pa[employer]/DHMCnkf Specimen Anatomical Collection Method Collection Time Receive d Time (Source) Location / / Volume Laterality Blood specimen 12/02/2015 3:49 PM 016 4:02 (specimen) EST PM EST Resulting Agency Comment Spec In Lab Bossman Garg MD CHEMISTRY ORDERABLES Performing Organization Address City/State/ZIP Code Phon e Number [address] LABORATORY [facility] documented in this encounter Visit Diagnoses Diagnosis Ductal carcinoma in situ (DCIS) of left breast Malignant neoplasm of overlapping sites of left female breast Malignant neoplasm of other specified [place] of female breast documented in this encounter Care Teams Credit Risk Analytics Manager Relationship Specialty Start Date End Date Hoa Perez MD PCP - General 04/23/13 02/02/16 [address] [place] [address] documented as of this encounter
--- OUTSIDE RECORDS SUMMARY | 2022-09-30 02:09 | XMS_ITS | Encounter Summary ---
:1960 Author Organization [facility] Address [address] [place] [address] Care Team Providers Name Role Phone Hoa Perez MD Primary Care Provider Reason for Visit Reason Comments Radiation Treatment Encounter Details Date Type Department Care Team Description 01/12/2016 [facility] left female breast, [address] unspecified site of [place], [place] RADIATION ONCOL OGY breast [address] [place] [address] [phone] Social History Tobacco Use Types Packs/Day Years Used Date Smoking Tobacco: Never Alcohol Use Standard Drinks/Week Comments Yes 5 (1 standard drink = 0.6 oz pure alcoho l) Sex Assigned at Date Recorded Not on file documented as of this encounter Last Filed Vital Signs Vital Sign Reading Time Taken Comments Blood Pressure 126/88 01/12/2016 10:00 AM EDT Pulse 67 01/12/2016 10:00 AM EDT Temperature 36.8 ??C (98.2 ??F) 01/12/2016 10:00 AM EDT Respiratory Rate 18 01/12/2016 10:00 AM EDT Oxygen Saturation 100% 01/12/2016 10:00 AM EDT Inhaled Oxygen Concentration - - Weight 83.3 kg (183 lb 9.6 oz) 01/12/2016 10:00 AM with boots EDT Height - - Body Mass Index 30.89 12/02/2015 2:37 PM EST documented in this encounter Progress Notes Mable Jacome MD - 01/12/2016 10:44 AM EDT DIAGNOSIS: Breast ca, L, IDC, intermed gr, ER+CT+, [id number]-, s/p lumpectomy followed by SNB, pT1 pN0, stage I. CURRENT TREATMENT DOSE: 15.96 Gy L breast ANTICIPATED TOTAL DOSE: 42.56 Gy L breast, 52.56 Gy lumpectomy bed L breast Current # of xrt received: 6 Anticipated total # of xrt txs: 16 L breast, 20 lumpectomy bed L breast Evaluation of port verification films: Approved. For details, see electronic film record in [employer]. Changes in Medical Condition: Mild LAUREANO localized to L posterior skull, occipital area, over past wk, adequately relieved by tylenol 2 - 4 X/d. No problem w/irrad'd skin. Pain?: See above. Physical Exam: BP 126/88 mmHg Pulse 67 Temp(Src) 36.8 ??C (98.2 ??F) (Oral) Resp 18 Wt 83.28kg (183 lb 9.6 oz) SpO2 100% A&Ox3, in NAD. No neuro deficit. Minimal erythema w/in irrad'd area. Response to xrt: As expected. Irradiation Related Symptoms: None. Treatment for Symptom Control: Eitan's cream. Pain Management: Tylenol. Recommendation on Continuing Course of xrt: Cont. Follow LAUREANO closely. documented in this encounter Plan of Treatment Not on filedocumented as of this encounter Visit Diagnoses Diagnosis Malignant neoplasm of left female breast , unspecified site of breast documented in this encounter Care Teams Campus Director Relationship Specialty Start Date End Date Hoa Perez MD PCP - General 04/23/13 02/02/16 [address] [place] [address] documented as of this encounter
--- OUTSIDE RECORDS SUMMARY | 2022-09-30 02:09 | XMS_ITS | Encounter Summary ---
:1960 Author Organization [facility] Address [place] [place] [address] Care Team Providers Name Role Phone Kelsie Neal MD Primary Care Provider Reason for Visit Reason Comments Follow-up Encounter Details Date Type Department Care Team Description 07/06/2016 Office Visit Hematology and Batsheva López Malignan t neoplasm of Oncology at [facility] MD left female breast, [facility] uns pecified site of Drive [address] [place] GENERAL SURGERY [address] [place] [address] [phone] Social History Tobacco Use Types Packs/Day Years Used Date Smoking Tobacco: Never Alcohol Use Standard Drinks/Week Comments Yes 5 (1 standard drink = 0.6 oz pure alcoho l) Sex Assigned at Date Recorded Not on file documented as of this encounter Progress Notes Batsheva López MD - 07/06/2016 11:00 AM EDT COPY: Hoa Perez M.D. Tanika Harrison is a 56-year-old woman who [...] on Femara. She now returns for a check on her left nipple. On physical exam, there are no left breast masses. Her fabiana-areolar incision is nicely healed. Her left nipple presses down on the skin at 6:00. The skin is viable, the top layer of epidermis is partlysloughing. Left mammogram from today is benign. Impression: No evidence of recurrent breast cancer. Plan: I will plan to see her back in six months with a bilateral mammogram. Comprehensive Breast Program Surgery Follow Up Note Range of motion of surgical arm complete Lymphedema present No Cosmesis-surgeon reported Cosmesis-patient reported Excellent Excellent Local or regional recurrence No Contralateral cancer present No Distant recurrence present No Date of last follow up 07/06/16 BATSHEVA LÓPEZ MD 07/06/2016 documented in this encounter Plan of Treatment Not on filedocumented as of this encounter Results Mammo Screen CAD and Garcia Bilat (Generic) (01/04/2017 3:12 PM EST) Anatomical [...] BIRADS CATEGORY 2: BENIGN FINDINGS * ??The [employer] an d The Society [...] earlier screening and breast MRI are appropriate. Batsheva López MD IMG MAMMO ORDERABLES documented in this encounter Visit Diagnoses Diagnosis Malignant neoplasm of left female breast , unspecified site of breast Malignant neoplasm of left female breast , unspecified site of breast documented in this encounter Care Teams Suspect Artist Relationship Specialty Start Date End Date Kelsie Neal MD PCP - General Family Medicine 02/03/16 09/12/[address] [place] [address] documented as of this encounter
--- OUTSIDE RECORDS SUMMARY | 2022-09-30 02:09 | XMS_ITS | Encounter Summary ---
:1960 Author Organization [facility] Address [address] [place] [address] Care Team Providers Name Role Phone Kelsie Neal MD Primary Care Provider Reason for Visit Reason Comments Follow-up Encounter Details Date Type Department Care Team Description 03/02/2016 Office Visit General Surgery at [facility] [place] [facility] ne[place] of [facility] [place] female breast, [facility] uns pecified site of Drive [address] [place], [place] GENERAL SURGERY [address] [place] [address] [phone] Social History Tobacco Use Types Packs/Day Years Used Date Smoking Tobacco: Never Alcohol Use Standard Drinks/Week Comments Yes 5 (1 standard drink = 0.6 oz pure alcoho l) Sex Assigned at Date Recorded Not on file documented as of this encounter Progress Notes Daniel El MD - 03/02/2016 9:06 PM EDT COPY: Hoa Perez M.D. Tanika Harrison is a 55-year-old woman who returns after left breast partial [...] the top layer of epidermis is partlysloughing. Impression: Tanika is doing well after left breast partial mastectomy and sentinel node excision. I recommended she wash the skin under her left nipple gently each day and use a q-tip to dry it. I will plan to see her back in six months after surgery with a left mammogram to serve as a new baseline. documented in this encounter Plan of Treatment Not on filedocumented as of this encounter Visit Diagnoses Diagnosis Malignant neoplasm of left female breast , unspecified site of breast documented in this encounter Care Teams New Business Clerk Relationship Specialty Start Date End Date Kelsie Neal MD PCP - General Family Medicine 02/03/16 09/12/22 [facility] [address] [place] [address] documented as of this encounter
--- OUTSIDE RECORDS SUMMARY | 2022-09-30 02:09 | XMS_ITS | Encounter Summary ---
:1960 Author Organization [facility] [place] [address] Care Team Providers Name Role Phone Kelsie Neal MD Primary Care Provider Encounter Details Date Type Department Care Team Description 07/06/2016 Hospital Encounter Hematology and Maligna nt neoplasm of Oncology at [facility] left female breast, [facility] [place] [address] Social History Tobacco Use Types Packs/Day [...] Name Priority Date/Time Associated Comments Diagnosis COMPREHENSIVE Routine 07/06/2016 10:22 Malignant neoplasm Resu lts for this METABOLIC PANEL AM EDT of left female procedure are in (NON-FASTING) breast, unspecified the res ults site of breast section. documented in this encounter Results Comprehensive metabolic panel (non-fasting) (07/06/2016 10:22 AM EDT) athologist Signature Glucose Lvl 87 65 - 199 [facility] mg/dL [facility] Comment: Diabetes: >=200 mg/dL plus symp toms BUN 17 8 - 18 mg/dL [facility] Creatinine 0.80 0.70 - 1.20 mg/dL [facility] Comment: Please note that the pediatric reference intervals supplied above were not validated at [facility]. Results from pediatri c patients should be interpreted in conjunction to the patient's age, height and muscle mass. Sodium 140 135 - 145 mmol/L [facility] Potassium 4.2 3.5 - 5.0 mmol/L [facility] Comment: Please note: ??Patients with WBC >100,00 0 may have falsely elevated Potassium levels. ??For accurate Potassium quantif ication in these patients send serum separator tube (gold top) for subsequent determinations. ??Contact the Clinical Chemistry Laboratory if there are any qu estions. Chloride 101 98 - 107 mmol/L [facility] CO2 26 22 - 31 mmol/L [facility] Anion Gap 13 5 - 15 mmol/L [facility] Calcium 8.8 8.5 - 10.5 mg/dL [facility] Total Protein 7.0 6.1 - 8.0 gm/dL [facility] Albumin 4.3 3.2 - 5.2 gm/dL [facility] AST 19 0 - 30 unit/L [facility] ALT 14 0 - 30 unit/L [facility] Alk Phos 80 40 - 104 unit/L [facility] Total Bilirubin 0.4 0.2 - 1.3 mg/dL [facility] Bili, Direct 0.1 0.0 - 0.3 mg/dL [facility] Estimated GFR >60 >=60 [facility] Comment: This estimated GFR (eGFR) value [...] the following links into your internet browser. [email or web address] [email or web address] Specimen Anatomical Collection Method Collection Time Receive d Time (Source) Location / / Volume Laterality Blood specimen 07/06/2016 10:22 6 (specimen) AM EDT 10:40 AM EDT Resulting Agency Comment Spec In Lab Brooks Ricardo MD CHEMISTRY ORDERABLES Performing Organization Address City/State/[place] [address] documented in this encounter Visit Diagnoses Diagnosis Malignant neoplasm of left female breast , unspecified site of breast documented in this encounter Care Teams Dedicated Regional Driver Relationship Specialty Start Date End Date Kelsie Neal MD PCP - General Family Medicine 02/03/16 09/12/[address] [place] [address] documented as of this encounter
--- OUTSIDE RECORDS SUMMARY | 2022-09-30 02:09 | XMS_ITS | Encounter Summary ---
:1960 [place] [address] Care Team Providers Name Role Phone Kelsie Neal MD Primary Care Provider Encounter Details Date Type Department Care Team Description 12/21/2015 Telephone Hematology and Oncol tanya at [facility] [place] [address] Social History Tobacco Use Types Packs/Day Years Used Date Smoking Tobacco: Never Alcohol Use Standard Drinks/Week Comments Yes 5 (1 standard drink = 0.6 oz pure alcoho l) Sex Assigned at Date Recorded Not on file documented as of this encounter Miscellaneous Notes Telephone Encounter - Claudia James - 12/21/2015 8:51 AM EST Age at diagnosis: 55 Date of diagnosis: September 29, 2015 Place of diagnosis: Internal Date of initial appointment: 10/14/15 Surgeon: Sienna Referral to Medical Oncology: Yes, Internal Medical Oncologist:Haleigh Referral to Radiation Oncology:Yes External Radiation Oncologist: Naa Referral to Plastic Surgery: No documented in this encounter Plan of Treatment Not on filedocumented as of this encounter Visit Diagnoses Not on filedocumented in this encounter Care Teams Laboratory Technologist Relationship Specialty Start Date End Date Kelsie Neal MD PCP - General Family Medicine 02/03/16 09/12/[address] [place] [address] documented as of this encounter
--- OUTSIDE RECORDS SUMMARY | 2022-09-30 02:09 | XMS_ITS | Encounter Summary ---
:1960 Author Organization [facility] [place] [address] Care Team Providers Name Role Phone Kelsie Neal MD Primary Care Provider Encounter Details Date Type Department Care Team Description 09/26/2016 Hospital Encounter Hematology and Maligna nt neoplasm of left female breast, unspecified site of breast; Oncology at [facility] Osteopenia; [facility] Ductal ca rcinoma in situ (DCIS) [place] [address] Social History Tobacco Use Types Packs/Day [...] Priority Date/Time Associated Comments Diagnosis COMPREHENSIVE Routine 09/26/2016 1:45 PM Malignant neoplasm Re sults for this METABOLIC PANEL EST of left female procedure are in (NON-FASTING) breast, unspecified the res ults site of breast section. Osteopenia Ductal carcinoma in situ (DCIS) of left breast documented in this encounter Results (ABNORMAL) Comprehensive metabolic panel (non-fasting) (09/26/2016 1:45 PM EST) athologist Signature Glucose Lvl 81 65 - 199 [facility] mg/dL [facility] Comment: Diabetes: >=200 mg/dL plus symp toms BUN 16 8 - 18 mg/dL [facility] Creatinine 0.72 0.70 - 1.20 mg/dL [facility] Comment: Please note that the pediatric reference intervals supplied above were not validated at [facility]. Results from pediatri c patients should be interpreted in conjunction to the patient's age, height and muscle mass. Sodium 141 135 - 145 mmol/L [facility] Potassium 4.0 3.5 - 5.0 mmol/L [facility] Comment: Please note: ??Patients with WBC >100,00 0 may have falsely elevated Potassium levels. ??For accurate Potassium quantif ication in these patients send serum separator tube (gold top) for subsequent determinations. ??Contact the Clinical Chemistry Laboratory if there are any qu estions. Chloride 100 98 - 107 mmol/L [facility] CO2 25 22 - 31 mmol/L [facility] Anion Gap 16 (H) 5 - 15 mmol/L [facility] Calcium 9.2 8.5 - 10.5 mg/dL [facility] Total Protein 7.3 6.1 - 8.0 gm/dL [facility] Albumin 4.6 3.2 - 5.2 gm/dL [facility] AST 19 0 - 30 unit/L [facility] ALT 10 0 - 30 unit/L [facility] Alk Phos 89 40 - 104 unit/L [facility] Total Bilirubin 0.5 0.2 - 1.3 mg/dL [facility] Bili, Direct 0.1 0.0 - 0.3 mg/dL [facility] Estimated GFR >60 >=60 [facility] Comment: This estimated GFR (eGFR) [...] the following links into your internet browser. [email or web address] [email or web address] Specimen Anatomical Collection Method Collection Time Receive d Time (Source) Location / / Volume Laterality Blood specimen 09/26/2016 1:45 PM 016 1:58 (specimen) EST PM EST Resulting Agency Comment Spec In Lab Brooks Ricardo MD CHEMISTRY ORDERABLES Performing Organization Address City/State/[place] [address] documented in this encounter Visit Diagnoses Diagnosis Malignant neoplasm of left female breast , unspecified site of breast Osteopenia Disorder of bone and cartilage, unspecif ied Ductal carcinoma in situ (DCIS) of left breast documented in this encounter Care Teams Package Drier Relationship Specialty Start Date End Date Kelsie Neal MD PCP - General Family Medicine 02/03/16 09/12/[address] [place] [address] documented as of this encounter
--- OUTSIDE RECORDS SUMMARY | 2022-09-30 02:09 | XMS_ITS | Encounter Summary ---
:1960 Author Organization [facility] [place] [address] Care Team Providers Name Role Phone Hoa Perez MD Primary Care Provider Encounter Details Date Type Department Care Team Description 12/22/2015 Ancillary Radiation Oncology Mable Jacome, Malign ant neoplasm Appointment at [facility] of [address], unspecified [place], [place] [address] site of breast [phone] RADIATION [phone] [place] [address] Social History Tobacco Use Types Packs/Day Years Used Date Smoking Tobacco: Never Alcohol Use Standard Drinks/Week Comments Yes 5 (1 standard drink = 0.6 oz pure alcoho l) Sex Assigned at Date Recorded Not on file documented as of this encounter Patient Instructions Patient InstructionsAranza Lester RN - 12/22/2015 8:36 AM EST General instructions for Radiation therapy Radiation Oncology Team ?? Radiation Oncologist -The doctor who will direct all aspects of your radiation treatments ?? Nurse Practitioner - They assist your doctor in treating your side effects and with follow up appointments. ?? Registered Nurse - They sanam you in learining about you radaiton treatments, , and things you can do to help manage the side effects. ?? Sand Mill Operator - They take the doctors radiation prescription and customize it into doses (or days of treatments) specific for you. ?? Physicist - They make sure all the machines are operating correctly and double check calculationsfor your treatment. ?? Radiation Technologists - They operate the machines which deliver your radiation. You see them daily and they schedule your treatments. ?? Simulation CT/ Planning Session- Your first step after deciding to start radiation treatments is done on a special CT scanner in radiation oncolcgy. The images obtained are used to plan your treatments. This may be scheduled the sameday you meet your doctor or in a separate visit. This usually takes between 30 minutes to one hour. You may need an IV for contrast. If so our nurse will let you know that day along with any other special instructions. During this visit we may asher Your skin with a tiny ???tattoos?? , take pictures ormake special molds or masks to help us place you in the exact treatment position every day. After this session it takes up to two weeks for your plan to be developed and checked by your doctor, the dosimetrists and the physicist. Our Contact numbers Section of Radiation Oncology Our normal business hours are: Monday - Monday: 8 AM to 5 PM [facility]: [facility]: Phone# ( [phone] If you have questions about your radiation appointments please ask to speak to one of our guidance secretary staff. If you have questions for a nurse/doctor about radiation treatments, radiation side effects or you are not feeling well it is best to call early in the day. This allows a nurse to return your call by 5PM the same day. If you call after 4 PM, a nurse will return your call by 5 PM the following day unless it is emergent. If you experience any of the following you need to seek emergency care immediately by calling 911 1. Sudden and unexpected breathing difficulty without any exertion 2. Sudden onset of chest pain 3. Sudden onset of severe pain or uncontrolled pain 4. Sudden onset of severe weakness and/or unable to ambulate 5. Sudden new onset of a seizure 6. Fall resulting in injury A Radiation Oncology doctor is principal solutions architect after our normal hours and on weekends. To call for urgent medical issues from radiation treatments that can not wait until normal business hours, please call for either location and have the monogram machine operator page the Radiation Oncologist in call. Information for Patients receiving radiation therapy to the Breast Approximately two weeks after your first treatment, you may begin to experience side effects caused by the radiation. These effects may continue throughout the treatment period and not start improving until 1-2 weeks after treatment is completed. Your doctor will tell you which side effects you are most likely to experience, when you will notice them and how long they might last. It is important to follow the appropriate instructions to minimize your discomfort. Skin Care ??? Wash skin in the treatment field with lukewarm water and mild or moisturizing, unscented soap daily. Blot skin dry with a soft towel. ??? Do not apply any ointment, salve, deodorant, perfume, cologne, cosmetic or self-remedy to the treatment area while you are undergoing radiation and for 1-2 weeks following treatment. An all naturaldeodorant with no aluminum can be used if necessary. ??? Moisturizing cream will be provided for you. This may be used in the treatment area once daily beginning on your first treatment day. Do not apply 2 hours before your radiation treatments. As dryness/redness develop you can use this more often. ??? Do not rub or scratch the skin in the treatment field. This includes shaving unless you use an electric razor. If your skin becomes dry or itchy, tell your nurse or doctor. If necessary, your doctor may order a medication specifically for this problem. ??? Do not use hot water bottles, heating lights, electric heating pads, or hot packs to the treatment area. ??? Keep treated areas out of the sun throughout the treatment period. Be careful of sun exposure tothe treatment field for one year following treatment. Please use SPF> 30 to all exposed areas of skin and limit sun exposure. ??? Avoid tight fitting clothes. We would prefer that you wear a cotton t-shirt instead of a bra. Ifyou are unable to go without a bra please wear a soft cotton bra without underwire. ??? Examine your skin in the treatment area daily and watch for changes. If you cannot reach the whole treatment field ask a family member to look at it and apply cream as needed. Be careful to keep the area under your breast clean and dry as this area can get irritated first. ??? You will meet with your nurse and doctor weekly. Dr. Jacome sees her patients in [facility] on Tuesdays. They will check your skin and help you with any side effects you are having. Please ask to see the nurse if you have concerns in between these days. ??? During the last weeks of treatment you may notice some peeling of skin and/or a moist reaction. Be sure to let us know if this happens so we can provide you with further skin care instructions.. ??? Continue to stay active, walk daily, eat healthy foods and drink several glasses of water each day. Fatigue You may notice that you feel unusually tired towards the end of treatment. This is not unusual. We recommend that you pace your activities and plan for rest periods to avoid becoming over-tired. Feel free to direct any questions or concerns you may have related to your treatment to your nurse or doctor. [facility] Radiation Oncology Our normal business hours are: Monday - Monday 8 AM to 5 PM [place], [place], [place] For emergent situations after hours please call for either location and ask for the Radiation Oncologist principal solutions architect. documented in this encounter Progress Notes Mable Jacome MD - 12/22/2015 5:46 PM EST Here for sim. 12/02/[address] Ricardo & Oncotype DX score pending. 12/02/[address] El; rtc 6 mos w/L mmg. Sim: Breast bd immobilization; flat bbs on L breast lumpectomy scar; CT through chest showed heart to approach chest wall & so she was then instructed in deep inspiration breath hold (DIBH) & 2nd CT done w/DIBH; 3D xrt planned. She tolerated sim well, w/o problem. Tx Plan: 3D xrt. Start xrt 12/30/15 or following wk. Aranza Lester RN - 12/22/2015 8:35 AM EST Radiation Oncology Simulation Note Tanika Harrison s here for radiation planning , undergoing a simulation to the left breast for breast cancer treatment . Usual radiation oncology routines and purpose of on treatment visits were explained. Yes Jeans cream provided and instructions for use reviewed Anticipatory Guidance: See AVS for instructions given during visit. This was printed and provided topatient. Barriers to Treatment/ Compliance issues identified: None. Patient confirms they can have no difficulties lying flat. Yes pre- medication plan made: None needed. Referrals: documented in this encounter Plan of Treatment Not on filedocumented as of this encounter Visit Diagnoses Diagnosis Malignant neoplasm of left female breast , unspecified site of breast documented in this encounter Care Teams Senior Safety Management Consultant Relationship Specialty Start Date End Date Hoa Perez MD PCP - General 04/23/13 02/02/16 [address] [place] [address] documented as of this encounter
--- OUTSIDE RECORDS SUMMARY | 2022-09-30 02:09 | XMS_ITS | Encounter Summary ---
:1960 Author Organization [facility] [place] [address] Care Team Providers Name Role Phone Kelsie Neal MD Primary Care Provider Encounter Details Date Type Department Care Team Description 02/24/2016 Hospital Encounter Hematology and Maligna nt neoplasm of Oncology at [facility] left female breast, [facility] [place] [address] Social History Tobacco Use Types Packs/Day Years Used Date Smoking Tobacco: Never Alcohol Use Standard Drinks/Week Comments Yes 5 (1 standard drink = 0.6 oz pure alcoho l) Sex Assigned at Date Recorded Not on file documented as of this encounter Medications at Time of Discharge Medication Sig Dispensed Refills Start Date End Date acetaminophen (TYLENOL) Take 1,000 mg by 0 [...] Priority Date/Time Associated Comments Diagnosis COMPREHENSIVE Routine 02/24/2016 2:58 PM Malignant neoplasm Re sults for this METABOLIC PANEL EDT of left female procedure are in (NON-FASTING) breast, unspecified the res ults site of breast section. documented in this encounter Results (ABNORMAL) Comprehensive metabolic panel (non-fasting) (02/24/2016 2:58 PM EDT) athologist Signature Glucose Lvl 102 65 - 199 [facility] mg/dL [facility] Comment: Diabetes: >=200 mg/dL plus symp toms BUN 16 8 - 18 mg/dL [facility] Creatinine 0.84 0.70 - 1.20 mg/dL [facility] Comment: Please note that the pediatric reference intervals supplied above were not validated at [facility]. Results from pediatri c patients should be interpreted in conjunction to the patient's age, height and muscle mass. Sodium 142 135 - 145 mmol/L [facility] Potassium 3.7 3.5 - 5.0 mmol/L [facility] Comment: Please note: ??Patients with WBC >100,00 0 may have falsely elevated Potassium levels. ??For accurate Potassium quantif ication in these patients send serum separator tube (gold top) for subsequent determinations. ??Contact the Clinical Chemistry Laboratory if there are any qu estions. Chloride 102 98 - 107 mmol/L [facility] CO2 26 22 - 31 mmol/L [facility] Anion Gap 14 5 - 15 mmol/L [facility] Calcium 9.2 8.5 - 10.5 mg/dL [facility] Total Protein 7.4 6.1 - 8.0 gm/dL [facility] Albumin 4.5 3.2 - 5.2 gm/dL [facility] AST 22 0 - 30 unit/L [facility] ALT 14 0 - 30 unit/L [facility] Alk Phos 121 (H) 40 - 104 unit/L [facility] Total Bilirubin 0.5 0.2 - 1.3 mg/dL [facility] Bili, Direct 0.1 0.0 - 0.3 mg/dL [facility] Estimated GFR >60 >=60 [facility] Comment: This estimated GFR [...] the following links into your internet browser. [email or web address] [email or web address] Specimen Anatomical Collection Method Collection Time Receive d Time (Source) Location / / Volume Laterality Blood specimen 02/24/2016 2:58 PM 016 3:07 (specimen) EDT PM EDT Resulting Agency Comment Spec In Lab Brooks Ricardo MD CHEMISTRY ORDERABLES Performing Organization Address City/State/[place] [address] documented in this encounter Visit Diagnoses Diagnosis Malignant neoplasm of left female breast , unspecified site of breast documented in this encounter Care Teams Extrusion Bender Relationship Specialty Start Date End Date Kelsie Neal MD PCP - General Family Medicine 02/03/16 09/12/[address] [place] [address] documented as of this encounter
--- OUTSIDE RECORDS SUMMARY | 2022-09-30 02:09 | XMS_ITS | Encounter Summary ---
:1960 Author Organization [facility] [place] [address] Care Team Providers Name Role Phone Hoa Perez MD Primary Care Provider Reason for Referral Diagnostic Test (Routine) - Closed Specialty Diagnoses / Procedures Referred By Contact Refer red To Contact Radiology Diagnoses Malignant neoplasm of overlapping sites of left female breast Ductal carcinoma in situ (DCIS) of left breast Brooks Ricardo MD [facility] Rad Nuclear Med Procedures NM whole body bone scan [facility] HEMATOLOGY/[place] [address] [place] [address] Referral ID Status Reason Start Date Expiration Date Visits V isits Requested Authorized [id number] Closed Specialty 02/01/2016 01/31/2017 1 1 Service Requested Reason for Visit Reason Comments Follow-up Encounter Details Date Type Department Care Team Description 01/25/2016 Office Visit Hematology and Brooks Ricardo Malignan t neoplasm of overlapping sites of left female breast; Oncology at [facility] Ductal carcinoma in situ (DCIS) of left breast Count includes the [facility] [address] [place] HEMATOLOGY/ONCOLOG [address] Y DEPT. [phone] [place] 0375 Social History Tobacco Use Types Packs/Day Years Used Date Smoking Tobacco: Never Alcohol Use Standard Drinks/Week Comments Yes 5 (1 standard drink = 0.6 oz pure alcoho l) Sex Assigned at Date Recorded Not on file documented as of this encounter Last Filed Vital Signs Vital Sign Reading Time Taken Comments Blood Pressure 134/80 01/25/2016 2:18 PM EDT Pulse 70 01/25/2016 2:18 PM EDT Temperature 36.5 ??C (97.7 ??F) 01/25/2016 2:18 PM EDT Respiratory Rate 18 01/25/2016 2:18 PM EDT Oxygen Saturation 98% 01/25/2016 2:18 PM EDT Inhaled Oxygen Concentration - - Weight 81 kg (178 lb 9.2 oz) 01/25/2016 2:18 PM EDT Height 162.4 cm (5' 3.94) 01/25/2016 2:18 PM EDT Body Mass Index 30.71 01/25/2016 2:18 PM EDT documented in this encounter Progress Notes Brooks Ricardo MD - 01/25/2016 5:09 PM EDT Subjective: Patient ID: Tanika Harrison is a 55 y.o. female, who returns in followup for [...] nodes, HER2 -, FISH ratio = 1.1.?? ER/GA+++ (greater than 90%, strong). B. Onco Dx = 11. C. S/P WLE/XRT, 02/12. ?? 2.?? History of hyperlipidemia. ?? 3.?? History of occasional palpitations. HPI Mrs. Harrison returns in followup. She is undergoing breast radiation in [facility]. She is doing overall well with this. She has some minor erythema of her ipsilateral treated breast that is not subjectively bothersome at present. Review of Systems Except as noted above, Tanika Harrisons full remaining review of systems, including constitutional, cardiac, pulmonary, GI, , neurologic, musculskeletal, and all remaining, is otherwise fully unremarkable. Current Outpatient Prescriptions on File Prior to Visit Medication Sig Dispense Refill ??? EMOLLIENT BASE (CREAM BASE TOP) Apply topically. Jeans Cream. Apply to area of radiation twice aday but no less than 2 hours before a treatment. ??? acetaminophen (TYLENOL) 500 mg Tablet Take 1,000 mg by mouth every 6 hours as needed for Pain. ??? famotidine (PEPCID) 20 mg Tablet Take 20 mg by mouth 2 times daily. ??? simvastatin (ZOCOR) 20 mg Tablet Take 20 mg by mouth nightly. No current facility-administered medications on file prior to visit. Objective: Physical Exam Vitals Office Visit from 01/25/2016 in [facility] Weight - Scale 81 kg (178 [...] RRR, S1, S2. No murmur, rub, or [id number]. Breast Exam: Mild erythema c/w ongoing XRT. Abdomen: Bowel sounds unremarkable, soft, nontender with no palpable HSM or other abnormalities. Extremities without significant cyanosis, clubbing,or edema. Neurologic Exam: Grossly nonfocal, cranial nerve's III - XII unremarkable, DTR's symmetricthroughout. Recent Results (from the past 24 hour(s)) Comprehensive metabolic panel (non-fasting) Result Value Ref Range Glucose Lvl 84 65 - 199 mg/dL BUN 16 8 - 18 mg/dL Creatinine 0.94 0.70 - 1.20 mg/dL Sodium 141 135 - 145 mmol/L Potassium 4.0 3.5 - 5.0 mmol/L Chloride 102 98 - 107 mmol/L CO2 26 22 - 31 mmol/L Anion Gap 13 5 - 15 mmol/L Calcium 9.3 8.5 - 10.5 mg/dL Total Protein 7.5 6.1 - 8.0 gm/dL Albumin 4.3 3.2 - 5.2 gm/dL AST 23 0 - 30 unit/L ALT 15 0 - 30 unit/L Alk Phos 120 (H) 40 - 104 unit/L Total Bilirubin 0.7 0.2 - 1.3 mg/dL Bili, Direct 0.1 0.0 - 0.3 mg/dL Estimated GFR >60 >=60 No results for input(s): WBC, NEUTROABS, HGB, HCT, PLATELET in the last 7068 hours. Recent Labs 01/25/16 1308 12/02/15 1549 AST 23 26 ALT 15 28 ALKPHOS 120* 155* BILITOT 0.7 0.4 Assessment and Plan: DEXA scan done today, T scores consistent with moderately severe osteopenia on my viewing. Final reading pending. A/P: Tanika returns in followup. Labs are as above and remarkable for elevated alk phos. Her alk phos was mildly elevated when I had initially seen her about a month ago. Given this, I have recommended proceeding with a bone scan for further evaluation. Her DEXA scan is as above. We will tentatively plan on proceeding with Rogelio given her Oncotype DX testing, which returned with a value of 11, pending the above workup at the completion of her radiation therapy. I reviewed the risks/benefits of Femara with her in some detail and we will review further proceeding with Richie in the next few months as well. As I noted above, additionally, her Oncotype did actually return with a value of 11, which I reviewed with her and her in some detail today. Further recommendations will be made subsequent to the above. documented in this encounter Plan of Treatment Not on filedocumented as of this encounter Results NM whole body bone scan (02/03/2016 1:22 PM EDT) Anatomical Region Laterality Modality Nuclear Medicine Specimen (Source) Anatomical Location Collection Method / Collectio n Time Received Time / Laterality Volume Impressions 02/03/2016 1:31 PM EDT IMPRESSION: No skeletal metastasis. Narrative 02/03/2016 1:31 PM EDT EXAMINATION: NM WHOLE BODY BONE SCAN CLINICAL HISTORY: Breast cancer TECHNIQUE: Three hours following the int ravenous administration of 24 mCi of technetium-99m MDP, images of the entire skeleton were obtained. Comparison: None FINDINGS: A mild to moderate degree of arthritic r eaction is seen in the major joints of the upper and lower extremities. Normal activity in all other regions of the axial and appendicular skeleton. Normal renally excreted activity in the kidneys and in the urinary bladder. Procedure Note Junior Iverson MD - 02/03/2016Formatti ng of this note might be different from the original. EXAMINATION: NM WHOLE BODY BONE SCAN CLINICAL HISTORY: Breast cancer TECHNIQUE: Three hours following the int ravenous administration of 24 mCi of technetium-99m MDP, images of the entire skeleton were obtained. Comparison: None FINDINGS: A mild to moderate degree of arthritic r eaction is seen in the major joints of the upper and lower extremities. Normal activity in all other regions of the axial and appendicular skeleton. Normal renally excreted activity in the kidneys and in the urinary bladder. IMPRESSION IMPRESSION: No skeletal metastasis. Brooks Ricardo MD [facility] ORDERABLES documented in this encounter Visit Diagnoses Diagnosis Malignant neoplasm of overlapping sites of left female breast Malignant neoplasm of other specified [place] of female breast Ductal carcinoma in situ (DCIS) of left breast Malignant neoplasm of overlapping sites of left female breast Malignant neoplasm of other specified [place] of female breast Ductal carcinoma in situ (DCIS) of left breast documented in this encounter Care Teams Linotypist Relationship Specialty Start Date End Date Hoa Peerz MD PCP - General 04/23/13 02/02/16 [address] [place] [address] documented as of this encounter
--- OUTSIDE RECORDS SUMMARY | 2022-09-30 02:09 | XMS_ITS | Encounter Summary ---
:1960 Author Organization [facility] [place] [address] Care Team Providers Name Role Phone Kelsie Neal MD Primary Care Provider Encounter Details Date Type Department Care Team Description 03/29/2016 Hospital Encounter Hematology and Maligna nt neoplasm of Oncology at [facility] left female breast, [facility] [place] [address] Social History Tobacco Use Types Packs/Day [...] Priority Date/Time Associated Comments Diagnosis COMPREHENSIVE Routine 03/29/2016 9:54 AM Malignant neoplasm Re sults for this METABOLIC PANEL EDT of left female procedure are in (NON-FASTING) breast, unspecified the res ults site of breast section. documented in this encounter Results (ABNORMAL) Comprehensive metabolic panel (non-fasting) (03/29/2016 9:54 AM EDT) athologist Signature Glucose Lvl 79 65 - 199 [facility] mg/dL [facility] Comment: Diabetes: >=200 mg/dL plus symp toms BUN 13 8 - 18 mg/dL [facility] Creatinine 0.88 0.70 - 1.20 mg/dL [facility] Comment: Please note that the pediatric reference intervals supplied above were not validated at [facility]. Results from pediatri c patients should be interpreted in conjunction to the patient's age, height and muscle mass. Sodium 144 135 - 145 mmol/L [facility] Potassium 4.1 3.5 - 5.0 mmol/L [facility] Comment: Please note: ??Patients with WBC >100,00 0 may have falsely elevated Potassium levels. ??For accurate Potassium quantif ication in these patients send serum separator tube (gold top) for subsequent determinations. ??Contact the Clinical Chemistry Laboratory if there are any qu estions. Chloride 103 98 - 107 mmol/L [facility] CO2 27 22 - 31 mmol/L [facility] Anion Gap 14 5 - 15 mmol/L [facility] Calcium 9.2 8.5 - 10.5 mg/dL [facility] Total Protein 7.1 6.1 - 8.0 gm/dL [facility] Albumin 4.3 3.2 - 5.2 gm/dL [facility] AST 23 0 - 30 unit/L [facility] ALT 17 0 - 30 unit/L [facility] Alk Phos 111 (H) 40 - 104 unit/L [facility] Total Bilirubin 0.6 0.2 - 1.3 mg/dL [facility] Bili, Direct 0.1 0.0 - 0.3 mg/dL [facility] Estimated GFR >60 >=60 [facility] [...] the following links into your internet browser. [email or web address] Specimen Anatomical Collection Method Collection Time Receive d Time (Source) Location / / Volume Laterality Blood specimen 03/29/2016 9:54 AM 016 (specimen) EDT 10:10 AM EDT Resulting Agency Comment Spec In Lab Brooks Ricardo MD CHEMISTRY ORDERABLES Performing Organization Address City/State/ZIP [place] [address] documented in this encounter Visit Diagnoses Diagnosis Malignant neoplasm of left female breast , unspecified site of breast documented in this encounter Care Teams Construction Project Coordinator Relationship Specialty Start Date End Date Kelsie Neal MD PCP - General Family Medicine 02/03/16 09/12/[address] [place] [address] documented as of this encounter
--- OUTSIDE RECORDS SUMMARY | 2022-09-30 02:09 | XMS_ITS | Encounter Summary ---
:1960 Author Organization [facility] Address [address] [place] [address] Care Team Providers Name Role Phone Hoa Perez MD Primary Care Provider Reason for Visit Reason Comments Radiation Treatment Encounter Details Date Type Department Care Team Description 01/19/2016 [facility] of [facility] left female breast, [address] unspecified site of [place], [place] RADIATION ONCOL OGY breast [address] [place] [address] [phone] Social History Tobacco Use Types Packs/Day Years Used Date Smoking Tobacco: Never Alcohol Use Standard Drinks/Week Comments Yes 5 (1 standard drink = 0.6 oz pure alcoho l) Sex Assigned at Date Recorded Not on file documented as of this encounter Last Filed Vital Signs Vital Sign Reading Time Taken Comments Blood Pressure 128/79 01/19/2016 10:00 AM EDT Pulse 78 01/19/2016 10:00 AM EDT Temperature 36.9 ??C (98.4 ??F) 01/19/2016 10:00 AM EDT Respiratory Rate 16 01/19/2016 10:00 AM EDT Oxygen Saturation 99% 01/19/2016 10:00 AM EDT Inhaled Oxygen - - Concentration Weight 83.2 kg (183 lb 6.4 01/19/2016 10:00 with boots room #2 oz) AM EDT Height - - Body Mass Index 30.85 12/02/2015 2:37 PM EST documented in this encounter Patient Instructions Patient InstructionsMable Jacome MD - 01/19/2016 11:00 AM EDT Your telehealth appt Th., 01/28/[address] Santso. His phone # is [phone]. documented in this encounter Progress Notes Mable Jacome MD - 01/19/2016 10:55 AM EDT DIAGNOSIS: Breast ca, L, IDC, intermed gr, ER+MN+, Flf4dsj-, s/p lumpectomy followed by SNB, pT1 pN0, stage I. CURRENT TREATMENT DOSE: 29.26 Gy L breast ANTICIPATED TOTAL DOSE: 42.56 Gy L breast, 52.56 Gy lumpectomy bed L breast Current # of xrt received: 11 Anticipated total # of xrt txs: 16 L breast, 20 lumpectomy bed L breast Evaluation of port verification films: Approved. For details, see electronic film record in [employer]. Changes in Medical Condition: HAs that she reported last wk have cleared & she is no longer taking tylenol. Mild itchiness of irrad'd skin, relieved by eitan's cream. Has questions about telehealth appt Th., 01/28/16. Pain?: No. Physical Exam: BP 128/79 mmHg Pulse 78 Temp(Src) 36.9 ??C (98.4 ??F) (Oral) Resp 16 Wt 83.19kg (183 lb 6.4 oz) SpO2 99% A&Ox3, in NAD. No neuro deficit. Mild erythema w/in irrad'd area; skin intact. Response to xrt: As expected. Irradiation Related Symptoms: Skin rxn. Treatment for Symptom Control: Eitan's cream. Pain Management: Not needed. Recommendation on Continuing Course of xrt: Cont. Her telehealth appt 01/28/16 is w/Dr. Santos's office, & she was given his office # to call w/her questions. documented in this encounter Plan of Treatment Not on filedocumented as of this encounter Visit Diagnoses Diagnosis Malignant neoplasm of left female breast , unspecified site of breast documented in this encounter Care Teams Diversity Intern Relationship Specialty Start Date End Date Hoa Perez MD PCP - General 04/23/13 02/02/16 [address] [place] [address] documented as of this encounter
--- OUTSIDE RECORDS SUMMARY | 2022-09-30 02:09 | XMS_ITS | Encounter Summary ---
:1960 Author Organization [facility] [place] [address] Care Team Providers Name Role Phone Kelsie Neal MD Primary Care Provider Encounter Details Date Type Department Care Team Description 02/05/2016 Orders Only General Surgery at [facility] Daniel El MD [facility] [place] [address] GENERAL SURGERY [phone] [place], [place] [address] (Wo rk) Social History Tobacco [...] on filedocumented in this encounter Care Teams Manufacturing Inspector Relationship Specialty Start Date End Date Kelsie Neal MD PCP - General Family Medicine 02/03/16 09/12/[address] [place] [address] documented as of this encounter
--- OUTSIDE RECORDS SUMMARY | 2022-09-30 02:09 | XMS_ITS | Encounter Summary ---
:1960 Author Organization [facility] [place] [address] Care Team Providers Name Role Phone Hoa Perez MD Primary Care Provider Encounter Details Date Type Department Care Team Description 12/22/2015 Notes Only Radiation Oncology at Pamela Beaver MSW [facility] OFFICE OF CARE [address] [place] [phone] Social History Tobacco Use Types Packs/Day Years Used Date Smoking Tobacco: Never Alcohol Use Standard Drinks/Week Comments Yes 5 (1 standard drink = 0.6 oz pure alcoho l) Sex Assigned at Date Recorded Not on file documented as of this encounter Progress Notes Pamela Apple MSW - 12/24/2015 11:36 AM EST Reason for Referral: Brief assessment of social and emotional needs. Met with pt after her sim on 12-22-15. Reviewed note from LUIS M Norman. Social Supports: Pt has been to her Jeremy of 38 years. They have 2 sons who live local. Pt reports she has a good support system of family, friends and coworkers. Living Situation/Daily Activities/Transportation: Pt manages her daily chores and activities. She does not expect any issues with transportation. 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 Her place of employment is being flexible re her work schedule. She did not indicate any concerns re her insurance or finances. Advance Directives: Pt has not completed her advance directives. Utilization of Community Resources: None at this time. Adjustment to Illness/Mental Health Issues: Pt indicated she is coping the best she can and feels well supported by her family and friends. Identified Needs: Pt did not identify any specific needs at this time. Referrals: None at this time. Plan: Informed pt of my availability and will follow for support and resources. documented in this encounter Plan of Treatment Not on filedocumented as of this encounter Visit Diagnoses Not on filedocumented in this encounter Care Teams Supervisor Cold Rolling Relationship Specialty Start Date End Date Hoa Perez MD PCP - General 04/23/13 02/02/16 [address] [place] [address] documented as of this encounter
--- OUTSIDE RECORDS SUMMARY | 2022-09-30 02:09 | XMS_ITS | Encounter Summary ---
:1960 Author Organization [facility] [place] [address] Care Team Providers Name Role Phone Hoa Perez MD Primary Care Provider Encounter Details Date Type Department Care Team Description 01/25/2016 Hospital Encounter XRay at [facility] RicardoBrooks Ductal carcinoma in [address] [facility] [address] Loreta MD situ (DCIS) of left [facility] breast [id number] CENTER [phone] HEMATOLOGY/ONCOL [place] [id number] Social History Tobacco Use Types Packs/Day Years [...] by mouth 0 Tablet 2 times daily. EMOLLIENT BASE (CREAM Apply topically. 0 04/13/2017 BASE TOP) Reported on 10/10/2016 simvastatin (ZOCOR) 20 mg Take 20 mg by mouth 0 09/13/2022 Tablet nightly. documented as of this encounter Plan of Treatment Not on filedocumented as of this encounter Procedures Procedure Name Priority Date/Time Associated Diagnosis Comme nts DXA CENTRAL SPINE, Routine 01/25/2016 2:05 PM Ductal carcinoma in Results for this HIP, AND/OR WHOLE EDT situ (DCIS) of left pro cedure are in BODY (GENERIC) breast the results section. documented in this encounter Results Dexa Central-Spine, Hip, And/Or Whole Body (01/25/2016 2:05 PM EDT) Anatomical Region Laterality Modality C-spine, Hip N/A Radiographic Imaging Specimen (Source) Anatomical Location Collection Method / Collectio n Time Received Time / Laterality Volume Impressions 01/26/2016 11:22 AM EDT IMPRESSION: The measurements fulfill the WHO classi fication for low bone mass or osteopenia. The fracture risk are increa sed. Estimating Fracture Risk: ? The relationship between bone mineral de nsity [...] independent, risk factors in addition to BMD. ? The World Health Organization (WHO) has developed [...] website which you are encouraged to review. ? DEXA data sheets with BMD measurements a nd plots are available in [facility] under the imaging tab. Paper copies will be sent to providers without [employer] access. If you have received this report without th e data sheet and do not have access to [employer], please contact Radiology Transcrip tion at [phone] Monday thru Monday 8am-4pm. Narrative 01/26/2016 11:22 AM EDT EXAMINATION: DEXA ??CENTRAL SPINE, HIP, AND/OR WHOLE BODY CLINICAL HISTORY: Hx breast cancer, eval uate bone density TECHNIQUE: Scans were acquired at the mbar spine, ?and left hip. COMPARISON: none FINDINGS: Lowest T-score at a diagnostic region of interest: T-score: -2.2, MINDI: Femoral neck, WHO di agnosis: low bone mass or osteopenia. Procedure Note Carol Mcclellan MD - 01/26/2016Formatt ing of this note might be different from the original. EXAMINATION: DEXA CENTRAL SPINE, HIP, AN D/OR WHOLE BODY CLINICAL HISTORY: Hx breast cancer, eval uate bone density TECHNIQUE: Scans were acquired at the mbar spine, and left hip. COMPARISON: none FINDINGS: Lowest T-score at a diagnostic region of interest: T-score: -2.2, MINDI: Femoral neck, WHO di agnosis: low bone mass or osteopenia. IMPRESSION IMPRESSION: The measurements fulfill the WHO classi fication for low bone mass or osteopenia. The fracture risk are increa sed. Estimating Fracture Risk: ? The relationship between bone mineral de nsity [...] independent, risk factors in addition to BMD. ? The World Health Organization (WHO) has developed [...] website which you are encouraged to review. ? DEXA data sheets with BMD measurements a nd plots are available in [facility] under the imaging tab. Paper copies will be sent to providers without [employer] access. If you have received this report without th e data sheet and do not have access to [facility], please contact Radiology Transcrip tion at [phone] Monday thru Monday 8am-4pm. Brooks Ricardo MD IMG DEXA ORDERABLES documented in this encounter Visit Diagnoses Diagnosis Ductal carcinoma in situ (DCIS) of left breast documented in this encounter Care Teams Plan Checker Relationship Specialty Start Date End Date Hoa Perez MD PCP - General 04/23/13 02/02/[address] [place] [id number] documented as of this encounter
--- OUTSIDE RECORDS SUMMARY | 2022-09-30 02:09 | XMS_ITS | Encounter Summary ---
:1960 Author Organization [facility] Address [address] [place] [address] Care Team Providers Name Role Phone Hoa Perez MD Primary Care Provider Encounter Details Date Type Department Care Team Description 01/25/2016 Orders Only Hematology and Britany Mishra neoplasm of Oncology at [facility] M, MOLDING PROCESS TECHNICIAN left female breast, [facility] uns pecified site of Drive [address] g[address] [place], [place] HEMATOLOGY/ONCOLOGY [address] DEPT. [phone] [place], [place] [address] (Wo rk) Social History Tobacco Use Types Packs/Day Years Used Date Smoking Tobacco: Never Alcohol Use Standard Drinks/Week Comments Yes 5 (1 standard drink = 0.6 oz pure alcoho l) Sex Assigned at Date Recorded Not on file documented as of this encounter Plan of Treatment Not on filedocumented as of this encounter Results (ABNORMAL) Comprehensive metabolic panel (non-fasting) (01/25/2016 1:08 PM EDT) athologist Signature Glucose Lvl 84 65 - 199 LUIS ALFREDO WU mg/dL [facility] Comment: Diabetes: >=200 mg/dL plus symp toms BUN 16 8 - 18 mg/dL [facility] Creatinine 0.94 0.70 - 1.20 mg/dL [facility] Comment: Please note that the pediatric reference intervals supplied above were not validated at [facility]. Results from pediatri c patients should be interpreted in conjunction to the patient's age, height and muscle mass. Sodium 141 135 - 145 mmol/L [facility] [...] estions. Chloride 102 98 - 107 mmol/L [facility] CO2 26 22 - 31 mmol/L [facility] Anion Gap 13 5 - 15 mmol/L [facility] Calcium 9.3 8.5 - 10.5 mg/dL [facility] Total Protein 7.5 6.1 - 8.0 gm/dL [facility] Albumin 4.3 3.2 - 5.2 gm/dL [facility] AST 23 0 - 30 unit/L [facility] ALT 15 0 - 30 unit/L [facility] Alk Phos 120 (H) 40 - 104 unit/L [facility] Total Bilirubin 0.7 0.2 - 1.3 mg/dL [facility] Bili, Direct 0.1 0.0 - 0.3 mg/dL [facility] Estimated GFR >60 >=60 [facility] Comment: This estimated GFR (eGFR) [...] the following links into your internet browser. http://Plynked/DHnkdep http://Plynked/DHMCnkf Specimen Anatomical Collection Method Collection Time Receive d Time (Source) Location / / Volume Laterality Blood specimen 01/25/2016 1:08 PM 016 1:19 (specimen) EDT PM EDT Resulting Agency Comment Spec In Lab Brooks Ricrado MD CHEMISTRY ORDERABLES Performing Organization Address City/State/[place] [address] documented in this encounter Visit Diagnoses Diagnosis Malignant neoplasm of left female breast , unspecified site of breast documented in this encounter Care Teams Washroom Attendant Relationship Specialty Start Date End Date Hoa Perez MD PCP - General 04/23/13 02/02/16 [address] [place] [address] documented as of this encounter
--- OUTSIDE RECORDS SUMMARY | 2022-09-30 02:09 | XMS_ITS | Encounter Summary ---
:1960 Author Organization [facility] [place] [address] Care Team Providers Name Role Phone Kelsie Neal MD Primary Care Provider Encounter Details Date Type Department Care Team Description 03/29/2016 Hospital Encounter Hematology and Maligna nt neoplasm of Oncology at [facility] left female breast, [facility] [place] [address] Social History Tobacco Use Types Packs/Day [...] encounter Progress Notes Lila Thomas RN - 03/29/2016 12:16 PM EDT Patient Name: Tanika Harrison Patient Age: 55 y.o. Birthdate: 1960 Admit date: 03/29/2016 Attending Physician: Minal att. providers found Access visit. See MAR and/or flowsheet.Prolia given without complications documented in this encounter Miscellaneous Notes Addendum Note - Meagan Palafox RPH - 03/29/2016 11:59 PM EDTEncounter addended by: Meagan Palafox RPH on: 03/22/2017 11:50 AM
Actions taken: i- Vent created or edited documented in this encounter Plan of Treatment Not on filedocumented as of this encounter Visit Diagnoses Diagnosis Malignant neoplasm of left female breast , unspecified site of breast documented in this encounter Administered Medications Inactive Administered Medications - up to 3 most recent administrations Medication Order MAR Action Action Date Dose Rate Site denosumab (PROLIA) 60 mg/mL Given 03/29/2016 12:12 PM EDT 60 mg Right Arm subcutaneous injection 60 mg 60 mg, Subcutaneous, ONCE, 1 dose, On Mon03/29/16 at 1200, Bring to room temperature 15-30 mins before administration. documented in this encounter Care Teams Spanish Lecturer Relationship Specialty Start Date End Date Kelsie Neal MD PCP - General Family Medicine 02/03/16 09/12/[address] [place] [address] [address] [place] [address] documented as of this encounter
--- OUTSIDE RECORDS SUMMARY | 2022-09-30 02:09 | XMS_ITS | Encounter Summary ---
:1960 Author Organization [facility] [place] [address] Care Team Providers Name Role Phone Kelsie Neal MD Primary Care Provider Encounter Details Date Type Department Care Team Description 02/15/2016 Orders Only General [facility] [place] [facility] of [facility] A, RN left female breast, [facility] [place] [id number] Social History Tobacco Use Types Packs/Day Years [...] breast documented in this encounter Care Teams Diesel Locomotive Firer/Fireman Relationship Specialty Start Date End Date Kelsie Neal MD PCP - General Family Medicine 02/03/16 09/12/[address] [place], [place] [id number] (work) documented as of this encounter
--- OUTSIDE RECORDS SUMMARY | 2022-09-30 02:09 | XMS_ITS | Encounter Summary ---
:1960 Author Organization [facility] Address [address] [place] [address] Care Team Providers Name Role Phone Kelsie Neal MD Primary Care Provider Reason for Visit Reason Comments Follow-up Encounter Details Date Type Department Care Team Description 03/29/2016 Office Visit Hematology and Britany Mishra neoplasm of Oncology at [facility] M, LENS ASSISTANT left female breast, [facility] uns pecified site of Drive [address] ogme[address] [place], [place] HEMATOLOGY/ONCOLOGY [address] DEPT. [phone] [place], [place] [address] (Wo rk) Social History Tobacco Use Types Packs/Day Years Used Date Smoking Tobacco: Never Alcohol Use Standard Drinks/Week Comments Yes 5 (1 standard drink = 0.6 oz pure alcoho l) Sex Assigned at Date Recorded Not on file documented as of this encounter Last Filed Vital Signs Vital Sign Reading Time Taken Comments Blood Pressure 126/75 03/29/2016 10:41 AM EDT Pulse 68 03/29/2016 10:41 AM EDT Temperature 37 ??C (98.6 ??F) 03/29/2016 10:41 AM EDT Respiratory Rate 15 03/29/2016 10:41 AM EDT Oxygen Saturation 98% 03/29/2016 10:41 AM EDT Inhaled Oxygen Concentration - - Weight 79.4 kg (175 lb) 03/29/2016 10:41 AM EDT Height 160 cm (5' 3) 03/29/2016 10:41 AM EDT Body Mass Index 31 03/29/2016 10:41 AM EDT documented in this encounter Progress Notes Britany Mishra, LENS ASSISTANT - 03/29/2016 10:00 AM EDT Subjective: Patient ID: Tanika Harrison is a 55 y.o. female, who returns in followup for treatment and management of her breast cancer, and other medical problems. Her past medical history, social history, and family history are unchanged. Problem List: 1.?? Infiltrating ductal carcinoma, left breast, 10/13. a.?? 9-mm cancer, intermediate grade, SBR = 6.?? Extensive associated DCIS present.?? LVI negative, 0/5 sentinel nodes, HER2 -, FISH ratio = 1.1.?? ER/MD+++ (greater than 90%, strong). b. Onco Dx = 11. c. S/P WLE/XRT, 02/12. d. Letrozole, 02/24/16 ?? 2.?? History of hyperlipidemia. ?? 3.?? History of occasional palpitations. Interval History: Mrs. Harrison is seen today for follow up. She recently started letrozole and denies any issues. She has unchanged hot flashes 'a couple times a day' which are not bothersome. She denies any arthralgias/myalgias. She was recently seen by Drs. Jacome and Sienna and continues to clean the area around her left nipple with a qtip daily or as needed. She denies symptoms of infection. Review of Systems She denies headaches, dizziness, or changes in balance. Denies SOB, recent colds/infections, or chest pain. Denies nausea, vomiting, diarrhea, constipation or abdominal pain. Denies any new or worsening skeletal pain. Tanika Harrisons full remaining review of systems, including constitutional, cardiac, pulmonary, GI, , neurologic, musculskeletal, and all remaining, is otherwise fully unremarkable. Current Outpatient Prescriptions on File Prior to Visit Medication Sig Dispense Refill ??? multivitamin (THERAGRAN) Tablet Take 1 tablet by mouth daily. ??? calcium-vitamin D3 600 mg(1,500mg) -200 unit Tablet Take by mouth. ??? letrozole (FEMARA) 2.5 mg Tablet Take 1 tablet by mouth daily. 90 tablet 4 ??? EMOLLIENT BASE (CREAM BASE TOP) Apply [...] file prior to visit. Objective: Physical Exam Vitals: 03/29/16 1041 BP: 126/75 Pulse: 68 Resp: 15 Temp: 37 ??C (98.6 ??F) Objective: Tanika Harrison is well appearing and in no acute distress. HENT: PERRL. EOMi. Oropharynx clear and moist. Musculoskeletal: Within normal limits. Chest: Effort normal. Clear to ausculation. Cor: RRR, S1, S2. No murmur, rub, or S3 present. Abdomen: Bowel sounds present. Soft. Nontender. No palpable HSM or other abnormalities. Extremities: Without significant cyanosis, clubbing, or edema. Neurologic: Grossly nonfocal Recent Results (from the past 24 hour(s)) Comprehensive metabolic panel (non-fasting) Result Value Ref Range Glucose Lvl 79 65 - 199 mg/dL BUN 13 8 - 18 mg/dL Creatinine 0.88 0.70 - 1.20 mg/dL Sodium 144 135 - 145 mmol/L Potassium 4.1 3.5 - 5.0 mmol/L Chloride 103 98 - 107 mmol/L CO2 27 22 - 31 mmol/L Anion Gap 14 5 - 15 mmol/L Calcium 9.2 8.5 - 10.5 mg/dL Total Protein 7.1 6.1 - 8.0 gm/dL Albumin 4.3 3.2 - 5.2 gm/dL AST 23 0 - 30 unit/L ALT 17 0 - 30 unit/L Alk Phos 111 (H) 40 - 104 unit/L Total Bilirubin 0.6 0.2 - 1.3 mg/dL Bili, Direct 0.1 0.0 - 0.3 mg/dL Estimated GFR >60 >=60 Assessment and Plan: Mrs. Harrison is a 55 year old female with an infiltrating ductal carcinoma of the left breast currently on adjuvant letrozole. She has been tolerating the letrozole well and has had no noticeable side effects. We discussed the schedule and the most common side effects of prolia. Her labs today are stable and her alk phos has slightly improved over the last month. Mrs. Harrison will continue on letrozole and receive prolia today. She will return to clinic in 3 months for follow up. She knows she may contact the clinic with any questions, concerns or issues. Britany Mishra APRN Hematology/Oncology documented in this encounter Plan of Treatment Not on filedocumented as of this encounter Results Comprehensive metabolic panel (non-fasting) (07/06/2016 10:22 AM EDT) athologist Signature Glucose Lvl 87 65 - 199 [facility] mg/dL [facility] Comment: Diabetes: >=200 mg/dL plus symp toms BUN 17 8 - 18 mg/dL [facility] Creatinine 0.80 0.70 - 1.20 mg/dL [facility] Comment: Please note that the pediatric reference intervals supplied above were not validated at [facility]. Results from pediatri c patients should be interpreted in conjunction to the patient's age, height and muscle mass. Sodium 140 135 - 145 mmol/L [facility] Potassium 4.2 3.5 - 5.0 mmol/L [facility] Comment: Please note: ??Patients with WBC >100,00 0 may have falsely elevated Potassium levels. ??For accurate Potassium quantif ication in these patients send serum separator tube (gold top) for subsequent determinations. ??Contact the Clinical Chemistry Laboratory if there are any qu estions. Chloride 101 98 - 107 mmol/L [facility] CO2 26 22 - 31 mmol/L [facility] Anion Gap 13 5 - 15 mmol/L [facility] Calcium 8.8 8.5 - 10.5 mg/dL [facility] Total Protein 7.0 6.1 - 8.0 gm/dL [facility] Albumin 4.3 3.2 - 5.2 gm/dL [facility] AST 19 0 - 30 unit/L [facility] ALT 14 0 - 30 unit/L [facility] Alk Phos 80 40 - 104 unit/L [facility] Total Bilirubin 0.4 0.2 - 1.3 mg/dL [facility] Bili, Direct 0.1 0.0 - 0.3 mg/dL [facility] Estimated GFR >60 >=60 [facility] Comment: This estimated GFR [...] the following links into your internet browser. http://Energeno/DHnkdep [email or web address]/DHMCnkf Specimen Anatomical Collection Method Collection Time Receive d Time (Source) Location / / Volume Laterality Blood specimen 07/06/2016 10:22 6 (specimen) AM EDT 10:40 AM EDT Resulting Agency Comment Spec In Lab Brooks Ricardo MD CHEMISTRY ORDERABLES Performing Organization Address City/State/[place] [address] documented in this encounter Visit Diagnoses Diagnosis Malignant neoplasm of left female breast , unspecified site of breast documented in this encounter Care Teams Patient Monitor Relationship Specialty Start Date End Date Kelsie Neal MD PCP - General Family Medicine 02/03/16 09/12/[address] [place] [address] documented as of this encounter
--- OUTSIDE RECORDS SUMMARY | 2022-09-30 02:09 | XMS_ITS | Encounter Summary ---
:1960 Author Organization [facility] [place] [address] Care Team Providers Name Role Phone Kelsie Neal MD Primary Care Provider Reason for Visit Diagnostic Test (Routine) - Closed Specialty Diagnoses / Procedures Referred By Contact Refer red To Contact Radiology Diagnoses Malignant neoplasm of overlapping sites of left female breast Ductal carcinoma in situ (DCIS) of left breast Brooks Ricardo MD [facility] Rad Nuclear Med Procedures NM whole body bone scan [facility] HEMATOLOGY/[place] [address] [place] [address] Referral ID Status Reason Start Date Expiration Date Visits V isits Requested Authorized [id number] Closed Specialty 02/01/2016 01/31/2017 1 1 Service Requested Encounter Details Date Type Department Care Team Description 02/03/2016 Hospital Encounter Nuclear Medicine at Brooks Ricardo MD [facility] [address] HEMATOLOGY/[place] [address] DEPT. [phone] [place], [place] [address] (Wo rk) Social History Tobacco [...] Name Priority Date/Time Associated Diagnosis Comme nts NM BONE SCAN WHOLE Routine 02/03/2016 1:22 PM Malignant neopla sm Results for this BODY EDT of overlapping sites procedu re are in of left female the results breast section. Ductal carcinoma in situ (DCIS) of left breast documented in this encounter Results NM whole body bone [...] Procedure Note Junior Iverson MD - 02/03/2016Formatti robert of this note might be different from [...] IMPRESSION: No skeletal metastasis. Brooks Ricardo MD IMG NM ORDERABLES documented in this encounter Visit Diagnoses Not on filedocumented in this encounter Care Teams Fish Hatchery Specialist Relationship Specialty Start Date End Date Kelsie Neal MD PCP - General Family Medicine 02/03/16 09/12/22 [facility] [address] [place] [address] documented as of this encounter
--- OUTSIDE RECORDS SUMMARY | 2022-09-30 02:09 | XMS_ITS | Encounter Summary ---
:1960 [place] [address] Care Team Providers Name Role Phone Klesie Neal MD Primary Care Provider Reason for Visit Auth/Cert Specialty Diagnoses / Procedures Referred By Contact Refer red To Contact Diagnoses Chest pain NSTEMI Procedures IPI Referral ID Status Reason Start Date Expiration Date Visits Requ ested Visits Authorized [id number] 1 1 Encounter Details Date Type Department Care Team Description 07/15/2016 Hospital Encounter Non-Invasive [place] [address] Social History Tobacco Use Types Packs/Day [...] Procedure Name Priority Date/Time Associated Comments Diagnosis STRESS ECHOCARDIOGRAM W Routine 07/15/2016 1:50 Chest pain, R esults for this CONTRAST PM EDT unspecified type procedure a re in the results section. documented in this encounter Visit Diagnoses Not on filedocumented in this encounter Administered Medications Inactive Administered Medications - up to 3 most recent administrations Medication Order MAR Action Action Date Dose Rate Site perflutren lipid microspheres Given 07/15/2016 1:51 PM EDT 1.5 m Ls (DEFINITY) injection 1.5 mL 1.5 mL, Intravenous, ONCE PRN, 1 dose, Starting on Mon07/15/16 at 1351, Until Mon07/15/16 at 1351, Other, Routine documented in this encounter Care Teams On Call Pharmacy Technician Relationship Specialty Start Date End Date Kelsie Neal MD PCP - General Family Medicine 02/03/16 09/12/[address] [place] [address] documented as of this encounter
--- OUTSIDE RECORDS SUMMARY | 2022-09-30 02:09 | XMS_ITS | Encounter Summary ---
:1960 Author Organization [facility] [place] [address] Care Team Providers Name Role Phone Hoa Perez MD Primary Care Provider Encounter Details Date Type Department Care Team Description 01/13/2016 External Results Medical Records Provider, [place] [address] Social History Tobacco Use Types Packs/Day Years Used Date Smoking Tobacco: Never Alcohol Use Standard Drinks/Week Comments Yes 5 (1 standard drink = 0.6 oz pure alcoho l) Sex Assigned at Date Recorded Not on file documented as of this encounter Plan of Treatment Not on filedocumented as of this encounter Procedures Procedure Name Priority Date/Time Associated Diagnosis Comme nts SURGICAL PATHOLOGY SCAN Routine 01/13/2016 SURGICAL PATHOLOGY SCAN Routine 01/13/2016 documented in this encounter Results Scan Doc: Surgical Pathology (01/13/2016) Narrative This result has an attachment that is no t available. Brooks Ricardo MD MEDIA MGR SCAN EXT ORDR/RSLT Scan Doc: Surgical Pathology (01/13/2016) Brooks Ricardo MD MEDIA MGR SCAN EXT ORDR/RSLT documented in this encounter Visit Diagnoses Not on filedocumented in this encounter Care Teams School Director Relationship Specialty Start Date End Date Hoa Perez MD PCP - General 04/23/13 02/02/16 [address] [place] [address] documented as of this encounter
--- OUTSIDE RECORDS SUMMARY | 2022-09-30 02:09 | XMS_ITS | Encounter Summary ---
:1960 Author Organization 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 [phone] [place], [place] [address] Social History Tobacco Use Types Packs/Day Years Used Date Smoking Tobacco: Never Alcohol Use Standard Drinks/Week Comments Yes 5 (1 standard drink = 0.6 oz pure alcoho l) Sex Assigned at Date Recorded Not on file documented as of this encounter Last Filed Vital Signs Vital Sign Reading Time Taken Comments Blood Pressure 127/77 07/06/2016 11:05 AM EDT Pulse 75 07/06/2016 11:05 AM EDT Temperature 36.8 ??C (98.2 ??F) 07/06/2016 11:05 AM EDT Respiratory Rate 18 07/06/2016 11:05 AM EDT Oxygen Saturation 100% 07/06/2016 11:05 AM EDT Inhaled Oxygen Concentration - - Weight 80.1 kg (176 lb 9.6 oz) 07/06/2016 11:05 AM EDT Height - - Body Mass Index 31.28 03/29/2016 10:41 AM EDT documented in this encounter Progress Notes Brooks Ricardo MD - 07/06/2016 11:30 AM EDT Subjective: Patient ID: Tanika Harrison [...] nodes, HER2 -, FISH ratio = 1.1.?? ER/MO+++ (greater than 90%, strong). B. Onco Dx = 11. C. S/P WLE/XRT, 02/12. D. Adjuvant letrozole, 02/12. ?? 2.?? History of hyperlipidemia. ?? 3.?? History of occasional palpitations. 4. Osteopenia/borderline osteoporosis. A. Prolia, 03/14. [place] Sagastume returns in followup. She has overall been doing relatively well. She is doing fine with her letrozole with no difficulties. She as well did fine with initiation of therapy with Prolia. She does continue to have some mild discomfort, which has been present since completion of her surgery and radiation of her ipsilateral breast and a sense of induration, which is stable. She has had no signs or symptoms suggestive of recurrent disease. Review of Systems Except as noted above, [...] by mouth daily. 90 tablet 4 ??? famotidine (PEPCID) 20 mg Tablet Take 20 mg by mouth 2 times daily. ??? simvastatin (ZOCOR) 20 mg Tablet Take 20 mg by mouth nightly. ??? EMOLLIENT BASE (CREAM BASE TOP) Apply topically. Jeans Cream. Apply to area of radiation twice aday but no less than 2 hours before a treatment. ??? acetaminophen (TYLENOL) 500 mg Tablet Take 1,000 mg by mouth every 6 hours as needed for Pain. No current facility-administered medications on file prior to visit. Objective: Physical Exam Vitals Office Visit from 01/25/2016 in [facility] Onc Weight - Scale 81 kg (178 [...] RRR, S1, S2. No murmur, rub, or [id number]. Breast Exam: Moderate post XRT changes, left breast, consistent with prior WLE/XRT. Abdomen: Bowel sounds unremarkable, soft, nontender with no palpable HSM or other abnormalities. Extremitieswithout significant cyanosis, clubbing, or edema. Neurologic Exam: Grossly nonfocal, cranial nerve'sIII - XII unremarkable, DTR's symmetric throughout. Recent Results (from the past 24 hour(s)) Comprehensive metabolic panel (non-fasting) Result Value Ref Range Glucose Lvl 87 65 - 199 mg/dL BUN 17 8 - 18 mg/dL Creatinine 0.80 0.70 - 1.20 mg/dL Sodium 140 135 - 145 mmol/L Potassium 4.2 3.5 - 5.0 mmol/L Chloride 101 98 - 107 mmol/L CO2 26 22 - 31 mmol/L Anion Gap 13 5 - 15 mmol/L Calcium 8.8 8.5 - 10.5 mg/dL Total Protein 7.0 6.1 - 8.0 gm/dL Albumin 4.3 3.2 - 5.2 gm/dL AST 19 0 - 30 unit/L ALT 14 0 - 30 unit/L Alk Phos 80 40 - 104 unit/L Total Bilirubin 0.4 0.2 - 1.3 mg/dL Bili, Direct 0.1 0.0 - 0.3 mg/dL Estimated GFR >60 >=60 No results for input(s): WBC, NEUTROABS, HGB, HCT, PLATELET in the last 7068 hours. Recent Labs 07/06/16 1022 03/29/16 0954 02/24/16 1458 01/25/16 1308 12/02/15 1549 AST 19 23 22 23 26 ALT 14 17 14 15 28 ALKPHOS 80 111* 121* 120* 155* BILITOT 0.4 0.6 0.5 0.7 0.4 Assessment and Plan: Mammogram annual screening, unremarkable, no evidence of significant pathology. I have reviewed films and agree. A/P: Tanika returns in followup. Follow up screening mammography as listed above. Labs are as above. Her alkaline phosphatase has normalized. She is doing well. I reassured her about the firmness of her left, or treated, breast, which she wanted to bring to my attention. Her exam and symptoms are very consistent merely with post treatment changes from her prior surgery and radiation. She is doing well with no signs or symptoms suggestive of recurrent disease. Followup will be scheduled to continue with ongoing therapy with Prolia. documented in this encounter Plan of Treatment Not on filedocumented as of this encounter Results (ABNORMAL) Comprehensive metabolic panel (non-fasting) (09/26/2016 1:45 PM EST) athologist Signature Glucose Lvl 81 65 - 199 [facility] mg/dL [facility] Comment: Diabetes: >=200 mg/dL plus symp toms BUN 16 8 - 18 mg/dL [facility] Creatinine 0.72 0.70 - 1.20 mg/dL [facility] Comment: Please note that the pediatric reference intervals supplied above were not validated at [facility]. Results from pediatri c patients should be interpreted in conjunction to the patient's age, height and muscle mass. Sodium 141 135 - 145 mmol/L [facility] Potassium 4.0 3.5 - 5.0 mmol/L [facility] Comment: Please note: ??Patients with WBC >100,00 0 may have falsely elevated Potassium levels. ??For accurate Potassium quantif ication in these patients send serum separator tube (gold top) for subsequent determinations. ??Contact the Clinical Chemistry Laboratory if there are any qu estions. Chloride 100 98 - 107 mmol/L [facility] CO2 25 22 - 31 mmol/L [facility] Anion Gap 16 (H) 5 - 15 mmol/L [facility] Calcium 9.2 8.5 - 10.5 mg/dL [facility] Total Protein 7.3 6.1 - 8.0 gm/dL [facility] Albumin 4.6 3.2 - 5.2 gm/dL [facility] AST 19 0 - 30 unit/L [facility] ALT 10 0 - 30 unit/L [facility] Alk Phos 89 40 - 104 unit/L [facility] Total Bilirubin 0.5 0.2 - 1.3 mg/dL [facility] Bili, Direct 0.1 0.0 - 0.3 mg/dL [facility] Estimated GFR >60 >=[address] [facility] Comment: This estimated GFR (eGFR) [...] the following links into your internet browser. [email or web address] [email or web address] Specimen Anatomical Collection Method Collection Time Receive d Time (Source) Location / / Volume Laterality Blood specimen 09/26/2016 1:45 PM 016 1:58 (specimen) EST PM EST Resulting Agency Comment Spec In Lab Brooks Ricardo MD CHEMISTRY ORDERABLES Performing Organization Address City/State/[place] [address] documented in this encounter Visit Diagnoses Diagnosis Malignant neoplasm of left female breast , unspecified site of breast Osteopenia Disorder of bone and cartilage, unspecif ied Ductal carcinoma in situ (DCIS) of left breast documented in this encounter Care Teams Hot Plate Press Operator Relationship Specialty Start Date End Date Kelsie Neal MD PCP - General Family Medicine 02/03/16 09/12/[address] [place] [address] documented as of this encounter
--- OUTSIDE RECORDS SUMMARY | 2022-09-30 02:09 | XMS_ITS | Encounter Summary ---
:1960 Author Organization [facility] Address [address] [place] [address] Care Team Providers Name Role Phone Hoa Perez MD Primary Care Provider Reason for Visit Reason Comments Radiation Consult Encounter Details Date Type Department Care Team Description 11/23/2015 [facility] [place] [address] Malignant neoplasm of [facility] Rad Nurse, [facility] left female breast, [address] unspecified site [place] breast [id number] Social History Tobacco Use Types Packs/Day Years Used Date Smoking Tobacco: Never Alcohol Use Standard Drinks/Week Comments Yes 5 (1 standard drink = 0.6 oz pure alcoho l) Sex Assigned at Date Recorded Not on file documented as of this encounter Last Filed Vital Signs Vital Sign Reading Time Taken Comments Blood Pressure 132/82 11/23/2015 9:00 AM EST Pulse 76 11/23/2015 9:00 AM EST Temperature 36.9 ??C (98.4 ??F) 11/23/2015 9:00 AM EST Respiratory Rate 16 11/23/2015 9:00 AM EST Oxygen Saturation 98% 11/23/2015 9:00 AM EST Inhaled Oxygen Concentration - - Weight 81.4 kg (179 lb 6.4 oz) 11/23/2015 9:00 AM EST Height - - Body Mass Index 31.78 11/16/2015 2:13 PM EST documented in this encounter Progress Notes Mable Jacome MD - 11/23/2015 9:19 AM EST Images from the original note were not included. CC: Referred by Dr. El for eval for xrt for breast ca. HPI: 55 y/o f who presented w/L breast abnlty on screening mmgs. 09/16/15 screening B mmgs: Calcs in medial central L breast & asymmetric density in superior L breast. R breast neg. 09/18/15 dx'ic L mmg: Lesion #1 L breast calcs @ 3:00. Lesion #2 L breast calcs @ 12:00. 09/28/15 stereotactic guided needle bxs L breast lesion #1 @ 3:00 & lesion #2 @ 12:00. Path: A - L breast lesion #1: DCIS B - L breast lesion #2: Benign 10/07/15 MRI B breasts: L breast lesion #1: KNOWN MALIGNANCY, 2 cm mass @ 3:00. L breast lesion #2: Bx cavity @ 12:00, represents benign adenosis. L breast lesion #3: 0.8 cm irregular mass in central breast, 0.7 cm posterior & medial to lesion #1. R breast neg. 10/14/[address] El, w/exam showing no palpable breast mass/adenopathy. 11/03/15 L breast lumpectomy incorporating extension that went down close to chest wall on slightly inferior medial side of center of tumor, w/removal of pec major fascia. Specimen mmg showed calcs correlating w/lesion #1. Path: IDC; intermed gr; 0.89 cm; +DCIS (extensive); no ALI; RM neg; ER+WA+, [place]-. 11/16/15 L axillary SNB. Path: 5 lymph nodes, neg for malig. Appts w/Jose El & Haleigh 12/02/15. Pain of level 3 @ surg site, adequately controlled by 4 - 6 tylenol/d; decreasing as gets further out from surgery. No hand/arm swelling. Decreased ROM of L arm around shoulder due to tightness; says Dr. El rec'd exercises like snow angels for this, but she has not yet started them. Appetite ok. Energy level decreased, but increasing as gets further out from surgery. Accompanied by . Past Medical History Diagnosis Date ??? Hiatal hernia ??? Hypercholesteremia Past Surgical History Procedure Laterality Date ??? Breast biopsy Right 08/11 ??? Pro mastectomy, partial Right 11/03/2015 MASTECTOMY PARTIAL performed by Daniel El MD at [facility] OR ??? Pro bx/remv, lymph node, deep axill Left 11/16/2015 BIOPSY OR EXCISION OF LYMPH NODE(S), OPEN, DEEP AXILLARY NODE(S) performed by Daniel El MD at [facility] OR ??? Left 11/16/2015 MODIFIER SENTINEL NODE EXCISION performed by Daniel El MD at [facility] OR D&C Physical Exam Constitutional: She is oriented to person, place, and time. She appears well- developed and well-nourished. No distress. BP 132/82 mmHg Pulse 76 Temp(Src) 36.9 ??C (98.4 ??F) (Oral) Resp 16 Wt 81.375 kg (179 lb 6.4 oz) SpO2 98% HENT: Head: Normocephalic and atraumatic. Eyes: Conjunctivae and EOM are normal. Right eye exhibits no discharge. Left eye exhibits no discharge. No scleral icterus. Neck: Normal range of motion. Neck supple. No tracheal deviation present. No thyromegaly present. Pulmonary/Chest: Effort normal and breath sounds normal. No stridor. No respiratory distress. She has no wheezes. She has no rales. She exhibits no tenderness. Right breast exhibits no inverted nipple,no mass, no nipple discharge, no skin change and no tenderness. Left breast exhibits skin change (Green ecchymosis @ 8 o'clock in L breast.). Left breast exhibits no inverted nipple, no mass, no nippledischarge and no tenderness. Abdominal: Soft. She exhibits no distension and no mass. There is no tenderness. There is no reboundand no guarding. Musculoskeletal: She exhibits no edema or tenderness. Decreased ROM L arm on elevation/abduction/external rotation @ shoulder, due to tightness in L axilla. Lymphadenopathy: Head (right side): No submental, no submandibular, no preauricular, no posterior auricular and no occipital adenopathy present. Head (left side): No submental, no submandibular, no preauricular, no posterior auricular and no occipital adenopathy present. She has no cervical adenopathy. She has no axillary adenopathy. Right: No supraclavicular adenopathy present. Left: No supraclavicular adenopathy present. Neurological: She is alert and oriented to person, place, and time. No cranial nerve deficit. She exhibits normal muscle tone. Coordination normal. Skin: She is not diaphoretic. Psychiatric: She has a normal mood and affect. Her behavior is normal. Judgment and thought content normal. A: Breast ca, L, IDC, intermed gr, ER+WA+, [id number]-, s/p lumpectomy followed by SNB, pT1 pN0, stage I. P: A course of xrt to L breast rec'd to increase likelihood of ca cure. Xrt would be comprised of 20 fxs provided chemo not to be given & dose homogeneity constraints met on CT based xrt plan. Otherwise, xrt would be given in 33 fxs. Possible side effects of xrt to breast discussed, w/acute/immediate side effects including: Pinkening, soreness & peeling of skin in treated area; swelling of treated breast; soreness of treated breast; cough; shortness of breath; tiredness. 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 Need for CTsim prior to xrt discussed. At CTsim, she will be eval'd for use of deep inspiration breath hold (DIBH). She would like to proceed w/CTsim, which has been scheduled to be done 12/22/15, which may give enough time for Dr. Ricardo to complete his evaluation, including Oncotype DX testing, should he recommendsuch. 25 mins of 40 min face to face visit w/Tanika spent discussing rationale for xrt; hoped for benefit of xrt; possible side effects/complications of xrt; prevention/management of side effects/complications of xrt; logistics of daily xrt; timing of xrt vis a vis chemo; CTsimulation w/eval for DIBH; armposition required for xrt; followup after completion of xrt. Aranza Lester RN - 11/23/2015 8:35 AM EST RADIATION ONCOLOGY NURSING INITIAL NURSING ASSESSMENT IDENTIFICATION: Tanika Harrison is a 55 y.o. year-old female with left breast cancer. PRESENTING SYMPTOMS/CHIEF COMPLAINT: presented with abnormal screening mammogram which prompted further work up and diagnosis. REVIEW OF SYSTEMS:Review of Systems Constitutional: Positive for fatigue. Negative for unexpected weight change. Eyes: Positive for visual disturbance (wears bifocals). Respiratory: Negative for chest tightness and shortness of breath. Cardiovascular: Negative for chest pain. Leg swelling: long history of intermittent bilateral leg swelling without worsening symptoms. Gastrointestinal: Positive for constipation (eats raisins, bananas. she states does not drink enoughfluids). Negative for nausea and vomiting. Genitourinary: Negative for dysuria, hematuria, flank pain, difficulty urinating and pelvic pain. Allergic/Immunologic: Negative for environmental allergies and food allergies. Neurological: Positive for light-headedness (since surgery). Negative for facial asymmetry and weakness. Numbness: under left arms mild since surgery. Prior Radiotherapy: No [x] Prior Chemotherapy: No [x] Prior Hormone Therapy: No [x] RADIOLOGY SAFETY QUESTIONS REVIEWED: Not reviewed today. MRICTSAFETYQUESTIONS LEARNING ASSESSMENT REVIEWED: yes ADVANCED DIRECTIVE: Does not have advanced directives. PAIN ASSESSMENT: [0] out of 10 SOCIAL ASSESSMENT: See [facility] [address] social assessment information entered. Support Systems: Here today with spouse, Jeremy Barriers to treatment: none identified Referrals/Interventions: RADIATION SPECIFIC TEACHING: [facility]. Given today by Dr. Jacome Site specific teaching :Nursing to do site specific teaching on day of simulation. Other:Per Dr. Jacome instructed patient to contact her PCP regarding complaint of heart flutter. She states agreement with this plan and that she will do so. PLAN: Per Dr. Jacome documented in this encounter Plan of Treatment Not on filedocumented as of this encounter Visit Diagnoses Diagnosis Malignant neoplasm of left female breast , unspecified site of breast documented in this encounter Care Teams As[employer]er [employer] Relationship Specialty Start Date End Date Hoa Perez MD PCP - General 04/23/13 02/02/16 [address] [place] [address] documented as of this encounter
--- OUTSIDE RECORDS SUMMARY | 2022-09-30 02:09 | XMS_ITS | Encounter Summary ---
:1960 Author Organization [facility] Address [facility] [place] [address] Care Team Providers Name Role Phone Kelsie Neal MD Primary Care Provider Reason for Visit Reason Comments Follow-up Encounter Details Date Type Department Care Team Description 09/26/2016 Office Visit Hematology and Brooks Ricardo, Ductal c arcinoma in situ (DCIS) of left breast; [place] at [facility] Malignant neoplasm of left female breast , unspecified site of breast; [facility] Ost eopenia; Marsha halfway current use of aromatase inhib itor [place], [place] HEMATOLOGY/ONCOLOG [address] Y DEPT. [phone] [place], [place] [address] Social History Tobacco Use Types Packs/Day Years Used Date Smoking Tobacco: Never Alcohol Use Standard Drinks/Week Comments Yes 5 (1 standard drink = 0.6 oz pure alcoho l) Sex Assigned at Date Recorded Not on file documented as of this encounter Last Filed Vital Signs Vital Sign Reading Time Taken Comments Blood Pressure 154/72 09/26/2016 3:05 PM EST Pulse 87 09/26/2016 3:05 PM EST Temperature 36.9 ??C (98.4 ??F) 09/26/2016 3:05 PM EST Respiratory Rate 17 09/26/2016 3:05 PM EST Oxygen Saturation 97% 09/26/2016 3:05 PM EST Inhaled Oxygen Concentration - - Weight 82.1 kg (181 lb) 09/26/2016 3:05 PM EST Height 164 cm (5' 4.57) 09/26/2016 3:05 PM EST Body Mass Index 30.52 09/26/2016 3:05 PM EST documented in this encounter Progress Notes Brooks Ricardo MD - 09/26/2016 3:00 PM EST Subjective: Patient ID: Tanika Harrison is [...] nodes, HER2 -, FISH ratio = 1.1.?? ER/MN+++ (greater than 90%, strong). B. Onco Dx = 11. C. S/P WLE/XRT, 02/12. D. Adjuvant letrozole, 02/12. ?? 2.?? History of hyperlipidemia. ?? 3.?? History of occasional palpitations. 4. Osteopenia/borderline osteoporosis. A. Prolia, 03/14. [place] Sagastume returns in followup, continuing adjuvant Femara with no difficulties associated with this. She does continue to have some mild intermittent discomfort at the lateral aspect of her treated breast, which is overall quite stable and not particularly bothersome, but she is aware of it. She has had no signs or symptoms suggestive of recurrence. She is tolerating her Prolia fine as well with no difficulty. Review of Systems Except as noted above, [...] Exam Vitals Office Visit from 01/25/2016 in [facility] Hem Onc Weight - Scale 81 kg [...] RRR, S1, S2. No murmur, rub, or O4wolrxif. Breast Exam: Moderate post XRT changes, left breast, consistent with prior WLE/XRT. Abdomen: Bowel sounds unremarkable, soft, nontender with no palpable HSM or other abnormalities. Extremitieswithout significant cyanosis, clubbing, or edema. Neurologic Exam: Grossly nonfocal, cranial nerve'sIII - XII unremarkable, DTR's symmetric throughout. Recent Results (from the past 24 hour(s)) Comprehensive metabolic panel (non-fasting) Result Value Ref Range Glucose Lvl 81 65 - 199 mg/dL BUN 16 8 - 18 mg/dL Creatinine 0.72 0.70 - 1.20 mg/dL Sodium 141 135 - 145 mmol/L Potassium 4.0 3.5 - 5.0 mmol/L Chloride 100 98 - 107 mmol/L CO2 25 22 - 31 mmol/L Anion Gap 16 (H) 5 - 15 mmol/L Calcium 9.2 8.5 - 10.5 mg/dL Total Protein 7.3 6.1 - 8.0 gm/dL Albumin 4.6 3.2 - 5.2 gm/dL AST 19 0 - 30 unit/L ALT 10 0 - 30 unit/L Alk Phos 89 40 - 104 unit/L Total Bilirubin 0.5 0.2 - 1.3 mg/dL Bili, Direct 0.1 0.0 - 0.3 mg/dL Estimated GFR >60 >=60 Recent Labs 07/15/16 0216 WBC 10.7* NEUTROABS 7.45* HGB 13.6 HCT 43.1 PLATELET 198 Recent Labs 09/26/16 1345 07/15/16 0216 07/06/16 1022 03/29/16 0954 02/24/16 1458 01/25/16 1308 AST 19 20 19 23 22 23 ALT 10 15 14 17 14 15 ALKPHOS 89 94 80 111* 121* 120* BILITOT 0.5 0.6 0.4 0.6 0.5 0.7 Assessment and Plan: Tanika returns in followup. Labs are as above and now unremarkable. Prior elevated jesus. phos. is now normal. We will proceed with the next cycle of therapy with Prolia. She is tolerating her Femara well. I reassured her about her and breast exam. She has no findings suggestive of recurrent disease. documented in this encounter Plan of Treatment Not on filedocumented as of this encounter Results Comprehensive metabolic panel (non-fasting) (03/22/2017 10:22 AM EDT) athologist Signature Glucose Lvl 91 65 - 199 [facility] mg/dL [facility] Comment: Diabetes: >=200 mg/dL plus symp toms BUN 15 8 - 18 mg/dL [facility] Creatinine 0.77 0.70 - 1.20 mg/dL [facility] Comment: Please note that the pediatric reference intervals supplied above were not validated at [facility]. Results from pediatri c patients should be interpreted in conjunction to the patient's age, height and muscle mass. Sodium 142 135 - 145 mmol/L [facility] Potassium 4.2 3.5 - 5.0 mmol/L [facility] [...] Anion Gap 13 5 - 15 mmol/L [facility] Calcium 9.1 8.5 - 10.5 mg/dL [facility] Total Protein 7.6 6.1 - 8.0 gm/dL [facility] Albumin 4.5 3.2 - 5.2 gm/dL [facility] AST 18 0 - 30 unit/L [facility] ALT 17 0 - 30 unit/L [facility] Alk Phos 80 40 - 104 unit/L [facility] Total Bilirubin 0.6 0.2 - 1.3 mg/dL [facility] Bili, Direct 0.1 0.0 - 0.3 mg/dL [facility] Estimated GFR >60 >=60 [facility] Comment: This estimated GFR (eGFR) [...] the following links into your internet browser. [email or web address]/DHnkdep [email or web address] Specimen Anatomical Collection Method Collection Time Receive d Time (Source) Location / / Volume Laterality Blood specimen 03/22/2017 10: 7 (specimen) AM EDT 10:37 AM EDT Resulting Agency Comment Spec In Lab Brooks Ricardo MD CHEMISTRY ORDERABLES Performing Organization Address City/State/[facility] Code Phon e Number [place] [phone] documented in this encounter Visit Diagnoses Diagnosis Ductal carcinoma in situ (DCIS) of left breast Malignant neoplasm of left female breast , unspecified site of breast Osteopenia Disorder of bone and cartilage, unspecif ied halfway current use of aromatase inhib itor Use of aromatase inhibitors documented in this encounter Care Teams Table Setter Relationship Specialty Start Date End Date Kelsie Neal MD PCP - General Family Medicine 02/03/16 09/12/22 [facility] [address] [place] [address] documented as of this encounter
--- OUTSIDE RECORDS SUMMARY | 2022-09-30 02:09 | XMS_ITS | Encounter Summary ---
:1960 Author Organization [facility] [place] [address] Care Team Providers Name Role Phone Kelsie Neal MD Primary Care Provider Reason for Visit Reason Comments Follow-up Encounter Details Date Type Department Care Team Description 02/24/2016 Office Visit Hematology and Brooks Ricardo MD [facility] [address] HEMATOLOGY/[place] [address] Malignant neoplasm of left female breast , unspecified site of breast; [place] [facility] Britany Mishra APRN [facility] [address] HEMATOLOGY/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) [place] [address] Social History Tobacco Use Types Packs/Day Years Used Date Smoking Tobacco: Never Alcohol Use Standard Drinks/Week Comments Yes 5 (1 standard drink = 0.6 oz pure alcoho l) Sex Assigned at Date Recorded Not on file documented as of this encounter Last Filed Vital Signs Vital Sign Reading Time Taken Comments Blood Pressure 134/80 02/24/2016 3:41 PM EDT Pulse 80 02/24/2016 3:41 PM EDT Temperature 36.7 ??C (98.1 ??F) 02/24/2016 3:41 PM EDT Respiratory Rate 18 02/24/2016 3:41 PM EDT Oxygen Saturation 99% 02/24/2016 3:41 PM EDT Inhaled Oxygen Concentration - - Weight 81.9 kg (180 lb 9.6 oz) 02/24/2016 3:41 PM EDT Height 162.5 cm (5' 3.98) 02/24/2016 3:41 PM EDT Body Mass Index 31.02 02/24/2016 3:41 PM EDT documented in this encounter Progress Notes Britany Mishra, ADHESIVE BONDING MACHINE OPERATOR - 02/24/2016 3:46 PM EDT Subjective: Patient ID: Tanika Harrison [...] nodes, HER2 -, FISH ratio = 1.1.?? ER/DE+++ (greater than 90%, strong). B. Onco Dx = 11. C. S/P WLE/XRT, 02/12. ?? 2.?? History of hyperlipidemia. ?? 3.?? History of occasional palpitations. Interval History: Mrs. Harrison is seen today for follow up. She completed radiation on February 01. She does report some fatigue but overall has been doing well. She has soreness of her left nipple. She reports that due to surgery her nipple is displaced and there is an area where 'things collect.' Her has been helping to clean the area with soap/water. She denies any open areas, bleeding or nipple discharge. Review of Systems She denies headaches, dizziness, or changes in balance. Denies SOB, cough, recent colds/infections, or chest pain. Denies nausea, vomiting, diarrhea, constipation or abdominal pain. Denies any new or worsening skeletal pain. Tanika Mukherjee full remaining review of systems, including constitutional, cardiac, pulmonary, GI, , neurologic, musculskeletal, and all remaining, is otherwise fully unremarkable. Current Outpatient Prescriptions on File Prior to Visit Medication Sig Dispense Refill ??? EMOLLIENT BASE (CREAM BASE TOP) Apply topically. Jeans Cream. Apply to area of radiation twice aday but no less than 2 hours before a treatment. ??? famotidine (PEPCID) 20 mg Tablet Take 20 mg by mouth 2 times daily. ??? simvastatin (ZOCOR) 20 mg Tablet Take 20 mg by mouth nightly. ??? acetaminophen (TYLENOL) 500 mg Tablet Take 1,000 mg by mouth every 6 hours as needed for Pain. No current facility-administered medications on file prior to visit. Objective: Physical Exam Filed Vitals: 02/24/16 1541 BP: 134/80 Pulse: 80 Temp: 36.7 ??C (98.1 ??F) Resp: 18 Objective: Tanika Harrison is well appearing and in no acute distress. HENT: PERRL. EOMi. Musculoskeletal: Within normal limits. Back without CVA or spinal tenderness to percussion or palpation. Chest: Effort normal. Clear to ausculation. Nodes: No peripheral adenopathy is present. Cor: RRR, S1, S2. No murmur, rub, or S3 present. Breast: Left nipple displaced due to surgery; mild pinkness of breast related to radiation Abdomen: Bowel sounds present. Soft. Nontender. No palpable HSM or other abnormalities. Extremities: Without significant cyanosis, clubbing, or edema. Neurologic: Grossly nonfocal Recent Results (from the past 24 hour(s)) Comprehensive metabolic panel (non-fasting) Result Value Ref Range Glucose Lvl 102 65 - 199 mg/dL BUN 16 8 - 18 mg/dL Creatinine 0.84 0.70 - 1.20 mg/dL Sodium 142 135 - 145 mmol/L Potassium 3.7 3.5 - 5.0 mmol/L Chloride 102 98 - 107 mmol/L CO2 26 22 - 31 mmol/L Anion Gap 14 5 - 15 mmol/L Calcium 9.2 8.5 - 10.5 mg/dL Total Protein 7.4 6.1 - 8.0 gm/dL Albumin 4.5 3.2 - 5.2 gm/dL AST 22 0 - 30 unit/L ALT 14 0 - 30 unit/L Alk Phos 121 (H) 40 - 104 unit/L Total Bilirubin 0.5 0.2 - 1.3 mg/dL Bili, Direct 0.1 0.0 - 0.3 mg/dL Estimated GFR >60 >=60 Assessment and Plan: Mrs. Harrison is a 55 year old female with an infiltrating ductal carcinoma of the left breast. She has completed radiation treatment and will be starting on adjuvant endocrine therapy. She had a bone scan which was negative for metastatic disease. Her alk phos remains slightly elevated and we will continue to monitor this. I discussed recommendations for calcium and vitamin D and provided her with written suggestions. I will reach out to Kailyn Spear APRN in surgery regarding evaluating the left nipple. Mrs. Harrison will return for follow up in about 2 months to assess how she is tolerating letrozole and to begin treatment of osteopenia with prolia. She knows she may contact the clinic with any questions, concerns or issues. Britany Mishra APRN Hematology/Oncology Attending Addendum: See Britany's note above. I have seen and examined Ms. Harrison. Agree with Britany's note. She has now completed her radiation therapy. She does have a small degree of residual breast erythema due to her radiation. She has been bothered a little bit with some indentation around the incision site and will let the surgery team be aware of this if she has further problems. Bone scan is unremarkable, and I have reviewed films and agree. No evidence suggestive of metastatic disease. Labs are as above and remarkable for continued minorly elevated alk phos which though is improved and would recommend following for now. Will proceed with adjuvant Femara. I reviewed the risks/benefits of this with her and her once again which they have a few questions about. Will plan on proceeding with Prolia as well. documented in this encounter Plan of Treatment Not on filedocumented as of this encounter Results (ABNORMAL) Comprehensive metabolic panel (non-fasting) (03/29/2016 9:54 AM EDT) athologist Signature Glucose Lvl 79 65 - 199 [facility] mg/dL [facility] Comment: Diabetes: >=200 mg/dL plus symp toms BUN 13 8 - 18 mg/dL [facility] Creatinine 0.88 0.70 - 1.20 mg/dL [facility] Comment: Please note that the pediatric reference intervals supplied above were not validated at [facility]. Results from pediatri c patients should be interpreted in conjunction to the patient's age, height and muscle mass. Sodium 144 135 - 145 mmol/L [facility] Potassium 4.1 3.5 - 5.0 mmol/L [facility] Comment: Please note: ??Patients with WBC >100,00 0 may have falsely elevated Potassium levels. ??For accurate Potassium quantif ication in these patients send serum separator tube (gold top) for subsequent determinations. ??Contact the Clinical Chemistry Laboratory if there are any qu estions. Chloride 103 98 - 107 mmol/L [facility] CO2 27 22 - 31 mmol/L [facility] Anion Gap 14 5 - 15 mmol/L [facility] Calcium 9.2 8.5 - 10.5 mg/dL [facility] Total Protein 7.1 6.1 - 8.0 gm/dL [facility] Albumin 4.3 3.2 - 5.2 gm/dL [facility] AST 23 0 - 30 unit/L [facility] ALT 17 0 - 30 unit/L [facility] Alk Phos 111 (H) 40 - 104 unit/L [facility] Total Bilirubin 0.6 0.2 - 1.3 mg/dL [facility] Bili, Direct 0.1 0.0 - 0.3 mg/dL [facility] Estimated GFR >60 >=60 [facility] Comment: This estimated GFR (eGFR) [...] the following links into your internet browser. http://[employer] Implants/DHnkdep http://[employer]/DHMCnkf Specimen Anatomical Collection Method Collection Time Receive d Time (Source) Location / / Volume Laterality Blood specimen 03/29/2016 9:54 AM 016 (specimen) EDT 10:10 AM EDT Resulting Agency Comment Spec In Lab Brooks Ricardo MD CHEMISTRY ORDERABLES Performing Organization Address City/State/[place] [address] documented in this encounter Visit Diagnoses Diagnosis Malignant neoplasm of left female breast , unspecified site of breast Ductal carcinoma in situ (DCIS) of left breast documented in this encounter Care Teams Fabric Worker Foreman Relationship Specialty Start Date End Date Kelsie Neal MD PCP - General Family Medicine 02/03/16 09/12/[address] [place] [address] documented as of this encounter
--- OUTSIDE RECORDS SUMMARY | 2022-09-30 02:09 | XMS_ITS | Encounter Summary ---
:1960 Author Organization [facility] [place] [address] Care Team Providers Name Role Phone Hoa Perez MD Primary Care Provider Encounter Details Date Type Department Care Team Description 12/10/2015 Orders Only Hematology and Camille Guzmán Ductal carcinoma in Oncology at [facility] J, BILLBOARD INSTALLER situ (DCIS) of left [facility] [address] [place] HEMATOLOGY/ONCOL OGY [address] [place] [address] [phone] (Wo rk) Social History Tobacco Use Types Packs/Day Years Used Date Smoking Tobacco: Never Alcohol Use Standard Drinks/Week Comments Yes 5 (1 standard drink = 0.6 oz pure alcoho l) Sex Assigned at Date Recorded Not on file documented as of this encounter Plan of Treatment Not on filedocumented as of this encounter Results Dexa Central-Spine, Hip, And/Or [...] This is available through an interactive web-based NetManagea ce (http://www.shef.ac.uk/FRAX/) and can be used to [...] measurements a nd plots are available in EEmissary under the imaging tab. Paper copies will be sent to providers without E-DH access. If you have received this report without th e data sheet and do not have access to E-, please contact Radiology Transcrip tion at [phone] Monday thru Monday 8am-4pm. Narrative 01/26/2016 11:22 AM EDT EXAMINATION: DEXA ??CENTRAL SPINE, HIP, AND/OR WHOLE BODY CLINICAL HISTORY: Hx breast cancer, eval uate bone density TECHNIQUE: Scans were acquired at the bettie mbar spine, ?and left hip. COMPARISON: none [...] density TECHNIQUE: Scans were acquired at the bettie mbar spine, and left hip. COMPARISON: none [...] This is available through an interactive web-based NetManagea ce (http://www.shef.ac.uk/FRAX/) and can be used to [...] measurements a nd plots are available in EEmissary under the imaging tab. Paper copies will be sent to providers without E-DH access. If you have received this report without th e data sheet and do not have access to EEmissary, please contact Radiology Transcrip tion at [phone] Monday thru Monday 8am-4pm. 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
--- OUTSIDE RECORDS SUMMARY | 2022-09-30 02:09 | XMS_ITS | Encounter Summary ---
:1960 Author Organization [facility] Address [facility] [place] [address] Care Team Providers Name Role Phone Hoa Perez MD Primary Care Provider Reason for Visit Reason Comments Radiation Treatment Encounter Details Date Type Department Care Team Description 02/02/2016 [facility] left female breast, [address] unspecified site of [place], [place] RADIATION ONCOL OGY breast [address] [place] [address] [phone] Social History Tobacco Use Types Packs/Day Years Used Date Smoking Tobacco: Never Alcohol Use Standard Drinks/Week Comments Yes 5 (1 standard drink = 0.6 oz pure alcoho l) Sex Assigned at Date Recorded Not on file documented as of this encounter Last Filed Vital Signs Vital Sign Reading Time Taken Comments Blood Pressure 141/90 02/02/2016 8:00 AM EDT Pulse 98 02/02/2016 8:00 AM EDT Temperature 36.8 ??C (98.2 ??F) 02/02/2016 8:00 AM EDT Respiratory Rate 18 02/02/2016 8:00 AM EDT Oxygen Saturation 100% 02/02/2016 8:00 AM EDT Inhaled Oxygen Concentration - - Weight 81.4 kg (179 lb 6.4 oz) 02/02/2016 8:00 AM EDT Height - - Body Mass Index 30.85 01/25/2016 2:18 PM EDT documented in this encounter Patient Instructions Patient InstructionsMable Jacome MD - 02/02/2016 9:07 AM EDT You have completed radiotherapy. Congratulations! Please continue the eitan's cream. Please do not use deodorant other than Andres's on your left underarm. Please do not use a straight/regular razor on your left underarm. An electric razor is ok. Please do not expose the irradiated area to sun. Please do not swim in chlorinated water. Saltwater or freshwater is ok. We will mail you a letter with an appointment to see me in 1 - 2 months. documented in this encounter Progress Notes Mable Jacome MD - 02/02/2016 9:05 AM EDT DIAGNOSIS: Breast ca, L, IDC, intermed gr, ER+FL+, Moh1uco-, s/p lumpectomy followed by SNB, pT1 pN0, stage I. CURRENT TREATMENT DOSE: 42.56 Gy L breast, 52.56 Gy lumpectomy bed L breast ANTICIPATED TOTAL DOSE: 42.56 Gy L breast, 52.56 Gy lumpectomy bed L breast Current # of xrt received: 16 L breast, 20 lumpectomy bed L breast Anticipated total # of xrt txs: 16 L breast, 20 lumpectomy bed L breast Evaluation of port verification films: Approved. For details, see electronic film record in [employer] System. Changes in Medical Condition: Mild itchiness w/in irrad'd area, relieved by eitan's cream. Pain?: No. Physical Exam: BP 141/90 mmHg Pulse 98 Temp(Src) 36.8 ??C (98.2 ??F) (Oral) Resp 18 Wt 81.375 kg (179 lb 6.4 oz) SpO2 100% A&Ox3, in NAD. Mild erythema w/in irrad'd area w/mild folliculitis in UIQ; skin intact. Labs: 01/25/16 Alk P 120 H (40-104) Response to xrt: As expected. Irradiation Related Symptoms: Skin rxn. Treatment for Symptom Control: Eitan's cream. Pain Management: Not needed. Recommendation on Continuing Course of xrt: Completes xrt today. Skin care instructions given. Rtc 1mo. Bone scan tomorrow per Dr. Ricardo. Her completed xrt is summarized as follows: 01/05/16 - 02/02/16, 42.56 Gy/16 fxs L breast with 6 MV Xrayexternal beam, followed by volume reduction & 10 Gy/4 fxs to lumpectomy bed with 6 & 10 MV Xray external beam, boosting lumpectomy bed to 52.56 Gy/20 fxs. All treatment given with deep inspiration breath hold (DIBH) using 3D xrt. documented in this encounter Plan of Treatment Not on filedocumented as of this encounter Visit Diagnoses Diagnosis Malignant neoplasm of left female breast , unspecified site of breast documented in this encounter Care Teams Lead Front Desk Agent Relationship Specialty Start Date End Date Hoa Perez MD PCP - General 04/23/13 02/02/16 [address] [place] [address] documented as of this encounter
--- OUTSIDE RECORDS SUMMARY | 2022-09-30 02:09 | XMS_ITS | Encounter Summary ---
:1960 Author Organization [facility] Address [address] [place] [address] Care Team Providers Name Role Phone Hoa Perez MD Primary Care Provider Reason for Visit Reason Comments On Treatment Visit Encounter Details Date Type Department Care Team Description 01/26/2016 [facility] [place] breast, [address] unspecified site of [place], [place] RADIATION ONCOL OGY breast [id number] [place] [address] [phone] Social History Tobacco Use Types Packs/Day Years Used Date Smoking Tobacco: Never Alcohol Use Standard Drinks/Week Comments Yes 5 (1 standard drink = 0.6 oz pure alcoho l) Sex Assigned at Date Recorded Not on file documented as of this encounter Last Filed Vital Signs Vital Sign Reading Time Taken Comments Blood Pressure 125/93 01/26/2016 7:00 AM EDT Pulse 68 01/26/2016 7:00 AM EDT Temperature 36.8 ??C (98.2 ??F) 01/26/2016 7:00 AM EDT Respiratory Rate - - Oxygen Saturation 99% 01/26/2016 7:00 AM EDT Inhaled Oxygen Concentration - - Weight - - Height - - Body Mass Index - - documented in this encounter Patient Instructions Patient InstructionsMable Jacome MD - 01/26/2016 8:38 AM EDT Your dexascan result (scan from yesterday) is pending. Because your alkaline phosphatase is elevated, Dr. Ricardo has ordered a bone scan to examine your bones. documented in this encounter Progress Notes Mable Jacome MD - 01/26/2016 8:31 AM EDT DIAGNOSIS: Breast ca, L, IDC, intermed gr, ER+HI+, [id number] s/p lumpectomy followed by SNB, pT1 pN0, stage I. CURRENT TREATMENT DOSE: 39.9 Gy L breast ANTICIPATED TOTAL DOSE: 42.56 Gy L breast, 52.56 Gy lumpectomy bed L breast Current # of xrt received: 15 Anticipated total # of xrt txs: 16 L breast, 20 lumpectomy bed L breast Evaluation of port verification films: Approved. For details, see electronic film record in [employer] System. Changes in Medical Condition: She says she was seen yesterday by Dr. Ricardo & told that something in her blood was abnormal & she wants to know what it is. She also asks what her dexascan showed. Mild itchiness w/in irrad'd area, relieved by eitan's cream. Pain?: No. Physical Exam: BP 125/93 mmHg Pulse 68 Temp(Src) 36.8 ??C (98.2 ??F) SpO2 99% A&Ox3, in NAD. Mild erythema w/in irrad'd area w/mild folliculitis in UIQ; skin intact. Labs: 01/25/16 Alk P 120 H (40-104) Response to xrt: As expected. Irradiation Related Symptoms: Skin rxn. Treatment for Symptom Control: Eitan's cream. Pain Management: Not needed. Recommendation on Continuing Course of xrt: Cont. Explained to her that her Alkaline Phosphatase waselevated & Dr. Ricardo has ordered bone scan for further eval. Told her Dexascan result pending. documented in this encounter Plan of Treatment Not on filedocumented as of this encounter Visit Diagnoses Diagnosis Malignant neoplasm of left female breast , unspecified site of breast documented in this encounter Care Teams Living Specialist Relationship Specialty Start Date End Date Hoa Perez MD PCP - General 04/23/13 02/02/16 [address] [place] [address] documented as of this encounter
--- OUTSIDE RECORDS SUMMARY | 2022-09-30 02:09 | XMS_ITS | Encounter Summary ---
:1960 [place] [address] Care Team Providers Name Role Phone Kelsie Neal MD Primary Care Provider Encounter Details Date Type Department Care Team Description 07/14/2016 Telephone Non-Invasive Cardiology Lab Bharat Rogers MD [facility] [place] [address] [place] [address] [phone] Social History Tobacco Use Types Packs/Day Years Used Date Smoking Tobacco: Never Alcohol Use Standard Drinks/Week Comments Yes 5 (1 standard drink = 0.6 oz pure alcoho l) Sex Assigned at Date Recorded Not on file documented as of this encounter Miscellaneous Notes Telephone Encounter - Bharat Negron - 07/14/2016 10:01 PM EDT Initial Contact Date: 07/14/2016 Initial contact time: 10:11 PM Referring Provider: Dr. Doyle Patient Location: [facility] Presenting Symptoms per OSH: 56 y/o woman with hx of hld on simvastatin, breast ca s/p xrt and lumpectomy and on femara was in a restaurant this evening. Around 6:15, choked on a cucumber. Heimlich performed twice. Subsequently, significant heaviness and achiness in chest radiating to both arms. No n/v, dyspnea. Trop 0.11. ekg showed old q waves in v1 and v2 without ischemic changes. Asa given. Pt tender over ribs, but no bruising. No evidence of CHF Pertinent Diagnostic Findings: cxr with normal mediastinum and no evidence of failure Recommendations: 56 y/o woman with hld who p/w cp and trop elevation after choking and receiving multiple forceful attempts at the heimlich. Ddx in this case is cardiac contusion vs demand ischemia in the setting of hypoxia and choking vs actual ACS. Most likely cause given the description over the phone is cardiac contusion. [facility] unable to perform echo to r/o effusion and assess wall motion. I recommended transfer for stat bedside echo and closer monitoring. Recommended deferring on heparin and plavix due to concern of intramyocardial bleeding. Bharat Negron MD 07/14/2016 documented in this encounter Plan of Treatment Not on filedocumented as of this encounter Visit Diagnoses Not on filedocumented in this encounter Care Teams Occupational Health Nursing Director Relationship Specialty Start Date End Date Kelsie Neal MD PCP - General Family Medicine 02/03/16 09/12/[address] [place] [address] [address] [place] [address] documented as of this encounter
--- OUTSIDE RECORDS SUMMARY | 2022-09-30 02:09 | XMS_ITS | Encounter Summary ---
:1960 Author Organization [facility] [place] [address] Care Team Providers Name Role Phone Hoa Perez MD Primary Care Provider Reason for Referral Diagnostic Test (Routine) - Closed Specialty Diagnoses / Procedures Referred By Contact Refer red To Contact Radiology Diagnoses Breast mass Daniel El MD [facility] Rad Nuclear Med Procedures NM sentinel node injection breast without imaging [facility] [place] [address] [place] [address] Referral ID Status Reason Start Date Expiration Date Visits V isits Requested Authorized [id number] Closed Specialty 11/16/2015 11/15/2016 1 1 Service Requested Reason for Visit Auth/Cert - Closed Specialty Diagnoses / Procedures Referred By Contact Refer red To Contact Diagnoses LEFT BREAST CANCER Procedures PRO BX/REMV, LYMPH NODE, DEEP AXILL PRO IDENTIFY SENTINEL NODE BIOPSY OR EXCISION OF LYMPH NODE(S), OPEN, DEEP AXILLARY NODE(S) SENTINEL NODE INJECTION MODIFIER SENTINEL NODE EXCISION Referral ID Status Reason Start Date Expiration Date Visits Requ ested Visits Authorized [id number] Closed 1 1 Encounter Details Date Type Department Care Team Description 11/16/2015 Hospital Encounter Nuclear Medicine at [facility] [place] viky Welch MD Breast mass [facility] [address] [place] [address] [place] [address] [phone] (Wo rk) Social History Tobacco Use Types Packs/Day Years Used Date Smoking Tobacco: Never Alcohol Use Standard Drinks/Week Comments Yes 5 (1 standard drink = 0.6 oz pure alcoho l) Sex Assigned at Date Recorded Not on file documented as of this encounter Medications at Time of Discharge Medication Sig Dispensed Refills Start Date End Date famotidine (PEPCID) 20 mg Take 20 mg by mouth 0 Tablet 2 times daily. oxyCODONE (ROXICODONE) 5 Take 1 tablet by 15 tablet 0 11/1612/02/2015 mg Tablet mouth every 4 hours as needed for Pain. simvastatin (ZOCOR) 20 mg Take 20 mg by mouth 0 09/13/2022 Tablet nightly. documented as of this encounter Plan of Treatment Not on filedocumented as of this encounter Procedures Procedure Name Priority Date/Time Associated Diagnosis Comme nts NM SENTINEL NODE Routine 11/16/2015 12:03 PM Breast mass Resu lts for this INJECTION BREAST EST procedure a re in WITHOUT IMAGING the results section. documented in this encounter Results NM sentinel node injection breast without imaging (11/16/2015 12:03 PM EST) Anatomical Region Laterality Modality Nuclear Medicine Specimen (Source) Anatomical Location Collection Method / Collectio n Time Received Time / Laterality Volume Impressions 11/16/2015 12:45 PM EST IMPRESSION: [place] node injections performed without complication. Narrative 11/16/2015 12:45 PM EST EXAMINATION: NM SENTINEL NODE INJECTION BREAST WITHOUT IMAGING/LEFT CLINICAL HISTORY: PLEASE INJECT THE LEFT BREAST FOR LYMPHATIC MAPPING TECHNIQUE: Technetium-99m sulfur colloid was administered in divided doses totaling 0.3 mCi in the left breast COMPARISON: None FINDINGS: No imaging was performed. The patient left the department in good condition. Procedure Note Junior Iverson MD - 01/18/2016Formatti ng of this note might be different from the original. EXAMINATION: NM SENTINEL NODE INJECTION BREAST WITHOUT IMAGING/LEFT CLINICAL HISTORY: PLEASE INJECT THE LEFT BREAST FOR LYMPHATIC MAPPING TECHNIQUE: Technetium-99m sulfur colloid was administered in divided doses totaling 0.3 mCi in the left breast COMPARISON: None FINDINGS: No imaging was performed. The patient left the department in good condition. IMPRESSION IMPRESSION: [place] node injections per formed without complication. Daniel El MD IMG NM ORDERABLES documented in this encounter Visit Diagnoses Diagnosis Breast mass Lump or mass in breast documented in this encounter Administered Medications Inactive Administered Medications - up to 3 most recent administrations Medication Order MAR Action Action Date Dose Rate Site technetium (Tc-99m) sulfur Given 11/16/2015 11:40 AM EST 340 uCi colloid injection 340 uCi 340 uCi, Intravenous, ONCE PRN, 1 dose, Starting on Mon11/16/15 at 1140, Until Mon11/16/15 at 1140, Per Protocol, Routine documented in this encounter Care Teams Allergist/Pediatric Pulmonologist Relationship Specialty Start Date End Date Hoa Perez MD PCP - General 04/23/13 02/02/16 [address] [place] [address] documented as of this encounter
--- OUTSIDE RECORDS SUMMARY | 2022-09-30 02:09 | XMS_ITS | Encounter Summary ---
:1960 Author Organization [facility] [place] [address] Care Team Providers Name Role Phone Kelsie Neal MD Primary Care Provider Encounter Details Date Type Department Care Team Description 02/05/2016 Orders Only General Surgery at [facility] [place] gn[place] neoplasm of [facility] RN left female breast, [facility] unspecifi ed site [place] [id number] Social History Tobacco Use Types Packs/Day Years [...] breast documented in this encounter Care Teams Tray Line Supervisor Relationship Specialty Start Date End Date Kelsie Neal MD PCP - General Family Medicine 02/03/16 09/12/[address] [place] [address] documented as of this encounter
--- OUTSIDE RECORDS SUMMARY | 2022-09-30 02:09 | XMS_ITS | Encounter Summary ---
:1960 [place] [address] Care Team Providers Name Role Phone Chi Neal MD Primary Care Provider Reason for Visit Auth/Cert Specialty Diagnoses / Procedures Referred By Contact Refer red To Contact Diagnoses Chest pain NSTEMI Procedures IPI Referral ID Status Reason Start Date Expiration Date Visits Requ ested Visits Authorized [id number] 1 1 Encounter Details Date Type Department Care Team Description 07/15/2016 Hospital Encounter Intermediate Cardiac Kaelb Velásquez MD [facility] [place] [address] Ductal carcinoma in situ (DCIS) of left breast; Care Unit Bharat Gutierrez MD [facility] [place] [id number] Chest [place], [place] [id number] Social History Tobacco Use Types Packs/Day Years Used Date Smoking Tobacco: Never Alcohol Use Standard Drinks/Week Comments Yes 5 (1 standard drink = 0.6 oz pure alcoho l) Sex Assigned at Date Recorded Not on file documented as of this encounter Last Filed Vital Signs Vital Sign Reading Time Taken Comments Blood Pressure 138/76 07/15/2016 11:19 AM EDT Pulse 78 07/15/2016 11:19 AM EDT Temperature 36.9 ??C (98.4 ??F) 07/15/2016 11:19 AM EDT Respiratory Rate 18 07/15/2016 11:19 AM EDT Oxygen Saturation 96% 07/15/2016 11:19 AM EDT Inhaled Oxygen Concentration - - Weight 79.7 kg (175 lb 11.3 oz) 07/15/2016 1:10 AM EDT Height 162.6 cm (5' 4) 07/15/2016 1:10 AM EDT Body Mass Index 30.16 07/15/2016 1:10 AM EDT documented in this encounter Discharge Summaries Piyush Flores MD - 07/15/2016 3:02 PM EDT Inpatient - Discharge Summary Patient Name: Tanika Harrison Patient Age: 56 y.o. Birthdate: 1960 Admit date: 07/15/2016 Discharge date and time: 07/15/2016 Attending Physician: Bharat Vides MD === Follow-up Recommendations for Providers: === - Please ensure Tanika continues to feel well and has no further chest pain Discharge Diagnoses (Hospital Problems) and Secondary Diagnoses (Chronic Problems): Active Hospital Problems Diagnosis ??? Chest pain Resolved Hospital Problems Diagnosis Date Resolved No resolved problems to display. Active Non-Hospital Problems Diagnosis ??? Osteopenia ??? Malignant neoplasm of left female breast ??? Ductal carcinoma in situ (DCIS) of left breast ??? Solar aging of skin Operations/Major Procedures: Operations: * No surgery found * Other Major Procedures: None History of Presentation: Patient was in her normal state of health out at restaurant when she chocked on a cucumber, she received several rounds of heimlich manuver and developed CP. Presenting to [facility] ED tropeolins were measured, found to be elevated (0.11 with normal upper 0.06). Patient is being transferedfor work up of possible cardiac contusion and to rule out ACS. ?? Upon arrival her chief complaint is a 2/10 heaviness (4/10 at OSH) in the arms and across the chest and shoulders, unlike anything she has had in the past. This does not associate with SOB, palpitations, nausea, diaphoresis, or light headedness. Discomfort is unchanged with exertion. Unchanged with position. Unchanged with deep breath. Reproduced by palpation increasing intensity from 2 to 4. ?? Other complaint is might occipital headache without vision change, focal neuro deficit, confusion, or dizziness. She also had mild epigastric burning she identifies as her normal GERD symptoms for which she takes famotidine. Hospital Course: # Chest pain, non-cardiac (negative stress test) Tanika was admitted overnight to the cardiology service and troponins continued to be trended - were negative x 2. In the morning she had an echocardiogram exercise stress test performed which did not show any evidence of ischemia. She had a TTE performed which was overall normal. Given these normal findings she was discharged to home later that day and arranged for follow up with her PCP. There were no changes to her home medications and she remained hemodynamically throughout her hospital course. Important Studies and Lab Data: Labs: Troponin-T: < 0.03 x 2 Studies: Echocardiogram exercise (treadmill) stress test (07/15/16): SUMMARY: 1. BASELINE: Normal global and segmental biventricular systolic function with an estimated left ventricular ejection fraction of 65%. ?? 2. STRESS: Patient followed a Jorge protocol. The patient exercised into stage 3. The total exercise duration was:6 min 26 sec The patient achieved a maximum heart rate of 162 which is 100% of the maximum predicted heart rate (162 beats/min). The target heart rate was achieved. The study was terminated because of fatigue. The patient did not express feelings of chest discomfort. The patient experienced shortness of breath. The blood pressure response was normal. Exercise capacity was average. The patient achieved a level of 7.6 METs There were no arrhythmias. The electrocardiographic response was indeterminate for ischemia. ?? 3. ECHOCARDIOGRAPHIC FINDINGS: Global left ventricular systolic function appears hyperdynamic. ?? 4. IMPRESSION: Normal exercise echocardiogram. There is no echocardiographic evidence of ischemia at this level of stress. TTE (07/15/16): SUMMARY: 1. The left ventricular chamber size is normal. The quantitative left ventricular ejection fraction by biplane Guillen's method is 67% with no left ventricular segmental wall motion abnormalities. 2. Right ventricular chamber size, wall thickness, and systolic function are within normal limits. 3. Both atria are normal. 4. The cardiac valves appear structurally and functionally normal. ?? 5. The pericardium appears normal and there is no evidence of a pericardial effusion. Pending Studies and Lab Data: No current labs Discharge Conditions/Prognosis: Stable Discharge to: Home Discharge Medications: Your Medications Continued medications, unchanged Dose Details acetaminophen 500 mg Tab Commonly known as: TYLENOL Take 1,000 mg by mouth every 6 hours as needed for Pain. 1000 mg Refills: 0 calcium-vitamin D3 600 mg(1,500mg) -200 unit Tab Take by mouth. Refills: 0 CREAM BASE TOP Apply topically. Jeans Cream. Apply to area of radiation twice a day but no less than 2 hours beforea treatment. Refills: 0 famotidine 20 mg Tab Commonly known as: PEPCID Take 20 mg by mouth 2 times daily. 20 mg Refills: 0 letrozole 2.5 mg Tab Commonly known as: FEMARA Take 1 tablet by mouth daily. 2.5 mg Quantity: 90 tablet Refills: 4 multivitamin Tab Commonly known as: THERAGRAN Take 1 tablet by mouth daily. 1 tablet Refills: 0 simvastatin 20 mg Tab Commonly known as: ZOCOR Take 20 mg by mouth nightly. 20 mg Refills: 0 Updated Allergies/ADRs: Allergies Allergen Reactions ??? Sulfa (Sulfonamide Antibiotics) Hives Instructions Given to Patient at Discharge: Patient Instructions Patient Instructions on Discharge to Home Why you were hospitalized - Chest pain (non-cardiac) When to call your doctor: -Chest pain, worsening shortness of breath, fatigue with usual exertion, or new rest/night time symptoms. -Weigh yourself daily and record; if you note an increase of more than 2-3 pounds in 2 days, or5 pounds over a week, contact your health care provider. -If you become short of breath, cannot lie down to sleep, or have swelling in your legs/ankles or abdomen, contact your health care provider. -Call if you have reduced urination during the day or increased urination at night. -Call for signs of increased wound drainage, redness, swelling, or increased pain at the site of your cardiac cath. -Call if you develop a temp >100.5 Activity level: -No heavy lifting (more than five pounds) for 48 hours; no more than 10 pounds for one week. -You may return to work in 1 week. Use common sense. Don't exhaust yourself. -No hunting, skiing, jogging, snow shoveling, snowmobiling, lawn mowing, swimming, golf or tennis until after your return appointment with your family doctor. -Do not ride motorcycles, tractors or horses until cleared by your doctor. Diet: -Heart healthy: low salt, low fat, low concentrated sweets. Remember to avoid added salt, canned foods, processed foods (ie hot dogs, sausage, cold meats), and foods naturally high in salt, such as potato chips or pizza. Driving: -Per your routine after 48 hrs Shower/Bath: -You may shower 24 hours after cardiac catheterization. -You may not sit in water for 5 days (tub bath, hot tub or pool). Wound Care: -Cath site dressing may be removed in 24 hours. Site may be washed with soap/water. A dressing does not need to be reapplied unless irritation occurs with underclothes. If irritation occurs, apply clean band-aid daily. Exercise: -Exercise 5-7 days per week as tolerated with gradual increase to 30 minutes per day. Smoking cessation: -If you are currently a smoker, you are strongly urged to stop smoking! Smoking increases the severity and incidence of heart disease, and is a risk factor for cancer and emphysema. Your health care provider can provide specific measures to assist you, including nicotine supplements, anti-anxiety meds, and support groups in your community. Follow up Appointments: Future Appointments Date Time Provider Department Center 09/26/2016 9:30 AM AZUL ARROYO [facility] 09/26/2016 10:30 AM Ricardo, Peter A, MD [facility] 09/26/2016 11:30 AM ACCESS ROOM [facility] PCP: CHI NEAL MD at [phone] - we called Dr. Neal' office and they are making arrangements to schedule an appointment within 1-2 weeks and they will call you today or on Monday to schedule this. Your Inpatient Medical Team at [facility] Name(s) of your inpatient provider(s): Attending - Bharat Vides MD Resident - Piyush Flores MD Manufacturing Leader - Lisha Javed MD For questions regarding issues relating to your hospitalization on the Cardiology, please contact your inpatient physician through the [facility] Recycling Attendant [phone]. Issues after hours and on weekends will be handled by the cardiology consultants on-call. Your Primary Care Provider CHI NEAL MD [phone] General Instructions None Future Appointments and Orders Future Appointments Provider Department Dept Phone 09/26/2016 9:30 AM LABORATORY, TECH [facility] [phone] 09/26/2016 10:30 AM Brooks Ricardo MD [facility] [phone] 09/26/2016 11:30 AM ACCESS ROOM [facility] [phone] Discharge References/Attachments: Discharge References/Attachments None Inpatient Provider Contact Information: Electronically Signed By: PIYUSH FLORES MD PGY-3, Internal Medicine Cardiology S2 pager # [phone] 07/15/2016 Associated attestation - Bharat Vides MD - 07/15/2016 4:47 PM EDT I have seen the patient and reviewed the resident's above history and I agree with the details as written. The assessment and plan were formulated in discussion with me and I agree with them as documented. documented in this encounter Discharge Instructions Patient InstructionsPiyush Flores MD - 07/15/2016 2:18 PM EDT Patient Instructions on Discharge to Home Why you were hospitalized - Chest pain (non-cardiac) When to call your doctor: -Chest pain, worsening shortness of breath, fatigue with usual exertion, or new rest/night time symptoms. -Weigh yourself daily and record; if you note an increase of more than 2-3 pounds in 2 days, or5 pounds over a week, contact your health care provider. -If you become short of breath, cannot lie down to sleep, or have swelling in your legs/ankles or abdomen, contact your health care provider. -Call if you have reduced urination during the day or increased urination at night. -Call for signs of increased wound drainage, redness, swelling, or increased pain at the site of your cardiac cath. -Call if you develop a temp >100.5 Activity level: -No heavy lifting (more than five pounds) for 48 hours; no more than 10 pounds for one week. -You may return to work in 1 week. Use common sense. Don't exhaust yourself. -No hunting, skiing, jogging, snow shoveling, snowmobiling, lawn mowing, swimming, golf or tennis until after your return appointment with your family doctor. -Do not ride motorcycles, tractors or horses until cleared by your doctor. Diet: -Heart healthy: low salt, low fat, low concentrated sweets. Remember to avoid added salt, canned foods, processed foods (ie hot dogs, sausage, cold meats), and foods naturally high in salt, such as potato chips or pizza. Driving: -Per your routine after 48 hrs Shower/Bath: -You may shower 24 hours after cardiac catheterization. -You may not sit in water for 5 days (tub bath, hot tub or pool). Wound Care: -Cath site dressing may be removed in 24 hours. Site may be washed with soap/water. A dressing does not need to be reapplied unless irritation occurs with underclothes. If irritation occurs, apply clean band-aid daily. Exercise: -Exercise 5-7 days per week as tolerated with gradual increase to 30 minutes per day. Smoking cessation: -If you are currently a smoker, you are strongly urged to stop smoking! Smoking increases the severity and incidence of heart disease, and is a risk factor for cancer and emphysema. Your health care provider can provide specific measures to assist you, including nicotine supplements, anti-anxiety meds, and support groups in your community. Follow up Appointments: Future Appointments Date Time Provider Department Center 09/26/2016 9:30 AM LABORATORY, TECH [facility] 09/26/2016 10:30 AM Brooks Ricardo MD [facility] 09/26/2016 11:30 AM ACCESS ROOM [facility] PCP: CHI NEAL MD at [phone] - we called Dr. Neal' office and they are making arrangements to schedule an appointment within 1-2 weeks and they will call you today or on Monday to schedule this. Your Inpatient Medical Team at [facility] Name(s) of your inpatient provider(s): Attending - Bharat Vides MD Resident - Piyush Flores MD Manufacturing Leader - Lisha Javed MD For questions regarding issues relating to your hospitalization on the Cardiology, please contact your inpatient physician through the [facility] Recycling Attendant [phone]. Issues after hours and on weekends will be handled by the cardiology consultants on-call. Your Primary Care Provider CHI NEAL MD [phone] documented in this encounter Medications at Time of Discharge [...] documented as of this encounter Progress Notes Lisha Javed MD - 07/15/2016 4:23 PM EDT Cardiology Inpatient - Day of Discharge Note: S: The patient was seen with team during rounds. Medications were reviewed. The patient feels ready for discharge. The patient's chest pain has resolved entirely and there are no new complaints. O: Last value 24hr range T 36.9 ??C (98.4 ??F) Temp: [36.3 ??C (97.3 ??F)-36.9 ??C (98.4 ??F)] HR 78 Heart Rate: [74-91] BP 138/76 BP: (110-142)/(65-76) RR 18 Resp: [18-20] SpO2 96 % SpO2: [96 %-97 %] - Physical Exam is unchanged - Labs have been reviewed. A: - All questions answered. - OK for discharge - See discharge summary for details and follow-up plans. P: - Discharge to home in stable condition - Follow-up appointments have been scheduled - Return precautions for worsening or changing symptoms Lisha Javed MD PGY-1, Emergency Medicine Cardiology S2 team pager # [phone] 07/15/2016 >30 minutes spent in organizing his discharge Jair Lombardi, RN - 07/15/2016 4:05 PM EDT Pt left the unit around 1600 with and her mother. Discharged teaching completed, verbalized understanding. Tele off and IV pulled off. Going home with private car. Ita Yanes RN - 07/15/2016 12:47 PM EDT Office of Care Management Initial Assessment ITA YANES, JAMMIE reviewed record and discussed patient with Care Team. Source of Information: patient's and her mother as pt is currently off floor Introduced self/reviewed role; services accepted. Reason for Hospitalization: 56 yea year old female presents because of elevated troponin for chest pain after chocking on cucumber and receiving multiple rounds of heimlich. There is concern for cardiac contusion and we will rule out ACS. Past Medical History Diagnosis Date ??? Hiatal hernia ??? Hypercholesteremia Hospitalizations Within the Past 30 Days: none Anticipated Length Of Stay (If known): 1-2 days Current Decision-Making Capacity: self Advance Care Planning: not on file- not discussed at this time Current Coping/Education/Information Needs: none identified at this time Current Functional Ability: SBA while inpt Functional Status Prior to Admission: indpendent Home Environment: lives with Social & Family Supports/Community Resources: Jeremy Harrison (Spouse) [phone] (H) [phone] (W) [phone] (M) Behavioral Health History: none known Substance Use/Abuse: none known Other Pertinent/Service Specific Information:She has past medical history of HLD and breast cancer/ infiltrating ductal carcinoma currently under treatment with Prolia. Health/Prescription Coverage: Primary Insurance:BCBS [place] Secondary Insurance: none Prescription Coverage: has manageable co pays Preferred Pharmacy: none Other: NA Primary Care Provider: CHI NEAL MD [phone] Patient/Caregiver Goals of Treatment: safe discharge Potential Needs for Transition of Care: Rehab/SNF: no Home Health: no DME: no Dialysis: no Community Resources: no Transportation: family Other: NA Anticipated Barriers to Discharge/Special Considerations: none Plan: anticipate discharge to home when medically cleared without needs A member of the Care Management team will continue to monitor progress, follow for continuity of care and assist with transition of care planning. ITA YANES RN documented in this encounter H&P Notes Carlos Maciel MD - 07/14/2016 10:51 PM EDT Cardiology Admission History and Physical Patient Name: Tanika Harrison Service: M1S1 Responsible Attending: Dr. Velásquez PCP: CHI NEAL MD PCP phone #: [phone] ID/Chief Complaint: 56 yea year old female presents because of elevated troponin for chest pain after chocking on cucumber and receiving multiple rounds of heimlich. There is concern for cardiac contusion and we will ruleout ACS. She has past medical history of HLD and breast cancer/ infiltrating ductal carcinoma currently under treatment with Prolia. History of Present Illness: Patient was in her normal state of health out at restaurant when she chocked on a cucumber, she received several rounds of heimlich manuver and developed CP. Presenting to [facility] ED tropeolins were measured, found to be elevated (0.11 with normal upper 0.06). Patient is being transferedfor work up of possible cardiac contusion and to rule out ACS. Upon arrival her chief complaint is a 2/10 heaviness (4/10 at OSH) in the arms and across the chest and shoulders, unlike anything she has had in the past. This does not associate with SOB, palpitations, nausea, diaphoresis, or light headedness. Discomfort is unchanged with exertion. Unchanged with position. Unchanged with deep breath. Reproduced by palpation increasing intensity from 2 to 4. Other complaint is might occipital headache without vision change, focal neuro deficit, confusion, or dizziness. She also had mild epigastric burning she identifies as her normal GERD symptoms for which she takes famotidine. OSH labs prior to transfer: 14.1 9.5 H/H 201 140 100 14 Glc Ca 9.4 4.1 30.6 0.87 100 Mg 2 Phos Tn- 0.11 Cardiac RF profile significant for HTN, HL, DM2, PVD, family history, and tobacco use. PAUL Age > 65 [-] 3+ Cardiac RF [-] Prior stenosis >50% [-] ST deviation on EKG [-] 2 anginal episodes last 24 hrs [-] Elevated biomarkers [+] Aspirin use past 7 days [-] Review of Systems: GENERAL HEENT CV PULM All negative All negative All negative All negative - Weight loss + Headache + Chest Pain - Non-productive cough - Weight gain - Vision change - Palpitations - Productive cough - Fevers Sinus congestion - Orthopnea - Wheezing - Chills Hoarseness - LE edema - Hemoptysis - Night sweats Epistaxis - PND - Pleuritic pain Fatigue - Syncope - SOB Claudication - SHIPLEY MSK RENAL ENDO GI All negative All negative All negative All negative - Arthralgias - Frequency Heat intolerance - Blood in stool Myalgias - Urgency Cold intolerance - Dysphagia Weakness - Hematuria Polydipsia - Odynophagia Stiffness Flank pain Polyphagia - Abdominal discomfort Dysuria Cushingoid - Constipation Foamy urine - Diarrhea Discharge - Nausea/Vomiting LYMPH SKIN NEURO PSYCH All negative All negative All negative All negative - Swollen nodes - Rash Seizures Depressed affect Tender nodes Ulcers Tremors Occupational stress Diffuse nodes Bruising Spasticity Anxiety Local nodes Tanned skin - Focal weakness Insomnia Night sweats Telangiectasias Diplopia - Paresthesias - Dizziness Problem List/Past Medical History Patient Active Problem List Diagnosis ??? Chest pain ??? Osteopenia ??? Malignant neoplasm of left female breast ??? Ductal carcinoma in situ (DCIS) of left breast ??? Solar aging of skin Past Medical History Diagnosis Date ??? Hiatal hernia ??? Hypercholesteremia Infiltrating ductal carcinoma, left breast, 10/13. a.?? 9-mm cancer, intermediate grade, SBR = 6.?? Extensive associated DCIS present.?? LVI negative, 0/5 sentinel nodes, HER2 -, FISH ratio = 1.1.?? ER/FL+++ (greater than 90%, strong). B. Onco Dx = 11. C. S/P WLE/XRT, 02/12. D. Adjuvant letrozole, 02/12. Meds: No current facility-administered medications on file prior to encounter. Current Outpatient Prescriptions on File Prior to Encounter Medication Sig Dispense Refill ??? letrozole (FEMARA) 2.5 mg Tablet Take 1 tablet by mouth daily. 90 tablet 4 ??? famotidine (PEPCID) 20 mg Tablet Take 20 mg by mouth 2 times daily. ??? simvastatin (ZOCOR) 20 mg Tablet Take 20 mg by mouth nightly. ??? multivitamin (THERAGRAN) Tablet Take 1 tablet [...] every 6 hours as needed for Pain. Allergies: Allergies Allergen Reactions ??? Sulfa (Sulfonamide Antibiotics) Hives Family History: Father: [place] at age 51 Social History: Social History Social History ??? Marital status: Spouse name: N/A ??? Number of children: N/A ??? Years of education: N/A Occupational History ??? Not on file. Social History Main Topics ??? Smoking status: Never Smoker ??? Smokeless tobacco: Not on file ??? Alcohol use 3.0 oz/week 5 Glasses of wine per week ??? Drug use: No ??? Sexual activity: Yes Partners: Male Other Topics Concern ??? Not on file Social History Narrative Vitals: Last value Range last 24 hrs Temperature Temp: 36.3 ??C (97.3 ??F) Temp: [36.3 ??C (97.3 ??F)] Heart Rate Heart Rate: 91 Heart Rate: [91] Blood Pressure BP: 142/76 BP: (142)/(76) Respiratory Rate Resp: 20 Resp: [20] SpO2 SpO2: 97 % SpO2: [97 %] Pulsus: 108 and 106 variance with inspiration- no paridoxicus Examination: General: Pleasant, alert, appropriate, in NAD. Appears stated age. HEENT: EOMI, PERRL, anicteric sclera. Oropharynx clear w/o lesions. Moist mucous membranes Neck: Supple with normal ROM. No obvious LAD. JVP ~ not elevated Cardiac: Normal S1 and S2, Regular rate and rhythm; No murmrs/gallops/rubs. Pressure at the strenum increases heaviness in shoulders and arms from 2 to 4 /10 Respiratory: Nonlabored. Clear to auscultation bilaterally; No wheezes/ rhonchi/ rales. Abd: + BS; soft, non-tender, non-distended, no obvious masses. Ext: WWP without le edema, cyanosis or clubbing. DPP 2+ bilaterally. Neuro: II-XII grossly intact. Alert and orientated, no-focal deficits, sensation intact to crude touch Lines: right AC Laboratory: Pending Diagnostic Studies: EKG- OSH scan shows CXR- At OSH no acute cardiopulmonary processes Most recent TTE Bedside 2 am: Hypokinesis of mid bridgett septum + inferior septum and apical septum ASSESSMENT: 56 yea year old female presents because of elevated troponin for chest pain after chocking on cucumber and receiving multiple rounds of heimlich. There is concern for cardiac contusion and we will ruleout ACS. She has past medical history of HLD and breast cancer/ infiltrating ductal carcinoma currently under treatment with Prolia. Primary concern is that she could have contusion which puts her at increased risk of arhythmia and pericardial effusion, will work up with bedside then formal echo. Will also rule out ACS, possibly demand ischemia caused by stress with CP and rising trop after her hypoxic period. I am reassured by her reproducible pain and the fact it is not worse with exertion, though the character is concerning for CT. Otherwise she has very few risks for CT except for history in father, but there is potential caused for demand ischemia. No pulsus paradoxus which reassures me there is no tamponad if there is cardiac hematoma. Contusion unlikely given lack of significant force. Unlikely given time course but radiation myocarditis possible, looks like she had radiation for breast cancer January of this year. PLAN: # Admit to Cardiology S1 service # Myocardial contusion vs Demand NSTEMI -TTE formal in morning -Trend trop: if rising will start heparin (for over 0.1) -S/p 325 mg aspirin -monitor on tele -Continue simvastatin -Stress test in morning, regadenason Breast cancer: -Continue her daily Femara PPx: DVT- lovenox GI- famotidine (home med) Code Status: Full Cardiology S1: Team Pager #[phone] 07/15/2016 Associated attestation - Bharat Vides MD - 07/15/2016 11:35 AM EDT I have seen the patient and reviewed the resident's above history and I agree with the details as written. The assessment and plan were formulated in discussion with me and I agree with them as documented. 56-year-old female coming in with a mildly elevated troponin after choking on a cucumber. Multiple Heimlich maneuvers performed. Chest pain is currently reproducible. We'll plan to proceed with restingechocardiogram, and stress echocardiogram if appropriate. Troponins negative at this hospital. Further recommendations pending patient progress. documented in this encounter Miscellaneous Notes Consult Note - Jerica Em RN - 07/15/2016 3:57 PM EDT VAS called to assess RAC, site of prior IV. IV had MGSO4 this morning. Pt pending discharge at this time. RAC with palpable cord, some ecchymosis and erythema. No signs of infiltrate, per Jair, her RN IV flushed easily after Mag. Warm pack placed on with band net securement. Instructions of using warmcompress PRN comfort and calling if site is looking worse and not better. Pt verbalizes understanding of instructions. Plan of Care - Justa Cruz RN - 07/15/2016 5:28 AM EDT Problem: General Plan of Care Goal: Plan of Care Review 07/15/16 0523 Plan of Care Review Plan of Care Outcome Status ongoing (interventions implemented as appropriate) Progress no change Coping/Psychosocial Response Interventions Plan of Care Reviewed with patient Goal: Fall Prevention-Safe Patient Handling 07/15/16 0102 Richter Fall Risk History of Falling 0 Secondary Diagnosis 15 Ambulatory Aids 0 Intravenous Therapy/Heparin/Saline Lock 20 Gait/Transferring 0 Mental Status 0 Score 35 OTHER Richter Fall Risk Med Safety Interventions Safety Precautions/Fall Reduction lighting adjusted for task/safety;low bed;room near unit station;nonskid shoes/slippers when out of bed OUTCOME EVALUATION NOTE: OUTCOME SUMMARY: Patient arrived via EMS to room 449a. A&Ox4, SR/ ST on tele, on RA. Patient complaining of shoulder heaviness rating the discomfort 5/10 (team aware). Heaviness decreased w/ tylenol to 2/10. PLAN MOVING FORWARD: NPO for possible stress? Echo this am. INDIVIDUALIZED FALL PREVENTION INTERVENTIONS: Patient-specific fall risk factors per assessment: [current deficits]: tele Assistance [level of assistance required for transfers and ambulation]: SBA Supervision [direct monitoring required during toileting and ADLs]: Call lujan within reach Surveillance [continuous indirect monitoring]: Continue purposeful hourly rounding Patient-specific fall prevention interventions for sensory deficits provided, if applicable: No CPG GOAL OUTCOME EVALUATION: documented in this encounter Plan of Treatment Not on filedocumented as of this encounter Procedures Procedure Name Priority Date/Time Associated Comments Diagnosis POSITION CLERK SCAN 07/17/2016 12:00 AM EDT STRESS ECHOCARDIOGRAM W Routine 07/15/2016 1:50 Chest pain, R esults for this CONTRAST PM EDT unspecified type procedure a re in the results section. 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 CARDIAC ENZYMES Routine 07/15/2016 8:02 Results f or this ([facility]) AM EDT procedure are i n the results section. HEMOGRAM Routine 07/15/2016 2:16 Results for this AM EDT procedure are i n the results section. DIFFERENTIAL, AUTOMATED Routine 07/15/2016 2:16 R esults for this AM EDT procedure are i n the results section. CARDIAC ENZYMES Routine 07/15/2016 2:16 Results f or this ([facility]) AM EDT procedure are i n the results section. APTT Routine 07/15/2016 2:16 Results for this AM EDT procedure are i n the results section. PROTHROMBIN TIME Routine 07/15/2016 2:16 Results for this AM EDT procedure are i n the results section. CBC (WITH DIFF) Routine 07/15/2016 2:16 AM EDT TSH Routine 07/15/2016 2:16 Results for this AM EDT procedure are i n the results section. PHOSPHORUS Routine 07/15/2016 2:16 Results for this AM EDT procedure are i n the results section. PRO-BRAIN NATRIURETIC Routine 07/15/2016 2:16 Res ults for this PEPTIDE AM EDT procedure are i n the results section. MAGNESIUM Routine 07/15/2016 2:16 Results for this AM EDT procedure are i n the results section. HEPATIC FUNCTION PANEL Routine 07/15/2016 2:16 Re sults for this AM EDT procedure are i n the results section. BASIC METABOLIC PANEL Routine 07/15/2016 2:16 Res ults for this (NON-FASTING) AM EDT procedure are in the results section. EKG 12-LEAD Routine 07/15/2016 1:43 Ductal carcinoma in Resul ts for this AM EDT situ (DCIS) of left procedur e are in breast the results section. documented in this encounter Results SCAN DOC: POSITION CLERK (07/17/2016 12:00 AM EDT) Anatomical Region Laterality Modality Other Narrative This result has an attachment that is no t available. Scanning Provider MEDIA MGR SCAN EXT ORDR/RSLT STRESS ECHOCARDIOGRAM W CONTRAST (07/15/2016 1:50 PM EDT) P athologist Signature EF 65 HEARTLAB SYSTEM Anatomical Region Laterality Modality Other Specimen (Source) Anatomical Location Collection Method / Collectio n Time Received Time / Laterality Volume 07/15/2016 Narrative 07/15/2016 2:19 PM EDT Procedure: ?Stress Echocardiogram Patient: ?SUZY Kan ?(Age): 1960(56y) Med Rec#: ? [id number] ?Sex: ?F ? Site Loc: ? [facility] ?Ht / Wt: ??160(cm)/80(kg) Pt. Loc: ?Echo Lab ?BSA: ?1.83 Study Date: ?? 07/15/2016 ?Pt. Type: Tape: ? Referring: Bharat Vides ([id number]) Reading: Alec Simpson ([id number]) Automobile Seat Cover Installer: Pao Zuniga Manager Location: [facility] Diagnosis: *ICD-10-PCS Chest pain, unspecified (R0 7.9) CPT Codes: *Stress Echo (64866) *ECG Interpretation (18444) *Definity (38395IP) Stage ? BP ?HR ? Rest ?118/78 ?89 ? Peak ?148/80 ?162 ? Recovery ?120/82 ?95 ? SUMMARY: 1. BASELINE: Normal global and segmental biventricular systolic function with an estimated left ventricular eject ion fraction of 65%. 2. STRESS: Patient followed a Jorge prot ocol. The patient exercised into stage 3. The total exercise duration was :6 min 26 sec The patient achieved a maximum heart rate of 162 whi ch is 100% of the maximum predicted heart rate (162 beats/min). Th e target heart rate was achieved. The study was terminated becau se of fatigue. The patient did not express feelings of chest discomfort . The patient experienced shortness of breath. The blood pressure response was normal. Exercise capacity was average. The patient achiev ed a level of 7.6 METs There were no arrhythmias. The electrocardiogr aphic response was indeterminate for ischemia. 3. ECHOCARDIOGRAPHIC FINDINGS: ?? Global left ventricular systolic function appears hyperdynamic. 4. IMPRESSION: Normal exercise echocardi ogram. ??There is no echocardiographic evidence of ischemia a t this level of stress. Findings Rest: Left Ventricle: ? There is normal gl obal left ventricular systolic function. ??Ejection fraction is estimat ed to be 65%. ?There are no left ventricular segm ental wall motion abnormalities. Stress: ? EKG: normal sinus rhythm. ?EKG: nondiagnostic ST-T changes. ?The patient's oxygen saturation wa s 98% ?The patient is taking a lipid lowe ring agent. Misc: ? Definity contrast (one 1.5 m l vial)was used to enhance endocardial definition. Excess contrast was discarded. ?Stress echo and ECG interpretation performed. Findings Peak: Predicted Values:The patient achieved a maximum heart rate of 162 which is 100% of the maximum predicted heart r ate (162 beats/min). ??The target heart rate was achieved. Left Ventricle: ? Global left ventri cular systolic function appears hyperdynamic. Stress: ? Patient followed a Jorge p rotocol. ?The patient exercised into stage 3 . ?The total exercise duration was:6 min 26 sec ?The study was terminated because o f fatigue. ?The patient did not express feelin gs of chest discomfort. ?The patient experienced shortness of breath. ?The blood pressure response was no rmal. ?Exercise capacity was average. ?The patient achieved a level of 7 METS.7.6 METs ?There were no arrhythmias. ?The electrocardiographic response was indeterminate for ischemia. ?This was a negative echocardiograp hic stress test. ?There is no echocardiographic evid ence of myocardial ischemia at this level of stress. ?EKG: sinus tachycardia. ?The patient's oxygen saturation wa s 97-99% throughout Findings Recovery: Stress: ? EKG: normal sinus rhythm. ?EKG: Premature atrial contractions noted. Wall Motion: Segment Name ?Rest ?Peak ? Base-Anteroseptal ?? Normal ?Normal ? Base-Anterior ? Normal ?Normal ? Base-Anterolateral ??Normal ?Normal ? Base-Posterolateral Normal ?Normal ? Base-Inferior ? Normal ?Normal ? Base-Inferoseptal ?? Normal ?Normal ? Mid-Anteroseptal ?Normal ?Normal ? Mid-Anterior ?Normal ?Normal ? Mid-Anterolateral ?? Normal ?Normal ? Mid-Posterolateral ??Normal ?Normal ? Mid-Inferior ?Normal ?Normal ? Mid-Inferoseptal ?Normal ?Normal ? Monetta-Septal ? Normal ?Normal ? Monetta-Anterior ? Normal ?Normal ? Monetta-Lateral ?Normal ?Normal ? Monetta-Inferior ? Normal ?Normal ? Monetta-Tip ?Normal ?Normal ? This report has been electronically sign ed by: _ Alec Simpson M.D. ? 07/15/2016 14:19:11 Images reviewed and interpretation henriqueif ied [facility] Cardiac Ultrasound Laboratory Procedure Note Alec Simpson MD - 07/15/2016Format ting of this note might be different from the original. Procedure: Stress Echocardiogram Patient: SUZY Kan (Age): (56y) Med Rec#: [id number] Sex: F Site Loc: [facility] Ht / Wt: 160(cm)/80(kg) Pt. Loc: Echo Lab BSA: 1.83 Study Date: 07/15/2016 Pt. Type: Tape: Referring: Bharat Vides ([id number]) Reading: Alec Simpson ([id number]) Automobile Seat Cover Installer: Pao Zuniga Manager Location: [facility] Diagnosis: *ICD-10-PCS Chest pain, unspecified (R0 7.9) CPT Codes: *Stress Echo (79834) *ECG Interpretation (04798) *Definity (36128UI) Stage BP HR Rest 118/78 89 Peak 148/80 162 Recovery 120/82 95 SUMMARY: 1. BASELINE: Normal global and segmental biventricular systolic function with an estimated left ventricular eject ion fraction of 65%. 2. STRESS: Patient followed a Jorge prot ocol. The patient exercised into stage 3. The total exercise duration was :6 min 26 sec The patient achieved a maximum heart rate of 162 whi ch is 100% of the maximum predicted heart rate (162 beats/min). Th e target heart rate was achieved. The study was terminated becau se of fatigue. The patient did not express feelings of chest discomfort . The patient experienced shortness of breath. The blood pressure response was normal. Exercise capacity was average. The patient achiev ed a level of 7.6 METs There were no arrhythmias. The electrocardiogr aphic response was indeterminate for ischemia. 3. ECHOCARDIOGRAPHIC FINDINGS: Global le ft ventricular systolic function appears hyperdynamic. 4. IMPRESSION: Normal exercise echocardi ogram. There is no echocardiographic evidence of ischemia a t this level of stress. Findings Rest: Left Ventricle: There is normal global l eft ventricular systolic function. Ejection fraction is estimated to be 65%. There are no left ventricular segmental wall motion abnormalities. Stress: EKG: normal sinus rhythm. EKG: nondiagnostic ST-T changes. The patient's oxygen saturation was 98% The patient is taking a lipid lowering agent. Misc: Definity contrast (one 1.5 ml vial )was used to enhance endocardial definition. Excess contrast was discarded. Stress echo and ECG interpretation perf ormed. Findings Peak: Predicted Values:The patient achieved a maximum heart rate of 162 which is 100% of the maximum predicted heart r ate (162 beats/min). The target heart rate was achieved. Left Ventricle: Global left ventricular systolic function appears hyperdynamic. Stress: Patient followed a Jorge protoco l. The patient exercised into stage 3. The total exercise duration was:6 min 2 6 sec The study was terminated because of fat igue. The patient did not express feelings of chest discomfort. The patient experienced shortness of br eath. The blood pressure response was normal. Exercise capacity was average. The patient achieved a level of 7 METS. 7.6 METs There were no arrhythmias. The electrocardiographic response was i ndeterminate for ischemia. This was a negative echocardiographic s tress test. There is no echocardiographic evidence of myocardial ischemia at this level of stress. EKG: sinus tachycardia. The patient's oxygen saturation was 97- 99% throughout Findings Recovery: Stress: EKG: normal sinus rhythm. EKG: Premature atrial contractions note d. Wall Motion: Segment Name Rest Peak Base-Anteroseptal Normal Normal Base-Anterior Normal Normal Base-Anterolateral Normal Normal Base-Posterolateral Normal Normal Base-Inferior Normal Normal Base-Inferoseptal Normal Normal Mid-Anteroseptal Normal Normal Mid-Anterior Normal Normal Mid-Anterolateral Normal Normal Mid-Posterolateral Normal Normal Mid-Inferior Normal Normal Mid-Inferoseptal Normal Normal Monetta-Septal Normal Normal Monetta-Anterior Normal Normal Monetta-Lateral Normal Normal Monetta-Inferior Normal Normal Monetta-Tip Normal Normal This report has been electronically sign ed by: _ Alec Simpson M.D. 07/15/2016 14:19: 11 Images reviewed and interpretation [place] [facility] Cardiac Ultrasound Laboratory Bharat Vides MD ECHO ORDERABLES ECHOCARDIOGRAM COMPLETE W CONTRAST (07/15/2016 10:41 AM EDT) P athologist Signature EF 67 HEARTLAB SYSTEM Anatomical Region Laterality Modality Other Specimen (Source) Anatomical Location Collection Method / Collectio n Time Received Time / Laterality Volume 07/15/2016 Narrative 07/15/2016 10:58 AM EDT Procedure: ?Transthoracic Echocardiogram Patient: ?SUZY Kan ?(Age): 1960(56y) Med Rec#: ? [id number] ?Sex: ?F ? Site Loc: ? [facility] ?Ht / Wt: ??162(cm)/80(kg) Pt. Loc: ?Adult Floor ? BSA: ?1.85 Study Date: ?? 07/15/2016 ?Pt. Type: Inpatient Tape: ? Referring: MILE MARS D Reading: Jorge Lester ([id number]) Manager Location: [facility] Diagnosis: *ICD-10-PCS Intraductal carcinoma in si tu of left breast (D05.12) CPT Codes: *Echo Full (75935) *Spectral Doppler (84337) *Color Doppler (40696) *Optison (08618DL) BP: ? 114/73 SUMMARY: 1. The left ventricular chamber size is normal. The quantitative left ventricular ejection fraction by biplane Guillen's method is 67% with no left ventricular segmental wall motion a bnormalities. 2. Right ventricular chamber size, wall thickness, and systolic function are within normal limits. 3. Both atria are normal. 4. The cardiac valves appear structurall y and functionally normal. 5. The pericardium appears normal and th ere is no evidence of a pericardial effusion. Findings ? : Left Ventricle: ? The left ventricul ar chamber size is normal. ?Left ventricular wall thickness is normal. ?There is normal global left ventri cular systolic function. ?The quantitative left ventricular ejection fraction by biplane Guillen's method is 67%. ?There are no left ventricular segm ental wall motion abnormalities. ?Doppler assessment is consistent w ith normal left sided filling pressure. Left Atrium: ? The left atrium is no rmal in size.19 ml/m2 Right Ventricle: ? Right ventricular chamber size, wall thickness, and systolic function are within normal limi ts. ?Pulmonary artery hypertension coul d not be assessed due to inadequate tricuspid regurgitation jet. Right Atrium: ? The right atrium bryn ears normal. Aortic Valve: ? The aortic valve is trileaflet. The leaflets are thin with normal excursion. There is no aorti c stenosis or regurgitation present. Mitral Valve: ? The mitral valve bryn ears normal in structure and function. ?There is trace mitral regurgitatio n present. Tricuspid Valve: ? The tricuspid dawit ve appears normal in structure and function. ?There is trace tricuspid regurgita tion present. Pulmonic Valve: ? The pulmonic valve is not well visualized. ?There is no evidence of pulmonic r egurgitation. Pericardium: ? The pericardium appea rs normal and there is no evidence of a pericardial effusion. ?Bilateral pleural effusions are pr esent. Aorta: ? The aortic root is normal i n size. ?The ascending aorta is normal in s ize. ?There is no evidence of coarctatio n of the aorta. Pulmonary Artery: ? The main pulmona ry artery appears normal. Venous: ? The inferior vena cava bryn ears normal in size. ?There is a greater than 50% respir atory change in the inferior vena cava dimension. Misc: ? The cardiac valves appear st ructurally and functionally normal. ?Technically difficult study. ?See remainder of report for additi onal findings. ?Two-dimensional echo, spectral Dop pler and color Doppler performed. ?Optison contrast (one 3 ml vial) w as used to enhance endocardial definition. Excess contrast was discarde d. Chambers 2D ?Value ?Units (Range) ? IVSd (2D) ? 0.9 ?cm ? LVPWd (2D) ?0.6 ?cm ? IVS:LVPW ratio (2D) 1.6 ?ratio ? LVIDd (2D) ?4 ?cm ? LVIDs (2D) ?2.6 ?cm ? LVIDd (2D) index ?2.2 ?cm/m2 ? LVIDs (2D) index ?1.4 ?cm/m2 ? LV FS (2D) ?34 ? % ? EF Teichholz (2D) ?? 64 ? % ? Ao root diameter (2D2.6 ?cm (2.1 - 3.6) ? Ascending Ao ?2.4 ?cm (2 - 3.5) ? Volumes/Mass ?Value ?Units (Range) ? LA Area 4 CH ?13 ? cm2 (<21) ? RA AREA 4CH ? 14 ? cm2 ? LA ESV SP 4CH (MOD) 29.6 ? ml ? LA ESV SP 2CH (MOD) 37.8 ? ml ? LA ESV BP (MOD) ? 35.9 ? ml ? LA ESV BP (MOD) inde19.4 ? ml/m2 ? LV ESV SP 4CH (MOD) 24.3 ? ml ? LV ESV SP 2CH (MOD) 31.9 ? ml ? LV EDV BP ? 96.9 ? ml ? LV ESV BP ? 30.3 ? ml ? BP EF (MOD) ? 69 ? % ? LV mass (2D) ?87.4 ? g ? LV mass (2D) index ??47.3 ? g/m2 ? Diastolic/Systolic Function ?Value ?Units (Range) ? MV E-wave Vmax ?0.8 ?m/sec ? MV deceleration [id number] ?msec ? MV A-wave Vmax ?0.8 ?m/sec ? MV E:A ratio ?1 ?ratio ? LV E:e' septal ratio10.3 ? ratio ? LV E:e' lateral rati6.4 ?ratio ? Tricuspid Valve ?Value ?Units (Range) ? RAP ? 3 ?mmHg ? Measurement Trending Name ? 07/15/2016 ? LV EDV BP ?9 6.9 LVIDd (2D) ? 4 LV ESV BP ?3 0.3 LA ESV BP (MOD) ?35.9 LVIDs (2D) ? 2. 62 Wall Motion: Segment Name ?Rest ? Base-Anteroseptal ?? Normal ? Base-Anterior ? Normal ? Base-Anterolateral ??Normal ? Base-Posterolateral Normal ? Base-Inferior ? Normal ? Base-Inferoseptal ?? Normal ? Mid-Anteroseptal ?Normal ? Mid-Anterior ?Normal ? Mid-Anterolateral ?? Normal ? Mid-Posterolateral ??Normal ? Mid-Inferior ?Normal ? Mid-Inferoseptal ?Normal ? Monetta-Septal ? Normal ? Monetta-Anterior ? Normal ? Monetta-Lateral ?Normal ? Monetta-Inferior ? Normal ? Monetta-Tip ?Normal ? This report has been electronically sign ed by: _ Jorge Lester M.D. ? 07/15/2016 10:57:29 Images reviewed and interpretation [place] [facility] Cardiac Ultrasound Laboratory Procedure Note Jorge Lester MD - 07/15/2016Formatti ng of this note might be different from the original. Procedure: Transthoracic Echocardiogram Patient: SUZY Kan DOB(Age): (56y) Med Rec#: [id number] Sex: F Site Loc: [facility] Ht / Wt: 162(cm)/80(kg) Pt. Loc: Adult Floor BSA: 1.85 Study Date: 07/15/2016 Pt. Type: Inpatie nt Tape: Referring: MILE MARS D Reading: Jorge Lester ([id number]) Manager Location: [facility] Diagnosis: *ICD-10-PCS Intraductal carcinoma in si tu of left breast (D05.12) CPT Codes: *Echo Full (34647) *Spectral Doppler (33621) *Color Doppler (45310) *Optison (44186OP) BP: 114/73 SUMMARY: 1. The left ventricular chamber size is normal. The quantitative left ventricular ejection fraction by biplane Guillen's method is 67% with no left ventricular segmental wall motion a bnormalities. 2. Right ventricular chamber size, wall thickness, and systolic function are within normal limits. 3. Both atria are normal. 4. The cardiac valves appear structurall y and functionally normal. 5. The pericardium appears normal and th ere is no evidence of a pericardial effusion. Findings : Left Ventricle: The left ventricular craidad mber size is normal. Left ventricular wall thickness is norm al. There is normal global left ventricular systolic function. The quantitative left ventricular eject ion fraction by biplane Guillen's method is 67%. There are no left ventricular segmental wall motion abnormalities. Doppler assessment is consistent with n ormal left sided filling pressure. Left Atrium: The left atrium is normal i n size.19 ml/m2 Right Ventricle: Right ventricular chamb er size, wall thickness, and systolic function are within normal limi ts. Pulmonary artery hypertension could not be assessed due to inadequate tricuspid regurgitation jet. Right Atrium: The right atrium appears n ormal. Aortic Valve: The aortic valve is trilea flet. The leaflets are thin with normal excursion. There is no aorti c stenosis or regurgitation present. Mitral Valve: The mitral valve appears n ormal in structure and function. There is trace mitral regurgitation pre sent. Tricuspid Valve: The tricuspid valve bryn ears normal in structure and function. There is trace tricuspid regurgitation present. Pulmonic Valve: The pulmonic valve is no t well visualized. There is no evidence of pulmonic regurg itation. Pericardium: The pericardium appears nor mal and there is no evidence of a pericardial effusion. Bilateral pleural effusions are present . Aorta: The aortic root is normal in size . The ascending aorta is normal in size. There is no evidence of coarctation of the aorta. Pulmonary Artery: The main pulmonary art melinda appears normal. Venous: The inferior vena cava appears n ormal in size. There is a greater than 50% respiratory change in the inferior vena cava dimension. Misc: The cardiac valves appear structur ally and functionally normal. Technically difficult study. See remainder of report for additional findings. Two-dimensional echo, spectral Doppler and color Doppler performed. Optison contrast (one 3 ml vial) was us ed to enhance endocardial definition. Excess contrast was discarde d. Chambers 2D Value Units (Range) IVSd (2D) 0.9 cm LVPWd (2D) 0.6 cm IVS:LVPW ratio (2D) 1.6 ratio LVIDd (2D) 4 cm LVIDs (2D) 2.6 cm LVIDd (2D) index 2.2 cm/m2 LVIDs (2D) index 1.4 cm/m2 LV FS (2D) 34 % EF Teichholz (2D) 64 % Ao root diameter (2D2.6 cm (2.1 - 3.6) Ascending Ao 2.4 cm (2 - 3.5) Volumes/Mass Value Units (Range) LA Area 4 CH 13 cm2 (<21) RA AREA 4CH 14 cm2 LA ESV SP 4CH (MOD) 29.6 ml LA ESV SP 2CH (MOD) 37.8 ml LA ESV BP (MOD) 35.9 ml LA ESV BP (MOD) inde19.4 ml/m2 LV ESV SP 4CH (MOD) 24.3 ml LV ESV SP 2CH (MOD) 31.9 ml LV EDV BP 96.9 ml LV ESV BP 30.3 ml BP EF (MOD) 69 % LV mass (2D) 87.4 g LV mass (2D) index 47.3 g/m2 Diastolic/Systolic Function Value Units (Range) MV E-wave Vmax 0.8 m/sec MV deceleration [id number] msec MV A-wave Vmax 0.8 m/sec MV E:A ratio 1 ratio LV E:e' septal ratio10.3 ratio LV E:e' lateral rati6.4 ratio Tricuspid Valve Value Units (Range) RAP 3 mmHg Measurement Trending Name 07/15/2016 LV EDV BP 96.9 LVIDd (2D) 4 LV ESV BP 30.3 LA ESV BP (MOD) 35.9 LVIDs (2D) 2.62 Wall Motion: Segment Name Rest Base-Anteroseptal Normal Base-Anterior Normal Base-Anterolateral Normal Base-Posterolateral Normal Base-Inferior Normal Base-Inferoseptal Normal Mid-Anteroseptal Normal Mid-Anterior Normal Mid-Anterolateral Normal Mid-Posterolateral Normal Mid-Inferior Normal Mid-Inferoseptal Normal Monetta-Septal Normal Monetta-Anterior Normal Monetta-Lateral Normal Monetta-Inferior Normal Monetta-Tip Normal This report has been electronically sign ed by: _ Jorge Lester M.D. 07/15/2016 10:57 :29 Images reviewed and interpretation verif ied [facility] Cardiac Ultrasound Laboratory Kaleb Velásquez MD ECHO ORDERABLES Cardiac Enzymes (07/15/2016 8:02 AM EDT) P athologist Signature Troponin-T <0.03 <=0.03 [facility] ng/mL [facility] Comment: 0.03 ng/mL: Represents the 99th percenti le upper reference limit for normals. >0.03 ng/mL: Elevated cardiac troponin T level indicative of myocardial damage. Diagnosis of acute, evolving or recent M I requires a typical rise and gradual fall of cTnT with at least ONE of the fo llowing: a) Ischemic symptoms b) Development of pathologic Q waves on the ECG c) ECG changes indicative of eschemia (S -T segment elevation/depression) d) Coronary artery intervention Serial bloods should be obtained for selena ting on admission, at 6 to 9 hrs and again at 12 to 24 hrs if earlier samples are negative and the clinical index of suspicion is high. Reference: [Myocardial infarction redefined? a consensus document of the Joint Society of Cardiology/[place] College o f [employer] Committee for the redefinition of myocardial infarction. ? ?Journal of the [place] College of [employer]iology 2000; 36: 959-969] CK, Total 129 0 - 160 unit/L [facility] Specimen Anatomical Collection Method Collection Time Receive d Time (Source) Location / / Volume Laterality Blood specimen 07/15/2016 8:02 AM 016 8:31 (specimen) EDT AM EDT Resulting Agency Comment Spec In Lab Kaleb Velásquez MD CHEMISTRY ORDERABLES Performing Organization Address City/State/ZIP Code Phon e Number [place] [phone] (ABNORMAL) Differential, Automated (07/15/2016 2:16 AM EDT) [facility] Method Time Signature Neutrophils % 69.7 % [facility] Neutr Abs (ANC) 7.45 (H) 1.70 - [facility] 6.10 [facility] x10(3)/[facility] LABORATORY Lymphocytes % 20.4 % [facility] Lymphocytes Abs 2.2 0.9 - 3.2 [facility] x10(3)/[facility] LABORATORY Monocytes % 9.2 % [facility] Monocyte Abs 1.0 (H) 0.3 - 0.9 [facility] x10(3)/[facility] LABORATORY Eosinophils % 0.3 % [facility] Eosinophils Abs 0.0 0.0 - 0.4 [facility] x10(3)/[facility] LABORATORY Basophils % 0.2 % [facility] Basophils Abs 0.0 0.0 - 0.1 [facility] x10(3)/[facility] LABORATORY Immature Gran % 0.20 % [facility] Comment: Immature granulocytes(IG's)percentage an d absolute count will include metamyelocytes, myelocytes, and promyelo cytes. Blood smears from CBCs yielding IG's will be scanned manually for concor dance. If this scan disagrees with the automated IG or if promyelocytes are not ed, a manual differential will be performed. Isa Gran Abs 0.02 0.00 - 0.04 x10(3)/[facility] Specimen Anatomical Collection Method Collection Time Receive d Time (Source) Location / / Volume Laterality Blood specimen 07/15/2016 2:16 AM 016 2:26 (specimen) EDT AM EDT Resulting Agency Comment Spec In Lab Kaleb Velásquez MD HEMATOLOGY ORDERABLES Performing Organization Address City/[facility]/[place] [address] (ABNORMAL) Hemogram (07/15/2016 2:16 AM EDT) Analysis Performed At Patho logist Time Signature WBC 10.7 (H) 4.0 - 9.5 [facility] x[facility](3[facility] LABORATORY RBC 4.87 4.00 - [facility] BEJARANOJAZMIN 5.21 [facility] x10(6)/[facility] LABORATORY Hemoglobin 13.6 11.7 - [facility] 15.5 gm/dL [facility] Hematocrit 43.1 35.7 - [facility] 45.8 % [facility] MCV 88.5 82.6 - [facility] 94.4 [facility] LABORATORY MCH 27.9 27.1 - [place] JAZMIN 32.0 pg [facility] MCHC 31.6 (L) 31.7 - [facility] 35.0 gm/dL [facility] Platelets 198 145 - 357 [facility] x10(3)/[facility] LABORATORY RDWSD 45.1 37.0 - [facility] JAZMIN 46.0 [facility] LABORATORY RDWCV 14.0 11.5 - [facility] JAZMIN 14.1 % [facility] MPV 11.7 7.6 - 12.9 [facility] nRBC % Auto 0.0 % [facility] nRBC Abs Auto 0.000 0.000 - [place] JAZMIN 0.000 [facility] x10(3)/[facility] LABORATORY Specimen Anatomical Collection Method Collection Time Receive d Time (Source) Location / / Volume Laterality Blood specimen 07/15/2016 2:16 AM 016 2:26 (specimen) EDT AM EDT Resulting Agency Comment Spec In Lab Kaleb Velásquez MD HEMATOLOGY ORDERABLES Performing Organization Address City/State/[place] [address] Cardiac Enzymes (07/15/2016 2:16 AM EDT) P athologist Signature Troponin-T <0.03 <=0.03 [facility] ng/mL [facility] Comment: 0.03 ng/mL: Represents the 99th percenti le upper reference limit for normals. >0.03 ng/mL: Elevated cardiac troponin T level indicative of myocardial damage. Diagnosis of acute, evolving or recent M I requires a typical rise and gradual fall of cTnT with at least ONE of the fo llowing: a) Ischemic symptoms b) Development of pathologic Q waves on the ECG c) ECG changes indicative of eschemia (S -T segment elevation/depression) d) Coronary artery intervention Serial bloods should be obtained for selena ting on admission, at 6 to 9 hrs and again at 12 to 24 hrs if earlier samples are negative and the clinical index of suspicion is high. Reference: [Myocardial infarction redefined? a consensus document of the Joint Society of Cardiology/[place] College o f Cardiology Committee for the redefinition of myocardial infarction. ? ?Journal of the [place] College of Cardiology 2000; 36: 959-969] CK, Total 129 0 - 160 unit/L [facility] Specimen Anatomical Collection Method Collection Time Receive d Time (Source) Location / / Volume Laterality Blood specimen 07/15/2016 2:16 AM 016 2:26 (specimen) EDT AM EDT Resulting Agency Comment Spec In Lab Kaleb Velásquez MD CHEMISTRY ORDERABLES Performing Organization Address City/[facility] [place] [address] APTT (07/15/2016 2:16 AM EDT) P athologist Signature PTT 30 25 - 35 sec [facility] Comment: The recommended therapeutic range for fu ll dose, unfractionated heparin at [facility] is 80 ? 114 seconds. The use of the anti-Xa (heparin) level rather than the PTT is recommended for monitoring anticoagul ation intensity in critically ill patients receiving unfractionated hepari n by continuous IV infusion. Specimen Anatomical Collection Method Collection Time Receive d Time (Source) Location / / Volume Laterality Blood specimen 07/15/2016 2:16 AM 016 2:26 (specimen) EDT AM EDT Resulting Agency Comment Spec In Lab Kaleb Velásquez MD HEMATOLOGY ORDERABLES Performing Organization Address City/[facility] [place] [address] Prothrombin Time (07/15/2016 2:16 AM EDT) P athologist Signature PT 13.3 12.0 - 15.0 [facility]ORY Comment: An INR <2.0 indicates adequate procoagul ant activity for hemostasis in most patients without underlying bleeding dis orders, though the INR may not adequately reflect hemostatic capacity i n patients with liver disease and synthetic impairment. The recommended ta rget INR range for therapeutic anticoagulation is 2.0 ? 3.0 for most applications, though lower and higher ranges may be appropriate depending on c linical circumstances. INR 1.0 0.9 - 1.1 [facility] Specimen Anatomical Collection Method Collection Time Receive d Time (Source) Location / / Volume Laterality Blood specimen 07/15/2016 2:16 AM 016 2:26 (specimen) EDT AM EDT Resulting Agency Comment Spec In Lab Kaleb Velásquez MD HEMATOLOGY ORDERABLES Performing Organization Address City/[facility]/ZIP Code Phon e Number [address] Hepatic Function Panel (07/15/2016 2:16 AM EDT) P athologist Signature Total Protein 7.4 6.1 - 8.0 [facility] JAZMIN gm/dL [facility] Albumin 4.1 3.2 - 5.2 [facility] JAZMIN gm/dL [facility] AST 20 0 - 30 [facility] JAZMIN unit/L [facility] ALT 15 0 - 30 [facility] JAZMIN unit/L [facility] Alk Phos 94 40 - 104 [facility] JAZMIN unit/L [facility] Total 0.6 0.2 - 1.3 MinkaJAZMIN Bilirubin mg/dL [facility] Bili, Direct 0.1 0.0 - 0.3 [facility] JAZMIN mg/dL [facility] Specimen Anatomical Collection Method Collection Time Receive d Time (Source) Location / / Volume Laterality Blood specimen 07/15/2016 2:16 AM 016 2:26 (specimen) EDT AM EDT Resulting Agency Comment Spec In Lab Kaleb Velásquez MD CHEMISTRY ORDERABLES Performing Organization Address City/[facility]/[place] [address] pro-Brain Natriuretic Peptide (07/15/2016 2:16 AM EDT) P athologist Signature ProBNP 51 <=125 pg/mL [facility] Specimen Anatomical Collection Method Collection Time Receive d Time (Source) Location / / Volume Laterality Blood specimen 07/15/2016 2:16 AM 016 2:26 (specimen) EDT AM EDT Resulting Agency Comment Spec In Lab Kaleb Velásquez MD CHEMISTRY ORDERABLES Performing Organization Address City/State/ZIP Code Phon e Number [address] TSH (07/15/2016 2:16 AM EDT) P athologist Signature TSH 3.07 0.27 - 4.20 [facility] JAZMIN mcIU/mL [facility] Specimen Anatomical Collection Method Collection Time Receive d Time (Source) Location / / Volume Laterality Blood specimen 07/15/2016 2:16 AM 016 2:26 (specimen) EDT AM EDT Resulting Agency Comment Spec In Lab Kaleb Velásquez MD CHEMISTRY ORDERABLES Performing Organization Address City/State/ZIP Code Phon e Number [address] Phosphorus (07/15/2016 2:16 AM EDT) P athologist Signature Phosphorus 3.9 2.5 - 4.5 [facility] JAZMIN mg/dL [facility] Specimen Anatomical Collection Method Collection Time Receive d Time (Source) Location / / Volume Laterality Blood specimen 07/15/2016 2:16 AM 016 2:26 (specimen) EDT AM EDT Resulting Agency Comment Spec In Lab Kaleb Velásquez MD CHEMISTRY ORDERABLES Performing Organization Address City/State/ZIP Code Phon e Number [address] Magnesium (07/15/2016 2:16 AM EDT) P athologist Signature Magnesium 0.85 0.69 - 1.07 [facility] mmol/L [facility] Specimen Anatomical Collection Method Collection Time Receive d Time (Source) Location / / Volume Laterality Blood specimen 07/15/2016 2:16 AM 016 2:26 (specimen) EDT AM EDT Resulting Agency Comment Spec In Lab Kaleb Velásquez MD CHEMISTRY ORDERABLES Performing Organization Address City/State/ZIP Code Phon e Number [facility] [place] [address] Basic Metabolic Panel (non-fasting) (07/15/2016 2:16 AM EDT) athologist Signature Glucose Lvl 98 65 - 199 [facility] mg/dL [facility] Comment: Diabetes: >=200 mg/dL plus symp toms BUN 12 8 - 18 mg/dL [facility] Creatinine 0.79 0.70 - 1.20 mg/dL [facility] Comment: Please note that the pediatric reference intervals supplied above were not validated at [facility]. Results from pediatri c patients should be interpreted in conjunction to the patient's age, height and muscle mass. Sodium 140 135 - 145 mmol/L [facility] [...] estions. Chloride 101 98 - 107 mmol/L [facility] CO2 26 22 - 31 mmol/L [facility] Anion Gap 13 5 - 15 mmol/L [facility] Calcium 9.6 8.5 - 10.5 mg/dL [facility] Estimated GFR >60 >=60 [facility] Comment: This estimated GFR [...] the following links into your internet browser. [email or web address] Specimen Anatomical Collection Method Collection Time Receive d Time (Source) Location / / Volume Laterality Blood specimen 07/15/2016 2:16 AM 016 2:26 (specimen) EDT AM EDT Resulting Agency Comment Spec In Lab Kaleb Velásquez MD CHEMISTRY ORDERABLES Performing Organization Address City/State/[place] [address] EKG 12 Lead (07/15/2016 1:43 AM EDT) Component Value Ref Range Test Analysis Performed Pathologis t Method Time At Signature Ventricular rate 71 BPM MUSE SYSTEM Atrial Rate 71 BPM MUSE SYSTEM P-R Interval 160 ms MUSE SYSTEM QRS Duration 76 ms MUSE SYSTEM Q-T Interval 392 ms MUSE SYSTEM QTC Calculated 425 ms MUSE SYSTEM (Bezet) Calculated P [place] 69 degrees MUSE SYSTEM Calculated R [place] 57 degrees MUSE SYSTEM Calculated T [place] 79 degrees MUSE SYSTEM INTERPRETATION Normal sinus rhythm MUSE SYSTEM Nonspecific ST and T wave abnormality Abnormal ECG No previous ECGs available Confirmed by MD Kelsey, Elbert ([id number]) on 07/15/2016 9:20:51 AM Specimen Anatomical Collection Method Collection Time Receive d Time (Source) Location / / Volume Laterality 07/15/2016 1:43 AM 6 9:20 EDT AM EDT Kaleb Velásquez MD ECG ORDERABLES Performing Organization Address City/[facility] Phon e Number MUSE SYSTEM documented in this encounter Visit Diagnoses Diagnosis Ductal carcinoma in situ (DCIS) of left breast Chest pain, unspecified type Chest pain Chest pain, unspecified documented in this encounter Admitting Diagnoses Diagnosis Chest pain Chest pain, unspecified documented in this encounter Administered Medications Inactive Administered Medications - up to 3 most recent administrations Medication Order MAR Action Action Date Dose Rate Site acetaminophen (TYLENOL) tablet Given 07/15/2016 3:06 AM EDT 1,00 0 mg 1,000 mg 1,000 mg, Oral, EVERY 6 HOURS PRN, Starting on Mon07/15/16 at 0141, Until Mon07/15/16 at 1852, Pain, Maximum dose of acetaminophen is 4000 mg from all sources in 24 hours., Routine famotidine (PEPCID) tablet 20 mg Given 07/15/2016 11:10 AM EDT 20 mg 20 mg, Oral, 2 TIMES DAILY, First dose on Mon07/15/16 at 0215, Until Discontinued, Routine Given 07/15/2016 3:07 AM EDT 20 mg letrozole (FEMARA) tablet 2.5 mg Given 07/15/2016 11:11 AM EDT 2.5 mg 2.5 mg, Oral, DAILY, First dose on Mon07/15/16 at 0900, Until Discontinued, Routine magnesium sulfate 1g in dextrose 5% Given 07/15/2016 11:20 AM ED T 1 g 100 mL/hr 100mL 1 g, Intravenous, ONCE, 1 dose, On Mon07/15/16 at 0900, Administer over 60 Minutes perflutren protein-A microspheres (OPTISON) Given 06/30 10:00 AM EDT 1.8 mLs 0.22 mg/mL injection 1.8 mL 1.8 mL, Intravenous, ONCE PRN, 1 dose, Starting on Mon07/15/16 at 1041, Until Mon07/15/16 at 1000, Per Protocol, Routine simvastatin (ZOCOR) tablet 20 mg 20 mg, Oral, EVERY EVENING, First dose o n Mon07/15/16 at 1700, Until Discontinued, Routine sodium chloride 0.9 % flush 5 mL Given 07/15/2016 11:20 AM EDT 5 mLs 5 mL, Intravenous, 2 TIMES DAILY, First dose on Mon07/15/16 at 0200, Until Discontinued, Routine Given 07/15/2016 2:00 AM EDT 5 mLs documented in this encounter Active and Recently Administered Medications Times are shown in EDT. Scheduled Medication Order 07/13/2016 07/14/2016 07/15/2016 enoxaparin (LOVENOX) injection 40 mg 40 mg, Subcutaneous, NIGHTLY, First dose on Mon07/15/16 at 2100, Until Discontinued, Routine famotidine (PEPCID) tablet 20 mg 0307 (Given - Provider: Justa Cruz RN)1110 (Given - Provider: Jair Lombardi RN) 20 mg, Oral, 2 TIMES DAILY, First dose o n Mon07/15/16 at 0215, Until Discontinued, Routine letrozole (FEMARA) tablet 2.5 mg 1111 (Given - Provider: Jair Lombardi, JAMMIE) 2.5 mg, Oral, DAILY, First dose on Mon at 0900, Until Discontinued, Routine magnesium sulfate 1g in dextrose 5% 100mL (COMPLETED) 1120 (Given - Provider: Jair Lombardi, RN) 1 g, Intravenous, ONCE, 1 dose, Mon07/15/16 at 0900, A dminister over 60 Minutes simvastatin (ZOCOR) tablet 20 mg 20 mg, Oral, EVERY EVENING, First dose o n Mon07/15/16 at 1700, Until Discontinued, Routine sodium chloride 0.9 % flush 5 mL 0200 (Given - Provider: Justa Cruz RN)1120 (Given - Provider: Jair Lombardi, JAMMIE) 5 mL, Intravenous, 2 TIMES DAILY, First dose on Mon07/15/16 at 0200, Until Discontinued, Routine PRN Medication Order 07/13/2016 07/14/2016 07/15/2016 acetaminophen (TYLENOL) tablet 1,000 mg 0306 (Given - Provider: Justa Cruz, JAMMIE) 1,000 mg, Oral, EVERY 6 HOURS PRN, Start ing Mon07/15/16 at 0141, Until Mon07/15/16 at 1852, Pain, Maximum dose of acetaminophen is 4000 mg from all sources in 24 hours., Routine lidocaine (XYLOCAINE) 10 mg/mL (1 %) injection 3 mg 3 mg (0.3 mL), Subcutaneous, ONCE PRN, 1 dose, Starting Mon07/15/16 at 0141, Until Mon07/15/16 at 1852, for discomfort with PIV insertion, Routine nitroGLYcerin (NITROSTAT) SL tablet 0.4 mg 0.4 mg, Sublingual, EVERY 5 MIN PRN, Sta rting Mon07/15/16 at 0141, Until Mon07/15/16 at 1852, Chest pain, May repeat every 5 minutes for a total of three doses. Notify provider if chest pain not relieve d with nitroglycerin. Do not administer nitroglycerin if the patinet has received or taken phosphodiesterase (PDE-5) inhibitors such as sildenafil, tadalafil or vardenafil within the last 24 to 72 hours., Routine perflutren protein-A microspheres (OPTIS ON) 0.22 mg/mL injection 1.8 mL (COMPLETED) 1000 (Given - Provid er: Gian Blair) 1.8 mL, Intravenous, ONCE PRN, 1 dose, S tarting Mon07/15/16 at 1041, Until Mon07/15/16 at 1000, Per Protocol, Routine sodium chloride 0.9 % flush 5-20 mL 5-20 mL, Intravenous, EVERY 1 MIN PRN, S tarting Mon07/15/16 at 0141, Until Mon07/15/16 at 1852, flush, Flush pertains to all indwelling lines. Flush per protocol found in the job aid using the link provided on this medication record., Routine documented in this encounter Care Teams Deburring And Tooling Machine Operator Relationship Specialty Start Date End Date Chi Neal MD PCP - General Family Medicine 02/03/16 09/12/[address] [place] [address] documented as of this encounter
--- OUTSIDE RECORDS SUMMARY | 2022-09-30 02:09 | XMS_ITS | Encounter Summary ---
:1960 Author Organization [facility] Address [facility] [place] [address] Care Team Providers Name Role Phone Hoa Perez MD Primary Care Provider Reason for Visit Reason Comments Follow-up Encounter Details Date Type Department Care Team Description 12/02/2015 Office Visit General Surgery at [facility] [facility] ne[facility] of [facility] left female breast, [facility] uns pecified site of Drive [address] [place] GENERAL SURGERY [id number] [place] [address] [phone] Social History Tobacco Use Types Packs/Day Years Used Date Smoking Tobacco: Never Alcohol Use Standard Drinks/Week Comments Yes 5 (1 standard drink = 0.6 oz pure alcoho l) Sex Assigned at Date Recorded Not on file documented as of this encounter Progress Notes Daniel El MD - 12/02/2015 4:54 PM EST COPY: Hoa Perez M.D. Tanika Harrison is [...] she had five negative sentinel nodes. She now returns for a check. On physical exam, both of her incisions are beautifully healed with no signs of infection or hematoma. Breast contour is unchanged from its preoperative contour. Impression: Tanika is doing well after left breast partial mastectomy and sentinel node excision. I gave her a copy of her pathology reports. She understands that she has approximately 90% long-term survival with the surgery alone. Adding adjuvant hormonal therapy should improve her survival to approximately 94%. She has seen Dr. Ricardo and has discussed aromatase-inhibitor therapy with him. She has also seen Dr. Jacome from Radiation Oncology and will be planning adjuvant left breast radiation therapy. Her tumor was apparently sent by Dr. Ricardo for an Oncotype DX test to evaluate for the potential benefit of adjuvant chemotherapy. I will plan to see her back in six months with a left mammogram to serve as a new baseline. Apparently she had some palpitations in the Operating Room. I was not told about that by the anesthesiologist. She has continued to have a couple of palpitations since then and has discussed this with Dr. Perez who has already obtained a Holter monitor on her, and those results are pending. documented in this encounter Plan of Treatment Not on filedocumented as of this encounter Results Mammo Diag Garcia Left (07/06/2016 9:56 AM EDT) Anatomical Region Laterality Modality Breast Left Mammography Specimen (Source) Anatomical Location Collection Method / Collectio n Time Received Time / Laterality Volume Narrative 07/06/2016 10:04 AM EDT Left breast mammography Reason for exam: new baseline s/p left l ump for ca. ??56-year-old female, history of left breast DCIS, 2014, status post l umpectomy. Technique: CC and MLO views were obtaine d of the left breast using standard 2-D mammography as well as 3-D tomosynthesis . Computer aided detection was used. Comparison: This is compared with prior images. Findings: The breasts are heterogeneousl y dense, which may obscure small masses. There are no suspicious microcalcificati ons, masses, or areas of distortion. Expected postsurgical change of the left breast. Conclusion: No mammographic evidence of malignancy. Recommendation: Routine screening. BI-RADS Category 2: Benign findings. * ??The [place] [employer] an d The Society [...] breast documented in this encounter Care Teams Zinc Furnace Charger Relationship Specialty Start Date End Date Hoa Perez MD PCP - General 04/23/13 02/02/16 [address] [place] [address] documented as of this encounter
--- OUTSIDE RECORDS SUMMARY | 2022-09-30 02:09 | XMS_ITS | Encounter Summary ---
:1960 Author Organization [facility] [place] [address] Care Team Providers Name Role Phone Hoa Perez MD Primary Care Provider Encounter Details Date Type Department Care Team Description 12/22/2015 Office Visit Radiation Oncology at [facility], [address] [phone] Social History Tobacco Use Types Packs/Day Years Used Date Smoking Tobacco: Never Alcohol Use Standard Drinks/Week Comments Yes 5 (1 standard drink = 0.6 oz pure alcoho l) Sex Assigned at Date Recorded Not on file documented as of this encounter Plan of Treatment Not on filedocumented as of this encounter Visit Diagnoses Not on filedocumented in this encounter Care Teams Bead Flipper Relationship Specialty Start Date End Date Hoa Perez MD PCP - General 04/23/13 02/02/16 [address] [place], [place] [id number] documented as of this encounter
--- OUTSIDE RECORDS SUMMARY | 2022-09-30 02:09 | XMS_ITS | Encounter Summary ---
:1960 Author Organization [facility] [place] [address] Care Team Providers Name Role Phone Kelsie Neal MD Primary Care Provider Reason for Visit Reason Onset Date Comments Other 02/26/2016 Encounter Details Date Type Department Care Team Description 02/26/2016 Telephone Radiation Oncology [place] [facility] Vanessa Carrizales, [place] [phone] Social History Tobacco Use Types Packs/Day Years Used Date Smoking Tobacco: Never Alcohol Use Standard Drinks/Week Comments Yes 5 (1 standard drink = 0.6 oz pure alcoho l) Sex Assigned at Date Recorded Not on file documented as of this encounter Miscellaneous Notes Telephone Encounter - Vanessa Carrizales, RN - 02/26/2016 2:37 PM EDT Patient ID: Tanika Harrison is a 55 y.o. female, who has breast cancer. Patient complains of nipple drainage she has soreness of her left nipple. She completed radiation on February 02, 2016. Return phone call on 02/25/16 to Tanika Harrison. Tanika Harrison has an appointment with Dr El on 03/02/[address] Jacome on 03/21/16 documented in this encounter Plan of Treatment Not on filedocumented as of this encounter Visit Diagnoses Not on filedocumented in this encounter Care Teams Farm Advisor Relationship Specialty Start Date End Date Kelsie Neal MD PCP - General Family Medicine 02/03/16 09/12/[address] [place] [address] [address] [place] [address] documented as of this encounter
--- OUTSIDE RECORDS SUMMARY | 2022-09-30 02:09 | XMS_ITS | Encounter Summary ---
:1960 Author Organization [facility] Address [facility] [address] [place] [address] Care Team Providers Name Role Phone Kelsie Neal MD Primary Care Provider Reason for Visit Reason Comments Follow-up Encounter Details Date Type Department Care Team Description 03/07/2016 Office Visit Radiation Oncology at [facility], Cat Orellana MD Malignant neoplasm of [facility] left female breast, [address] unspecified site of [place], [place] RADIATION ONCOL OGY breast [id number] [place] [address] [phone] Social History Tobacco Use Types Packs/Day Years Used Date Smoking Tobacco: Never Alcohol Use Standard Drinks/Week Comments Yes 5 (1 standard drink = 0.6 oz pure alcoho l) Sex Assigned at Date Recorded Not on file documented as of this encounter Last Filed Vital Signs Vital Sign Reading Time Taken Comments Blood Pressure 120/83 03/07/2016 3:05 PM EDT Pulse 84 03/07/2016 3:05 PM EDT Temperature - - Respiratory Rate 20 03/07/2016 3:05 PM EDT Oxygen Saturation 100% 03/07/2016 3:05 PM EDT Inhaled Oxygen Concentration - - Weight 81.2 kg (179 lb) 03/07/2016 3:05 PM EDT Height - - Body Mass Index 30.75 02/24/2016 3:41 PM EDT documented in this encounter Patient Instructions Patient InstructionsJoe Jacome MD - 03/07/2016 3:25 PM EDT Your exam shows that you are healing nicely from radiotherapy & there is no evidence of cancer. You may resume your regular deodorant on your left underarm. You may use a straight/regular razor on your left underarm. You may expose the irradiated area to sun, but it is recommended that you apply sunscreen with an SPF of @ least #45 on the irradiated area prior to exposing it to sun. You may swim in chlorinated water. We will mail you a letter with an appointment to see me in 6 months. documented in this encounter Progress Notes Joe Jacome MD - 03/07/2016 3:20 PM EDT CC: Sched'd fu s/p xrt completion. HPI: 55 y/o f who completed xrt 1 mo ago for breast ca, L, IDC, intermed gr, ER+NH+, [id number] s/p lumpectomy followed by SNB, pT1 pN0, stage I. Since xrt completion, she has been started on femara. 03/02/[address] El. ROS: Discomfort in area of L nipple when cleaning area; rec'd by Dr. El to use q-tip in area for cleaning. She notes intermittent mild discomfort @ SNB scar in L axilla. No hand/arm swelling. ROM ofarms around shoulders ok. Appetite & energy level ok. Past Medical History Diagnosis Date ??? Hiatal hernia ??? Hypercholesteremia Past Surgical History Procedure Laterality Date ??? Breast biopsy Right 08/11 ??? Pro mastectomy, partial Right 11/03/2015 MASTECTOMY PARTIAL performed by Daniel El MD at [facility] MAIN OR ??? Pro bx/remv, lymph node, deep axill Left 11/16/2015 BIOPSY OR EXCISION OF LYMPH NODE(S), OPEN, DEEP AXILLARY NODE(S) performed by Daniel El MD at [facility] MAIN OR ??? Left 11/16/2015 MODIFIER SENTINEL NODE EXCISION performed by Daniel El MD at [facility] MAIN OR Physical Exam Constitutional: She is oriented to person, place, and time. She appears well- developed and well-nourished. No distress. BP 120/83 mmHg Pulse 84 Resp 20 Wt 81.194 kg (179 lb) SpO2 100% HENT: Head: Normocephalic and atraumatic. Eyes: Conjunctivae [...] no tenderness. Right breast exhibits no inverted nipple, no mass, nonipple discharge, no skin change and no tenderness. Left breast exhibits skin change (Minimal erythema of L breast, consistent w/not unexpected post xrt appearance.). Left breast exhibits no inverted nipple, no mass, no nipple discharge and no tenderness. Abdominal: Soft. She exhibits no distension and no mass. There is no tenderness. There is no reboundand no guarding. Musculoskeletal: Normal range of motion. She exhibits no edema or tenderness. Lymphadenopathy: Head (right side): No submental, no [...] normal. Judgment and thought content normal. A: Recovering from xrt w/mild residual inflammation in area of L nipple. P: Discussion w/her about how I expect her L nipple discomfort to decrease w/time & eventually clear; agree w/using q tip to clean area. Discussion w/her how I think her intermittent discomfort in area of L SNB scar may be related to newscar cells & I rec'd arm walking up wall exercise a few times daily w/L arm, 10 reps to count of 10, to stretch out the area, which I think will help to lessen the discomfort. Skin care instructions given. Rtc 6 mos. documented in this encounter Miscellaneous Notes Addendum Note - Joe Jacome MD - 03/07/2016 3:48 PM EDT Addended by: JOE JACOME on: 03/07/2016 03:48 PM Modules accepted: Level of Service documented in this encounter Plan of Treatment Not on filedocumented as of this encounter Visit Diagnoses Diagnosis Malignant neoplasm of left female breast , unspecified site of breast documented in this encounter Care Teams Evening Anchor Relationship Specialty Start Date End Date Kelsie Neal MD PCP - General Family Medicine 02/03/16 09/12/[address] [place] [address] documented as of this encounter
--- OUTSIDE RECORDS SUMMARY | 2022-09-30 02:09 | XMS_ITS | Encounter Summary ---
:1960 Author Organization [facility] [place] [address] Care Team Providers Name Role Phone Hoa Perez MD Primary Care Provider Encounter Details Date Type Department Care Team Description 01/25/2016 Hospital Encounter Hematology and Maligna nt neoplasm of Oncology at [facility] left female breast, [facility] [place] [phone] Social History Tobacco Use Types Packs/Day [...] Priority Date/Time Associated Comments Diagnosis COMPREHENSIVE Routine 01/25/2016 1:08 PM Malignant neoplasm Re sults for this METABOLIC PANEL EDT of left female procedure are in (NON-FASTING) breast, unspecified the res ults site of breast section. documented in this encounter Results (ABNORMAL) Comprehensive metabolic panel (non-fasting) (01/25/2016 1:08 PM EDT) athologist Signature Glucose Lvl 84 65 - 199 [facility] mg/dL [facility] Comment: Diabetes: >=200 mg/dL plus symp toms BUN 16 8 - 18 mg/dL [facility] Creatinine 0.94 0.70 - 1.20 mg/dL [facility] Comment: Please note that the pediatric reference intervals supplied above were not validated at [facility]. Results from pediatri c patients should be interpreted in conjunction to the patient's age, height and muscle mass. Sodium 141 135 - 145 mmol/L [facility] Potassium 4.0 3.5 - 5.0 mmol/L [facility] Comment: Please note: ??Patients with WBC >100,00 0 may have falsely elevated Potassium levels. ??For accurate Potassium quantif ication in these patients send serum separator tube (gold top) for subsequent determinations. ??Contact the Clinical Chemistry Laboratory if there are any qu estions. Chloride 102 98 - 107 mmol/L [facility] CO2 26 22 - 31 mmol/L [facility] Anion Gap 13 5 - 15 mmol/L [facility] Calcium 9.3 8.5 - 10.5 mg/dL [facility] Total Protein 7.5 6.1 - 8.0 gm/dL [facility] Albumin 4.3 3.2 - 5.2 gm/dL [facility] AST 23 0 - 30 unit/L [facility] ALT 15 0 - 30 unit/L [facility] Alk Phos 120 (H) 40 - 104 unit/L [facility] Total Bilirubin 0.7 0.2 - 1.3 mg/dL [facility] Bili, Direct 0.1 0.0 - 0.3 mg/dL [facility] Estimated GFR >60 >=60 [facility] Comment: This estimated GFR [...] the following links into your internet browser. http://Pump!/DHnkdep http://Pump!/DHMCnkf Specimen Anatomical Collection Method Collection Time Receive d Time (Source) Location / / Volume Laterality Blood specimen 01/25/2016 1:08 PM 016 1:19 (specimen) EDT PM EDT Resulting Agency Comment Spec In Lab Brooks Ricardo MD CHEMISTRY ORDERABLES Performing Organization Address City/State/ZIP Code Phon e Number [place] [phone] documented in this encounter Visit Diagnoses Diagnosis Malignant neoplasm of left female breast , unspecified site of breast documented in this encounter Care Teams Youth Services Specialist Relationship Specialty Start Date End Date Hoa Perez MD PCP - General 04/23/13 02/02/16 [address] [place] [address] documented as of this encounter
--- OUTSIDE RECORDS SUMMARY | 2022-09-30 02:10 | XMS_ITS | Encounter Summary ---
:1960 Author Organization [facility] Address [facility] [place] [address] Care Team Providers Name Role Phone Hoa Perez MD Primary Care Provider Encounter Details Date Type Department Care Team Description 08/21/2014 Hospital Encounter Mammography at [facility], [facility] Hoa Barry MD [address] [place], [place] [id number] [place] [address] Social History Tobacco Use Types Packs/Day Years Used Date Smoking Tobacco: Never Sex Assigned at Date Recorded Not on file documented as of this encounter Plan of Treatment Not on filedocumented as of this encounter Procedures Procedure Name Priority Date/Time Associated Diagnosis Comme nts MAMMO SCREENING CAD Routine 08/21/2014 2:50 PM Re sults for this BILATERAL EDT procedure are i n the results section. documented in this encounter Results Mammo digital bilateral Screening with CAD (08/21/2014 2:50 PM EDT) Anatomical Region Laterality Modality Breast Bilateral Mammography Specimen (Source) Anatomical Collection Method Collection Time Re ceived Time Location / / Volume Laterality 08/21/2014 2:50 PM EDT Narrative 08/25/2014 1:58 PM EDT BILATERAL MAMMOGRAPHY ?? REASON FOR EXAM: Screening ?? TECHNIQUE: Cranio-caudal (CC) and mediol ateral oblique (MLO) views of both breasts obtained with direct digital cap ture. The exam was evaluated by CAD Version 8.3.17. ?? FINDINGS: This is a negative mammogram ( ACR Category 1). There is a stable fibroglandular pattern without significa nt change as compared to prior studies. There is no mammographic evidence of can cer. ?? The breasts are heterogeneously dense wh ich limits mammographic sensitivity for the detection of malignancy. ? Please note: The markedly increased dens ity of these breasts reduces the reliability of mammography. For this kareen son, the report of a ''negative'' mammogram should not preclude further ev aluation of any clinically suspicious finding. ? A biopsy marker clip is present in the u pper outer Right breast. ? CONCLUSION ?? This is a NEGATIVE mammogram (ACR Catego ry 1). Routine screening mammography is recommended with the frequency dependent on the patient's age and breast cancer risk factors. ?? This patient's breast density would be b yolanda assessed with 3D imaging. ? A letter has been sent to this patient [facility]. Procedure Note Rosalind Ramirez MD - 08/25/2014Forma tting of this note might be different from the original. BILATERAL MAMMOGRAPHY REASON FOR EXAM: Screening TECHNIQUE: Cranio-caudal (CC) and mediol ateral oblique (MLO) views of both breasts obtained with direct digital cap ture. The exam was evaluated by CAD Version 8.3.17. FINDINGS: This is a negative mammogram ( ACR Category 1). There is a stable fibroglandular pattern without significa nt change as compared to prior studies. There is no mammographic evidence of can cer. The breasts are heterogeneously dense wh ich limits mammographic sensitivity for the detection of malignancy. Please note: The markedly increased dens ity of these breasts reduces the reliability of mammography. For this kareen son, the report of a ''negative'' mammogram should not preclude further ev aluation of any clinically suspicious finding. A biopsy marker clip is present in the u pper outer Right breast. CONCLUSION This is a NEGATIVE mammogram (ACR Catego ry 1). Routine screening mammography is recommended with the frequency dependent on the patient's age and breast cancer risk factors. This patient's breast density would be b yolanda assessed with 3D imaging. A letter has been sent to this patient b [facility]. Meagan Marley APRN IMG MAMMO ORDERABLES documented in this encounter Visit Diagnoses Not on filedocumented in this encounter Care Teams Basting Puller Relationship Specialty Start Date End Date Hoa Perez MD PCP - General 04/23/13 02/02/16 [address] [place], [place] [address] documented as of this encounter
--- OUTSIDE RECORDS SUMMARY | 2022-09-30 02:10 | XMS_ITS | Encounter Summary ---
:1960 [place] [address] Care Team Providers Name Role Phone Hoa Perez MD Primary Care Provider Reason for Visit Auth/Cert - Closed Specialty Diagnoses / Procedures Referred By Contact Refer red To Contact Diagnoses LEFT BREAST CANCER Procedures PRO BX/REMV, LYMPH NODE, DEEP AXILL PRO IDENTIFY SENTINEL NODE BIOPSY OR EXCISION OF LYMPH NODE(S), OPEN, DEEP AXILLARY NODE(S) SENTINEL NODE INJECTION MODIFIER SENTINEL NODE EXCISION Referral ID Status Reason Start Date Expiration Date Visits Requ ested Visits Authorized [id number] Closed 1 1 Encounter Details Date Type Department Care Team Description 11/16/2015 Anesthesia Event Main Operating Room Rebecca Joseph MD [facility] [place] [address] [place] Terrance Carty MD [facility] [place] [address] [facility] [address] Anesthesia Record Procedure Summary Procedure Name Responsible Anesthesia Start Anesthesia Stop Time Anesthesiologist Time BIOPSY OR EXCISION Rebecca Dennison MD 11/16/15 1735 1900 OF LYMPH NODE(S), OPEN, DEEP AXILLARY NODE(S) (WRVU 6.43) (Left: Axilla) Events Date Time Event Comment 11/16/2015 1600 1735 AN Verify 1735 Start 1739 An Start Data 1744 An Induction 1746 An Intubation 1749 Anesthesia Ready 1759 Skin Incision 1845 Procedure Stop 185 Extubation/LMA Out 185 an stop data 185 Recovery or ICU Handoff Patient care was transferred to the destination unit staff after review of the patient's medica l history, current anesthetic/surgi shabbir status and plan, according to the Provider Handoff Checklist. 1900 Stop Name Total fentaNYL 100 mcg IV Lidocaine 40 mg Propofol 300 mg Ondansetron 8 mg Dexamethasone 8 mg ceFAZolin (ANCEF) 2g in dextrose 5% 50 mL 2 g Propofol INF 96.03 mg ketorolac (TORADOL) injection 30 mg 30 mg lactated ringers infusion 1,000 mL 1,000 mL Agents Name O2 Air Sevoflurane (et) Desflurane (et) Blood No blood administrations on file. Lines, Drains, and Airways Type Details Placement Removal Incision 11/03/15; breast; 06/27/22 11/03/15 0000 by Yara myrick, 06/27/22 1715 by (LDA cleanup utility JAMMIE [place], [facility] RA#[id number]); 1715 (LDA cleanup utility RA#[id number]) Incision 11/16/15; axilla; 11/16/15 0000 by 06/27/22 1715 by vertical, horizontal; Janet Morrison RN Mull er, Dierdre L 06/27/22 (LDA cleanup utility RA#[id number]); 1715 (LDA cleanup utility RA#[id number]) PIV 11/16/15; 1510; cephalic 11/16/15 1510 by Rhett , 02/12/18 0921 by Epic, vein right (lateral side Yaneth Camp RN User of arm); ecvz-lbm-yeikrn catheter system; 20 gauge, 1 in length; yaneth chowdary; intradermal injection, tolerated well; 02/12/18 (Auto removal via utility); 0921 (Auto removal via utility) Supraglottic Mask Ventilation: Easy 11/16/15 1746 by 11/16/15 1850 by (1); LMA Type: iGel; LMA Taj Owens McGrath, William Size: 4 ANTWAN Manuel CRNA documented in this encounter Social History Tobacco Use Types Packs/Day Years Used Date Smoking Tobacco: Never Alcohol Use Standard Drinks/Week Comments Yes 5 (1 standard drink = 0.6 oz pure alcoho l) Sex Assigned at Date Recorded Not on file documented as of this encounter OR Notes Anesthesia Postprocedure Evaluation - Rebecca Dennison MD - 11/16/2015 7:36 PM EST [facility] [place] Anesthesiology Post-procedure Note Patient: Tanika Harrison Procedure Summary Date Anesthesia Start Anesthesia Stop Room / Location 11/16/15 1735 1900 [facility] OR 23 / [facility] MAIN OR Procedure Diagnosis Surgeon Responsible Provider BIOPSY OR EXCISION OF LYMPH NODE(S), OPEN, DEEP AXILLARY NODE(S) (Left Axilla); MODIFIER SENTINEL NODE EXCISION (Left Axilla) (LEFT BREAST CANCER) Daniel El MD Masaracchia, Melissa M, MD Last (1hr) Vitals: BP 137/84 mmHg (11/16/151912) Temp 36.6 ??C (97.9 ??F) (11/16/151856) Pulse 72 (11/16/151912) Resp 18 (11/16/151912) SpO2 100 % (11/16/151912) Patient Location: PACU/[facility] Level of Consciousness: Awake and Alert Pain Management: Pain Being Addressed PONV: None Cardiovascular Status: At Baseline Respiratory Status: At Baseline Postoperative Fluid Status: Intravascular EUvolemia Possible Anesthetic Complications: NONE apparent at time of evaluation Final Primary Anesthesia Type: General (The anesthetic type performed was the same as planned.) Comments: Given toradol for achy pain. Otherwise doing well. Anesthesia Preprocedure Evaluation - Rebecca Dennison MD - 11/15/2015 2:12 PM EST Pre-Anesthesia Evaluation for: Tanika Harrison a 55 y.o. female. Procedure(s): BIOPSY OR EXCISION OF LYMPH NODE(S), OPEN, DEEP AXILLARY NODE(S) SENTINEL NODE INJECTION MODIFIER SENTINEL NODE EXCISION Patient Active Problem List Diagnosis ??? Ductal carcinoma in situ (DCIS) of left breast ??? Solar aging of skin No past medical history on file. Past Surgical History Procedure Laterality Date ??? Breast biopsy Right 08/11 ??? Pro mastectomy, partial Right 11/03/2015 MASTECTOMY PARTIAL performed by Daniel El MD at [facility] MA[facility] OR History Substance Use Topics ??? Smoking status: Never Smoker ??? Smokeless tobacco: Not on file ??? Alcohol Use: 3.0 oz/week 5 Glasses of wine per week History Drug Use No Allergies Allergen Reactions ??? Sulfa (Sulfonamide Antibiotics) Medications: MAR and/or home medications have been reviewed. Physical Exam: There were no vitals filed for this visit. There is no weight on file to calculate BMI. Airway Assessment: Mallampati: I TM distance: >3 FB Neck ROM: full Cardiovascular Assessment: cardiovascular exam normal Pulmonary Assessment: pulmonary exam normal Dental Assessment: - normal exam Misc Assessment: Patient is wearing No contact(s). IV access: Peripheral line Anesthesia Plan: ASA 2 General, with a(n) intravenous induction Tanika Harrison is a 55 y.o. 80kg female nonsmoker with h/o GERD (famotidine) and DCIS left breast who presents for Procedure(s): BIOPSY OR EXCISION OF LYMPH NODE(S), OPEN, DEEP AXILLARY NODE(S) SENTINEL NODE INJECTION MODIFIER SENTINEL NODE EXCISION with Dr. El. Patient's documented history was negative for seizures, CVA, cardiac disease, hepatic/renal disease or coagulopathy. There is no evidence of any recent URI symptoms, fevers/chills, or other signs of infection. Prior anesthetic history: iGel4, tolerated anesthesia well in the past Plan for GA withLMA; standard ASA monitoring. The patient was informed of the risks, benefits and alternatives of anesthesia. These risks included, but were not limited to, post-operative nausea and/or vomiting, pain, sore throat, dental/lip trauma, and other rare but serious complications such as major organ damage, awareness, severe allergic reactions, position-related nerve injuries, and need blood transfusions. All questions sought and answered. Consent was signed and placed in chart. Region - Other Informed Consent: Anesthetic plan and risks discussed with patient and spouse. Plan discussed with AUTOMATIC FANCY MACHINE OPERATOR. PAT Staff Note documented in this encounter Plan of Treatment Not on filedocumented as of this encounter Visit Diagnoses Not on filedocumented in this encounter Administered Medications Inactive Administered Medications - up to 3 most recent administrations Medication Order MAR Action Action Date Dose Rate Site ceFAZolin (ANCEF) 2g in dextrose 5% Given 11/16/2015 5:49 PM EST 2 g 50 mL 2 g, Intravenous, EVERY 8 HOURS, First dose on Mon11/16/15 at 1500, Until Discontinued, Administer over 30 Minutes, Indication for (Active or Suspected): Prophylaxis dexamethasone (DECADRON) injection Given 11/16/2015 5:56 PM EST 8 mg PRN, Starting on Mon11/16/15 at 1756, Until Mon11/16/15 at 1901, Anesthesia Intra-op, Routine fentaNYL 50 mcg/mL multi-dose injection Given 11/16/2015 6:15 PM EST 25 mcg PRN, Starting on Mon11/16/15 at 1744, Until Mon11/16/15 at 1901, Pain, Anesthesia Intra-op, Routine Given 11/16/2015 6:00 PM EST 25 mcg Given 11/16/2015 5:44 PM EST 50 mcg ketorolac (TORADOL) injection Given 11/16/2015 6:36 PM EST 30 mg PRN, Starting on Mon11/16/15 at 1836, Until Mon11/16/15 at 1901, Pain, Anesthesia Intra-op, Routine lactated ringers infusion 1,000 mL New Bag 11/16/2015 6:46 PM EST 1,000 mL, at 100 mL/hr, Intravenous, CONTINUOUS, Starting on Mon11/16/15 at 1430, Until Mon11/16/15 at 2348, Day of Surgery (Day of Procedure) New Bag 11/16/2015 5:01 PM EST lidocaine (PF) (XYLOCAINE) 100 mg/5 mL (2 %) Given 6 5:44 PM EST 40 mg injection PRN, Starting on Mon11/16/15 at 1744, Until Mon11/16/15 at 1901, Anesthesia Intra-op, Routine ondansetron (ZOFRAN) injection Given 11/16/2015 6:37 PM EST 8 mg PRN, Starting on Mon11/16/15 at 1837, Until Mon11/16/15 at 1901, Nausea, Anesthesia Intra-op, Routine propofol (DIPRIVAN) 10 mg/mL bolus injection Given 6 6:20 PM EST 50 mg (Anesthesia) PRN, Starting on Mon11/16/15 at 1744, Until Mon11/16/15 at 1901, Anesthesia Intra-op Given 11/16/2015 6:00 PM EST 50 mg Given 11/16/2015 5:44 PM EST 200 mg propofol (DIPRIVAN) Rate/Dose 11/16/2015 6:30 30 mcg/kg/min 14.5 mL/ hr infusion Change PM EST CONTINUOUS PRN, Starting on Mon11/16/15 at 1805, Until Mon11/16/15 at 1901, Anesthesia Intra-op, Routine Rate/Dose Change 11/16/2015 6:20 PM EST 50 mcg/kg/min 24.2 mL/hr New Bag 11/16/2015 6:05 PM EST 30 mcg/kg/min 14.5 mL/hr documented in this encounter Care Teams Fountain Manager Relationship Specialty Start Date End Date Hoa Perez MD PCP - General 04/23/13 02/02/16 [address] [place] [address] documented as of this encounter
--- OUTSIDE RECORDS SUMMARY | 2022-09-30 02:10 | XMS_ITS | Encounter Summary ---
:1960 Author Organization [facility] [place] [address] Care Team Providers Name Role Phone Hoa Perez MD Primary Care Provider Encounter Details Date Type Department Care Team Description 09/28/2015 Hospital Encounter Mammography at [facility], Breast calcifications [facility] Demi Kan MD on mammogram Drive [facility] [address] DIAGNOSTIC [phone] [place] [address] Social History Tobacco Use Types Packs/Day Years Used Date Smoking Tobacco: Never Sex Assigned at Date Recorded Not on file documented as of this encounter Plan of Treatment Not on filedocumented as of this encounter Procedures Procedure Name Priority Date/Time Associated Diagnosis Comme nts MAMMO SPECIMEN Routine 09/28/2015 9:08 AM Breast calcification s Results for this IMAGING DURING EST on mammogram procedure are in BIOPSY the results section. SURGICAL PATHOLOGY Routine 09/28/2015 8:28 AM Res ults for this REPORT EST procedure are i n the results section. 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 I discussed these results and recommenda tions with the patient on 09/29/2015. REVIEW PATH CONFERENCE?: No Narrative 09/29/2015 10:59 AM EST STEREOTACTIC GUIDED VACUUM ASSISTED BIOPSY OF THE LEFT BREAST(S) CLINICAL HISTORY: ABNORMAL MAMMOGRAM. ?? 2 separate areas are being sampled. Specifically, lesion #1 highly suspiciou s calcifications at the left breast lateral aspect 3:00 radian 4 cm from the nipple and lesion #2 indeterminate calcifications at the left breast 12:00 radian 4.5 cm from the nipple. Procedural details: Informed consent was obtained and a gualberto e out procedure was performed per hospital protocol. The patient gave perm ission to proceed. Lesion #1 Using sterile technique and lo shabbir anesthetic (less than 10cc's of 1% lidocaine superficially and less than 20 cc's of 1% lidocaine with epinephrine deep to dermis) a skin knick was made an d a biopsy was performed from thecraniocaudal approach using tomograph ic guidance and direct digital imaging. The patient was in the upright position. Multiple core biopsy specimens were obta ined using a Suros Eviva 9g 20mm device. A specimen radiograph confirms calcifica tions successfully sampled. A bowtie marker clip was deployed. Lesion #2 Using sterile technique and lo shabbir anesthetic (less than 10cc's of 1% lidocaine superficially and less than 20 cc's of 1% lidocaine with epinephrine deep to dermis) a skin knick was made an d a biopsy was performed from thecraniocaudal approach using tomograph ic guidance and direct digital imaging. The patient was in the upright position. Multiple core biopsy specimens were obta ined using a Suros Eviva 9g 20mm device. A specimen radiograph confirms the calci fications of interest to be contained within it. A ClasesDrk Eviva cylinder marker clip was d eployed. A follow-up mammogram was performed in t he CC and True Lateral projections and demonstrates both clips to be in the bio psy beds. COMPLICATIONS: None. PROCEDURAL ATTESTATION: Resident: None I performed the procedure without a resi dent. 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 [facility] Report Accession Number: [id number] ?Location: 3 L . ? Addendum ADDENDUM DISCUSSION Specimen: ? Left breast (lesion 1 of 2), cor e biopsy Histologic type: ?Ductal carcinoma in-situ ER immunoreactivity: ??Negative (0%) CA immunoreactivity: ??Negative (<1%) ? *Diagnostic carpenter for hormone receptors ([employer]CO[employer]UIDELIN[employer], 2010): ?Negative immunoreactivity: <1% tumor cells with immuno staining ?Positive immunoreactivity: >1% tumor cells with immuno staining Immunohistochemical assays w ere performed on paraffin-embedded tissue sections fixed in 10% neutral buffered formal in for 6-72 hours using the polymer system technique with appropriate positive and ne gative controls. ??The assays were performed according to the glaciologist's instructions using Anti-ER (SP1) and Anti-CA (16) antibodies. 09/30/15 TAWANNA 09/30/15 Verified by: ? Edson Nolen MD ?Pathologist ?(Electronic Signature ) The attending pathologist whose signature appears on this re port has reviewed all diagnostic slides and has edited the gross and/ or microscopic portion of the report in manav dering the final pathologic diagnosis. ?Surgic al Pathology DIAGNOSIS A - Needle biopsies: ??Left breast (lesion 1 of 2) Diagnosis: ? 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 Benign breast tissue with adenosis and focal lactational-type changes Microcalcifications: ??Associated with adenosis and be nign ducts and lobules CR-0 09/29/15 TAWANNA 09/29/15 Verified by: ? Edson Nolen MD ?Pathologist ?(Electronic Signature ) The attending pathologist whose signature appears on this re port has reviewed all diagnostic slides and has edited the gross and/ or microscopic portion of the report in manav dering the final pathologic diagnosis. DISCUSSION Studies for ER and CA have b een ordered; results will be issued in an addendum. . CLINICAL INFORMATION Specimen Submitted: A - Left breast les 1 of 2 stereo biopsy B - Left breast les 2 of 2 stereo biopsy Clinical History: A - Calcs B - Calcs Clinical Diagnosis: A - 1. DCIS ?2. FCC B - 1. DCIS ?2. [facility] SPECIMEN PROCESSING A - Received in two containers: 1 - Labeled/Fixative: Left breast lesion 1 of 2 calcs, forma vesta. Quantity/Size: Four, ranging from 3.0 x 0.3 cm to 5.0 x 0.3 cm. Description: Fibrofatty needle core biopsies and tissue frag ments. Sections/Processing: Submitted in (1-3). 2 - Labeled/Fixative: Left breast lesion 1 of 2 no calcs, fo rmalin. Quantity/Size: Two, 3.5 x 0.3 cm and 5.5 x 0.3 cm. Description: Fibrofatty needle core biopsies and tissue frag ments. Sections/Processing: Submitted in (4). Ischemic Time: 10 minutes. (T4) B - Received in two containers: 1 - Labeled/Fixative: Left breast lesion 2 of 2 calcs, forma vesta. Quantity/Size: Five, ranging from 3.0 x 0.3 cm to 4.5 x 0.3 cm. Description: Fibrofatty needle core biopsies and tissue frag ments. Sections/Processing: Submitted in (1-3). 2 - Labeled/Fixative: Left breast lesion 2 of 2 no calcs, fo rmalin. Quantity/Size: Three, averaging 4.5 x 0.3 cm. Description: Fibrofatty needle core biopsies and tissue frag ments. Sections/Processing: Submitted in (4-6). Ischemic Time: 10 minutes. (T6) ??sns Specimen (Source) Anatomical Collection Method Collection Time Re ceived Time Location / / Volume Laterality 09/28/2015 8:28 AM EST Demi East MD PATHOLOGY/CYTOLOGY ORDERABLE S Performing Organization Address City/State/[place] [address] [facility] documented in this encounter Visit Diagnoses Diagnosis Breast calcifications on mammogram Other (abnormal) findings on radiologica l examination of breast documented in this encounter Care Teams Systems Planner Relationship Specialty Start Date End Date Hoa Perez MD PCP - General 04/23/13 02/02/16 [address] [place] [address] documented as of this encounter
--- OUTSIDE RECORDS SUMMARY | 2022-09-30 02:10 | XMS_ITS | Encounter Summary ---
:1960 Author Organization [place] [address] Care Team Providers Name Role Phone Hoa [...] Expiration Date Visits Requ ested Visits Authorized [id number] Closed 1 1 Encounter Details Date Type Department Care Team Description 11/16/2015 Hospital Encounter Same Day Program at Ernestina López MD [facility] [place] [address] [place] [address] [phone] Social History Tobacco Use Types Packs/Day Years Used Date Smoking Tobacco: Never Alcohol Use Standard Drinks/Week Comments Yes 5 (1 standard drink = 0.6 oz pure alcoho l) Sex Assigned at Date Recorded Not on file documented as of this encounter Last Filed Vital Signs Vital Sign Reading Time Taken Comments Blood Pressure 115/86 11/16/2015 9:14 PM EST Pulse 69 11/16/2015 9:14 PM EST Temperature 36.6 ??C (97.9 ??F) 11/16/2015 6:57 PM EST Respiratory Rate 12 11/16/2015 9:14 PM EST Oxygen Saturation 93% 11/16/2015 9:14 PM EST Inhaled Oxygen Concentration - - Weight 80.7 kg (178 lb) 11/16/2015 2:13 PM EST Height 160 cm (5' 3) 11/16/2015 2:13 PM EST Body Mass Index 31.53 11/16/2015 2:13 PM EST documented in this encounter Discharge Instructions Discharge InstructionsMilagros Vides RN - 11/16/2015 7:07 PM EST POST ANESTHESIA INSTRUCTIONS Go home, rest, use caution on stairs. Change positions slowly. Do not smoke if you are alone. Diet light to regular as tolerated today. If nausea occurs start with clear liquids and progress slowly. No driving, operating machinery, alcoholic beverages and no important decisions for 24 hours. Monitor IV site for signs and symptoms of infection: increasing redness, swelling, foul drainage, ifoccurs contact M.D. Patients who have had endotrachial tubes (this tube, used by anesthesia department, is passed down your throat after you are asleep, to ensure safe air passage during your operation). A sore throat is normal due to the tube. Cold liquids or soothing lozenges will help ease the discomfort. The generalized muscle aches are due to the medication given to you just before the tube is inserted. As the medication wears off, you may develop muscle soreness, which usually goes away in 12-24 hours. Patient InstructionsYady Moon MD - 11/16/2015 7:04 PM EST Instructions Following Surgery: Wound Care: Keep the dressing on the incision for the next 5 days, then you may remove it and leave the incisionopen to air. You may shower tomorrow morning with the Tegaderm covering the site. Do not scrub the area vigorously for the next 1 week. Do not soak the incision(s) under water for the next 2 weeks (i.e. soaking in bath or swimming) as this may promote a wound infection. You may remove the dressing if it becomes saturated or wet and replace it with dry gauze as needed for seepage/comfort. ICE: You may apply ice to incision during the first 48 hours following surgery to help limit swelling, bruising, and discomfort. You may also find wearing a bra for the first two days following surgerywill help with discomfort, although this is not absolutely necessary. Your stitches will dissolve and do not need to be removed. Activity: As tolerated by your comfort level. Call Doctor for: Please call if you notice worsening redness or drainage from your incision(s) lasting longer than 5 days after your surgery, any foul- smelling drainage from the incision, pain not controlled by pain medications, persistent nausea and vomiting, or for any fevers greater than 101.3 F. The number for questions is [phone] before 5 PM week. Pain Medication: No driving for 8 hours after any dose of opioid pain medication if one was prescribed for you. You may use ibuprofen (motrin, advil) or tylenol (acetaminophen) in addition to this medication if your pain is not totally controlled by the opioid. Follow-up: A follow-up appointment will be scheduled with in 2-3 weeks. You will receive the date and time of this appointment by mail. If you do not receive this information or need to changethe date of your appointment please call [phone]. Your follow-up is very important to us. Scheduled Appointments: The following appointment with Dr. López has been scheduled on your behalf: Future Appointments Date Time Provider Department Center 11/23/2015 8:30 AM Mable Jacome MD [facility] 12/02/2015 3:00 PM Brooks Ricardo MD [facility] 12/02/2015 4:30 PM Daniel López MD [facility] Please call [phone] (clinic number) if any changes need to be made to your appointment time. documented in this encounter Medications at Time [...] documented as of this encounter Progress Notes Dang Soto RN - 11/16/2015 9:46 PM EST Pt ambulated to BR. Slight dizziness. Voided. Back to room and assisted to dress. Discharged home with and sons. documented in this encounter H&P Notes Daniel López MD - 11/16/2015 2:34 PM EST I examined this patient today. She is marked and is ready for surgery. documented in this encounter Miscellaneous Notes Op Note - Daniel López MD - 11/16/2015 7:01 PM EST [facility] [place] Patient Name: Tanika Harrison : [id number] MR#: [id number] Case Date: 11/16/2015 Surgeon: Surgeon(s) and Role: * Daniel López MD - Primary * Yady Moon MD - Resident-Surgeon Praveen Preoperative diagnosis: LEFT BREAST CANCER Postoperative diagnosis: LEFT BREAST CANCER Procedure(s): BIOPSY OR EXCISION OF LYMPH NODE(S), OPEN, DEEP AXILLARY NODE(S) MODIFIER SENTINEL NODE EXCISION Anesthesia: General Estimated Blood Loss: 10 ml Specimens removed during surgery: left axillary sentinel nodes Surgical Closure: Primary Closure - closure of ALL tissue levels during the original surgery regardless of wires, wickes, drains, or other devices extruding through the incision Indications for Surgery: Tanika Harrison is a 55-year-old woman who is status post a left breast lumpectomy. Initial core biopsy showed just ductal carcinoma in situ, but when we did the partial mastectomy, she had invasive cancer in the specimen. We have therefore recommended now that she come back and have a sentinel node excision done. Details of the Surgery: She was prepped and draped. Preoperative anesthetics were given. We anesthetized the skin and made a 4-cm long incision. We dissected through the fascia and excised three sentinel nodes. We ligated the lymphatic pedicles. The ex vivo counts on these nodes were 1199, 468, and 314. The remaining count was 28. The nodes were sent to Pathology. We obtained meticulous hemostasis. We then left 3 mL of Marcaine/lidocaine solution in the wound, closed the deep dermis with interrupted 3-0 Vicryl, and closed the skin with 4-0 Monocryl. Gauze and Tegaderm were placed. The patient tolerated the operation well. Infection Bundle used? N/A Attestation: Case Date: 11/16/2015 I performed this operation with the assistance of dr otis LÓPEZ MD 11/16/2015 documented in this encounter Plan of Treatment Not on filedocumented as of this encounter Procedures Procedure Name Priority Date/Time Associated Diagnosis Comme nts SURGICAL PATHOLOGY Routine 11/16/2015 6:17 PM Res ults for this REPORT EST procedure are i n the results section. SPECIMEN TO Routine 11/16/2015 6:17 PM Results f or this PATHOLOGY EST procedure are i n the results section. MODIFIER SENTINEL Yes 11/16/2015 5:37 PM LEFT BREAST CANCE R NODE EXCISION EST BIOPSY OR EXCISION Yes 11/16/2015 5:37 PM LEFT BREAST CANC ER OF LYMPH NODE(S), EST OPEN, DEEP AXILLARY NODE(S) (WRVU 6.43) documented in this encounter Results Surgical Pathology Report (11/16/2015 6:17 PM EST) [facility] Method Time Signature Surgical [id number] ? Location: [facility] Pathology MILLENNIUM Report The signing pathologist has (i) examined the relevant preparation(s) for the specimen(s) and (ii) rendered or confirmed the diagnosis(es) . . ?Surgic al Pathology DIAGNOSIS Left axillary sentinel node, excision: Five lymph nodes, negative for malignancy (0/5) 11/19/15 TAWANNA 11/19/15 Verified by: ? Tamanna CABRAL, Edson Johnson ?Pathologist ?(Electronic Signature ) The attending pathologist whose signature appears on this re port has reviewed all diagnostic slides and has edited the gross and/ or microscopic portion of the report in manav dering the final pathologic diagnosis. CLINICAL INFORMATION Specimen Submitted: A - Left axillary sentinel node Clinical History: Left breast cancer Clinical Diagnosis: Same SPECIMEN PROCESSING A - Labeled/Fixative: Left axillary sentinel node, fresh. Quantity/Size: Two, 4.0 x 3.7 x 1.2 cm in aggregate. Tissue Description: Yellow, lobular adipose tissue. Sectioning reveals 5 lymph nodes, the largest 1.8 cm. Sections/Processing: (1-2) o ne node; (3-4) one node; (5) one node; (6) 2 nodes, one node inked black. (R6) ??cmn Specimen (Source) Anatomical Collection Method Collection Time Re ceived Time Location / / Volume Laterality 11/16/2015 6:17 PM EST Daniel Lóepz MD PATHOLOGY/CYTOLOGY ORDERABLE S Performing Organization Address City/State/ZIP Code Phon e Number [place] [phone] ARACELI NUNES Specimen to Pathology (surgical or derm) (11/16/2015 6:17 PM EST) Specimen Anatomical Collection Method Collection Time Receive d Time (Source) Location / / Volume Laterality AP Specimen 11/16/2015 6:17 PM 6:17 EST PM EST Narrative ARACELI NUNES - 11/16/2015 6:[address] Specimen requisition ordered. ??Separate Pathology report to follow Daniel López MD PATHOLOGY/CYTOLOGY ORDERABLE S Performing Organization Address City/State/ZIP Code Phon e Number [place] [phone] [facility] documented in this encounter Visit Diagnoses Not on filedocumented in this encounter Administered Medications Inactive Administered Medications - up to 3 most recent administrations Medication Order MAR Action Action Date Dose Rate Site acetaminophen (TYLENOL) tablet 650 Given 11/16/2015 2:44 PM EST 650 mg mg 650 mg, Oral, ONCE, 1 dose, On Mon11/16/15 at 1430, Maximum dose of acetaminophen is 4000 mg from all sources in 24 hours., Day of Surgery (Day of Procedure), Routine fentaNYL (PF) 50 mcg/mL 2mL syringe Given 11/16/2015 7:33 PM EST 50 mcg 50 mcg, Intravenous, EVERY 5 MIN PRN, Pain, for 5-10 pain score, Starting on Mon11/16/15 at 1903, Until Mon11/16/15 at 2348, for 5-10 pain score Hold for respiratory rate less than 10 per minute. Maximum dose: 250 mcg over one hour., PACU Recovery Given 11/16/2015 7:21 PM EST 50 mcg oxyCODONE (ROXICODONE) immediate release tablet Given 11/16/2015 7:49 PM EST 5 mg 5 mg 5 mg, Oral, ONCE PRN, 1 dose, Starting on Mon11/16/15 at 1905, Until Mon11/16/15 at 1949, Pain, Routine promethazine (PHENERGAN) injection 6.25 mg Given 11/16/2015 8:30 PM EST 3.125 mg 6.25 mg, Intravenous, EVERY 30 MIN PRN, 2 doses, Starting on Mon11/16/15 at 1903, Until Mon11/16/15 at 2348, Nausea, If multiple antiemetics ordered, use ondansetron first and if ineffective use prochlorperazine second and if ineffective use promethazine, PACU Recovery, Routine documented in this encounter Active and Recently Administered Medications Times are shown in EST. Scheduled Medication Order 11/14/2015 11/15/2015 11/16/2015 acetaminophen (TYLENOL) tablet 650 mg (COMPLETED) 1444 (Given - Provider: Milagros Vides RN) 650 mg, Oral, ONCE, 1 dose, 11/16/15 at 1430, Maximum dose of acetaminophen is 4000 mg from all sources in 24 hours., Day of Surgery (Day of Procedure), Routine ceFAZolin (ANCEF) 2g in dextrose 5% 50 mL (CANCELED) 1500 (Due)1749 (Given - Provider: Taj Owens CRNA) 2 g, Intravenous, EVERY 8 HOURS, First d ose on Mon11/16/15 at 1500, Until Discontinued, for 30 Minutes, Indication for (Active or Suspected): Prophylaxis Continuous Medication Order 11/14/2015 11/15/2015 11/16/2015 lactated ringers infusion 1,000 mL (CANCELED) 1701 (New Bag - Provider: Taj Owens CRNA)1755 (Anesthesia Volume Adjustment - Provider: Taj Owens CRNA)1846 (New Bag - Provider: Taj Owens CRNA) 1,000 mL, at 100 mL/hr, Intravenous, CON TINUOUS, Starting Mon11/16/15 at 1430, Until Mon11/16/15 at 2348, Day of Surgery (Day of Procedure) PRN Medication Order 11/14/2015 11/15/2015 11/16/2015 fentaNYL (PF) 50 mcg/mL 2mL syringe (CANCELED) 1920 (Given - Provider: Milagros Vides RN)193 (Given - Provider: Milagros Vides RN) 50 mcg, Intravenous, EVERY 5 MIN PRN, St arting Mon11/16/15 at 1903, Until Mon11/16/15 at 2348, Pain, for 5-10 pain score, for 5-10 pain score Hold for respiratory rate less than 10 per minute. Maximum d ose: 250 mcg over one hour., PACU Recovery, Routine lidocaine (PF) (XYLOCAINE) 10 mg/mL (1 %) injection (CANCELED) 1834 (Given - Provider: Daniel López MD - Comment: 50/50 MIX OF XYLOCAINE 1% + MARCAINE 0.5%) ONCE PRN, Starting Mon11/16/15 at 1835, Until Mon11/16/15 at 2348, Intra- Operative (Intra-Procedure), Routine oxyCODONE (ROXICODONE) immediate release tablet 5 mg (COMPLETED) 1948 (Given - Provider: Milagros Vides, JAMMIE) 5 mg, Oral, ONCE PRN, 1 dose, Starting M on 11/16/15 at 1905, Until Discontinued, Pain, Routine promethazine (PHENERGAN) injection 6.25 mg (CANCELED) 2029 (Given - Provider: Dang Soto, JAMMIE) 6.25 mg, Intravenous, EVERY 30 MIN PRN, 2 doses, Starting 11/16/15 at 1903, Until Mon11/16/15 at 2348, Nausea, If multiple antiemetics ordered, use ondansetron first and if ineffective use prochlor perazine second and if ineffective use promethazine, PACU Recove ry, Routine documented in this encounter Care Teams Emergency Medicine Nurse Practitioner Relationship Specialty Start Date End Date Hoa Perez MD PCP - General 04/23/13 02/02/16 [address] [place] [address] documented as of this encounter
--- OUTSIDE RECORDS SUMMARY | 2022-09-30 02:10 | XMS_ITS | Encounter Summary ---
:1960 Author Organization [facility] [place] [address] Care Team Providers Name Role Phone Hoa Perez MD Primary Care Provider Encounter Details Date Type Department Care Team Description 11/13/2015 Telephone Hematology [place] [address] Social History Tobacco Use Types Packs/Day Years Used Date Smoking Tobacco: Never Alcohol Use Standard Drinks/Week Comments Yes 5 (1 standard drink = 0.6 oz pure alcoho l) Sex Assigned at Date Recorded Not on file documented as of this encounter Miscellaneous Notes Telephone Encounter - Gunjan Sun RN - 11/13/2015 1:40 PM EST Comprehensive Breast Program Note Tanika Harrison is a 55 y.o. female with left breast cancer s/p partial mastectomy 11/03/15, scheduled for [facility] 11/16/15. She contacted this technical writer and editor with questions regarding upcoming sentinel lymph node biopsy and injectionof low dose radioactive substance and surgical after care. She is aware she will be here for same day surgery, similar to lumpectomy, and the injection will beperformed by radiology or Dr. El prior to surgery 11/16. She has the number for nurses in [facility] regarding arrival time/location, etc.. (Janette, RN in [facility] will call her next and is aware ok to call Pat at work today). She may plan to have all or most of next week off after surgery. She will check with her employer. We reviewed post operative consult and follow up apt. dates and rationale for same. She also plans to contact our familial cancer program (brochure provided by Dr. El) to obtain an appointment for genetics counseling given her personal and family history of breast cancer. Pat has our contact information. SPECIFIC TEACHIN. She understands she will meet with medical and radiation oncologists after surgery. 2. Reviewed that she could perform the Post-Operative Breast Surgery Exercises (per handout providedto her previously). documented in this encounter Plan of Treatment Not on filedocumented as of this encounter Visit Diagnoses Not on filedocumented in this encounter Care Teams Radar Scientist Relationship Specialty Start Date End Date Hoa Perez MD PCP - General 04/23/13 02/02/16 [address] [place] [address] documented as of this encounter
--- OUTSIDE RECORDS SUMMARY | 2022-09-30 02:10 | XMS_ITS | Encounter Summary ---
:1960 Author Organization [facility] [place] [address] Care Team Providers Name Role Phone Hoa Perez MD Primary Care Provider Encounter Details Date Type Department Care Team Description 09/29/2015 Telephone Hematology and [place]cology [place] [address] Social History Tobacco Use Types Packs/Day Years Used Date Smoking Tobacco: Never Sex Assigned at Date Recorded Not on file documented as of this encounter Miscellaneous Notes Telephone Encounter - Gunjan Sun RN - 09/29/2015 1:49 PM EST Comprehensive Breast Program Note Contacted patient after Dr. 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 Tanika Harrison is a 55 y.o. female with newly diagnosed left breast DCIS (left breast stereotactic guided biopsy 09/28/2015 at [facility]). Dorene sounds positive and has support from family and friends. Her will accompany her to appointments. She appears to be coping well, but is anxious to meet with a breast surgeon to determine a treatment plan. She has two children who are 35 and 32 y.o. 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 Appointments for breast MRI and surgical consult with a breast surgeon will be scheduled. She was told she would receive information about her diagnosis and treatment for her review. Addressed her questions and encouraged her to contact me with any additional questions or concerns. She has our contactinformation. FAMILY HISTORY Breast Cancer - sister at age 52 (treated at [facility]), doing well; maternal aunt at age 60, now 77 yo; paternal aunt sometime in her 40's. Laterality:Left Is this a recurrence:No Family history of breast cancer:Yes Family history of ovarian cancer: No Personal history or breast cancer:No Method of detection: Mammogram Method of diagnosis: Stereotactic Biopsy documented in this encounter Plan of Treatment Not on filedocumented as of this encounter Visit Diagnoses Not on filedocumented in this encounter Care Teams Hat And Cap Opener Relationship Specialty Start Date End Date Hoa Perez MD PCP - General 04/23/13 02/02/16 [address] [place] [address] documented as of this encounter
--- OUTSIDE RECORDS SUMMARY | 2022-09-30 02:10 | XMS_ITS | Encounter Summary ---
:1960 Author Organization [facility] [place] [address] Care Team Providers Name Role Phone Hoa Perez MD Primary Care Provider Encounter Details Date Type Department Care Team Description 08/20/2013 Orders Only Radiology Evan Cartwright [facility] [place] [address] [facility] [phone] DIAGNOSTIC RADIO [place], [place] [address] (Wo rk) Social History Tobacco Use Types Packs/Day Years Used Date Smoking Tobacco: Never Sex Assigned at Date Recorded Not on file documented as of this encounter Progress Notes Gwendolyn Contreras MD - 08/20/2013 7:43 AM EDT Procedure date: today Procedure type: Right breast US guided biopsy Special Instructions: NONE Allergies: Sulfa (sulfonamide antibiotics) Medications: has a current medication list which includes the following prescription(s): CIS Free Text Med - Albuterol, CIS Free Text Med - Pulmicort Turbuhaler, and serevent diskus. Anticoagulation status: none Imaging reviewed and procedural plan approved by Dr. GWENDOLYN CARTWRIGHT MD documented in this encounter Plan of Treatment Not on filedocumented as of this encounter Visit Diagnoses Not on filedocumented in this encounter Care Teams Instructional Support Assistant Relationship Specialty Start Date End Date Hoa Perez MD PCP - General 04/23/13 02/02/16 [address] [place] [address] documented as of this encounter
--- OUTSIDE RECORDS SUMMARY | 2022-09-30 02:10 | XMS_ITS | Encounter Summary ---
:1960 Author Organization [facility] [place] [address] Care Team Providers Name Role Phone Hoa Perez MD Primary Care Provider Encounter Details Date Type Department Care Team Description 09/28/2015 Hospital Encounter [place] [facility] [place], Breast calcifications [facility] Demi Kan MD on mammogram Drive [facility] [phone] DIAGNOSTIC [phone] [place] [address] Social History Tobacco Use Types Packs/Day Years Used Date Smoking Tobacco: Never Sex Assigned at Date Recorded Not on file documented as of this encounter Plan of Treatment Not on filedocumented as of this encounter Procedures Procedure Name Priority Date/Time Associated Diagnosis Comme nts MAMMO S/P Routine 09/28/2015 9:08 Breast calcifications Res ults for this LOCALIZATION DEVICE AM EST on mammogram procedur e are in IMAGES LEFT the results section. documented in this encounter Results Mammo S/P Localization Device Images (Bx, Needle Loc) Left (09/28/2015 9:08 AM EST) Anatomical Region Laterality Modality Breast Left Mammography [...] interest to be contained within it. A [employer] Eviva cylinder marker clip was d eployed. [...] #2: Benign adenosis, concordant Demi East MD IMG MAMMO ORDERABLES documented in this encounter Visit Diagnoses Diagnosis Breast calcifications on mammogram Other (abnormal) findings on radiologica l examination of breast documented in this encounter Care Teams Solar Sales Rep Relationship Specialty Start Date End Date Hoa Perez MD PCP - General 04/23/13 02/02/[address] [place] [address] documented as of this encounter
--- OUTSIDE RECORDS SUMMARY | 2022-09-30 02:10 | XMS_ITS | Encounter Summary ---
:1960 Author Organization [facility] Address [facility] [address] [place] [address] Care Team Providers Name Role Phone Hoa Perez MD Primary Care Provider Encounter Details Date Type Department Care Team Description 08/09/2013 [place] [facility] [place], [facility] MD [address] [facility] [address] [place], [place] [phone] [id number] Social History Tobacco Use Types Packs/Day Years Used Date Smoking Tobacco: Never Sex Assigned at Date Recorded Not on file documented as of this encounter Plan of Treatment Not on filedocumented as of this encounter Procedures Procedure Name Priority Date/Time Associated Diagnosis Comme nts MAMMO DIRECT DIGITAL Routine 08/09/2013 11:00 Abnormal mammogr am, Results for this UNILATERAL AM EDT unspecified procedure are i n the results section. documented in this encounter Results Mammo direct digital unilateral (08/09/2013 11:00 AM EDT) Anatomical Region Laterality Modality Breast N/A Mammography Specimen (Source) Anatomical Collection Method Collection Time Re ceived Time Location / / Volume Laterality 08/09/2013 11:00 AM EDT Narrative 08/18/2013 5:06 PM EDT DIAGNOSTIC LEFT BREAST MAMMOGRAPHY ON 08/09/2013: ?? CLIINICAL INDICATION: Call back from an outside interpretation for an area of asymmetry (possible superimposition) in the Left breast. ? TECHNIQUE: Left CC and ML views were obt ained with direct digital capture. ? FINDINGS: The study includes additional views. An initial area of concern in the Left breast completely effaces on th e additional views. ? CONCLUSION ?? This is a NEGATIVE mammogram (ACR Catego ry 1). Routine screening mammography is recommended with the frequency dependent on the patient's age and breast cancer risk factors. ?? A letter has been sent to this patient [facility]. ? Film and interpretation reviewed by the attending Procedure Note Elena Haji MD - 08/18/2013 DIAGNOSTIC LEFT BREAST MAMMOGRAPHY ON : CLIINICAL INDICATION: Call back from an outside interpretation for an area of asymmetry (possible superimposition) in the Left breast. TECHNIQUE: Left CC and ML views were obt ained with direct digital capture. FINDINGS: The study includes additional views. An initial area of concern in the Left breast completely effaces on th e additional views. CONCLUSION This is a NEGATIVE mammogram (ACR Catego ry 1). Routine screening mammography is recommended with the frequency dependent on the patient's age and breast cancer risk factors. A letter has been sent to this patient b [facility]. Film and interpretation reviewed by the attending Ita Munson MD IMG MAMMO ORDERABLES documented in this encounter Visit Diagnoses Diagnosis Abnormal mammogram, unspecified documented in this encounter Care Teams Poultry Trimmer Relationship Specialty Start Date End Date Hoa Perez MD PCP - General 04/23/13 02/02/[address] [place] [address] documented as of this encounter
--- OUTSIDE RECORDS SUMMARY | 2022-09-30 02:10 | XMS_ITS | Encounter Summary ---
:1960 Author Organization [facility] [place] [address] Care Team Providers Name Role Phone Hoa Perez MD Primary Care Provider Reason for Visit Auth/Cert Specialty Diagnoses / Procedures Referred By Contact Refer red To Contact Diagnoses Intraductal carcinoma in situ of left breast LEFT BREAST DCIS Procedures PRO MASTECTOMY, PARTIAL MASTECTOMY PARTIAL Referral ID Status Reason Start Date Expiration Date Visits Requ ested Visits Authorized [id number] 1 1 Encounter Details Date Type Department Care Team Description 11/03/2015 [place] [facility] [place] El [place] MD Yuri carcinoma in situ) [facility], [place], [place] [address] GENERAL SURGERY [phone] [place] [address] Social History Tobacco Use Types Packs/Day Years [...] by mouth 0 Tablet 2 times daily. simvastatin (ZOCOR) 20 mg Take 20 mg by mouth 0 09/13/2022 Tablet nightly. documented as of this encounter Plan of Treatment Not on filedocumented as of this encounter Procedures Procedure Name Priority Date/Time Associated Diagnosis Comme nts MAMMO SPECIMEN Routine 11/03/2015 3:20 PM DCIS (ductal Results for this EST carcinoma in situ) of proced ure are in the breast, left results section . documented in this encounter Results Mammo Specimen (11/03/2015 3:20 PM EST) Anatomical Region Laterality Modality Breast N/A Mammography Specimen (Source) Anatomical Location Collection Method / Collectio n Time Received Time / Laterality Volume Impressions 11/03/2015 3:27 PM EST IMPRESSION: As above, findings were discussed with abigail aguila surgeon at the time of interpretation. Narrative 11/03/2015 3:27 PM EST EXAMINATION: MAMMO SPECIMEN/LEFT CLINICAL HISTORY: PLEASE ASSESS THE STAI JERRY FOR CLEAR MARGINS OF THE LEFT BREAST TECHNIQUE: Specimen mammography after duarte PureHistory MRI protocol segmentation. COMPARISON: Supine MRI of the same day. FINDINGS: Within the specimen, TOPHAT-shaped clip marker, residual calcifications are identified, correlating with lesion 1. O verall margins appear appropriate within the limitations of specimen mammography. Close cyst approach of parenchymal density and margin edge at approximately B5 as measured on the grid. Procedure Note Alec Zhou MD - 11/03/2015Format ting of this note might be different from the original. EXAMINATION: MAMMO SPECIMEN/LEFT CLINICAL HISTORY: PLEASE ASSESS THE STAI JERRY FOR CLEAR MARGINS OF THE LEFT BREAST TECHNIQUE: Specimen mammography after duarte PureHistory MRI protocol segmentation. COMPARISON: Supine MRI of the same day. FINDINGS: Within the specimen, TOPHAT-shaped clip marker, residual calcifications are identified, correlating with lesion 1. O verall margins appear appropriate within the limitations of specimen mammography. Close cyst approach of parenchymal density and margin edge at approximately B5 as measured on the grid. IMPRESSION IMPRESSION: As above, findings were discussed with abigail aguila surgeon at the time of interpretation. Daniel El MD IMG MAMMO ORDERABLES documented in this encounter Visit Diagnoses Diagnosis DCIS (ductal carcinoma in situ) of breas t, left documented in this encounter Care Teams Systems Integration Advisor Relationship Specialty Start Date End Date Hoa Perez MD PCP - General 04/23/13 02/02/16 [address] [place] [address] documented as of this encounter
--- OUTSIDE RECORDS SUMMARY | 2022-09-30 02:10 | XMS_ITS | Encounter Summary ---
:1960 Author Organization [facility] [place] [address] Care Team Providers Name Role Phone Hoa Perez MD Primary Care Provider Encounter Details Date Type Department Care Team Description 08/20/2013 Hospital Encounter Mammography at [facility] [place] [facility], DR GLENN Solis (abnormal) [facility] Hoa Perez MD [address] [place], [place] [id number] findings on [address] [place], [place] examination of breast [phone] Social History Tobacco Use Types Packs/Day Years Used Date Smoking Tobacco: Never Sex Assigned at Date Recorded Not on file documented as of this encounter Miscellaneous Notes Miscellaneous - Provider, Scanning - 09/10/2013 10:45 AM EST documented in this encounter Plan of Treatment Not on filedocumented as of this encounter Procedures Procedure Name Priority Date/Time Associated Diagnosis Comme nts MAMMO US BIOPSY Routine 08/20/2013 9:41 AM Other (abnormal) Re sults for this BILATERAL EDT findings on procedure are i n radiological the results examination of breast sectio n. SPECIMEN TO Routine 08/20/2013 9:13 AM Other (abnormal) Resul ts for this PATHOLOGY EDT findings on procedure are i n radiological the results examination of breast sectio n. documented in this encounter Results Mammo- US biopsy (08/20/2013 9:41 AM EDT) Anatomical Region Laterality Modality Breast N/A Mammography Specimen (Source) Anatomical Collection Method Collection Time Re ceived Time Location / / Volume Laterality 08/20/2013 9:41 AM EDT Impressions 08/21/2013 9:17 PM EDT Impression: concordant Recommendation: routine screening results and recommendation discussed wit h the patient by phone 08-21-13 Comments: Near complete resolution of co mplicated cyst after biopsy and aspiration. Post-biopsy mammogram shows resolution of the mass. ?? I was present with the resident, Dr. Helen mcintosh, for the carpenter component(s) of the procedure and otherwise remained immedia tely available for the duration of the procedure. I attest to having personally viewed the images/test and approve the above interpretation. Home phone: [phone] Work phone: [phone] Cell phone: [phone] Narrative 08/21/2013 9:17 PM EDT ULTRASOUND GUIDED BIOPSY OF THE RIGHT BREAST ON 08/20/13: Informed consent was obtained. Using brigida rile technique and 1% Lidocaine used for local anesthesia, a skin incision wa s made and a biopsy was performed using Ultrasound for image guidance. Clinical indication: Right breast 14mm m ass in the upper, outer quadrant at 1000, 5cm from the nipple. 14-gauge Achieve device 2 core biopsy specimens obtained. ?? A 17-gauge Ultracore (US) [place] marker c lip and Ultra Clip 17-gauge (US) Hooked Coil marker clip were placed. Cranio-cau gillian and lateral digital mammography performed to determine biopsy marker martina cement, which was shown to be at the biopsy site. Satisfactory sampling was obtained; the cyst was aspirated to empty. There were no procedural complications. Imaging diagnosis: Complicated cyst vers us IDC/mucinous versus fibroadenoma. Pathologic diagnosis: fibrotic cyst wall Procedure Note Gwendolyn Contreras MD - 07/31 ULTRASOUND GUIDED BIOPSY OF THE RIGHT BR EAST ON 08/20/13: Informed consent was obtained. Using brigida rile technique and 1% Lidocaine used for local anesthesia, a skin incision wa s made and a biopsy was performed using Ultrasound for image guidance. Clinical indication: Right breast 14mm m ass in the upper, outer quadrant at 1000, 5cm from the nipple. 14-gauge Achieve device 2 core biopsy specimens obtained. A 17-gauge Ultracore (US) [place] marker c lip and Ultra Clip 17-gauge (US) Hooked Coil marker clip were placed. Cranio-cau gillian and lateral digital mammography performed to determine biopsy marker martina cement, which was shown to be at the biopsy site. Satisfactory sampling was obtained; the cyst was aspirated to empty. There were no procedural complications. Imaging diagnosis: Complicated cyst vers us IDC/mucinous versus fibroadenoma. Pathologic diagnosis: fibrotic cyst wall IMPRESSION Impression: concordant Recommendation: routine screening results and recommendation discussed wit h the patient by phone 08-21-13 Comments: Near complete resolution of co mplicated cyst after biopsy and aspiration. Post-biopsy mammogram shows resolution of the mass. I was present with the resident, Dr. Helen mcintosh, for the carpenter component(s) of the procedure and otherwise remained immedia tely available for the duration of the procedure. I attest to having personally viewed the images/test and approve the above interpretation. Home phone: [phone] Work phone: [phone] Cell phone: [phone] Ita Munson MD IMG MAMMO ORDERABLES Specimen to Pathology (surgical or derm) (08/20/2013 9:13 AM EDT) Specimen Anatomical Collection Method Collection Time Receive d Time (Source) Location / / Volume Laterality AP Specimen 08/20/2013 9:13 AM 3 9:13 EDT AM EDT [facility]arrative [facility] - 08/20/2013 9:13 AM E DT Specimen requisition ordered. ??Separate Pathology report to follow Gwendolyn Castillo MD PATHOLOGY/CYTOLOGY ORD ERABLES Performing Organization Address City/State/ZIP Code Phon e Number [place] [id number] [facility] documented in this encounter Visit Diagnoses Diagnosis Other (abnormal) findings on radiologica l examination of breast documented in this encounter Administered Medications Inactive Administered Medications - up to 3 most recent administrations Medication Order MAR Action Action Date Dose Rate Site lidocaine (XYLOCAINE) 10 mg/mL (1 Given 08/20/2013 9:45 AM EDT 1 0 mg %) injection 10 mg 10 mg, Intradermal, ONCE, 1 dose, On Mon08/20/13 at 0945, Routine lidocaine-epiNEPHrine 1 %-1:100,000 injection Given 9:45 AM EDT 20 mLs 20 mL 20 mL, Intradermal, ONCE, 1 dose, On Mon08/20/13 at 0945, Routine documented in this encounter Care Teams Television Production Clerk Relationship Specialty Start Date End Date Hoa Perez MD PCP - General 04/23/13 02/02/16 [address] [place] [address] documented as of this encounter
--- OUTSIDE RECORDS SUMMARY | 2022-09-30 02:10 | XMS_ITS | Encounter Summary ---
:1960 Author Organization [facility] [place] [address] Care Team Providers Name Role Phone Hoa Perez MD Primary Care Provider Encounter Details Date Type Department Care Team Description 08/09/2013 Orders Only Radiology Jeimy, Other (abnormal) [facility] MD Ita findings on [facility] radiological [place], [place] DR examination of breast [id number] DIAGNOSTIC (Primary Dx) [phone] RADIOLOGY [place], [place] [address] Social History Tobacco Use Types Packs/Day Years Used Date Smoking Tobacco: Never Sex Assigned at Date Recorded Not on file documented as of this encounter Plan of Treatment Not on filedocumented as of this encounter Results Mammo direct digital unilateral (08/20/2013 9:42 AM EDT) Anatomical Region Laterality Modality Breast N/A Mammography Specimen (Source) Anatomical Collection Method Collection Time Re ceived Time Location / / Volume Laterality 08/20/2013 9:42 AM EDT Impressions 08/21/2013 9:17 PM EDT Impression: concordant Recommendation: routine screening results and recommendation discussed fouzia walker patient by phone 08-21-13 Comments: Near complete [...] and approve the above interpretation. Home phone: [phone] Work phone: [phone] Cell phone: [phone] Narrative 08/21/2013 9:17 PM EDT ULTRASOUND GUIDED [...] specimens obtained. ?? A 17-gauge Ultracore (US) [place] marker c lip and Ultra Clip 17-gauge [...] biopsy specimens obtained. A 17-gauge Ultracore (US) [place] marker c lip and Ultra Clip 17-gauge [...] and approve the above interpretation. Home phone: [phone] Work phone: [phone] Cell phone: [phone] Ita Munson MD IMG MAMMO ORDERABLES Mammo- US biopsy (08/20/2013 9:41 AM EDT) [...] and approve the above interpretation. Home phone: [phone] Work phone: [phone] Cell phone: [phone] Narrative 08/21/2013 9:17 PM EDT ULTRASOUND GUIDED [...] specimens obtained. ?? A 17-gauge Ultracore (US) [place] marker c lip and Ultra Clip 17-gauge [...] biopsy specimens obtained. A 17-gauge Ultracore (US) [place] marker c lip and Ultra Clip 17-gauge [...] and approve the above interpretation. Home phone: [phone] Work phone: [phone] Cell phone: [phone] Ita Munson MD IMG MAMMO ORDERABLES documented in this encounter Visit Diagnoses Diagnosis Other (abnormal) findings on radiologica l examination of breast - Primary Other (abnormal) findings on radiologica l examination of breast Other (abnormal) findings on radiologica l examination of breast documented in this encounter Care Teams Dry Kiln Loader Relationship Specialty Start Date End Date Hoa Perez MD PCP - General 04/23/13 02/02/[address] [place] [address] documented as of this encounter
--- OUTSIDE RECORDS SUMMARY | 2022-09-30 02:10 | XMS_ITS | Encounter Summary ---
:1960 Author Organization [facility] [place] [address] Care Team Providers Name Role Phone Hoa Perez MD Primary Care Provider Encounter Details Date Type Department Care Team Description 09/18/2015 Hospital Encounter Mammography at [facility] Abnormal mammogram [facility] Ita MD [facility] [address] DIAGNOSTIC [phone] [place] [address] Social History Tobacco Use Types Packs/Day Years Used Date Smoking Tobacco: Never Sex Assigned at Date Recorded Not on file documented as of this encounter Plan of Treatment Not on filedocumented as of this encounter Procedures Procedure Name Priority Date/Time Associated Comments Diagnosis MAMMO CALL BACK Routine 09/18/2015 8:23 AM Abnormal mammogram Results for this DIAGNOSTIC LEFT EST procedure ar e in the results section. documented in this encounter Results Mammo Call Back Diagnostic Extra View Left (09/18/2015 8:23 AM EST) Anatomical Region Laterality Modality Breast Left Mammography Specimen (Source) Anatomical Location Collection Method / Collectio n Time Received Time / Laterality Volume Impressions 09/18/2015 9:14 AM EST IMPRESSION: 2 groupings of microcalcifications in th e left breast for which fern guided core biopsy is recommended. Lesion #1 left breast calcifications lat eral aspect 3:00 radian 4 cm from the nipple Lesion #2 left breast calcifications upp er central aspect 12:00 radian 4.5 cm from the nipple (more anterior particles ). Results and recommendations were discuss ed with the patient and her and the patient has been scheduled for this procedure prior to leaving the facility. BI-RADS Category 4: Suspicious Finding - Biopsy Should Be Considered Narrative 09/18/2015 9:14 AM EST EXAMINATION: MAMMO CALL BACK 2D DIGITAL DIAGNOSTIC EXTRA VIEW WITH CAD LEFT CLINICAL HISTORY: abnormal mammogram TECHNIQUE: Spot compression magnificatio n CC and spot compression magnification true lateral views were obtained of the left breast in addition to a standard true lateral view. 2-D direct digital ca pture, 3-D tomosynthesis and computer aided detection (CAD) were used. COMPARISON: This study was compared with prior images., Specifically the most recent mammogram dated 09/16/2015. FINDINGS: There are suspicious microcalcifications in the left breast. The more suspicious is in the lateral le ft breast 3:00 radian 4 cm from the nipple where there are fine linear branc roly calcifications spanning a 1 cm segment. The less suspicious grouping is in the l eft upper central breast 12:00 radian 4.5 cm from the nipple which overall dem onstrates mammographic stability but there might be increased number or consp icuity of calcifications at the more anterior extent of this grouping. There are no abnormal soft tissue densit ies. Ita Munson MD IMG MAMMO ORDERABLES documented in this encounter Visit Diagnoses Diagnosis Abnormal mammogram Abnormal mammogram, unspecified documented in this encounter Care Teams Ladler Relationship Specialty Start Date End Date Hoa Perez MD PCP - General 04/23/13 02/02/16 [address] [place] [address] documented as of this encounter
--- OUTSIDE RECORDS SUMMARY | 2022-09-30 02:10 | XMS_ITS | Encounter Summary ---
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 [place] [address] [facility] Magali Villanueva MD [facility] [place] [address] [facility] [place] [address] Anesthesia Record Procedure Summary Procedure Name Responsible Anesthesia Start Anesthesia Stop Anesthesiologist Time Time MASTECTOMY PARTIAL Elizabeth Milan MD 11/03/15 1413 6 1610 (WRVU 10.13) (Right: Breast) Events Date Time Event Comment 11/03/2015 1312 1413 AN Verify 1413 Start 1413 An Start Data 1418 An Induction 1419 An Intubation 1420 Anesthesia Ready 1427 Quick Note Time out perform ed 1448 Skin Incision 1458 An Data Art 1506 Break/Relief In PARVIZ STODDARD, DIE MAKER APPRENTICE 1518 Break/Relief Out 1550 Procedure Stop 1551 Extubation/LMA Out 1556 an stop data 1610 Recovery or ICU Handoff Patient care was transferred to the destination unit staff after review of the patient's medica l history, current anesthetic/surgi shabbir status and plan, according to the Provider Handoff Checklist. 1610 Stop Name Total Midazolam 2 mg fentaNYL 150 mcg IV Lidocaine 60 mg Propofol 300 mg PHENYLephrine 240 mcg ePHEDrine 5 mg Ondansetron 8 mg Dexamethasone 4 mg ceFAZolin (ANCEF) 2g in dextrose 5% 50 mL 2 g Lactated Ringers 1,000 mL Agents Name O2 Air N2O Sevoflurane (et) Isoflurane (et) Blood No blood administrations on file. Lines, Drains, and Airways Type Details Placement Removal Incision 11/03/15; breast; 06/27/22 11/03/15 0000 by Yara myrick, 06/27/22 1715 by (LDA cleanup utility JAMMIE Orona Die rdre L RA#[id number]); 1715 (LDA cleanup utility RA#[id number]) PIV 11/03/15; 0846; metacarpal 11/03/15 0846 by Henr y, 11/03/15 1900 by vein right (top of hand); JAMMIE Cole Cynthia A, RN [id number] catheter system; 18 gauge; Salima Holcomb RN; distraction, intradermal injection, tolerated well, appears comfortable, age-appropriate response; no longer indicated, removed per policy/procedure, site care per policy/procedure, catheter intact; 11/03/15; 1900 Supraglottic Mask Ventilation: Not 11/03/15 1419 by 11/03/15 1551 by Attempted (0); LMA Type: Kane Javier, KAITLYNN A Kane Javier, iGel; LMA Size: 4; DIE MAKER APPRENTICE Inserted by: Kane Javier CRNA documented in this encounter Social History Tobacco Use Types Packs/Day Years Used Date Smoking Tobacco: Never Alcohol Use Standard Drinks/Week Comments Yes 5 (1 standard drink = 0.6 oz pure alcoho l) Sex Assigned at Date Recorded Not on file documented as of this encounter OR Notes Anesthesia Postprocedure Evaluation - Elizabeth Milan MD - 11/05/2015 8:07 AM EST [facility] Department of Anesthesiology Post-procedure Note Patient: Tanika Harrison Procedure Summary Date Anesthesia Start Anesthesia Stop Room / Location 11/03/15 1413 1610 [facility] OR 20 / [facility] MAIN OR Procedure Diagnosis Surgeon Responsible Provider MASTECTOMY PARTIAL (Right Breast) No diagnosis on file. Daniel El MD Burchman, Corey A, MD (LEFT BREAST DCIS ) Last (1hr) Vitals: BP Temp Pulse Resp SpO2 Patient Location: PACU/SD Level of Consciousness: Awake and Alert Pain Management: Satisfactory Analgesia PONV: None Cardiovascular Status: At Baseline and Hemodynamically Stable Respiratory Status: At Baseline and Room Air Postoperative Fluid Status: Intravascular EUvolemia Possible Anesthetic Complications: NONE apparent at time of evaluation Final Primary Anesthesia Type: General (The anesthetic type performed was the same as planned.) Comments: ELIZABETH MILAN MD Anesthesia Preprocedure Evaluation - Elizabeth Milan MD - 11/03/2015 1:12 PM EST Pre-Anesthesia Evaluation for: Tanika myrick 55 y.o. female. Procedure(s): MASTECTOMY PARTIAL Patient Active Problem List Diagnosis ??? Ductal carcinoma in situ (DCIS) of left breast ??? Solar aging of skin No past medical history on file. Past Surgical History Procedure Laterality Date ??? Breast biopsy Right 08/11 History Substance Use Topics ??? Smoking status: Never Smoker ??? Smokeless tobacco: Not on file ??? Alcohol Use: 3.0 oz/week 5 Glasses of wine per week History Drug Use No Allergies Allergen Reactions ??? Sulfa (Sulfonamide Antibiotics) Medications: MAR and/or home medications have been reviewed. Physical Exam: Filed Vitals: 11/03/15 0818 BP: 113/85 Pulse: 67 Temp: 37.1 ??C (98.8 ??F) Resp: 16 Body mass index is 31.54 kg/(m^2). Height: 160 cm (5' 2.99) Weight - Scale: 80.74 kg (178 lb) Airway Assessment: Mallampati: I TM distance: >3 FB Neck ROM: full Cardiovascular Assessment: cardiovascular exam normal Pulmonary Assessment: pulmonary exam normal Dental Assessment: Misc Assessment: Anesthesia Plan: ASA 2 General, with a(n) intravenous induction L breast partial mastectomy [facility] - Other Informed Consent: Anesthetic plan and risks discussed with patient. Plan discussed with DIE MAKER APPRENTICE. PAT Staff Note documented in this encounter Plan of Treatment Not on filedocumented as of this encounter Visit Diagnoses Not on filedocumented in this encounter Administered Medications Inactive Administered Medications - up to 3 most recent administrations Medication Order MAR Action Action Date Dose Rate Site ceFAZolin (ANCEF) 2g in dextrose 5% Given 11/03/2015 2:34 PM EST 2 g 50 mL 2 g, Intravenous, EVERY 3 HOURS, 1 dose, First dose on Mon11/03/15 at 0830, Administer over 30 Minutes, Intra-Operative (Intra-Procedure), Indication for (Active or Suspected): Prophylaxis dexamethasone (DECADRON) injection Given 11/03/2015 2:23 PM EST 4 mg PRN, Starting on Mon11/03/15 at 1423, Until Mon11/03/15 at 1610, Anesthesia Intra-op, Routine ePHEDrine 5 mg/mL multi-dose injection Given 11/03/2015 2:54 PM EST 5 mg PRN, Starting on Mon11/03/15 at 1454, Until Mon11/03/15 at 1610, Anesthesia Intra-op, Routine fentaNYL 50 mcg/mL multi-dose injection Given 11/03/2015 3:45 PM EST 25 mcg PRN, Starting on Mon11/03/15 at 1423, Until Mon11/03/15 at 1610, Pain, Anesthesia Intra-op, Routine Given 11/03/2015 3:39 PM EST 25 mcg Given 11/03/2015 3:25 PM EST 25 mcg lactated ringers infusion New Bag 11/03/2015 2:13 PM EST CONTINUOUS PRN, Starting on Mon11/03/15 at 1413, Until Mon11/03/15 at 1610, Anesthesia Intra-op lidocaine (PF) (XYLOCAINE) 100 mg/5 mL (2 %) Given 6 2:18 PM EST 60 mg injection PRN, Starting on Mon11/03/15 at 1418, Until Mon11/03/15 at 1610, Anesthesia Intra-op, Routine midazolam (PF) (VERSED) 1 mg/mL multi-dose Given 11/03/2015 2:13 PM EST 2 mg injection PRN, Starting on Mon11/03/15 at 1413, Until Mon11/03/15 at 1610, Sleep, Anesthesia Intra-op, Routine ondansetron (ZOFRAN) injection Given 11/03/2015 3:39 PM EST 8 mg PRN, Starting on Mon11/03/15 at 1539, Until Mon11/03/15 at 1610, Nausea, Anesthesia Intra-op, Routine PHENYLephrine HCl in NS (PF) (JOSE-SYNEPHRINE) Given 3:44 PM EST 80 mcg 0.8 mg/10 mL (80 mcg/mL) multi-dose injection Syrg PRN, Starting on Mon11/03/15 at 1457, Until Mon11/03/15 at 1610, Anesthesia Intra-op, Routine Given 11/03/2015 2:57 PM EST 160 mcg propofol (DIPRIVAN) 10 mg/mL bolus injection Given 6 3:44 PM EST 20 mg (Anesthesia) PRN, Starting on Mon11/03/15 at 1418, Until Mon11/03/15 at 1610, Anesthesia Intra-op Given 11/03/2015 3:36 PM EST 30 mg Given 11/03/2015 3:25 PM EST 20 mg documented in this encounter Care Teams Reach Truck Operator Relationship Specialty Start Date End Date Hoa Perez MD PCP - General 04/23/13 02/02/16 [address] [place] [address] documented as of this encounter
--- OUTSIDE RECORDS SUMMARY | 2022-09-30 02:10 | XMS_ITS | Encounter Summary ---
:1960 Author Organization [facility] [place] [address] Care Team Providers Name Role Phone Hoa Perez MD Primary Care Provider Encounter Details Date Type Department Care Team Description 09/17/2015 Orders Only Mammography at [facility] SaschaRich, Abnormal mammogram [facility] [place] [address] [facility] [phone] DR DIAGNOSTIC RADIOLOGY [place], [place] [address] (Wo rk) Social History Tobacco Use Types Packs/Day Years Used Date Smoking Tobacco: Never Sex Assigned at Date Recorded Not on file documented as of this encounter Plan of Treatment Not on filedocumented as of this encounter Results Mammo Call Back Diagnostic [...] Diagnoses Diagnosis Abnormal mammogram Abnormal mammogram, unspecified Abnormal mammogram Abnormal mammogram, unspecified documented in this encounter Care Teams Plater Barrel Relationship Specialty Start Date End Date Hoa Perez MD PCP - General 04/23/13 02/02/[address] [place] [address] documented as of this encounter
--- OUTSIDE RECORDS SUMMARY | 2022-09-30 02:10 | XMS_ITS | Encounter Summary ---
:1960 Author Organization [facility] [place] [address] Care Team Providers Name Role Phone Hoa Perez MD Primary Care Provider Encounter Details Date Type Department Care Team Description 08/20/2013 Hospital Encounter Mammography at [place] Other (abnormal) [facility] [place] [address] examination of breast [phone] Social History Tobacco Use Types Packs/Day Years Used Date Smoking Tobacco: Never Sex Assigned at Date Recorded Not on file documented as of this encounter Plan of Treatment Not on filedocumented as of this encounter Procedures Procedure Name Priority Date/Time Associated Diagnosis Comme nts MAMMO DIRECT Routine 08/20/2013 9:42 AM Other (abnormal) Resul ts for this DIGITAL UNILATERAL EDT findings on procedure are in radiological the results examination of breast sectio n. SURGICAL PATHOLOGY Routine 08/20/2013 9:13 AM Res ults for this REPORT EDT procedure [...] and approve the above interpretation. Home phone: [phone] Work phone: [phone] Cell phone: [phone] Narrative 08/21/2013 9:17 PM EDT ULTRASOUND GUIDED [...] specimens obtained. ?? A 17-gauge Ultracore (US) [place] marker c lip and Ultra Clip 17-gauge [...] biopsy specimens obtained. A 17-gauge Ultracore (US) [place] marker c lip and Ultra Clip 17-gauge [...] and approve the above interpretation. Home phone: [phone] Work phone: [phone] Cell phone: [phone] Ita Munson MD IMG MAMMO ORDERABLES Surgical Pathology Report (08/20/2013 9:13 AM EDT) Component Value Ref Test Analysis Performed At [facility] Range Method Time Signature Surgical CERNER Pathology ? [facility] Report ? Provider: ?? MAHIN CARTWRIGHT Pt. Name: ?? MARI HARRISON ?GWENDOLYN Hoyt ? Acc #: ?[id number] ?Pt. MRN: ?[id number] ? Col Date: ?? 08/20/20 13 ?/Sex: ?1960,(53 years),Female ? Rec Date: ?? 08/20/2013 ?LOC: ?3S ? SURGICAL PATHOLOGY ? ---Pathologic Diagnosis--- ? Needle biopsies: ?Right breast. ? Diagnosis: ?Fibrotic duct cyst wall. ? Microcalcifications: ??Minute calcifications in the c yst wall. ? CR-0 ? 08/21/13 ? [facility]B ? 08/21/13 Verified by: ? Black DO, Pamella C. ? Pathologist ? (Electronic Si gnature) ? The attending pathologist whose signature appears o n this report has ? reviewed all diagnostic slides and has edited the miriam ss and/or ? microscopic portion of the report in rendering the fi nal pathologic ? diagnosis. ? ---Gross Description--- ? A - Labeled/Fixative: Right breast ultrasound biopsy, formalin. ? Quantity/Size: Three, ranging from 0.4 x 0.2 cm to 1. 0 x 0.2 cm. ? Tissue Description: Firm, pink-yellow needle core bio psies. ? Ischemic Time: 5 minutes. ? Sections/Processing: (T1) ??sns ? ---Clinical Information--- ? Specimen Submitted: ? A - Right breast ultrasound biopsy ? Clinical History: ? Mass ? Clinical Diagnosis: ? 1. ??Complicated cyst ? 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 3. ??Fibroadenoma Specimen (Source) Anatomical Collection Method Collection Time Re ceived Time Location / / Volume Laterality 08/20/2013 9:13 AM EDT Gwendolyn Cartwright MD PATHOLOGY/CYTOLOGY ORD ERABLES Performing Organization Address City/State/Z[place] [address] [facility] documented in this encounter Visit Diagnoses Diagnosis Other (abnormal) findings on radiologica l examination of breast documented in this encounter Care Teams Tablet Machine Operator Relationship Specialty Start Date End Date Hoa Perez MD PCP - General 04/23/13 02/02/16 [address] [place] [address] documented as of this encounter
--- OUTSIDE RECORDS SUMMARY | 2022-09-30 02:10 | XMS_ITS | Encounter Summary ---
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 ([facility] [address] [address] [place] [address] [phone] Social History Tobacco Use Types Packs/Day Years Used Date Smoking Tobacco: Never Alcohol Use Standard Drinks/Week Comments Yes 5 (1 standard drink = 0.6 oz pure alcoho l) Sex Assigned at Date Recorded Not on file documented as of this encounter Last Filed Vital Signs Vital Sign Reading Time Taken Comments Blood Pressure 129/85 11/03/2015 4:01 PM EST Pulse 77 11/03/2015 4:05 PM EST Temperature 36.2 ??C (97.2 ??F) 11/03/2015 4:01 PM EST Respiratory Rate 11 11/03/2015 4:05 PM EST Oxygen Saturation 100% 11/03/2015 4:05 PM EST Inhaled Oxygen Concentration - - Weight 80.7 kg (178 lb) 11/03/2015 8:18 AM EST Height 160 cm (5' 2.99) 11/03/2015 8:18 AM EST Body Mass Index 31.54 11/03/2015 8:18 AM EST documented in this encounter Discharge Instructions Discharge InstructionsMyriam Flower RN - 11/03/2015 4:41 PM EST POST ANESTHESIA INSTRUCTIONS Go home, [...] usually goes away in 12-24 hours. Patient InstructionsLeonel Zaragoza DO - 11/03/2015 4:08 PM EST Instructions following Breast Surgery Wound Care: Keep dressing on incision for the next 5 days, then you may remove and leave open to air. You may shower tomorrow morning with the Tegaderm covering the site. Do not scrub area vigorously for the next 1 week. Do not soak incision(s) under water for the next 2 weeks (i.e. soaking in bath or swimming) as this may promote a wound infection. You may remove dressing if it becomes saturated/wet and replace with dry gauze as needed for seepage/comfort. If there are pieces of tape directly on the incision (steri-strips), please leave them on until they fall off on their own. You may trim them back as they begin to peel up. ICE: You may apply ice to incision [...] you notice worsening redness or drainage from incision(s) lasting longer than 5 days after your surgery, any foul-smelling drainage from the incision, pain not controlled by pain medications, persistent nausea and vomiting, or for any fevers greater than 101.3 F. The number for questions is [phone] before 5 PM week. Pain Medication: No driving for 8 hours after any dose of opioid pain medication if one was prescribed for you. You may use ibuprofen (motrin, advil) in addition to this medication if your pain is not totally controlled by the opioid. Follow-up: Follow-up appointment will be scheduled with in 1-2 weeks. Scheduled Appointments: The following appointment with Dr. López has been scheduled on your behalf: Future Appointments Date Time Provider Department Center 11/19/2015 1:00 PM Daniel López MD [facility] 11/23/2015 8:30 AM Mable Jacome MD [facility] 12/02/2015 3:00 PM Brooks Ricardo MD [facility] Please call [phone] (clinic number) if any changes need to [...] documented as of this encounter Progress Notes Myriam Flower RN - 11/03/2015 5:00 PM EST 16:45 at bedside 16:50 Ice pack applied to left breast area 17:15 Family members at bedside 17:30 Patient sipping water/gingerale and eating salines 19:00 Reviewed and discussed discharge plans, wound care and follow-up with family/patient. IV line d/c'd, flu vaccine given. Questions answered. Discharged by wheelchair to car in care of family. documented in this encounter H&P Notes Daniel López MD - 11/03/2015 8:20 AM EST I examined and marked this patient this morning and she will be ready for surgery after she has her supine MRI. She will be taking 1 mg ativan prior to the MRI. documented in this encounter Miscellaneous Notes Op Note - Daniel López MD - 11/03/2015 4:01 PM EST [facility] Operative Note Patient Name: Tanika Harrison : [id number] MR#: [id number] Case Date: 11/03/2015 Surgeon: Surgeon(s) and Role: * Daniel López MD - Primary * Leonel Zaragoza DO Preoperative diagnosis: LEFT BREAST DCIS Postoperative diagnosis: LEFT BREAST DCIS Procedure(s): MASTECTOMY PARTIAL Anesthesia: General Estimated Blood Loss: 20 ml Specimens removed during surgery: left breast lumpectomy and new caudal margin Surgical Closure: Primary Closure - closure of ALL tissue levels during the original surgery regardless of wires, wickes, drains, or other devices extruding through the incision Indications for Surgery: Tanika Harrison is a 55-year-old woman with 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 It is located at approximately 3 o'clock 4 cm from her nipple. She desired breast conservation. She is part of our supine MRI study D0928. She randomized to the supine MRI arm. Details of the Surgery: She had general anesthesia administered. I removed the fiducials that we placed for her supine MRI earlier this morning and placed sticky dots over the fiducial sites. We then used the optical scanner to scan her breast into the computer. The [employer] engineers then transformed the supine MRI images into the optically scanned breast surface and displayed a 3D picture of the tumor in the breast for me in the Operating Room. I used the tracker and was able to asher the edges of the cancer on the skin surface. I also knew the vector that went from the skin surface to the center of the tumor. I also knew from the 3D rendering of the DCIS that it went close to the nipple and also had an extension that went down close to the chest wall on the slightly inferior medial side of the center of the tumor. I then johnathon an incision line about 4 cm long in the lateral slightly inferior left breast. She was prepped and draped. We anesthetized the skin and then made this incision. I then dissected directly under the dermis of the areola past the nipple, we also created the other superficial flaps. I then created the more vertical portions of the resection. On the deep end we went down to the pectoralis major muscle, removed the fascia off the surface of the pectoralis major muscle especially near where that deep extension went toward the pectoralis major. The specimen was water displaced and the volume was 65 mL. We used the scan to scan its volume and it was 57 mL. The specimen was inked with six different colors of ink and sent to Radiology where a specimen mammogram showed that the clip and all the calcifications were contained in the specimen. The specimen was then sent to Pathology. When I reviewed the lumpectomy cavity I felt that I had cut a little bit close to where the tumor edge was on the caudal aspect of our initial excision. I therefore decided to excise another sliver of tissue from the caudal surface. This was water displaced and it was 8 mL so our total volume then was 73 mL by water displacement and 65 mL by scan. This second specimen was too small to actually scan itself. This specimen was inked with six different colors of ink and sent directly to Pathology. We obtained meticulous hemostasis in the wound. I left 7 mL of Marcaine/Lidocaine solution in the wound. We closed the deep dermis with interrupted 3-0 Vicryl, closed the skin with 4-0 Monocryl. Gauze and Tegaderm were placed, the patient tolerated the operation well. Infection Bundle used? N/A Attestation: Case Date: 11/03/2015 I performed this operation with the assistance of dr leonel LÓPEZ MD 11/03/2015 documented in this encounter Plan of Treatment Not on filedocumented as of this encounter Procedures Procedure Name Priority Date/Time Associated Comments Diagnosis SPECIMEN TO Routine 11/03/2015 3:33 PM Results f or this PATHOLOGY EST procedure are i n the results section. SPECIMEN TO Routine 11/03/2015 3:08 PM Results f or this PATHOLOGY EST procedure are i n the results section. MASTECTOMY PARTIAL 11/03/2015 2:11 PM LEFT BREAST DCIS ([facility] 10.13) EST ECG SCAN 11/03/2015 12:00 AM EST documented in this encounter Results Specimen to Pathology (surgical or derm) (11/03/2015 3:33 PM EST) Specimen Anatomical Collection Method Collection Time Receive d Time (Source) Location / / Volume Laterality AP Specimen 11/03/2015 3:33 PM 6 3:33 EST PM EST Narrative [facility] - 11/03/2015 3:[address] Specimen requisition ordered. ??Separate Pathology report to follow Daniel López MD PATHOLOGY/CYTOLOGY ORDERABLE S Performing Organization Address City/[facility] Code Phon e Number [address] [facility] Specimen to Pathology (surgical or derm) (11/03/2015 3:08 PM EST) Specimen Anatomical Collection Method Collection Time Receive d Time (Source) Location / / Volume Laterality AP Specimen 11/03/2015 3:08 PM 6 3:08 EST PM EST Narrative [facility] - 11/03/2015 3:[address] Specimen requisition ordered. ??Separate Pathology report to follow Daniel López MD PATHOLOGY/CYTOLOGY ORDERABLE S Performing Organization Address City/[facility] Code Phon e Number [address] [facility] SCAN DOC: ECG (11/03/2015 12:00 AM EST) Narrative This result has an attachment that is no t available. Scanning Provider MEDIA MGR SCAN EXT ORDR/RSLT documented in this encounter Visit Diagnoses Not on filedocumented in this encounter Administered Medications Inactive Administered Medications - up to 3 most recent administrations Medication Order MAR Action Action Date Dose Rate Site BUpivacaine (PF) Given 11/03/2015 3:40 PM 10 mLs 19- Surgical Site (MARCAINE) 0.5 % (5 EST mg/mL) injection ONCE PRN, Starting on Mon11/03/15 at 1540, Until Mon11/03/15 at 2124, Intra-Operative (Intra-Procedure), Routine lidocaine (PF) (XYLOCAINE) 10 Given 11/03/2015 3:40 PM EST 100 m g 19- Surgical Site mg/mL (1 %) injection ONCE PRN, Starting on Mon11/03/15 at 1540, Until Mon11/03/15 at 212, Intra-Operative (Intra-Procedure), Routine ondansetron (ZOFRAN) injection 4 mg Given 11/03/2015 5:25 PM EST 4 mg 4 mg, Intravenous, EVERY 30 MIN PRN, Starting on Mon11/03/15 at 1607, Until Mon11/03/15 at 2123, Nausea, May repeat 4 mg once in 30 minutes. If multiple antiemetics ordered, use ondansetron first and if ineffective use prochlorperazine second and if ineffective use promethazine, PACU Recovery oxyCODONE (ROXICODONE) immediate release tablet Given 11/03/2015 5:28 PM EST 5 mg 5 mg 5 mg, Oral, ONCE, 1 dose, On Mon11/03/15 at 1630, May give an additional 5 mg in 30 minutes once if pain not relieved., Routine promethazine (PHENERGAN) injection 12.5 mg Given 11/03/2015 5:26 PM EST 12.5 mg 12.5 mg, Intravenous, EVERY 30 MIN PRN, 2 doses, Starting on Mon11/03/15 at 1607, Until Mon11/03/15 at 2124, Nausea, If multiple antiemetics ordered, use ondansetron first and if ineffective use prochlorperazine second and if ineffective use promethazine, PACU Recovery, Routine documented in this encounter Active and Recently Administered Medications Times are shown in EST. Scheduled Medication Order 11/01/2015 11/02/2015 11/03/2015 ceFAZolin (ANCEF) 2g in dextrose 5% 50 mL (COMPLETED) 1434 (Given - Provider: Kane Javier CRNA) 2 g, Intravenous, EVERY 3 HOURS, 1 dose, First dose on 11/03/15 at 0830, for 30 Minutes, Intra-Operative (Intra-Procedure), Indication for (Active or Suspected): Prophylaxis oxyCODONE (ROXICODONE) immediate release tablet 5 mg (COMPLETED) 1630 (Due)1728 (Given - Provider: Myriam Flower RN) 5 mg, Oral, ONCE, 1 dose, 11/03/15 at 1630, May give an additional 5 mg in 30 minutes once if pain not relieved., Routine PRN Medication Order 11/01/2015 11/02/2015 11/03/2015 BUpivacaine (PF) (MARCAINE) 0.5 % (5 mg/mL) injection (CANCELED) 1540 (Given - Provider: Daniel López MD - Comment: Mixed 1:1 with 1% lidocaine.) ONCE PRN, Starting 11/03/15 at 1540, U ntil Tue 16 at 2124, Intra-Operative (Intra-Procedure), Routine lidocaine (PF) (XYLOCAINE) 10 mg/mL (1 %) injection (CANCELED) 1540 (Given - Provider: Daniel López MD - Comment: Mixed 1:1 with 0.50% bupivicaine.) ONCE PRN, Starting Tue 16 at 1540, U ntil Tue 1//16 at 2124, Intra-Operative (Intra-Procedure), Routine ondansetron (ZOFRAN) injection 4 mg (CANCELED) 1725 (Given - Provider: Myriam Flower RN) 4 mg, Intravenous, EVERY 30 MIN PRN, Sta rting 11/03/15 at 1607, Until 11/03/15 at 2124, Nausea, May repeat 4 mg once in 30 minutes. If multiple antiemetics ordered, use ondansetron first and if in effective use prochlorperazine second an d if ineffective use promethazine, PACU Recovery promethazine (PHENERGAN) injection 12.5 mg (CANCELED) 1726 (Given - Provider: Myriam Flower RN) 12.5 mg, Intravenous, EVERY 30 MIN PRN, 2 doses, Starting 11/03/15 at 1607, Until 11/03/15 at 2124, Nausea, If multiple antiemetics ordered, use ondansetron first and if ineffective use prochlorpe razine second and if ineffective use promethazine, PACU Recovery , Routine documented in this encounter Care Teams Academic Department Chair Relationship Specialty Start Date End Date Hoa Perez MD PCP - General 04/23/13 02/02/16 [address] [place] [address] documented as of this encounter
--- OUTSIDE RECORDS SUMMARY | 2022-09-30 02:10 | XMS_ITS | Encounter Summary ---
:1960 Author Organization [facility] Address [facility] [place] [address] Care Team Providers Name Role Phone Hoa Perez MD Primary Care Provider Encounter Details Date Type Department Care Team Description 08/07/2013 Orders Only Radiology Jeimy, Abnormal mammogram, [facility] MD Ita unspecified (Primary Drive [facility] Dx) [place] [address] DIAGNOSTIC RADIOLOGY [place], [place] [address] Social History Tobacco Use Types [...] patient b y [facility]. Film and interpretation reviewed by the attending Ita Munson MD IMG MAMMO ORDERABLES documented in this encounter Visit Diagnoses Diagnosis Abnormal mammogram, unspecified - Primar y Abnormal mammogram, unspecified documented in this encounter Care Teams Multimedia Specialist Relationship Specialty Start Date End Date Hoa Perez MD PCP - General 04/23/13 02/02/16 [address] [place] [address] documented as of this encounter
--- OUTSIDE RECORDS SUMMARY | 2022-09-30 02:10 | XMS_ITS | Encounter Summary ---
:1960 Author Organization [facility] [place] [address] Care Team Providers Name Role Phone Hoa Perez MD Primary Care Provider Encounter Details Date Type Department Care Team Description 09/28/2015 Hospital Encounter Mammography at [facility] Zuurbier, Breast calcifications [facility] Demi Kan MD on mammogram Drive [facility] [id number] DIAGNOSTIC [phone] [place] [address] Social History Tobacco Use Types Packs/Day Years Used Date Smoking Tobacco: Never Sex Assigned at Date Recorded Not on file documented as of this encounter Plan of Treatment Not on filedocumented as of this encounter Procedures Procedure Name Priority Date/Time Associated Diagnosis Comme nts MAMMO SPECIMEN Routine 09/28/2015 9:09 AM Breast calcification s Results for this IMAGING DURING EST on mammogram procedure are in BIOPSY the results section. documented in this encounter Results Mammo Specimen Imaging During Biopsy (09/28/2015 9:09 AM EST) Anatomical Region Laterality Modality Breast [...] breast documented in this encounter Care Teams Grant Officer Relationship Specialty Start Date End Date Hoa Perez MD PCP - General 04/23/13 02/02/16 [address] [place] [address] documented as of this encounter
--- OUTSIDE RECORDS SUMMARY | 2022-09-30 02:10 | XMS_ITS | Encounter Summary ---
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 Procedures PRO MASTECTOMY, PARTIAL MASTECTOMY PARTIAL Referral ID Status Reason Start Date Expiration Date Visits Requ ested Visits Authorized [id number] 1 1 Encounter Details Date Type Department Care Team Description 11/03/2015 Hospital Encounter MRI at [facility] Daniel El DCIS ([facility] MD Yuri carcinoma in situ) [facility], [place], [place] CENTER [id number] GENERAL SURGERY [phone] [place] [address] Social History Tobacco Use Types Packs/Day Years [...] Associated Diagnosis Comme nts SURGICAL PATHOLOGY Routine 11/03/2015 3:08 PM Res ults for this REPORT EST procedure are i n the results section. RESEARCH MRI BREAST Routine 11/03/2015 10:00 AM DCIS (ductal R esults for this WWO CONTRAST LEFT EST carcinoma in situ) proc edure are in of breast, left the results section. documented in this encounter Results Surgical Pathology Report (11/03/2015 3:08 PM EST) Component Value Ref Test Analysis Performed At [facility] Range Method Time Signature Surgical [id number] ? Location: [facility] The signing pathologist has (i) examined the relevant preparation(s) for the MEMORIAL specimen(s) and (ii) rendered or confirmed the diagnosis(es) . HOSPITAL LABORATORY . ? Addendum ADDENDUM DISCUSSION SPECIAL TEST PERFORMED: Test: ??Oncotype DX [facility] Case: ??[id number], block A12 Performing Lab: ??[facility] Performing Lab Case: ??[id number] Reported by Anderson Ray MD Date reported: ??12/25/2015 For the full text of the [employer] report please refer to [facility] Pathology in the electronic health record (eDH). 01/13/16 ANW 01/18/16 Verified by: ? Matt SAMSON, Pamella Ross ?Pathologist ?(Electronic Signature ) The attending pathologist whose signature appears on this re port has reviewed all diagnostic slides and has edited the gross and/ or microscopic portion of the report in manav dering the final pathologic diagnosis. ?[employer] RESULTS TEST: ??HER2(ERBB2)FISH, Breast METHOD: ??Fluorescence in si tu hybridization (FISH) with chromosome 17 centromere (17p11.1- q11.1) probe and a locus specific probe for the HER2 gene locus (17q11.2-q12). SAMPLE ANALYZED: A12-5 RESULT: ?NEGATIVE FOR HER2/CHRIS AMPLIFICATION ? TOTAL # SIGNALS/TOTAL # NUCLEI COUNTED FOR H ER2 PROBE = 89 ? TOTAL # SIGNALS/TOTAL # NUCLEI COUNTED FOR CEP-17 PROBE = 79 ? HER2 TO CEP- 17 RATIO = 1.1 ? (NORMAL RANGE <2.0) ?TOTAL # NUCLEI COUNTED = 40 Interpretation: ??Paraffin-e mbedded tissue sections were submitted for HER2(ERBB2)gene amplification analysis by F STEVIE. ??Direct analysis was performed using the Exacter Kit. ??Slide adequacy and signal enumeration were evaluated and satisfactory for both control and patient slides. ??A sig nal ratio derived from the HER2 probe and the CEP- 17 centromere probe of ?2.0 is considered positive for HER2 gene amplification. The 2013 ASCO/CAP guideline recommendation for HER2 testing in breast cancer states that samples with a HER2 to CEP- 17 ratio of less than 2.0 are non-amplified. Specimens with a HER2 to CEP-17 range of ?2.0 are considered amplified. This test is approved by the U.S. FDA for clinical diagnosti c use. . RESULTS Reference: Hang CHANG, et al. Recommendations for human epidermal growth factor receptor 2 testing in breast cancer: [place] Society of [employer] On[employer]/College of [place] [employer]ologists clinical practice guideline update. J Clin Onc ol.2013 Aug 30. Reviewed by: Nahomy Chadwick MD Podiatric Physician, Molecular Pathology _ Verified date: ??11/11/15 ??LJC Verified by: ?Gabriel CABRAL, Emma ?(Electronic Signature) ?Surgic al Pathology DIAGNOSIS Specimen (s): ??A - Breast, left, partial mastectomy Histologic Type: Invasive ductal carcinoma Tumor Grade: ??Intermediate Qvyiiu-Dzrdy-Rbntapjzwt Score: ??6 ?? Tubular Differentiation: ?? 2 ?? Mitotic Rate: ?? 1 ?? Nuclear Grade: ??3 Tumor Size: ?? 0.89 cm, slide measure A12 (maximum diameter) In Situ Histologic Type: Ductal carcinoma in situ Extensive/Minor Component: ??Extensive, with and away from i nvasive tumor ??DCIS Size Estimate: ??Greater than 50% total tumor mass (if extensive DCIS) ?? Grade: ?? High ?? Necrosis: ??Present ?? Pattern(s): ??Solid with lobular extension and sclerosis , Focal cribriform. Microcalcifications: ??Associated with DCIS and invasive clair or Angiolymphatic Invasion: Not identified. Perineural invasion: Not identified. Nipple involvement: ?? N/A Skin/Skeletal muscle invasion: N/A Other Findings: Atypical mark maylin hyperplasia (A10), atypical lobular hyperplasia (A6), biopsy site changes. Resection Margins (RM): Invasive Ca: ? Uninvolved ?Distance from closest RM(s): ??0.65 cm to nearest gree n RM (A12) DCIS: ?Uninvolved ?Distance from closest RM(s): ??0.85 cm to nearest bia k RM (A9) Axillary lymph nodes: N/A Estrogen/Progestin receptors, performed on block A12 ER immunoreactivity: ??Positive > 90% cancer cells with imm unostaining ? Stain Intensity ??Strong IN immunoreactivity: ??Positive 11-90% cancer cells with im munostaining ? Stain Intensity Strong HER2/chris expression by FISH: ??See separate report pTNM: ---pT1b NX (AJCC, 7th edition, 2010) B - Breast, left, new caudal margin: . DIAGNOSIS Benign breast tissue with fi brocystic changes including usual ductal hyperplasia with papillary features, adenosis, apocrine metaplasia, and cyst s. BRTMRBLK-BRIN: A12 BRNRL-BRIN: A23-24 11/05/15 CCB 11/09/15 Verified by: ? Pamella Gutierrez DO ?Pathologist ?(Electronic Signature ) The attending pathologist whose signature appears on this re port has reviewed all diagnostic slides and has edited the gross and/ or microscopic portion of the report in manav dering the final pathologic diagnosis. CLINICAL INFORMATION Specimen Submitted: A - Left partial mastectomy B - New caudal margin Clinical History: DCIS left breast Clinical Diagnosis: Same SPECIMEN PROCESSING A - Labeled/Fixative: Left partial mastectomy, fresh. SPECIMEN DESCRIPTION Resection Specimen: Intact partial mastectomy Qty/Size/Weight: Single, 7.3 x 7.0 x 2.7 cm , 55 grams. Radiograph: Within the speci men tophat-shaped clip marker and calcifications are identified. Specimen Description: Accord ing to the established protocol the ink designations are red (medial), yellow (later al), orange (cranial), green (caudal), black (deep) and blue (superficial). Tissue Sections: The specime n is serially sectioned perpendicular to the long axis from medial-red to lateral-yello w into IX slices, each averaging 0.4-0.5 cm in thickness. LESION Description: Biopsy site with organized hemorrhage. Size: 0.9 x 0.6 x 0.4 cm. Color: Ndiaye-white with red hemorrhage. Consistency: Hard. Location: Slices IV-. Nearest Margin: Caudal-green, 0.3 cm. Other Margins: Deep-black, 0 .4 cm; Cranial-orange, 0.5 cm; superficial-blue 2.3 cm. OTHER Parenchyma: Yellow-ndiaye adipo se tissue with a interspersed dense-white fibrous tissue. Wire/Clip: Not identified. SECTIONS/PROCESSING: (1) les ion to the black-deep margin from slice IV; (2) lesion to the orange-cranial margin f rom slice IV; (3) lesion to the blue-superficial margin from slice IV; (4-6) remain dov of the biopsy site tissue from the slice IV; (7) lesion to the deep margin from the slice V; (8-10) remainder of the biopsy site the slice V; (11-12) lesion to green-cau gillian margin from slice ; (13-14) lesion to orange-cranial margin from ??the slice ; (15-16) remainder of the biopsy site from the slice ; (17) labor union business representative section of t he slice II; (18) labor union business representative section of the slice III; (19) labor union business representative section of the slice I; (20) labor union business representative section of the slice IX; (21-30) remaining tissue slice . (R24) B - Labeled/Fixative: New caudal margin, fresh. SPECIMEN DESCRIPTION Resection Specimen: Intact additional partial mastectomy . SPECIMEN PROCESSING Qty/Size/Weight: Single, 5.5 x 2.7 x 0.4 cm, four grams. Radiograph: Not performed. Specimen Description: Accord ing to the established protocol the ink designations are red (medial), yellow (later al), orange (cranial), green (caudal), black (deep) and blue (superficial). Tissue Sections: The specime n is serially sectioned perpendicular to the long axis from medial-red to lateral-yello w into 14 slices, each averaging 0.3-0.4 in thickness. LESION Description: Not identified. Parenchyma: Dense-white fibr ous tissue interspersed with yellow adipose tissue. Wire/Clip: Not identified. SECTIONS/PROCESSING: Specime n submitted entirely in 14 cassettes, the number of the cassette represent a number of the slice from red-medial to yellow-lateral margin. (T14) Ischemic Time: 60 minutes ??yal Specimen (Source) Anatomical Collection Method Collection Time Re ceived Time Location / / Volume Laterality 11/03/2015 3:08 PM EST Daniel El MD PATHOLOGY/CYTOLOGY ORDERABLE S Performing Organization Address City/State/[place] [address] Research- MRI AIC-60 Breast Unilateral (11/03/2015 10:00 AM EST) Anatomical Region Laterality Modality Breast Left Magnetic Resonance Specimen (Source) Anatomical Location Collection Method / Collectio n Time Received Time / Laterality Volume Impressions 11/03/2015 1:34 PM EST IMPRESSION: As above, pre and post gadolinium imagin g, and segmentation accomplished, research protocol. The findings were con veyed to the operating surgeon, Dr. El. Narrative 11/03/2015 1:34 PM EST EXAMINATION: RESEARCH- MRI AIC-60 BREAST LEFT CLINICAL HISTORY: [id number] study. evaluate location of DCIS in the breast for surgery TECHNIQUE: Pre and post gadolinium axial left breast imaging, research protocol utilizing Aegis CAD for color kinetics. Multilevel pre and post gadolinium axial fat saturation sequences were obtained, research protocol, 1.5T. COMPARISON: Prone MRI of 10/07/2015. FINDINGS: Significant breathing motion artifact li mits conspicuity of clip marker, and enhancement of mass and satellite. Howev er, segmentation was accomplished utilizing Aegis, pre and post gadolinium and subtraction imaging. Procedure Note Alec Zhou MD - 11/03/2015Format ting of this note might be different from the original. EXAMINATION: RESEARCH- MRI AIC-60 BREAST LEFT CLINICAL HISTORY: d0928 study. evaluate location of DCIS in the breast for surgery TECHNIQUE: Pre and post gadolinium axial left breast imaging, research protocol utilizing Aegis CAD for color kinetics. Multilevel pre and post gadolinium axial fat saturation sequences were obtained, research protocol, 1.5T. COMPARISON: Prone MRI of 10/07/2015. FINDINGS: Significant breathing motion artifact li mits conspicuity of clip marker, and enhancement of mass and satellite. Howev er, segmentation was accomplished utilizing Aegis, pre and post gadolinium and subtraction imaging. IMPRESSION IMPRESSION: As above, pre and post gadolinium imagin g, and segmentation accomplished, research protocol. The findings were con veyed to the operating surgeon, Dr. El. 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
--- OUTSIDE RECORDS SUMMARY | 2022-09-30 02:10 | XMS_ITS | Encounter Summary ---
:1960 Author Organization [place] [address] Care Team Providers Name Role Phone Hoa Perez MD Primary Care Provider Encounter Details Date Type Department Care Team Description 10/14/2015 Notes Only Hematology and Oncology at Barby Guido MSW [facility] Elizabeth marie HEMATOLOGY/[place] [address] [place] [address] [phone] (Wo rk) Social History Tobacco Use Types Packs/Day Years Used Date Smoking Tobacco: Never Sex Assigned at Date Recorded Not on file documented as of this encounter Progress Notes Barby Guido MSW - 10/14/2015 10:41 AM EST OFFICE OF CARE MANAGEMENT/CONTINUING HOME CARE MANAGER Reason for referral: Tanika Harrison is a 55 yr. old woman who lives in [place], [place], seen with her Jeremy after her consultation w/Dr. El for DCIS. She will be having a lumpectomy. Advance Directives: Documents reviewed with her and her . She will complete and return a copyfor the chart. Living arrangements/social supports: She lives with her supportive and works for an [employer]. She has additional support from her sister who was treated for breast cancer 3 yrs. ago, her two children age 35 and 32, her mother and best friend. Insurance/Finances: She has private insurance and will contact the company to learn what her deductible is. She had benefits at work and work is a supportive environment.. Tobacco/drug/alcohol history: She has never used tobacco and has at most two glasses of wine/week. Limits of at-risk drinking discussed. Adjustment to illness/mental health concerns: She is coping fairly well with the diagnosis. Additional support services in the cancer center discussed Plan: Sakina Carlos and I will continue to follow to assess and assist with psychosocial needs as she progresses through treatment. LUIS M Norman, [facility] Comprehensive Breast Program/[place] [phone] documented in this encounter Plan of Treatment Not on filedocumented as of this encounter Visit Diagnoses Not on filedocumented in this encounter Care Teams Sorter [employer] Relationship Specialty Start Date End Date Hoa Perez MD PCP - General 04/23/13 02/02/16 [address] [place] [address] documented as of this encounter
--- OUTSIDE RECORDS SUMMARY | 2022-09-30 02:10 | XMS_ITS | Encounter Summary ---
:1960 Author Organization [facility] [place] [address] Care Team Providers Name Role Phone Hoa [...] Expiration Date Visits Requ ested Visits Authorized [id number] Closed 1 1 Encounter Details Date Type Department Care Team Description 11/16/2015 Surgery Main Operating Room [address], MD BIOPSY OR EXCISION OF [facility] R LYMPH NODE(S), OPEN, [facility] DEEP AXILLARY NODE(S) [facility] GENERAL SURGE RY (WRVU 6.43) [place] [address] [place] [address] [phone] Social History Tobacco Use Types Packs/Day Years Used Date Smoking Tobacco: Never Alcohol Use Standard Drinks/Week Comments Yes 5 (1 standard drink = 0.6 oz pure alcoho l) Sex Assigned at Date Recorded Not on file documented as of this encounter Last Filed Vital Signs Vital Sign Reading Time Taken Comments Blood Pressure 134/70 11/16/2015 2:13 PM EST Pulse 70 11/16/2015 2:13 PM EST Temperature 37.1 ??C (98.8 ??F) 11/16/2015 2:13 PM EST Respiratory Rate 20 11/16/2015 2:13 PM EST Oxygen Saturation 99% 11/16/2015 2:13 PM EST Inhaled Oxygen Concentration - - [...] 101.3 F. The number for questions is [phone] before 5 PM week. Pain Medication: No [...] changethe date of your appointment please call [phone]. Your follow-up is very important to us. Scheduled Appointments: The following appointment with Dr. López has been scheduled on your behalf: Future Appointments Date Time Provider Department Center 11/23/2015 8:30 AM Mable Jacome MD [facility] 12/02/2015 3:00 PM Brooks Ricardo MD Leb Hem Onc [facility] 12/02/2015 4:30 PM Daniel López MD Leb Surg [facility] Please call [phone] (clinic number) if any changes need to [...] López MD - 11/16/2015 7:01 PM EST [facility] Operative Note Patient Name: Tanika Harrison : [id number] MR#: [id number] Case Date: 11/16/2015 Surgeon: Surgeon(s) and Role: [...] Surgical Pathology Report (11/16/2015 6:17 PM EST) [facility] Method Time Signature Surgical [id number] ? Location: [facility] Pathology [facility] Report The signing pathologist has (i) examined [...] Volume Laterality 11/16/2015 6:17 PM EST Daniel López MD PATHOLOGY/CYTOLOGY ORDERABLE S Performing Organization Address City/State/ZIP Code Phon e Number [place] [id number] [facility] Specimen to Pathology (surgical or derm) (11/16/2015 6:17 PM EST) Specimen Anatomical Collection Method Collection Time Receive d Time (Source) Location / / Volume Laterality AP Specimen 11/16/2015 6:17 PM 6 6:17 EST PM EST Narrative [facility] - 11/16/2015 6:[address] Specimen requisition ordered. ??Separate Pathology report to follow Daniel López MD PATHOLOGY/CYTOLOGY ORDERABLE S Performing Organization Address City/State/ZIP [place] [address] ARACELI NUNES documented in this encounter Visit Diagnoses Not [...] Given 11/16/2015 7:21 PM EST 50 mcg lidocaine (PF) (XYLOCAINE) 10 Given 11/16/2015 6:35 PM EST 60 mg 19- Surgical Site mg/mL (1 %) injection ONCE PRN, Starting on Mon11/16/15 at 1835, Until Mon11/16/15 at 2348, Intra-Operative (Intra-Procedure), Routine oxyCODONE (ROXICODONE) immediate release tablet Given 11/16/2015 7:49 PM EST 5 mg 5 mg 5 mg, Oral, ONCE PRN, 1 dose, Starting on Mon11/16/15 at 1905, Until Mon11/16/15 at 1949, Pain, Routine promethazine (PHENERGAN) injection 6.25 mg Given 11/16/2015 8:30 PM EST 3.125 mg 6.25 mg, Intravenous, EVERY 30 MIN PRN, 2 doses, Starting on Mon11/16/15 at 1903, Until 1/18/16 at 2348, Nausea, If multiple antiemetics ordered, use ondansetron first and if ineffective use prochlorperazine second and if ineffective use promethazine, PACU Recovery, Routine documented in this encounter Active and Recently Administered Medications Times are shown in EST. Scheduled Medication Order 11/14/2015 11/15/2015 11/16/2015 acetaminophen (TYLENOL) tablet 650 mg (COMPLETED) 1444 (Given - Provider: Milagros Vides RN) 650 mg, Oral, ONCE, 1 dose, Mon11/16/15 at 1430, Maximum dose of acetaminophen [...] at 100 mL/hr, Intravenous, CON TINUOUS, Starting 11/16/15 at 1430, Until Mon11/16/15 at 2348, Day of Surgery (Day of Procedure) PRN Medication Order 11/14/2015 11/15/2015 11/16/2015 fentaNYL (PF) 50 mcg/mL 2mL syringe (CANCELED) 192 (Given - Provider: Milagros Vides RN)193 (Given - Provider: Milagros Vides RN) 50 mcg, Intravenous, EVERY 5 MIN PRN, St arting 11/16/15 at 1903, Until Mon11/16/15 at 2348, Pain, [...] 1% + MARCAINE 0.5%) ONCE PRN, Starting 11/16/15 at 1835, Until 11/16/15 at 2348, Intra- Operative (Intra-Procedure), Routine oxyCODONE (ROXICODONE) immediate release tablet 5 mg (COMPLETED) 1948 (Given - Provider: Milagros Vides RN) 5 mg, Oral, ONCE PRN, 1 dose, Starting M on 11/16/15 at 1905, Until Discontinued, Pain, Routine promethazine (PHENERGAN) injection 6.25 mg (CANCELED) 2029 (Given - Provider: Dang Soto RN) 6.25 mg, Intravenous, EVERY 30 MIN PRN, 2 doses, Starting 11/16/15 at 1903, Until 11/16/15 at 2348, Nausea, If multiple antiemetics ordered, use ondansetron first and if ineffective use prochlor perazine second and if ineffective use promethazine, PACU Recove ry, Routine documented in this encounter Care Teams Allergist/Immunologist Physician Relationship Specialty Start Date End Date Hoa Perez MD PCP - General 04/23/13 02/02/16 [address] [place] [address] documented as of this encounter
--- OUTSIDE RECORDS SUMMARY | 2022-09-30 02:10 | XMS_ITS | Encounter Summary ---
:1960 Author Organization [facility] [place] [address] Care Team Providers Name Role Phone Hoa Perez MD Primary Care Provider Reason for Referral Diagnostic Test (Routine) - Closed Specialty Diagnoses / Procedures Referred By Contact Refer red To Contact Radiology Diagnoses Breast cancer, female, left Daniel El MD [facility] Rad Mri Procedures MRI Breast Bilateral W/WO Contrast [facility] [place] [address] [place] [address] Referral ID Status Reason Start Date Expiration Date Visits V isits Requested Authorized [id number] Closed Specialty 10/02/2015 11/30/2015 1 1 Service Requested Encounter Details Date Type Department Care Team Description 09/29/2015 Orders Only Hematology and Daniel El, Breast c ancer, female, Oncology at [facility] MD left [facility] [place] [address] GENERAL SURGERY [phone] [place] [id number] Social History Tobacco Use Types Packs/Day Years Used Date Smoking Tobacco: Never Sex Assigned at Date Recorded Not on file documented as of this encounter Plan of Treatment Not on filedocumented as of this encounter Results MRI Breast Bilateral W/WO Contrast (10/07/2015 7:07 PM EST) Anatomical Region Laterality Modality Breast N/A Magnetic Resonance Specimen (Source) Anatomical Location Collection Method / Collectio n Time Received Time / Laterality Volume Impressions 10/08/2015 11:30 AM EST Impression: Index lesion #1 left breast 3:00 radian is larger than predicted mammographically, measuring up to 2 cm i n size and is associated with a satellite lesion #3 measuring 0.8 cm, lo cated 0.7 cm inferomedial to the index lesion. Slight prominence of chest wall and axil janes lymph node on the left favoring hyperplasia related to the core biopsy p rocedures. Left breast: BI-RADS Category 6: Known B iopsy-Proven Malignancy Right breast: BI-RADS Category 1: Negati ve I have personally reviewed the image(s) and the residents interpretation and agree with the findings, ERNST Valle at 10/08/2015 11:30 AM Narrative 10/08/2015 11:30 AM EST MRI OF THE BILATERAL BREAST(S) CLINICAL INDICATION: ??Recently diagnose d high nuclear grade DCIS, associated with calcifications in the left breast l aterally, lesion #1 3:00 radian. MRI for surgical planning. Lesion #2 were benign calcifications, at the 12:00 radian. TECHNIQUE: Multiplanar sequences were obtained pre- and post- gadolinium enhancement, to include SPGR weighted dynamic run-off an d subtraction sequences obtained after the intravenous administration of 8 ccs of Gadovist. Computer algorithm analysis for lesion detection and kinetic contras t enhancement curve analysis was performed, using [employer] software. COMPARISON STUDIES: Mammography: 09/16/2015 Ultrasound: None MRI: None Biopsy: 09/28/2015 BACKGROUND ENHANCEMENT PATTERN (first po st gadolinium image) Mild (25-50% breast) AMOUNT OF FIBROGLANDULAR TISSUE: Heterog eneous fibroglandular tissue. FINDINGS: There are 3 areas of low signal, 2 in th e left breast and one in the right breast, which correlate with artifact fr om the patient's biopsy clips. Left breast: Lesion 1: Post procedure complex at the 3:00, 4 cm from the nipple, associated with the known malignancy. The malignanc y manifest at MRI as an irregular mass with irregular margins demonstrating rosalind ogeneous enhancement; this measures 2 cm (transverse by AP by craniocaudal) as se en on series 6, image 69. This is larger than predicted by the mammogram finding. Lesion 2: Biopsy cavity located at the u pper central breast at 12:00, 4.5 cm from the nipple. This lesion represents benign adenosis. Lesion 3: There is an irregular spiculat ed mass seen in the central left breast, 0.7 cm posterior and medial to the index lesion #1 which exhibits homogeneous enhancement, 5.5 cm from the nipple. Thi s mass measures 0.8 cm (transverse by AP by craniocaudal). This is located at the central aspect of the left breast. Right breast: A T2 bright area is seen in the deep bakari tral right breast with mild peripheral enhancement, most likely representing a simple cyst. No areas of abnormal parenchymal enhancement. Lymph node basins: There are some promin ent lymph nodes identified in the lateral left chest wall and Level One as pect of the left axillary node chain. These are slightly rounded and may be ph ysiologically enlarged due to the post procedure complexes. Daniel El MD IMG MRI ORDERABLES documented in this encounter Visit Diagnoses Diagnosis Breast cancer, female, left Breast cancer, female, left documented in this encounter Care Teams Seismology Technical Officer Relationship Specialty Start Date End Date Hoa Perez MD PCP - General 04/23/13 02/02/16 [address] [place] [address] documented as of this encounter
--- OUTSIDE RECORDS SUMMARY | 2022-09-30 02:10 | XMS_ITS | Encounter Summary ---
:1960 Author Organization [facility] [place] [address] Care Team Providers Name Role Phone Hoa Perez MD Primary Care Provider Encounter Details Date Type Department Care Team Description 09/16/2015 Hospital Encounter Mammography at [facility] Meagan Marley, [facility] [place] [address] [address] [place], [place] [id number] Social History Tobacco Use Types Packs/Day Years Used Date Smoking Tobacco: Never Sex Assigned at Date Recorded Not on file documented as of this encounter Plan of Treatment Not on filedocumented as of this encounter Procedures Procedure Name Priority Date/Time Associated Diagnosis Comme nts MAMMO 2D DIGITAL Routine 09/16/2015 2:56 PM Screening Resul ts for this SCREEN ANNI EST procedure are i n BILATERAL the results section. documented in this encounter Results Mammo Screen Anni 2D Bilateral (09/16/2015 2:56 PM EST) Anatomical Region Laterality Modality Breast Bilateral Mammography Specimen (Source) Anatomical Location Collection Method / Collectio n Time Received Time / Laterality Volume Narrative 09/17/2015 11:30 AM EST REASON FOR EXAM: Screening TECHNIQUE: CC and MLO views were obtaine d of the Bilateral breast. Computer aided detection was used. 3D tomosynthes is images were obtained in addition to 2D images. Computer assisted detection w as used. FINDINGS: Breast density: There are scattered area s of fibroglandular density. Right breast. ??There are no suspicious microcalcifications, masses, or areas of distortion. No changes compared to prior studies. The Left breast is abnormal and addition al imaging is required. There is a group of calcifications in the medial ce ntral left breast and a asymmetric density in the superior left breast. BIRADS CATEGORY 0: Additional imaging re quired of the left breast. Meagan Marley APRN IMG MAMMO ORDERABLES documented in this encounter Visit Diagnoses Diagnosis Screening Screening for unspecified condition documented in this encounter Care Teams Fur Mixer Operator Relationship Specialty Start Date End Date Hoa Perez MD PCP - General 04/23/13 02/02/16 [address] [place] [address] documented as of this encounter
--- OUTSIDE RECORDS SUMMARY | 2022-09-30 02:10 | XMS_ITS | Encounter Summary ---
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 COMPARISON: Supine MRI of [...] THE LEFT BREAST TECHNIQUE: Specimen mammography after [facility] MRI protocol segmentation. COMPARISON: Supine MRI of the same day. FINDINGS: Within the specimen, TOPHAT-shaped clip marker, residual calcifications are identified, correlating with lesion 1. O verall margins appear appropriate within the limitations of specimen mammography. Close cyst approach of parenchymal density and margin edge at approximately B5 as measured on the grid. IMPRESSION IMPRESSION: As above, findings were discussed with t he surgeon at the time of interpretation. 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
--- OUTSIDE RECORDS SUMMARY | 2022-09-30 02:10 | XMS_ITS | Encounter Summary ---
:1960 Author Organization [facility] [place] [address] Care Team Providers Name Role Phone Hoa Perez MD Primary Care Provider Reason for Referral Diagnostic Test (Routine) - Closed Specialty Diagnoses / Procedures Referred By Contact Refer red To Contact Radiology Diagnoses Breast cancer, female, left Daniel El MD [facility] Rad Mri Procedures MRI Breast Bilateral W/[place] [address] [place] [address] Referral ID Status Reason Start Date Expiration Date Visits V isits Requested Authorized [id number] Closed Specialty 10/02/2015 11/30/2015 1 1 Service Requested Reason for Visit Diagnostic Test (Routine) - Closed Specialty Diagnoses / Procedures Referred By Contact Refer red To Contact Radiology Diagnoses Breast cancer, female, left Daniel El MD [facility] Rad Mri Procedures MRI Breast Bilateral W/WO Contrast [facility] [place] [address] [place] [address] Referral ID Status Reason Start Date Expiration Date Visits V isits Requested Authorized [id number] Closed Specialty 10/02/2015 11/30/2015 1 1 Service Requested Encounter Details Date Type Department Care Team Description 10/07/2015 Hospital Encounter MRI at [facility] Daniel El Breast cancer, [facility] MD Yuri female, left [facility] [address] GENERAL SURGERY [phone] [place] [address] Social History Tobacco Use Types Packs/Day Years Used Date Smoking Tobacco: Never Sex Assigned at Date Recorded Not on file documented as of this encounter Plan of Treatment Not on filedocumented as of this encounter Procedures Procedure Name Priority Date/Time Associated Diagnosis Comme nts MRI BREAST WWO Routine 10/07/2015 7:07 PM Breast cancer, Resul ts for this CONTRAST BILAT EST female, left procedure are in the results section. documented in this encounter Results MRI Breast Bilateral W/WO [...] Slight prominence of chest wall and axil janse lymph node on the left favoring hyperplasia [...] t enhancement curve analysis was performed, using [employer] software. COMPARISON STUDIES: Mammography: 09/16/2015 Ultrasound: None [...] Visit Diagnoses Diagnosis Breast cancer, female, left documented in this encounter Administered Medications Inactive Administered Medications - up to 3 most recent administrations Medication Order MAR Action Action Date Dose Rate Site gadobutrol (GADAVIST) 1 mMol/mL Given 10/07/2015 6:36 PM EST 8 m Ls injection 8 mL 8 mL, Intravenous, ONCE PRN, 1 dose, Starting on Mon10/07/15 at 1829, Until Mon10/07/15 at 1836, Per Protocol, Routine documented in this encounter Care Teams Hospital Ward Clerk Relationship Specialty Start Date End Date Hoa Perez MD PCP - General 04/23/13 02/02/16 [address] [place] [address] documented as of this encounter
--- OUTSIDE RECORDS SUMMARY | 2022-09-30 02:10 | XMS_ITS | Encounter Summary ---
:1960 Author Organization [facility] [place] [address] Care Team Providers Name Role Phone Hoa Perez MD Primary Care Provider Reason for Referral Diagnostic Test (Routine) - Closed Specialty Diagnoses / Procedures Referred By Contact Refer red To Contact Radiology Diagnoses Breast mass Daniel El MD [facility] Rad Nuclear Med Procedures NM sentinel node injection breast without imaging [facility] [place] [address] [place] [address] Referral ID Status Reason Start Date Expiration Date Visits V isits Requested Authorized [id number] Closed Specialty 11/16/2015 11/15/2016 1 1 Service Requested Encounter Details Date Type Department Care Team Description 11/10/2015 Orders Only General Surgery at [facility] Daniel El MD Breast [facility] [place] [address] GENERAL SURGERY [phone] [place], [place] [address] (Wo rk) Social History Tobacco Use Types Packs/Day Years Used Date Smoking Tobacco: Never Alcohol Use Standard Drinks/Week Comments Yes 5 (1 standard drink = 0.6 oz pure alcoho l) Sex Assigned at Date Recorded Not on file documented as of this encounter Plan of Treatment Not on filedocumented as of this encounter Results NM sentinel node injection breast without imaging (11/16/2015 12:03 PM EST) Anatomical Region Laterality Modality Nuclear Medicine Specimen (Source) Anatomical Location Collection Method / Collectio n Time Received Time / Laterality Volume Impressions 11/16/2015 12:45 PM EST IMPRESSION: Stilwell node injections performed without complication. Narrative 11/16/2015 [...] condition. Procedure Note Junior Iverson MD - 11/16/2015Formatti ng of this note might be different from the original. EXAMINATION: NM SENTINEL NODE INJECTION BREAST WITHOUT IMAGING/LEFT CLINICAL HISTORY: PLEASE INJECT THE LEFT BREAST FOR LYMPHATIC MAPPING TECHNIQUE: Technetium-99m sulfur colloid was administered in divided doses totaling 0.3 mCi in the left breast COMPARISON: None FINDINGS: No imaging was performed. The patient left the department in good condition. IMPRESSION IMPRESSION: Stilwell node injections per formed without complication. Daniel El MD IMG NM ORDERABLES documented in this encounter Visit Diagnoses Diagnosis Breast mass Lump or mass in breast Breast mass Lump or mass in breast documented in this encounter Care Teams Dyno Technician Relationship Specialty Start Date End Date Hoa Perez MD PCP - General 04/23/13 02/02/16 [address] [place] [address] documented as of this encounter
--- OUTSIDE RECORDS SUMMARY | 2022-09-30 02:10 | XMS_ITS | Encounter Summary ---
:1960 Author Organization [place] [address] Care Team Providers Name Role Phone Hoa Perez MD Primary Care Provider Encounter Details Date Type Department Care Team Description 06/14/2011 Orders Only Radiology Elena Haji MD [facility] [place] [address] DIAGNOSTIC RADIOLOGY [phone] [place], [place] [address] (Wo rk) Social History Tobacco Use Types Packs/Day Years Used Date Smoking Tobacco: Never Assessed Sex Assigned at Date Recorded Not on file documented as of this encounter Plan of Treatment Not on filedocumented as of this encounter Procedures Procedure Name Priority Date/Time Associated Diagnosis Comme nts FILM LIBRARY Routine 06/14/2011 11:05 AM Results for this STORAGE ONLY MAMMO EDT procedure are in the results section. documented in this encounter Results Film Library- Storage only Mammo (06/14/2011 11:05 AM EDT) Specimen (Source) Anatomical Collection Method Collection Time Re ceived Time Location / / Volume Laterality 06/14/2011 11:05 AM EDT Narrative [facility] - 06/25/2014 4:46 PM EDT This is a non-reportable exam. Procedure Note Chriss Naranjo - 06/25/2014Formatti ng of this note might be different from the original. This is a non-reportable exam. Elena Haji MD IM FILM LIBRARY ORDERABLES Performing Organization Address City/State/ZIP Code Phon e Number [facility] [address] [facility] [place] [address] documented in this encounter Visit Diagnoses Not on filedocumented in this encounter Care Teams Supervisory Geographer Relationship Specialty Start Date End Date Hoa Perez MD PCP - General 04/23/13 02/02/16 [address] [place] [address] documented as of this encounter
--- OUTSIDE RECORDS SUMMARY | 2022-09-30 02:10 | XMS_ITS | Encounter Summary ---
:1960 Author Organization [facility] [place] [address] Care Team Providers Name Role Phone Hoa Perez MD Primary Care Provider Encounter Details Date Type Department Care Team Description 08/05/2013 Hospital Encounter XRay at [facility], DR ELIZABETH [address] [place] [address] [place] [address] Social History Tobacco Use Types Packs/Day Years Used Date Smoking Tobacco: Never Sex Assigned at Date Recorded Not on file documented as of this encounter Plan of Treatment Not on filedocumented as of this encounter Procedures Procedure Name Priority Date/Time Associated Diagnosis Comme nts REQUEST FOR 2ND Routine 08/05/2013 11:05 AM Resul ts for this READ MAMMO EDT procedure are i n the results section. documented in this encounter Results Request for 2nd read Mammo (08/05/2013 11:05 AM EDT) Anatomical Region Laterality Modality Other Specimen (Source) Anatomical Collection Method Collection Time Re ceived Time Location / / Volume Laterality 08/05/2013 11:05 AM EDT Narrative 08/08/2013 7:34 AM EDT INTERPRETATION OF OUTSIDE MAMMOGRAMS (PERFORMED ON 07/29/13 AND 08/01/13) FROM [facility] DATED 08/05/13: DIAGNOSTIC IMAGING SUMMARY: LEFT BREAST LESION 1: INCOMPLETE (BIRADS Category 0). Finding: Asymmetry. Location: Inner Left breast. Recommendation: Additional evaluation. RIGHT BREAST LESION 1: SUSPICIOUS (BIRAD S Category 4). Finding: Mass. Size: 14mm. Location: Upper, outer quadrant at 1000, 5cm from the nipple. Recommendation: Ultrasound guided biopsy . NARRATIVE: CLINICAL INDICATION: I have been asked t o consult on this patient by Dr. Dang Mccarthy because she believes a review of t his patient may change or alter the care of this patient. TECHNIQUE: Bilateral screening mammogram s were submitted on digital soft copy for review and include screening mammogr ams dated 12/06/06, 02/15/08, 03/04/09, 12/13/10, 07/29/13, Left diagnostic mammog genaro 12/15/10, 06/14/11, Right diagnostic mammograms 08/01/13 and a report of a Rig breast ultrasound. FINDINGS: LEFT BREAST: This is a (BIRADS Category 0) INCOMPLETE mammogram for an asymmetry (possible superimposition) in the inner, central ??Left breast requiring additional evaluation. RIGHT BREAST: This is a (BIRADS Category 4) for a SUSPICIOUS 14mm, partially qtdt-ztefovjaggwfd-wsnhalcdd obscured de nse round mass in the upper, outer quadrant of the Right breast at 1000, ?? 5cm from the nipple. By ultrasound report, this mass is hypoechoic and does not meet the criteria for a simple cyst, and therefore a biopsy was recomme nded. Note is made of smaller well-circumscrib ed mammographic mass seen in the inferior Right breast, which is stable t o slightly smaller than on prior studies, which appears to correspond to a benign cyst reported on the outside ultrasound. ?? Film and interpretation reviewed by the attending Procedure Note Ita Munson MD - 3 INTERPRETATION OF OUTSIDE MAMMOGRAMS (PE RFORMED ON 07/29/13 AND 08/01/13) FROM [facility] DATED 08/05/13: DIAGNOSTIC IMAGING SUMMARY: LEFT BREAST LESION 1: INCOMPLETE (BIRADS Category 0). Finding: Asymmetry. Location: Inner Left breast. Recommendation: Additional evaluation. RIGHT BREAST LESION 1: SUSPICIOUS (BIRAD S Category 4). Finding: Mass. Size: 14mm. Location: Upper, outer quadrant at 1000, 5cm from the nipple. Recommendation: Ultrasound guided biopsy . NARRATIVE: CLINICAL INDICATION: I have been asked t o consult on this patient by Dr. Dang Mccarthy because she believes a review of t his patient may change or alter the care of this patient. TECHNIQUE: Bilateral screening mammogram s were submitted on digital soft copy for review and include screening mammogr ams dated 12/06/06, 02/15/08, 03/04/09, 12/13/10, 07/29/13, Left diagnostic mammog genaro 12/15/10, 06/14/11, Right diagnostic mammograms 08/01/13 and a report of a [facility] breast ultrasound. FINDINGS: LEFT BREAST: This is a (BIRADS Category 0) INCOMPLETE mammogram for an asymmetry (possible superimposition) in the inner, central Left breast requiring additional evaluation. RIGHT BREAST: This is a (BIRADS Category 4) for a SUSPICIOUS 14mm, partially edpq-ldbhigwyfhlob-qvzkqattf obscured de nse round mass in the upper, outer quadrant of the Right breast at 1000, 5c m from the nipple. By ultrasound report, this mass is hypoechoic and does not meet the criteria for a simple cyst, and therefore a biopsy was recomme nded. Note is made of smaller well-circumscrib ed mammographic mass seen in the inferior Right breast, which is stable t o slightly smaller than on prior studies, which appears to correspond to a benign cyst reported on the outside ultrasound. Film and interpretation reviewed by the attending Dang Mccarthy MD IMG OUTSIDE INTERPRETATION O RDERABLES documented in this encounter Visit Diagnoses Not on filedocumented in this encounter Care Teams Emergency Communications Officer Relationship Specialty Start Date End Date Hoa Perez MD PCP - General 04/23/13 02/02/[address] [place] [address] documented as of this encounter
--- OUTSIDE RECORDS SUMMARY | 2022-09-30 02:10 | XMS_ITS | Encounter Summary ---
:1960 Author Organization [facility] [place] [address] Care Team Providers Name Role Phone Hoa Perez MD Primary Care Provider Encounter Details Date Type Department Care Team Description 10/16/2015 Orders Only General Surgery [place] [facility] Daniel El MD [facility] [place] [address] GENERAL SURGERY [phone] [place], [place] [address] (Wo rk) Social History Tobacco Use Types Packs/Day Years Used Date Smoking Tobacco: Never Sex Assigned at Date Recorded Not on file documented as of this encounter Plan of Treatment Not on filedocumented as of this encounter Visit Diagnoses Not on filedocumented in this encounter Care Teams Geology Technician Relationship Specialty Start Date End Date Hoa Perez MD PCP - General 04/23/13 02/02/16 [address] [place], [place] [id number] documented as of this encounter
--- OUTSIDE RECORDS SUMMARY | 2022-09-30 02:12 | XMS_ITS | Encounter Summary ---
:1960 Author Organization [facility] Address [address] [place] [address] Care Team Providers Name Role Phone Hoa Downing MD Primary Care Provider Encounter Details Date Type Department Care Team Description 08/25/2014 Results Only [facility]- Dave Wharton, [address] [place] [address] [address] [place], [place] [address] (Wo rk) Social History Tobacco Use Types Packs/Day Years Used Date Smoking Tobacco: Never Assessed Sex Assigned at Date Recorded Not on file documented as of this encounter Plan of Treatment Not on filedocumented as of this encounter Procedures Procedure Name Priority Date/Time Associated Diagnosis Comme nts SURGICAL PATHOLOGY Routine 08/25/2014 16:27 Resul ts for this EDT procedure are i n the results section. documented in this encounter Results SURGICAL PATHOLOGY (08/25/2014 16:27 EDT) Component Value Ref Test Analysis Performed At [facility] Method Time Signature Pathology SURGICAL PATHOLOGY REPORT [facility] GAMBINO Report: Reports generated via electronic interface contain yunier swanson; KAYLENE ROSENTHAL however they are lacking the format of the original report. Caution should be taken when reading/interpreting unformatte d reports. Name: ? YUDITH HARRISON ? Accession #: ? [id number] ? : ? 1960 (Age: 54) ??F ? Collect Date: ? 08/25/2014 ? Location: ? [facility] ? Receive Date: ? 08/25/2014 ? Provider: DAVE GARG MD Copy to: HOA DOWNING MD ? Final Pathologic Diagnosis: COLON, ASCENDING, BIOPSY: - Colonic mucosa with no specific pathologic features. - Deeper levels are examined. Document reviewed and electronically signed by: SHAMA RODRIGUEZ MD Report ??Date: 08/27/2014 11:52 By the signature above, the attending physician certifies th at he/she has personally conducted a gross and/or microscopic examin ation of the described specimens and rendered or confirmed the above diagnosis. Specimen(s) Received: Bx ascending colon Clinical History: Colorectal screen Gross Description: ? Received in formalin labelled with proper patient identification (initials J, P) and bx ascending colo n is a single pink-ndiaye tissue fragment (0.3 x 0.3 x 0.2 cm). Submitted intact in 1. Nahomy Esquivel 08/26/2014 08:04 AM End of Report Specimen Anatomical Collection Method Collection Time Receive d Time (Source) Location / / Volume Laterality 08/25/2014 16:27 08/25/2014 EDT 16:27 EDT Dave Garg MD PATHOLOGY ORDERABLES Performing Organization Address City/State/ZIP Code Phon e Number [facility] [address] [place] [address] SERVICES [facility] [address] [place] [address] documented in this encounter Visit Diagnoses Not on filedocumented in this encounter Care Teams Aviation Project Manager Relationship Specialty Start Date End Date Hoa Downing MD PCP - General 05/20/[address] [place] [address] [address] [place], [place] [id number] documented as of this encounter
--- OUTSIDE RECORDS SUMMARY | 2022-09-30 02:12 | XMS_ITS | Encounter Summary ---
:1960 Author Organization [facility] Address [address] [place] [address] Care Team Providers Name Role Phone Hoa Perez MD Primary Care Provider Encounter Details Date Type Department Care Team Description 05/20/2013 Results Only Imaging [facility]- Unknown, PRISM Provider, Social History Tobacco Use Types Packs/Day Years Used Date Smoking Tobacco: Never Assessed Sex Assigned at Date Recorded Not on file documented as of this encounter Plan of Treatment Pending Results Name Type Priority Associated Diagnoses Date/Ti me OUTSIDE IMAGES - CT BODY Imaging 11:01 EDT documented as of this encounter Visit Diagnoses Not on filedocumented in this encounter Care Teams Sheet Metal Assembler And Riveter Relationship Specialty Start Date End Date Hoa Perez MD PCP - General 05/20/[address] [place] [address] [place] [address] documented as of this encounter
--- OUTSIDE RECORDS SUMMARY | 2022-09-30 02:12 | XMS_ITS | Encounter Summary ---
:1960 Author Organization [facility] Address [address] [place] [address] Care Team Providers Name Role Phone Hoa Perez MD Primary Care Provider Encounter Details Date Type Department Care Team Description 07/25/2019 Results Only [facility]- Meagan Sotelo, [facility] [phone] [facility] [facility] [place] [address] (Wo rk) Social History Tobacco Use Types Packs/Day Years Used Date Smoking Tobacco: Never Assessed Sex Assigned at Date Recorded Not on file documented as of this encounter Plan of Treatment Not on filedocumented as of this encounter Procedures Procedure Name Priority Date/Time Associated Diagnosis Comme nts PAP TEST- RESULT Routine 07/25/2019 0:00 EDT Resu lts for this ONLY procedure are i n the results section. documented in this encounter Results PAP TEST- RESULT ONLY (07/25/2019 0:00 EDT) Component Value Ref Test Analysis Performed At [facility] Method Time Signature Pathology CYTOPATHOLOGY REPORT [facility] Report: CENTER Reports generated via electronic interface contain origina l data; LABORATORY however they are lacking the format of the original report. SERVICES Caution should be taken when reading/interpreting unformatte d reports. Name: ? YUDITH HARRISON ? Accession #: ? [id number] ? : ? 1960 (Age: 59 ) ??F ?Collect Date: ? 07/25/2019 ? Location: ? [facility] ? Receive Date: ? 07/26/2019 ? Provider: MEAGAN GIVENS Copy to: CHI LEE MD ? Final Report SPECIMEN ADEQUACY ? Satisfactory for Evaluation - assessment of transformation zone component not appl icable ( e.g. atrophy, vaginal sample, hysterectomy) GENERAL CATEGORIZATION ? Negative for Intraepithelial Lesion or Malignancy ?? Other: Additional clinical information: On femara Specimen/Source: ??Pap Test, Cervix, ThinPrep Imaging System with manual evaluation Document reviewed and electronically signed by: ? GINGER Pineda(ASCP) ? Report ??Date: 07/29/2019 10:14 HPV with Pap Test ? Date Ordered: ? 07/29/2019 ? Status: ?? Signed Out ?Date Complete: ? 07/30/2019 ? By: ??System I nterface ? Date Reported: ? 07/30/2019 ? Interpretation RESULT: Negative for HPV. No E6 or E7 mRNA is detected from HPV types 16,18,31,33,35, 39,45,51,52,56,58,59,66, and 68 by counter server mediated amplification. Comments Document reviewed and electronically signed by: ? System Interface ? Report date: 07/30/2019 By the signature above, the attending physician certifies th at he/she has personally conducted a gross and/or microscopic examin ation of the described specimens and rendered or confirmed the above diagnosis. End of Report Specimen (Source) Anatomical Location Collection Method / Collectio n Time Received Time / Laterality Volume 07/25/2019 07/26/2019 Meagan E Donell TROMPER PATHOLOGY ORDERABLES Performing Organization Address City/State/ZIP Code Phon e Number [facility] [address] [place] [address] SERVICES documented in this encounter Visit Diagnoses Not on filedocumented in this encounter Care Teams Hotel Engineer Relationship Specialty Start Date End Date Hoa Perez MD PCP - General 05/20/[address] [place] [address] [address] [place], [place] [phone] documented as of this encounter
--- OUTSIDE RECORDS SUMMARY | 2022-09-30 02:12 | XMS_ITS | Encounter Summary ---
:[address] [facility] Address [address] [place] [address] Care Team Providers Name Role Phone Hoa Perez MD Primary Care Provider Encounter Details Date Type Department Care Team Description 08/25/2014 Hospital Encounter [facility]- Soraya Unknown, Provider, [facility] [address] [facility] [phone] [place] [address] (Work) [phone] Social History Tobacco Use Types Packs/Day Years Used Date Smoking Tobacco: Never Assessed Sex Assigned at Date Recorded Not on file documented as of this encounter Discharge Disposition Disposition Code Departure Means Destination Home or Self [place] documented in this encounter Plan of Treatment Not on filedocumented as of this encounter Visit Diagnoses Not on filedocumented in this encounter Care Teams Manager Surgical Relationship Specialty Start Date End Date Hoa Perez MD PCP - General 05/20/[address] [place] [address] [place] [address] documented as of this encounter
--- OUTSIDE RECORDS SUMMARY | 2022-09-30 02:12 | XMS_ITS | Encounter Summary ---
:1960 Author Organization [facility] Address [address] [place] [address] Care Team Providers Name Role Phone Hoa Perez MD Primary Care Provider Encounter Details Date Type Department Care Team Description 12/13/2021 Lab Requisition [facility] Outr Resulting Lab, Pathology & Laboratory Provider [facility] [address] [place], [place] [address] Social History Tobacco Use Types Packs/Day Years Used Date Smoking Tobacco: Never Assessed Sex Assigned at Date Recorded Not on file documented as of this encounter Plan of Treatment Not on filedocumented as of this encounter Procedures Procedure Name Priority Date/Time Associated Diagnosis Comme nts HEPATITIS C AB W Routine 12/13/2021 9:00 EST Resu lts for this REFLEX TO HCV RNA procedure are in BY PCR the results section. documented in this encounter Results HEPATITIS C AB W REFLEX TO HCV RNA BY PCR (12/13/2021 9:00 EST) Analysis Performed At Patho logist Time Signature Hep C Antibody Negative Negative 12/14/2021 [facility] 10:58 EST CENTER LABORATORY SERVICES Specimen Anatomical Collection Method Collection Time Receive d Time (Source) Location / / Volume Laterality Blood VENOUS BLOOD / 12/13/2021 9:00 12/13/2021 Unknown EST 22:13 EST Provider Outr Resulting Lab CHEMISTRY & BLOOD GAS VINCENT MOREJON Performing Organization Address City/State/ZIP Code Phon e Number [facility] [address] [place] [address] SERVICES documented in this encounter Visit Diagnoses Not on filedocumented in this encounter Care Teams Varnishing Unit Operator Relationship Specialty Start Date End Date Hoa Perez MD PCP - General 05/20/[address] [place] [address] [place] [address] documented as of this encounter
--- OUTSIDE RECORDS SUMMARY | 2022-09-30 02:12 | XMS_ITS | Encounter Summary ---
:[address] [facility] Address [address] [place] [address] Care Team Providers Name Role Phone Unavailable Primary Care Provider Unavailable Encounter Details Date Type Department Care Team Description 05/14/2013 Results Only Imaging [facility]- CRISPIN Nettles MD [phone] [place] [phone] (Wo rk) Social History Tobacco Use Types Packs/Day Years Used Date Smoking Tobacco: Never Assessed Sex Assigned at Date Recorded Not on file documented as of this encounter Plan of Treatment Not on filedocumented as of this encounter Procedures Procedure Name Priority Date/Time Associated Diagnosis Comme nts SECONDARY READ 05/14/2013 9:54 EDT Result s for this CHEST CT procedure are i n the results section. documented in this encounter Results SECONDARY READ CHEST CT (05/14/2013 9:54 EDT) Anatomical Region Laterality Modality Other Specimen Anatomical Collection Method Collection Time Receive d Time (Source) Location / / Volume Laterality 05/14/2013 9:54 05/14/2013 EDT 10:31 EDT Narrative 05/14/2013 10:31 EDT SECONDARY READ CHEST CT ??05/14/2013 9:54 AM Signs and Symptoms/Comments: ??north cou ntry cd * 2nd read 01/21/13 ct chest Technique: A single breath-hold helical CT acquisit ion was performed through the chest on a multidetector-row scanner wit h a reconstructed slice thickness of 5 mm and retrospectively re constructed at contiguous intervals. ??The scans were obtained fro m the lung apices through the bases during the intravenous administrat ion of nonionic contrast. Scans were reviewed on a dedicated PACS workstation for analysis. Comparison: None. Findings: The evaluation of the chest wa ll demonstrates no obvious abnormalities. The heart and pericardium are unremarkable. There are no enlarged mediastinal or hilar lymph n odes identified. The mediastinal and hilar vasculature appear normal. There are no pleural abnormalities seen. The airways and lungs show bilateral ran domly scattered pulmonary nodules that range from 2 mm to 10 mm in diameter, the largest in the posterior basal segment of the right low er lobe of lung. A single calcified granuloma is visible within th e right upper lobe of lung. Impression 1. Multiple bilateral pulmonary nodules. Primary concerns are metastatic disease to the lungs. Evaluat ion for an obvious primary malignancy should ensue. ??Additional co nsiderations should include the residua of prior granulomatous infec tion. Uncommon conditions such as granulomatosis with polyangiitis , an initial presentation of rheumatoid arthritis with multiple pulmo nary nodules, and an unusual appearance for sarcoidosis would be janet tional considerations. In the absence of obvious primary malignancy, s erologic testing to exclude granulomatosis with polyangiitis and rhe umatoid arthritis would seem reasonable. If there is a high level con cern for malignancy, biopsy of the 10 mm right lower lobe nodule cou ld be performed for more definitive diagnosis. Alternatively, in the absence of constitutional symptoms and obvious primary malignancy, short-term followup examination in 3 months could be perform ed to determine if there is any interval change in the appearance of these lesions. Procedure Note 05/14/[address] 05/14/2013 9:54 A M Signs and Symptoms/Comments: north count ry cd * 2nd read 01/21/13 ct chest Technique: A single breath-hold helical CT acquisit ion was performed through the chest on a multidetector-row scanner wit h a reconstructed slice thickness of 5 mm and retrospectively re constructed at contiguous intervals. The scans were obtained from the lung apices through the bases during the intravenous administrat ion of nonionic contrast. Scans were reviewed on a dedicated PACS workstation for analysis. Comparison: None. Findings: The evaluation of the chest wa demonstrates no obvious abnormalities. The heart and pericardium are unremarkable. There are no enlarged mediastinal or hilar lymph n odes identified. The mediastinal and hilar vasculature appear normal. There are no pleural abnormalities seen. The airways and lungs show bilateral ran domly scattered pulmonary nodules that range from 2 mm to 10 mm in diameter, the largest in the posterior basal segment of the right low er lobe of lung. A single calcified granuloma is visible within th e right upper lobe of lung. Impression 1. Multiple bilateral pulmonary nodules. Primary concerns are metastatic disease to the lungs. Evaluat ion for an obvious primary malignancy should ensue. Additional cons iderations should include the residua of prior granulomatous infec tion. Uncommon conditions such as granulomatosis with polyangiitis , an initial presentation of rheumatoid arthritis with multiple pulmo nary nodules, and an unusual appearance for sarcoidosis would be janet tional considerations. In the absence of obvious primary malignancy, s erologic testing to exclude granulomatosis with polyangiitis and rhe umatoid arthritis would seem reasonable. If there is a high level con cern for malignancy, biopsy of the 10 mm right lower lobe nodule cou ld be performed for more definitive diagnosis. Alternatively, in the absence of constitutional symptoms and obvious primary malignancy, short-term followup examination in 3 months could be perform ed to determine if there is any interval change in the appearance of these lesions. Amie Nettles MD IMG OTHER IMAGING ORDERABLES documented in this encounter Visit Diagnoses Not on filedocumented in this encounter
--- OUTSIDE RECORDS SUMMARY | 2022-09-30 02:12 | XMS_ITS | Clinical Summary ---
:1960 Author Organization [facility] Address [address] [place] [address] Care Team Providers Name Role Phone Hoa Perez MD Primary Care Provider Social History Tobacco Use Types Packs/Day Years Used Date Smoking Tobacco: Never Assessed Sex Assigned at Date Recorded Not on file Plan of Treatment Health Maintenance Due Date Last Done Comments COVID-19 Vaccine (#1) 1960 Hepatitis C Screen Completed 12/13/2021 Care Teams International Flight Attendant Relationship Specialty Start Date End Date Hoa Perez MD PCP - General 05/20/[address] [place] [address] [address] [place], [place] [id number]
--- OUTSIDE RECORDS SUMMARY | 2022-09-30 02:12 | XMS_ITS | Encounter Summary ---
:1960 Author Organization [facility] Address [address] [place] [address] Care Team Providers Name Role Phone Hoa Perez MD Primary Care Provider Encounter Details Date Type Department Care Team Description 12/16/2016 Results Only [facility]- Meagan Sotelo, [facility] [phone] [facility] [facility] [place] [address] (Wo rk) Social History Tobacco Use Types Packs/Day Years Used Date Smoking Tobacco: Never Assessed Sex Assigned at Date Recorded Not on file documented as of this encounter Plan of Treatment Not on filedocumented as of this encounter Procedures Procedure Name Priority Date/Time Associated Diagnosis Comme nts PAP TEST- RESULT Routine 12/16/2016 0:00 EST Resu lts for this ONLY procedure are i n the results section. documented in this encounter Results PAP TEST- RESULT ONLY (12/16/2016 0:00 EST) Component Value Ref Test Analysis Performed At [facility] Method Time Signature Pathology CYTOPATHOLOGY REPORT [facility] Report: CENTER Reports generated via electronic interface contain origina l data; LABORATORY however they are lacking the format of the original report. SERVICES Caution should be taken when reading/interpreting unformatte d reports. Name: ? YUDITH HARRISON ? Accession #: ? [id number] ? : ? 1960 (Age: 56 ) ??F ?Collect Date: ? 12/16/2016 ? Location: ? [facility] ? Receive Date: ? 12/19/2016 ? Provider: MEAGAN MARLEY COPPER MINER BLASTING Copy to: CHI LEE MD ? Final Report SPECIMEN ADEQUACY ? Satisfactory for Evaluation - assessment of transformation zone component not appl icable ( e.g. atrophy, vaginal sample, hysterectomy) - scant squamous epithelial component - obscuring contamination, possibly lubricant GENERAL CATEGORIZATION ? Negative for Intraepithelial Lesion or Malignancy ?? Last Menstrual Period: 2011 Hormonal/Contraceptive status: Yes: Femora, Prolia Other: Additional clinical information: S/P Br ca Specimen/Source: ??Pap Test, Cervix, ThinPrep Imaging System with manual evaluation Document reviewed and electronically signed by: ? Sakina Viramontes, CT(ASCP)(IAC) ? Report ??Date: 12/21/2016 16:50 HPV with Pap Test ? Date Ordered: ? 12/21/2016 ? Status: ?? Signed Out ?Date Complete: ? 12/23/2016 ? By: ??System I nterface ? Date Reported: ? 12/23/2016 ? Interpretation RESULT: Negative for HPV. No E6 or E7 mRNA is detected from HPV types 16,18,31,33,35, 39,45,51,52,56,58,59,66, and 68 by cisco network architect mediated amplification. Comments Document reviewed and electronically signed by: ? System Interface ? Report date: 12/23/2016 By the signature above, the attending physician certifies th at he/she has personally conducted a gross and/or microscopic examin ation of the described specimens and rendered or confirmed the above diagnosis. End of Report Specimen (Source) Anatomical Location Collection Method / Collectio n Time Received Time / Laterality Volume 12/16/2016 12/19/2016 Meagan Marley COPPER MINER BLASTING PATHOLOGY ORDERABLES Performing Organization Address City/State/ZIP Code Phon e Number [facility] [address] [place] [address] SERVICES documented in this encounter Visit Diagnoses Not on filedocumented in this encounter Care Teams Doll Eye Setter Relationship Specialty Start Date End Date Hoa Perez MD PCP - General 05/20/[address] [place] [address] [address] [place], [place] [address] documented as of this encounter
--- OUTSIDE RECORDS SUMMARY | 2022-09-30 02:13 | XMS_ITS | Encounter Summary ---
:1960 Author Organization [facility] Address [address] [place] [address] Care Team Providers Name Role Phone Unavailable Primary Care Provider Unavailable Encounter Details Date Type Department Care Team Description 01/29/2009 Before PRISM [facility] - Meagan Marley, Converted Visit Maple conversion SITE AUDITOR (Maple) [address] [place] [address] [place], [place] [phone] (Wo rk) Social History Tobacco Use Types Packs/Day Years Used Date Smoking Tobacco: Never Assessed Sex Assigned at Date Recorded Not on file documented as of this encounter Plan of Treatment Not on filedocumented as of this encounter Procedures Procedure Name Priority Date/Time Associated Comments Diagnosis HPV DETECTION, HIGH Routine 01/29/2009 11:19 Resu lts for this RISK TYPES EDT procedure are i n the results section. CYTOPATHOLOGY Routine 01/29/2009 0:00 Results for this EDT procedure are i n the results section. documented in this encounter Results HUMAN PAPILLOMA VIRUS DNA TEST (01/29/2009 11:19 EDT) [facility] Method Time Signature Specimen Cervix, IVORY Description ThinPrep [facility] vial Result Negative for [facility] HPV types [facility] 16, 18, 31, 33, 35, 39, 45, 51, 52, 56, 58, 59, and 68. Report Status Final [facility] 02/10/2009 [facility] Specimen Anatomical Collection Method Collection Time Receive d Time (Source) Location / / Volume Laterality 01/29/2009 11:19 02/04/2009 EDT 11:19 EDT Meagan Marley SITE AUDITOR MICROBIOLOGY - GENERAL ORDER MARIO Performing Organization Address City/State/ZIP Code Phon e Number [facility] [address] [place] [address] SERVICES [facility] [address] [place] [address] CYTOPATHOLOGY (01/29/2009 0:00 EDT) Component Value Ref Test Analysis Performed At [facility] gist Range Method Time Signature Pathology CYTOPATHOLOGY REPORT ? [facility] Report: ? [facility] Reports generated via electr onic interface contain original data; ? however they are lacking the format of the original report. ? Caution should be taken when reading/interpreting unformatted reports. ? Name: ? YUDITH HARRISON A ? Accession #: ? [id number] ? : ? 1960 (Age: 48) ??F ?Collect Date: ? 01/29/2009 ? Location: ? [facility] ? Receive Date: ? 02/02/2009 ? Provider: ?MEAGAN HAYG OOD SITE AUDITOR ? Copy to: ? Specimen/Source: ? Pap Test, Cervix/Endocervix, ThinPrep Imaging System ? with manual evaluation ? Last Menstrual Period: ? 3/20/09 ? Other: ? HPVDX - HPV testing requeste d regardless of diagnosis on current ThinPrep Pap ?? test. ? SPECIMEN ADEQUACY ? Satisfactory for Eval uation ? - transformation zone compon ent present ? GENERAL CATEGORIZATION ? Negative for Intraepi thelial Lesion or Malignancy ? Document reviewed and electr onically signed by: ? Lynan Edgar, CT(ASCP) ? Report Date: ??04/07/ 2009 16:24 ? End of Report ? Specimen (Source) Anatomical Location Collection Method / Collectio n Time Received Time / Laterality Volume 01/29/2009 02/02/2009 Meagan E Donell SITE AUDITOR PATHOLOGY ORDERABLES Performing Organization Address City/State/ZIP Code Phon e Number [facility] [address] [place] [address] SERVICES [facility] [address] [place] [address] documented in this encounter Visit Diagnoses Not on filedocumented in this encounter
--- OUTSIDE RECORDS SUMMARY | 2022-09-30 02:13 | XMS_ITS | Encounter Summary ---
:[address] [facility] Address [address] [place] [address] Care Team Providers Name Role Phone Unavailable Primary Care Provider Unavailable Encounter Details Date Type Department Care Team Description 11/08/2005 Results Only [facility] - Meagan Jaimes od, CAREGIVER SERVICES HOME conversion [address] [place] [phone] (Wo rk) Social History Tobacco Use Types Packs/Day Years Used Date Smoking Tobacco: Never Assessed Sex Assigned at Date Recorded Not on file documented as of this encounter Plan of Treatment Not on filedocumented as of this encounter Procedures Procedure Name Priority Date/Time Associated Diagnosis Comme nts CYTOPATHOLOGY Routine 11/08/2005 0:00 EST Results for this procedure are i n the results section . documented in this encounter Results CYTOPATHOLOGY (11/08/2005 0:00 EST) Component Value Ref Test Analysis Performed At [facility] Range Method Time Signature Pathology CYTOPATHOLOGY REPORT [facility] Report: [facility] Reports generated via electronic interface contain original data; however they are lacking the format of the original report. Caution should be taken when reading/interpreting unformatte d reports. Name: ? MARI HARRISON ? Accession #: ? [id number] : ? 1960 (Age: 45) ??F ?Collect Date: ? 11/08/2005 Location: ? [facility] ? Receive Date: ? 11/09/2005 Provider: ?MEAGAN MARLEY CAREGIVER SERVICES HOME Copy to: ? Specimen/Source: ? ThinPrep Pap Test, Cervix/Endocervix, processed on [employer] ThinPrep Imaging System, with manual evaluation Last Menstrual Period: ? 10/28/05 Other: ? HPVA - HPV testing requested if ASC-US on the current ThinPr ep Pap test. ? SPECIMEN ADEQUACY ? Satisfactory for Evaluation - transformation zone component present GENERAL CATEGORIZATION ? Negative for Intraepithelial Lesion or Malignancy ? Document reviewed and electronically signed by: ? GINGER De Anda(ASCP) ? Report Date: ??11/10/2005 12:51 End of Report Specimen (Source) Anatomical Location Collection Method / Collectio n Time Received Time / Laterality Volume 11/08/2005 11/09/2005 Meagan Marley CAREGIVER SERVICES HOME PATHOLOGY ORDERABLES Performing Organization Address City/State/ZIP Code Phon e Number [facility] [address] [place] [address] SERVICES [facility] [address] [place] [address] documented in this encounter Visit Diagnoses Not on filedocumented in this encounter
--- OUTSIDE RECORDS SUMMARY | 2022-09-30 02:13 | XMS_ITS | Encounter Summary ---
:1960 Author Organization [facility] Address [address] [place] [address] Care Team Providers Name Role Phone Unavailable Primary Care Provider Unavailable Encounter Details Date Type Department Care Team Description 11/03/2004 Results Only [facility] - Meagan Jaimes od, TIMBER CUTTER conversion [address] [place] [phone] (Wo rk) Social History Tobacco Use Types Packs/Day Years Used Date Smoking Tobacco: Never Assessed Sex Assigned at Date Recorded Not on file documented as of this encounter Plan of Treatment Not on filedocumented as of this encounter Procedures Procedure Name Priority Date/Time Associated Diagnosis Comme nts CYTOPATHOLOGY Routine 11/03/2004 0:00 EST Results for this procedure are i n the results section . documented in this encounter Results CYTOPATHOLOGY (11/03/2004 0:00 EST) Component Value Ref Test Analysis Performed At [facility] Range Method Time Signature Pathology CYTOPATHOLOGY REPORT [facility] Report: [facility] Reports generated via electronic interface contain original data; however they are lacking the format of the original report. Caution should be taken when reading/interpreting unformatte d reports. Name: ? MARI HARRISON ? Accession #: ? [id number] : ? 1960 (Age: 44) ??F ?Collect Date: ? 11/03/2004 Location: ? [facility] ? Receive Date: ? 11/04/2004 Provider: ?MEAGAN MARLEY TIMBER CUTTER Copy to: ? Specimen/Source: ?ThinPrep Pap Test, Cervix/Endoce rvix Last Menstrual Period: ? 10/15/04 Other: ? HPVA - HPV testing requested if ASC-US on the current ThinPr ep Pap test. ? SPECIMEN ADEQUACY ? Satisfactory for Evaluation - transformation zone component present GENERAL CATEGORIZATION ? Negative for Intraepithelial Lesion or Malignancy ? Document reviewed and electronically signed by: ? Santana Hernández, CT(ASCP) ? Report Date: ??11/08/2004 11:52 End of Report Specimen (Source) Anatomical Location Collection Method / Collectio n Time Received Time / Laterality Volume 11/03/2004 11/04/2004 Meagan Marley TIMBER CUTTER PATHOLOGY ORDERABLES Performing Organization Address City/State/ZIP Code Phon e Number [facility] [address] [place] [address] SERVICES [facility] [address] [place] [address] documented in this encounter Visit Diagnoses Not on filedocumented in this encounter
--- OUTSIDE RECORDS SUMMARY | 2022-09-30 02:13 | XMS_ITS | Encounter Summary ---
:1960 Author Organization [facility] Address [address] [place] [address] Care Team Providers Name Role Phone Unavailable Primary Care Provider Unavailable Encounter Details Date Type Department Care Team Description 11/14/2006 Results Only [facility] - Meagan Jaimes od, SOFTWARE ENGINEER WEB SERVICES conversion [address] [place] [phone] (Wo rk) Social History Tobacco Use Types Packs/Day Years Used Date Smoking Tobacco: Never Assessed Sex Assigned at Date Recorded Not on file documented as of this encounter Plan of Treatment Not on filedocumented as of this encounter Procedures Procedure Name Priority Date/Time Associated Diagnosis Comme nts CYTOPATHOLOGY Routine 11/14/2006 0:00 EST Results for this procedure are i n the results section . documented in this encounter Results CYTOPATHOLOGY (11/14/2006 0:00 EST) Component Value Ref Test Analysis Performed At [facility] Range Method Time Signature Pathology CYTOPATHOLOGY REPORT [facility] Report: [facility] Reports generated via electronic interface contain original data; however they are lacking the format of the original report. Caution should be taken when reading/interpreting unformatte d reports. Name: ? MARI HARRISON ? Accession #: ? [id number] : ? 1960 (Age: 46) ??F ?Collect Date: ? 11/14/2006 Location: ? [facility] ? Receive Date: ? 11/15/2006 Provider: ?MEAGAN MARLEY SOFTWARE ENGINEER WEB SERVICES Copy to: ? Specimen/Source: ? ThinPrep Pap Test, Cervix/Endocervix, processed on [employer] ThinPrep Imaging System, with manual evaluation Last Menstrual Period: ? 10/21/06 Other: ? HPVA - HPV testing requested if ASC-US on the current ThinPr ep Pap test. ? SPECIMEN ADEQUACY ? Satisfactory for Evaluation - transformation zone component present GENERAL CATEGORIZATION ? Negative for Intraepithelial Lesion or Malignancy ? Document reviewed and electronically signed by: ? GINGER Pineda(ASCP) ? Report Date: ??11/16/2006 09:58 End of Report Specimen (Source) Anatomical Location Collection Method / Collectio n Time Received Time / Laterality Volume 11/14/2006 11/15/2006 Meagan Marley SOFTWARE ENGINEER WEB SERVICES PATHOLOGY ORDERABLES Performing Organization Address City/State/ZIP Code Phon e Number [facility] [address] [place] [address] SERVICES [facility] [address] [place] [address] documented in this encounter Visit Diagnoses Not on filedocumented in this encounter
--- OUTSIDE RECORDS SUMMARY | 2022-09-30 02:13 | XMS_ITS | Encounter Summary ---
:1960 Author Organization [facility] Address [address] [place] [address] Care Team Providers Name Role Phone Unavailable Primary Care Provider Unavailable Encounter Details Date Type Department Care Team Description 07/16/2001 Results Only [facility] - Janice Cain NP conversion [address] [place] [address] Social History Tobacco Use Types Packs/Day Years Used Date Smoking Tobacco: Never Assessed Sex Assigned at Date Recorded Not on file documented as of this encounter Plan of Treatment Not on filedocumented as of this encounter Procedures Procedure Name Priority Date/Time Associated Diagnosis Comme nts CYTOPATHOLOGY Routine 07/16/2001 0:00 EDT Results for this procedure are i n the results section . documented in this encounter Results CYTOPATHOLOGY (07/16/2001 0:00 EDT) Component Value Ref Test Analysis Performed At [facility] Method Time Signature Pathology CYTOPATHOLOGY REPORT [facility] Report: [facility] Reports generated via electronic interface contain original data; however they are lacking the format of the original report. Caution should be taken when reading/interpreting unformatte d reports. Name: ? TANIKA HARRISON ? Accession #: ? [id number] : ? 1960 (Age: 41) ??F ?Collect Date: ? 07/16/2001 Location: ? [facility] ? Receive Date: ? 07/17/2001 Provider: ?JANICE VILLALTA NP Copy to: ? Specimen/Source: ?ThinPrep Pap Test, Cervix/Endoce rvix Last Menstrual Period: ? 07/02/01 ? SPECIMEN ADEQUACY ? Satisfactory for evaluation. GENERAL CATEGORIZATION ? Within Normal Limits ? Document reviewed and electronically signed by: ? Neal Turner, GINGER(ASCP) ? Report Date: ??07/19/2001 07:40 End of Report Specimen (Source) Anatomical Location Collection Method / Collectio n Time Received Time / Laterality Volume 07/16/2001 07/17/2001 Janice Villalta NP PATHOLOGY ORDERABLES Performing Organization Address City/State/ZIP Code Phon e Number [facility] [address] [place] [address] SERVICES [facility] [address] [place] [address] documented in this encounter Visit Diagnoses Not on filedocumented in this encounter
--- OUTSIDE RECORDS SUMMARY | 2022-09-30 02:13 | XMS_ITS | Encounter Summary ---
:1960 Author Organization [facility] Address [address] [place] [address] Care Team Providers Name Role Phone Unavailable Primary Care Provider Unavailable Encounter Details Date Type Department Care Team Description 10/16/2003 Results Only [facility] - Janice Cain NP conversion [address] [place] [address] Social History Tobacco Use Types Packs/Day Years Used Date Smoking Tobacco: Never Assessed Sex Assigned at Date Recorded Not on file documented as of this encounter Plan of Treatment Not on filedocumented as of this encounter Procedures Procedure Name Priority Date/Time Associated Diagnosis Comme nts CYTOPATHOLOGY Routine 10/16/2003 0:00 EST Results for this procedure are i n the results section . documented in this encounter Results CYTOPATHOLOGY (10/16/2003 0:00 EST) Component Value Ref Test Analysis Performed At [facility] Method Time [facility] Pathology CYTOPATHOLOGY REPORT [facility] Report: [facility] Reports generated via electronic interface contain original data; however they are lacking the format of the original report. Caution should be taken when reading/interpreting unformatte d reports. Name: ? TANIKA HARRISON ? Accession #: ? [id number] : ? 1960 (Age: 43) ??F ?Collect Date: ? 10/16/2003 Location: ? [facility] ? Receive Date: ? 10/21/2003 Provider: ?JANICE M BRANDON DYEING MACHINE TENDER Copy to: ? Specimen/Source: ?ThinPrep Pap Test, Cervix/Endoce rvix Last Menstrual Period: ? 09/27/03 ? SPECIMEN ADEQUACY ? Satisfactory for Evaluation - transformation zone component present GENERAL CATEGORIZATION ? Negative for Intraepithelial Lesion or Malignancy ? Document reviewed and electronically signed by: ? Hoa Graham, SCT(ASCP) ? Report Date: ??10/27/2003 10:51 End of Report Specimen (Source) Anatomical Location Collection Method / Collectio n Time Received Time / Laterality Volume 10/16/2003 10/21/2003 Janice Villalta NP PATHOLOGY ORDERABLES Performing Organization Address City/State/ZIP Code Phon e Number [facility] [address] [place] [address] SERVICES [facility] [address] [place] [address] documented in this encounter Visit Diagnoses Not on filedocumented in this encounter
--- OUTSIDE RECORDS SUMMARY | 2022-09-30 02:13 | XMS_ITS | Encounter Summary ---
:1960 Author Organization [facility] Address [address] [place] [address] Care Team Providers Name Role Phone Unavailable Primary Care Provider Unavailable Encounter Details Date Type Department Care Team Description 05/10/2013 Results Only [facility]- Unknown, PRISM Provider, Social History Tobacco Use Types Packs/Day Years Used Date Smoking Tobacco: Never Assessed Sex Assigned at Date Recorded Not on file documented as of this encounter Plan of Treatment Pending Results Name Type Priority Associated Diagnoses Date/Ti me OUTSIDE IMAGES - CT BODY Imaging 09/2013 7:57 EDT documented as of this encounter Visit Diagnoses Not on filedocumented in this encounter
--- OUTSIDE RECORDS SUMMARY | 2022-09-30 02:13 | XMS_ITS | Encounter Summary ---
:1960 Author Organization [facility] Address [address] [place] [address] Care Team Providers Name Role Phone Unavailable Primary Care Provider Unavailable Encounter Details Date Type Department Care Team Description 01/10/2008 Results Only [facility] - Meagan Jaimes od, CORRECTIONAL PROBATION OFFICER conversion [address] [place] [phone] (Wo rk) Social History Tobacco Use Types Packs/Day Years Used Date Smoking Tobacco: Never Assessed Sex Assigned at Date Recorded Not on file documented as of this encounter Plan of Treatment Not on filedocumented as of this encounter Procedures Procedure Name Priority Date/Time Associated Diagnosis Comme nts CYTOPATHOLOGY Routine 01/10/2008 0:00 EDT Results for this procedure are i n the results section . documented in this encounter Results CYTOPATHOLOGY (01/10/2008 0:00 EDT) Component Value Ref Test Analysis Performed At [facility] Range Method Time Signature Pathology CYTOPATHOLOGY REPORT [facility] Report: [facility] Reports generated via electronic interface contain original data; however they are lacking the format of the original report. Caution should be taken when reading/interpreting unformatte d reports. Name: ? MARI HARRISON ? Accession #: ? [id number] : ? 1960 (Age: 47) ??F ?Collect Date: ? 01/10/2008 Location: ? [facility] ? Receive Date: ? 01/11/2008 Provider: ?MEAGAN MARLEY CORRECTIONAL PROBATION OFFICER Copy to: ? Specimen/Source: ? ThinPrep Pap Test, Cervix/Endocervix, processed on [employer] ThinPrep Imaging System, with manual evaluation Last Menstrual Period: ? 12/23/07 Other: ? HPVA - HPV testing requested if ASC-US on the current ThinPr ep Pap test. ? SPECIMEN ADEQUACY ? Satisfactory for Evaluation - transformation zone component present GENERAL CATEGORIZATION ? Negative for Intraepithelial Lesion or Malignancy ? Document reviewed and electronically signed by: ? Hoa Graham, [facility](ASCP) ? Report Date: ??01/16/2008 16:15 End of Report Specimen (Source) Anatomical Location Collection Method / Collectio n Time Received Time / Laterality Volume 01/10/2008 01/11/2008 Meagan Marley CORRECTIONAL PROBATION OFFICER PATHOLOGY ORDERABLES Performing Organization Address City/State/ZIP Code Phon e Number [facility] [address] [place] [address] SERVICES [facility] [address] [place] [address] documented in this encounter Visit Diagnoses Not on filedocumented in this encounter
[2022-09-30 13:00] LABS: ALT 34 U/L (14-59); Anion Gap 6.5 mmol/L (3-11); BUN 17 mg/dL (7-18); CO2 31.5 mmol/L (21.0-32.0); CREATININE 0.9 mg/dL (0.55-1.02); Calcium 9.2 mg/dL (8.5-10.1); Calculated LDL 106 mg/dL (<100); Chloride 102 mmol/L (98-107); Cholesterol 213 mg/dL (<200); Estimated GFR 71.39 (mL/min/1.73m2); Glucose 89 mg/dL (74-106); HDL Cholesterol 91 mg/dL (40-60); Potassium 4.3 mmol/L (3.5-5.1); Sodium 140 mmol/L (136-145); Triglyceride 80 mg/dL (<150)
== END 2022-09-30 02:07 | disposition home or self-care (01) ==
LOC: LOS 02:06
PROVIDERS: PCP Nurse Practitioner Family; Visit Provider Family Medicine
DX: E78.5 Hyperlipidemia, unspecified (principal)
CPT/HCPCS: 36415; 80048; 80061; 84460

== ENCOUNTER 2022-12-12 15:36 | Outpatient (REF) | payer BC, SELFPAY ==
[2022-12-12 16:03] LABS: HCT 43.7 % (36.0-46.0); HGB 13.5 g/dL (11.2-15.7); MCH 27.3 pg (27.0-33.0); MCHC 30.9 % (32.0-36.0); MCV 89 fL (80-95); MPV 11.5 fL (8.0-11.0); Platelet Count 214 10^3/uL (130-400); RBC 4.94 10^6/uL (3.93-5.22); RDW 13.6 % (11.7-14.6); WBC 6.09 10^3/uL (4.4-10.8)
[2022-12-12 16:39] LABS: ALT 27 U/L (14-59); AST 28 U/L (15-37); Albumin 3.9 g/dL (3.4-5.0); Alkaline Phosphatase 171 U/L (46-116); Anion Gap 5.6 mmol/L (3-11); BUN 18 mg/dL (7-18); Bilirubin, Total 0.7 mg/dL (0.2-1.0); CO2 30.4 mmol/L (21.0-32.0); CREATININE 0.8 mg/dL (0.55-1.02); Calcium 9.3 mg/dL (8.5-10.1); Calculated LDL 135 mg/dL (<100); Chloride 104 mmol/L (98-107); Cholesterol 231 mg/dL (<200); Estimated GFR 82.23 (mL/min/1.73m2); Ferritin 47 ng/mL (8-252); Glucose 93 mg/dL (74-106); HDL Cholesterol 80 mg/dL (40-60); Potassium 4.1 mmol/L (3.5-5.1); Sodium 140 mmol/L (136-145); Total Protein 7.1 g/dL (6.4-8.2); Triglyceride 83 mg/dL (<150)
== END 2022-12-12 15:37 | disposition home or self-care (01) ==
LOC: LBN 15:36
PROVIDERS: PCP Nurse Practitioner Family; Visit Provider Nurse Practitioner Family
DX: G25.81 Restless legs syndrome (principal); E78.5 Hyperlipidemia, unspecified; K21.9 Gastro-esophageal reflux disease without esophagitis; R71.8 Other abnormality of red blood cells
CPT/HCPCS: 80053; 80061; 85027; 82728

== ENCOUNTER 2023-12-01 02:32 | Outpatient (CLI) | payer BC, SELFPAY ==
[2023-12-01 12:39] LABS: ALT 23 U/L (14-59); AST 24 U/L (15-37); Albumin 3.5 g/dL (3.4-5.0); Alkaline Phosphatase 158 U/L (46-116); Anion Gap 8.8 mmol/L (3-11); BUN 16 mg/dL (7-18); Bilirubin, Total 0.8 mg/dL (0.2-1.0); CO2 28.2 mmol/L (21.0-32.0); CREATININE 0.9 mg/dL (0.55-1.02); Calcium 9.3 mg/dL (8.5-10.1); Calculated LDL 117 mg/dL (<100); Chloride 105 mmol/L (98-107); Cholesterol 211 mg/dL (<200); Estimated GFR 70.95 (mL/min/1.73m2); Glucose 89 mg/dL (74-106); HDL Cholesterol 76 mg/dL (40-60); Potassium 3.9 mmol/L (3.5-5.1); Sodium 142 mmol/L (136-145); Total Protein 7.5 g/dL (6.4-8.2); Triglyceride 90 mg/dL (<150)
== END 2023-12-01 02:33 | disposition home or self-care (01) ==
LOC: LOS 02:32
PROVIDERS: PCP Nurse Practitioner Family; Visit Provider Nurse Practitioner Family
DX: E78.5 Hyperlipidemia, unspecified (principal)
CPT/HCPCS: 36415; 80053; 80061

== ENCOUNTER 2024-01-29 10:43 | Outpatient (REF) | payer BC, SELFPAY ==
[2024-01-29 15:43] LABS: Bilirubin Negative (Negative); Blood Trace-lysed (Negative); Clarity Clear (Clear); Glucose Negative (Negative); Ketones Negative (Negative); Leukocyte Esterase Negative (Negative); Nitrite Negative (Negative); Urobilinogen 0.2 mg/dL (Up to 0.2)
[2024-01-29 15:54] LABS: Bacteria Negative HPF (Negative); C & S Indicated? C&S Done As Ordered; Crystals Negative HPF (Negative); Epithelial Cells Rare HPF (Negative); Mucus Trace (Negative); RBC 0-2 HPF (0-2); WBC Negative HPF (0-5)
== END 2024-01-29 10:44 | disposition home or self-care (01) ==
LOC: LBN 10:43
PROVIDERS: PCP Nurse Practitioner Family; Visit Provider Nurse Practitioner Family
DX: R10.30 Lower abdominal pain, unspecified (principal); N39.0 Urinary tract infection, site not specified
CPT/HCPCS: 81003; 81015; 87086

== ENCOUNTER 2024-04-25 15:50 | Outpatient (REF) | payer BC, SELFPAY ==
--- NOTE | 2024-04-25 15:30 | PAPFT_PTH ---
PATIENT: Tanika Harrison LOC: [facility] U#:[id number] AGE/SX: 64/F ROOM: RE04/25/[address]: Amber Hoang DO : 1960 BED: DIS: 04/25/2024 SPEC #: [id number] RECD: 04/25/24 18:18 STATUS: TAMEKA REQ #: [id number] JANINE: 04/25/24 15:[address]: Amber Hoang DEPT: [facility] Cytology RECD BY: Shruthi Keating ENTERED: 04/25/24 18:18 SP TYPE: PAPFT OTHR DR: Garth Nichole DNP Tissues: 1 - CX/ENDOCX FOR PAP SMEARS Procedures: PAP THIN PREP/[facility] Screening HPV DNA PROBE Comments: [id number] (HPV 16 & 18/45)
== END 2024-04-25 15:51 | disposition home or self-care (01) ==
LOC: LBN 15:50
PROVIDERS: PCP Nurse Practitioner Family; Visit Provider Obstetrics & Gynecology
DX: Z01.419 Encounter for gynecological examination (general) (routine) without abnormal findings (principal); Z85.3 Personal history of malignant neoplasm of breast
CPT/HCPCS: 88142; 87624

== ENCOUNTER 2025-01-15 21:48 | Outpatient (REF) | payer BC, SELFPAY ==
[2025-01-15 22:21] LABS: ALT 25 U/L (14-59); AST 26 U/L (15-37); Albumin 4.1 g/dL (3.4-5.0); Alkaline Phosphatase 174 U/L (46-116); Anion Gap 6.6 mmol/L (3-11); BUN 12 mg/dL (7-18); Bilirubin, Total 0.9 mg/dL (0.2-1.0); CO2 31.4 mmol/L (21.0-32.0); Calcium 9.2 mg/dL (8.5-10.1); Calculated LDL 116 mg/dL (<100); Chloride 106 mmol/L (98-107); Cholesterol 222 mg/dL (<200); Estimated GFR 62.13 (mL/min/1.73m2); Glucose 81 mg/dL (74-106); HDL Cholesterol 89 mg/dL (>or=50); Potassium 4.7 mmol/L (3.5-5.1); Sodium 144 mmol/L (136-145); Total Protein 7.5 g/dL (6.4-8.2); Triglyceride 89 mg/dL (<150)
[2025-01-16 19:36] LABS: HBs Antibody, Quant <3.1 mIU/mL (See Note); Hep B Surface Ab Negative (See Note); Hepatitis B Core Antibody Negative (Negative); Hepatitis B Surface Antigen Negative (Negative)
== END 2025-01-15 21:49 | disposition home or self-care (01) ==
LOC: LBN 21:48
PROVIDERS: PCP Nurse Practitioner Family; Visit Provider Nurse Practitioner Family
DX: E78.5 Hyperlipidemia, unspecified (principal); Z11.59 Encounter for screening for other viral diseases; Z78.0 Asymptomatic menopausal state; N20.0 Calculus of kidney
CPT/HCPCS: 80053; 80061; 86704; 86706; 87340

== ENCOUNTER 2025-03-13 01:11 | Outpatient (CLI) | payer BC, SELFPAY ==
--- NOTE | 2025-03-13 08:15 | DI.DEXA_ITS ---
Exam(s) XR DEXA BONE DENSITY W/WO DARIEL EXAM: XR DEXA BONE DENSITY W/WO DARIEL CLINICAL HISTORY: osteopenia Z78.0 ASYMPTOMATIC MENOPAUSAL STATE TECHNIQUE: Routine DEXA evaluation of the lumbar spine, hip, or forearm. COMPARISON: DXA CENT SPINE HIP AND OR WB from 02/21/2023 FINDINGS: Performed on a Hologic unit. Lateral image: No compression fracture evident. Lumbar Spine total T-score: -1.6. osteopenia range. Prior reading in January 2023 was -1.1 Hip total T-score:-1.1. Prior reading in January 2023 was -0.7 Independent reading at the level of the femoral neck yields T-score of -2.8. Which is in the osteop orosis range. Prior reading at the femoral neck level was -2.3 in January 2023. Forearm total T-score: -2.3 which is in osteopenia range IMPRESSION: Bone mineral density measures in the osteoporosis range at the level the femoral neck.. Therefore, f racture risk is high.. Note: Any spine fracture indicates 5x risk for subsequent spine fracture and 2x risk for subsequent h ip fracture. World Health Organization criteria for BMD interpretation classify patients: Normal...... T- Score at or above -1.0 Osteopenic... T- Score between -1.0 and -2.5 Osteoporosis... T-Score at or below -2.5
== END 2025-03-13 01:31 ==
LOC: DI 01:11
PROVIDERS: PCP Nurse Practitioner Family; Visit Provider Nurse Practitioner Family
DX: Z78.0 Asymptomatic menopausal state (principal); M81.0 Age-related osteoporosis without current pathological fracture
CPT/HCPCS: 77080